=== PATIENT | female | born 1940 | race Caucasian/White ===

== ENCOUNTER 2017-05-09 17:38 | Inpatient (IN) | payer OTHER ==
[~2017-05-09] VITALS: Ht 154.9 cm; Wt 103.4 kg
[~2017-05-09 17:38] MED LIST: CHOL100041 PO; GLIP10TA9 PO; INSDGI SC; METO25TA56 PO; ONDA4TAB7 SL; PANT1TAB48 PO; POTA1080 PO; ROSU5TAB PO; TRAM-10 PO; WARF5TAB90 PO
[2017-05-09] MEDS ORDERED: SODIUM CHLORIDE 0.9% 1000ML 1,000 ML IV STA ×2 (17:42→18:24)
[2017-05-09] MEDS ORDERED: NovoLIN-R INSULIN PER UNIT CHARGE ONE (18:09)
[2017-05-09] MEDS ORDERED: SODIUM BICARB 8.4% INJ 50 MEQ/50 ML SYR IV ONE (18:10)
[2017-05-09] MEDS ORDERED: CALCIUM GLUCONATE 10% 10 ML VIAL IV ONE (18:11)
[2017-05-09 18:16] LABS: ISTAT CREATININE 3.6 mg/dl (0.6-1.3); ISTAT HEMOGLOBIN 15.3 g/dl (12.0-16.0); ISTAT IONIZED CALCIUM 0.86 mmol/l (1.12-1.32)
[2017-05-09] MEDS ORDERED: CEFEPIME IV 1,000 MG in DEXTROSE 5% 100ML 100 ML IV STA (18:20)
[2017-05-09] MEDS ORDERED: VANCOMYCIN INJ 2,000 MG in SODIUM CHLORIDE 0.9% 250ML 250 ML IV STA (18:20)
[2017-05-09] MEDS ORDERED: SODIUM BICARB 8.4% INJ 50 MEQ/50 ML SYR IV STA (18:20)
[2017-05-09] MEDS ORDERED: CALCIUM GLUCONATE 10% 10 ML VIAL IV STA (18:22)
[2017-05-09] MEDS ORDERED: NovoLIN-R INSULIN PER UNIT CHARGE IV STA ×2 (18:22→19:23)
[2017-05-09] MEDS ORDERED: SODIUM CHLORIDE 0.9% 1000ML 2,000 ML IV STA (18:24)
[2017-05-09 18:37] LABS: HEMATOCRIT 40.3 % (37-47); MEAN CELL VOLUME 90.4 fL (80-100); MEAN CORPUSCULAR HEMOGLOBIN 31.6 pg (25-34); MEAN PLATELET VOLUME 10.5 fL (7.4-10.4); PLATELET COUNT 339 K/uL (130-400); RED BLOOD COUNT 4.46 M/uL (4.2-5.4); WHITE BLOOD COUNT 25.36 K/uL (4.8-10.8)
[2017-05-09] MEDS ORDERED: INSULIN IV INFUSION PROTOCOL STA (18:42)
[2017-05-09] MEDS ORDERED: INSULIN PROTOCOL GOAL RANGE ONE ×2 (18:45→21:30)
[2017-05-09] MEDS ORDERED: SEVERE STRESS LEVEL ONE (18:45)
[2017-05-09 18:46] LABS: INR 3.2 (0.9-1.1); PROTHROMBIN TIME (PATIENT) 36.2 SECONDS (9.0-12.0)
[2017-05-09 18:50] LABS: ALLEN TEST POS (POS); ARTERIAL BLD GAS O2 SATURATION 97.4 % (90-95); ARTERIAL BLOOD GAS BASE EXCESS -6.3 mEq/L (-9-1.8); ARTERIAL BLOOD GAS HCO3 17 mmol/L (19-24); ARTERIAL BLOOD GAS PO2 102 mm/Hg (80-95); ARTERIAL BLOOD GAS pH 7.41 (7.35-7.45); O2 ADMINISTRATION 4 L
[2017-05-09 18:54] LABS: MANUAL MICROSCOPIC REQUIRED? YES; URINE APPEARANCE TURBID (CLEAR); URINE COLOR BROWN; URINE NITRITE NEG (NEG); URINE PH 5.5 (4.5-7.5); URINE SPECIFIC GRAVITY 1.025 (1.000-1.030); UROBILINOGEN NEG (NEG)
[2017-05-09] MEDS ORDERED: VANCOMYCIN INJ 2,000 MG in SODIUM CHLORIDE 0.9% 500ML 500 ML IV STA (18:55)
[2017-05-09] MEDS ORDERED: INSULIN ASPART 100 UNITS/ML 3 ML PEN SC SCH (19:00)
[2017-05-09 19:07] LABS: REVIEW REQ? NO; URINE BILIRUBIN NEG (NEG)
[2017-05-09 19:08] LABS: URINE RBC >30 /hpf (0-4); URINE WBC >30 /hpf (0-5)
[2017-05-09 19:09] LABS: URINE BACTERIA 4+ (NEG); URINE GRANULAR CAST >30 /lpf (0); ZZUR CULT IF INDIC CLEAN CATCH YES
[2017-05-09 19:10] LABS: BASO ABS # 0.01 K/uL (0-0.2); COMPLETE YES; IG% 0.5 %; LYMPH % 8.1 %; LYMPH ABS # 2.06 K/uL (1.2-3.4); MONO % 5.6 %; NEUT % 85.8 %
--- NOTE | 2017-05-09 19:12 | DIAGNOSTIC IMAGING REPORT ---
SINGLE VIEW CHEST CLINICAL HISTORY: Fever. Fall. FINDINGS: An AP, portable, upright chest radiograph is compared to study dated 01/07/2013 and correlated with chest CT dated 10/18/2012. The examination is degraded by portable technique and patient rotation. A right internal jugular central venous catheter is in place. The tip projects over the SVC. The heart is enlarged and there is atherosclerotic calcification of the thoracic aorta. The pulmonary vascular structures noncongested. Bibasilar atelectasis is observed. There is no airspace consolidation typical for pneumonia or large pleural effusion. No pneumothorax is seen. The skeletal structures are osteopenic. The bony thorax is grossly intact. Calcific tendinopathy is noted in the left shoulder. IMPRESSION: Cardiomegaly and bibasilar atelectasis. No acute cardiopulmonary abnormality is seen. Electronically signed by: Russell Salmeron M.D. 05/09/2017 7:10 PM Dictated Date/Time: 05/09/2017 7:09 PM
[2017-05-09] MEDS ORDERED: INSULIN REGULAR 250 UNITS in SODIUM CHLORIDE 0.9% 250ML 250 ML IV SCH (19:15)
[2017-05-09] MEDS ORDERED: GLUCAGON FOR INJ 1 MG VIAL SQ PRN (19:15)
[2017-05-09] MEDS ORDERED: DEXTROSE 50% 50 ML SYR IV PRN (19:15)
[2017-05-09] MEDS ORDERED: GLUCOSE 10 TABS/TUBE PO PRN (19:15)
[2017-05-09] MEDS ORDERED: GLUCOSE 40% GEL 15 GM TUBE PO PRN (19:15)
[2017-05-09 19:20] LABS: GLUCOSE 664 mg/dl (70-99)
[2017-05-09 19:23] LABS: BLOOD UREA NITROGEN 79 mg/dl (7-18)
[2017-05-09 19:24] LABS: ALT/SGPT 160 U/L (12-78); AST/SGOT 317 U/L (15-37); BUN/CREATININE RATIO 20.9 (10-20); CALCIUM 7.9 mg/dl (8.5-10.1); CARBON DIOXIDE 18 mmol/L (21-32); CHLORIDE 96 mmol/L (98-107); POTASSIUM 4.9 mmol/L (3.5-5.1); SODIUM 131 mmol/L (136-145)
[2017-05-09 19:25] LABS: ALKALINE PHOSPHATASE 128 U/L (45-117); MAGNESIUM 2.1 mg/dl (1.8-2.4)
[2017-05-09 19:36] LABS: BETA-HYDROXYBUTYRATE 25.91 mg/dL (0.2-2.81)
[2017-05-09] MEDS ORDERED: INSDGIPEN SC (19:37)
[2017-05-09] MEDS ORDERED: GLC/500 PO (19:37)
[2017-05-09] MEDS ORDERED: LISI-789 PO (19:37)
[2017-05-09] MEDS ORDERED: ALLO300T2 PO (19:37)
[2017-05-09] MEDS ORDERED: CALC600T24 PO (19:37)
--- NOTE | 2017-05-09 19:44 | DIAGNOSTIC IMAGING REPORT ---
CT SCAN OF THE BRAIN WITHOUT IV CONTRAST CLINICAL HISTORY: Fall. COMPARISON STUDY: CT of the brain dated 01/12/2013. TECHNIQUE: Unenhanced axial CT scan of the brain is performed from the vertex to the skull base. The patient was scanned twice due to motion artifact. CT DOSE: 2269.85 mGy.cm FINDINGS: Brain parenchyma: There are age-related involutional changes noting mild patchy subcortical and periventricular microangiopathic change. There is no hemorrhage, mass effect, or evidence of acute territorial ischemia by CT criteria. There is a chronic appearing lacunar infarct identified in the left caudate head. Ritter-white matter is preserved. No extra-axial fluid collection is seen. Ventricles, sulci, cisterns: Prominent secondary to involutional change. Intracranial vasculature: There is atherosclerotic calcification of the cavernous carotid arteries. Calvarium: The skeletal structures are osteopenic. There is no depressed calvarial fracture. Sinuses and mastoids: The visualized paranasal sinuses are clear. The mastoid air cells are well pneumatized. Orbits: The bony orbits are grossly intact. There are bilateral ocular lens implants. IMPRESSION: There is no hemorrhage, mass effect, or evidence of acute territorial ischemia by CT criteria. Electronically signed by: Russell Salmeron M.D. 05/09/2017 7:43 PM Dictated Date/Time: 05/09/2017 7:40 PM
--- NOTE | 2017-05-09 19:52 | DIAGNOSTIC IMAGING REPORT ---
CT SCAN OF THE CERVICAL SPINE CLINICAL HISTORY: Fall. COMPARISON STUDY: No priors. TECHNIQUE: CT scan of the cervical spine is performed from the skull base to the upper thoracic spine. Images are reviewed in the axial, sagittal, and coronal planes. IV contrast was not administered for this examination. A dose lowering technique was utilized adhering to the principles of ALARA. CT DOSE: Reported separately and the concurrently performed CT scan of the brain. FINDINGS: Skeletal structures: The skeletal structures are osteopenic. There is no evidence of fracture or subluxation involving the cervical spine. Vertebral body height is maintained. There is minimal anterolisthesis at C3-C4. Alignment is otherwise preserved. There is straightening of the cervical lordosis with mild reversal centered at C4. Anterior osteophytes are seen throughout. The odontoid process and lateral masses are intact. The atlantoaxial articulation is preserved noting productive degenerative change. The spinous processes appear intact. There is moderate multilevel cervical spondylosis. Uncovertebral and facet arthropathy contribute to multilevel neural foraminal stenosis. Intervertebral discs: Moderate disc space narrowing seen at C4-C5, C5-C6, and C6-C7. Central canal: Posterior disc osteophyte complexes at C4-C5, C5-C6, and C6-C7 likely contribute to acquired compromise of the central canal. Soft tissues: The prevertebral and paraspinous soft tissues are within normal limits. There is atherosclerotic calcification of the carotid bulbs. A right-sided central venous catheter is observed. There are numerous calcified tonsilliths. Calvarium: The visualized calvarium at the skull base appears intact. Brain parenchyma: Partially visualized brain parenchyma the skull base is within normal limits routine involutional change. Sinuses and mastoids: The visualized paranasal sinuses are clear. The mastoid air cells are well pneumatized. Lung apices: Clear as visualized. IMPRESSION: 1. There is no evidence of fracture or subluxation involving the cervical spine. 2. Osteopenia and spondylotic change as above. Electronically signed by: Russell Salmeron M.D. 05/09/2017 7:51 PM Dictated Date/Time: 05/09/2017 7:40 PM
[2017-05-09 20:00] LABS: CKMB/CK RATIO 0.4 (0-3.0)
[2017-05-09] MEDS ORDERED: [UNRECOGNIZED DRUG - OTHER] IV SCH (20:00)
[2017-05-09 20:20] LABS: BUN/CREATININE RATIO 22.1 (10-20); CALCIUM 7.4 mg/dl (8.5-10.1); CREATININE 3.3 mg/dl (0.60-1.20)
[2017-05-09 20:36] LABS: BETA-HYDROXYBUTYRATE 9.48 mg/dL (0.2-2.81)
--- NOTE | 2017-05-09 21:01 | EMERGENCY ROOM VISIT NOTE ---
History Report prepared by Gloibe: Christina Odonnell Under the Supervision of: Dr. Samuel Banegas D.O. First contact with patient: 17:42 Stated Complaint: FALL History of Present Illness The patient is a 77 year old female who presents to the Emergency Room by EMS with complaints of falling out of the shower 5 days ago. By EMS staff, the patient was found on the floor outside of her shower just prior to arrival by her grandson. The patient notes that she was getting out of the shower when she fell and hit her head. She notes that she slipped because it was wet. She had she was unable to get up. She is awake alert and oriented to person place and time. She states that she is a DO NOT RESUSCITATE/DO NOT INTUBATE. Per nursing note, the patient has hypertension, type 2 diabetes, hx of CVA, and dyslipidemia. Per daughter, the patient was recently in kidney failure. Source of History: patient History Limited By: other (patient's critical condition) Onset: 5 days ago Review of Systems ROS is limited due to the patient's critical condition. Past Medical & Surgical Medical Problems: (1) Acute renal failure syndrome (2) ARF (acute renal failure) (3) Calculus in urethra (4) Utknzft-Rtcqi-Tzkqp disease (5) Chronic kidney disease stage 3 (6) Diabetes mellitus type 2 (7) Essential hypertension (8) History of appendectomy (9) History of cholecystectomy (10) Hyperglycemic crisis in diabetes mellitus (11) Hysterectomy Family History no pertinent family history stated Social History Alcohol Use: none Drug Use: none Marital Status: Housing Status: lives with family Occupation Status: unemployed Current/Historical Medications Scheduled Allopurinol (Zyloprim), 300 MG PO DAILY Calcium W/ Vitamin D (Calcium/Vitamin D), 1 TAB PO DAILY Insulin Glargine (Lantus Solostar), 45 UNITS SC QAM Lisinopril (Zestril), 2.5 MG PO DAILY Metformin Hcl (Glucophage), 500 MG PO BID Metoprolol Tartrate (Lopressor) (Lopressor), 12.5 MG PO BID Pantoprazole (Protonix), 40 MG PO DAILY Warfarin Sodium (Coumadin), 5 MG PO DAILY Allergies Coded Allergies: Penicillins (Verified Allergy, Unknown, ., 05/09/17) NSAIDs (Verified Adverse Reaction, Unknown, KIDNEY ISSUES, 05/09/17) Physical Exam Vital Signs Date Time Temp Pulse Resp B/P (MAP) Pulse Ox O2 Delivery O2 Flow Rate FiO2 05/09/17 20:21 125 05/09/17 20:15 135/79 05/09/17 20:06 97 81 05/09/17 20:01 140/75 05/09/17 19:53 121 90 05/09/17 19:46 137/113 05/09/17 19:41 159/77 05/09/17 19:23 123 97 05/09/17 19:15 154/90 05/09/17 19:08 114 90 05/09/17 19:00 126/86 05/09/17 18:53 107 94 05/09/17 18:51 107 24 129/90 97 4.0 05/09/17 18:50 129/90 05/09/17 18:38 119 05/09/17 18:23 110 127/69 97 05/09/17 18:08 121 95 05/09/17 17:53 115 05/09/17 17:50 123 05/09/17 17:44 136/82 05/09/17 17:44 120 24 136/82 96 Nasal Cannula 4.0 Physical Exam GENERAL: Ill-appearing and in significant distress EYE EXAM: normal conjunctiva, PERRL and EOM's grossly intact OROPHARYNX: no exudate, no erythema, lips, buccal mucosa, and tongue normal and mucous membranes are dry NECK: supple, no nuchal rigidity, no adenopathy, non-tender CHEST: Necrotic skin breakdown under the right breast LUNGS: Coarse at bilateral bases. Normal chest wall mechanics HEART: tachycardic, positive S1, positive S2 ABDOMEN: abdomen soft, minimal, normo-active bowel sounds, no masses, no rebound or guarding. SKIN: Bruising on right hand, abrasions and ulcers to right lower extremity, anterior and posterior aspect, ulcer from mid thigh down to mid bonds, necrotic ulcer on right knee UPPER EXTREMITIES: Upper pain with movement of all extremities LOWER EXTREMITIES: No pitting edema. NEURO EXAM: Alert and oriented to person, place, year, president. Significant pain with movement of any extremity. Medical Decision & Procedures ER Provider Diagnostic Interpretation: Radiology results as stated below per my review and the radiologist's interpretation: SINGLE VIEW CHEST FINDINGS: An AP, portable, upright chest radiograph is compared to study dated 01/07/2013 and correlated with chest CT dated 10/18/2012. The examination is degraded by portable technique and patient rotation. A right internal jugular central venous catheter is in place. The tip projects over the SVC. The heart is enlarged and there is atherosclerotic calcification of the thoracic aorta. The pulmonary vascular structures noncongested. Bibasilar atelectasis is observed. There is no airspace consolidation typical for pneumonia or large pleural effusion. No pneumothorax is seen. The skeletal structures are osteopenic. The bony thorax is grossly intact. Calcific tendinopathy is noted in the left shoulder. IMPRESSION: Cardiomegaly and bibasilar atelectasis. No acute cardiopulmonary abnormality is seen. Electronically signed by: Russell Salmeron M.D. CT SCAN OF THE BRAIN WITHOUT IV CONTRAST FINDINGS: Brain parenchyma: There are age-related involutional changes noting mild patchy subcortical and periventricular microangiopathic change. There is no hemorrhage, mass effect, or evidence of acute territorial ischemia by CT criteria. There is a chronic appearing lacunar infarct identified in the left caudate head. Ritter-white matter is preserved. No extra-axial fluid collection is seen. Ventricles, sulci, cisterns: Prominent secondary to involutional change. Intracranial vasculature: There is atherosclerotic calcification of the cavernous carotid arteries. Calvarium: The skeletal structures are osteopenic. There is no depressed calvarial fracture. Sinuses and mastoids: The visualized paranasal sinuses are clear. The mastoid air cells are well pneumatized. Orbits: The bony orbits are grossly intact. There are bilateral ocular lens implants. IMPRESSION: There is no hemorrhage, mass effect, or evidence of acute territorial ischemia by CT criteria. Electronically signed by: Russell Salmeron M.D. CT SCAN OF THE CERVICAL SPINE FINDINGS: Skeletal structures: The skeletal structures are osteopenic. There is no evidence of fracture or subluxation involving the cervical spine. Vertebral body height is maintained. There is minimal anterolisthesis at C3-C4. Alignment is otherwise preserved. There is straightening of the cervical lordosis with mild reversal centered at C4. Anterior osteophytes are seen throughout. The odontoid process and lateral masses are intact. The atlantoaxial articulation is preserved noting productive degenerative change. The spinous processes appear intact. There is moderate multilevel cervical spondylosis. Uncovertebral and facet arthropathy contribute to multilevel neural foraminal stenosis. Intervertebral discs: Moderate disc space narrowing seen at C4-C5, C5-C6, and C6-C7. Central canal: Posterior disc osteophyte complexes at C4-C5, C5-C6, and C6-C7 likely contribute to acquired compromise of the central canal. Soft tissues: The prevertebral and paraspinous soft tissues are within normal limits. There is atherosclerotic calcification of the carotid bulbs. A right-sided central venous catheter is observed. There are numerous calcified tonsilliths. Calvarium: The visualized calvarium at the skull base appears intact. Brain parenchyma: Partially visualized brain parenchyma the skull base is within normal limits routine involutional change. Sinuses and mastoids: The visualized paranasal sinuses are clear. The mastoid air cells are well pneumatized. Lung apices: Clear as visualized. IMPRESSION: 1. There is no evidence of fracture or subluxation involving the cervical spine. 2. Osteopenia and spondylotic change as above. Electronically signed by: Russell Salmeron M.D. Laboratory Results 05/09/17 18:25 Red Blood Count 4.46, Mean Corpuscular Volume 90.4, Mean Corpuscular Hemoglobin 31.6, Mean Corpuscular Hemoglobin Concent 35.0, Mean Platelet Volume 10.5, Neutrophils (%) (Auto) 85.8, Lymphocytes (%) (Auto) 8.1, Monocytes (%) (Auto) 5.6, Eosinophils (%) (Auto) 0.0, Basophils (%) (Auto) 0.0, Neutrophils # (Auto) 21.75, Lymphocytes # (Auto) 2.06, Monocytes # (Auto) 1.42, Eosinophils # (Auto) 0.00, Basophils # (Auto) 0.01 Test 05/09/17 18:03 05/09/17 18:25 05/09/17 18:40 05/09/17 18:41 Bedside Hemoglobin 15.3 g/dl (12.0-16.0) Bedside Hematocrit 45 % (37-47) Bedside Sodium 127 mEq/L (135-144) Bedside Potassium 8.4 mEq/L (3.3-5.0) Bedside Chloride 101 mEq/L (101-112) Bedside Total CO2 18 mEq/l (24-31) Bedside Blood Urea Nitrogen 92 mg/dl (7-18) Bedside Creatinine 3.6 mg/dl (0.6-1.3) Bedside Glucose (other) 680 mg/dl (70-99) Bedside Ionized Calcium (Fei) 0.86 mmol/l (1.12-1.32) White Blood Count 25.36 K/uL (4.8-10.8) Red Blood Count 4.46 M/uL (4.2-5.4) Hemoglobin 14.1 g/dL (12.0-16.0) Hematocrit 40.3 % (37-47) Mean Corpuscular Volume 90.4 fL (80-100) Mean Corpuscular Hemoglobin 31.6 pg (25-34) Mean Corpuscular Hemoglobin Concent 35.0 g/dl (32-36) Platelet Count 339 K/uL (130-400) Mean Platelet Volume 10.5 fL (7.4-10.4) Neutrophils (%) (Auto) 85.8 % Lymphocytes (%) (Auto) 8.1 % Monocytes (%) (Auto) 5.6 % Eosinophils (%) (Auto) 0.0 % Basophils (%) (Auto) 0.0 % Neutrophils # (Auto) 21.75 K/uL (1.4-6.5) Lymphocytes # (Auto) 2.06 K/uL (1.2-3.4) Monocytes # (Auto) 1.42 K/uL (0.11-0.59) Eosinophils # (Auto) 0.00 K/uL (0-0.5) Basophils # (Auto) 0.01 K/uL (0-0.2) RDW Standard Deviation 43.9 fL (36.4-46.3) RDW Coefficient of Variation 13.5 % (11.5-14.5) Immature Granulocyte % (Auto) 0.5 % Immature Granulocyte # (Auto) 0.12 K/uL (0.00-0.02) Prothrombin Time 36.2 SECONDS (9.0-12.0) Prothromb Time International Ratio 3.2 (0.9-1.1) Urine Color BROWN Urine Appearance TURBID (CLEAR) Urine pH 5.5 (4.5-7.5) Urine Specific Mcgee 1.025 (1.000-1.030) Urine Protein 2+ (NEG) Urine Glucose (UA) 3+ (NEG) Urine Ketones TRACE (NEG) Urine Occult Blood 3+ (NEG) Urine Nitrite NEG (NEG) Urine Bilirubin NEG (NEG) Urine Urobilinogen NEG (NEG) Urine Leukocyte Esterase NEG (NEG) Urine RBC >30 /hpf (0-4) Urine WBC >30 /hpf (0-5) Urine Epithelial Cells >30 /lpf (0-5) Urine Bacteria 4+ (NEG) Urine Granular Casts >30 /lpf (0) Total Bilirubin 0.6 mg/dl (0.2-1) Direct Bilirubin 0.2 mg/dl (0-0.2) Aspartate Amino Transf (AST/SGOT) 317 U/L (15-37) Alanine Aminotransferase (ALT/SGPT) 160 U/L (12-78) Alkaline Phosphatase 128 U/L (45-117) Creatine Kinase MB 77.7 ng/ml (0.5-3.6) Creatine Kinase MB Ratio 0.4 (0-3.0) Troponin I 0.029 ng/ml (0-0.045) Total Protein 6.9 gm/dl (6.4-8.2) Albumin 2.7 gm/dl (3.4-5.0) Arterial Blood pH 7.41 (7.35-7.45) Arterial Blood Partial Pressure CO2 27 mmHg (35-46) Arterial Blood Partial Pressure O2 102 mm/Hg (80-95) Arterial Blood HCO3 17 mmol/L (19-24) Arterial Blood Oxygen Saturation 97.4 % (90-95) Arterial Blood Base Excess -6.3 mEq/L (-9-1.8) Arterial Blood Gas Delivery 4 L Ankit Test POS (POS) Bedside Lactic Acid Venous 3.02 mmol/L (0.90-1.70) Test 05/09/17 19:43 Est Creatinine Clear Calc Drug Dose 16.0 ml/min Beta-Hydroxybutyric Acid 9.48 mg/dL (0.2-2.81) Thyroid Stimulating Hormone (TSH) 0.781 uIu/ml (0.300-4.500) Laboratory results per my review. Medications Administered Medications (Trade) Dose Ordered Sig/Solitario Route Start Time Stop Time Status Last Admin Dose Admin Cefepime HCl 1000 mg/Dextrose 111.3 ml @ 200 mls/hr NOW STAT IV 05/09/17 18:20 05/09/17 18:53 DC 05/09/17 19:17 200 MLS/HR Sodium Bicarbonate (Sodium Bicarbonate 8.4% Inj) 100 ml NOW STAT IV 05/09/17 18:20 05/09/17 18:22 DC 05/09/17 18:40 100 ML Calcium Gluconate (Calcium Gluconate 10%) 2,000 mg NOW STAT IV 05/09/17 18:22 05/09/17 18:23 DC 05/09/17 18:40 2,000 MG Insulin Human Regular (novoLIN-R U-100 PER UNIT) 10 units NOW STAT IV 05/09/17 18:22 05/09/17 18:23 DC 05/09/17 18:45 10 UNITS Sodium Chloride 2,000 ml @ 999 mls/hr Q2H1M STAT IV 05/09/17 18:24 05/09/17 20:24 DC 05/09/17 18:33 999 MLS/HR Sodium Chloride 1,000 ml @ 999 mls/hr Q1H1M STAT IV 05/09/17 18:24 05/09/17 19:24 DC 05/09/17 19:33 999 MLS/HR Insulin Human Regular (Insulin IV Infusion Protocol) 1 ea NOW STAT N/A 05/09/17 18:42 05/09/17 18:44 DC 05/09/17 19:55 1 EA Miscellaneous (Insulin Protocol Goal Range (Other)) 1 ea ONE ONCE N/A 05/09/17 18:45 05/09/17 18:46 DC 05/09/17 19:55 1 EA Miscellaneous (Insulin Protocol Severe Stress) 1 ea ONE ONCE N/A 05/09/17 18:45 05/09/17 18:46 DC 05/09/17 18:45 1 EA Vancomycin HCl 2000 mg/Sodium Chloride 540 ml @ 200 mls/hr NOW STAT IV 05/09/17 18:55 05/09/17 21:36 DC 05/09/17 19:13 200 MLS/HR Insulin Human Regular 250 units/ Sodium Chloride 252.5 ml @ 0 mls/hr TODAY@1915 IV 05/09/17 19:15 05/10/17 00:01 DC 05/09/17 19:30 3.6 MLS/HR Insulin Human Regular (novoLIN R IV BOLUS) 3.5 unit TODAY@2000 IV 05/09/17 20:00 05/09/17 20:01 DC 05/09/17 19:54 3.5 UNIT Procedure PROCEDURE NOTE - Central Line Insertion - Ultrasound Guided PRIOR TO PROCEDURE: Consent: Discussion was held with the patient concerning central line. The risks and benefits were explained with possible risks to include bleeding, pain , pneumothorax, hemothorax, pulmonary contusion, pulmonary laceration, and infection. The patient freely consented. The patient was evaluated prior to the procedure. The patient was identified and the procedure verified as central line insertion. A Time Out was held and the following information confirmed. Verify Correct Patient: Yes Verify Correct Site: Yes Availability of Necessary Equipment: Yes PROCEDURE NOTE: Procedure: Central Line Inserting Clinician: Samuel Banegas DO. Guide-wire was removed, examined and is intact Complication/Corrective Action: none Estimated Blood Loss: 5 mls US guided line placement: Yes I have reviewed and educated the patient and or family regarding the benefits and risks of central line insertion, and I have reviewed the potential complications including infection - yes CENTRAL LINE BUNDLE: Skin Prep: Chlorhexidine/alcohol Barriers Used: Mask: yes Sterile gown: yes Large sterile drape: yes Cap: yes Sterile gloves: yes Insertion Status: new site Indications - include all that apply: {line indications:[id number]} Placement Conditions: Emergent Site: right IJ Side: R Number of lumen(s): 3 Length of catheter inserted into patient: 15 centimeters Anesthesia: local Number of Needle Passes: 1 Radiological confirmation: Yes I performed the procedure. ECG Indication: other (fall ) Rate (beats per minute): 108 Rhythm: sinus tachycardia Findings: PVC, left axis deviation, other (normal intervals) ED Course ED COURSE: Vital signs were reviewed and showed tachycardic and hypoxic The patients medical record was reviewed The above diagnostic studies were performed and reviewed. ED treatments and interventions as stated above. 174: The patient was evaluated in room A1. A complete history and physical examination was performed. 1742: Sodium Chloride 1000 ml @ 999 mls/hr IV. 180: Insulin Human Regular 10 units .ROUTE 1810: Bedside discussion with patient and family and the patient wishes to be DNR/DNI. Sodium Bicarbonate 50 ml IV 1811: Calcium Gluconate 1000mg IV 1820: Sodium Bicarbonate 1000 ml IV, Cefepime HCl 1000 mg/Dextrose 111.3 ml @ 200 mls/hr IV. 822: Calcium Gluconate 2000 mg IV 1824: I reviewed the patient's case with Dr. Mcfadden-[facility] [place]. Sodium Chloride 1000 ml @ 999 mls/hr IV, Sodium Chloride 2000 ml @ 999 mls/hr IV. 1842: Insulin Human Regular 1 ea N/A. 1845: Insulin drip and bolus 1850: I reviewed the patient's case with Dr. Grimm. He will evaluate the patient for further management. 185: Vancomycin HCl 2000 mg/Sodium Chloride 540 ml @200 mls/hr IV. 185: I rechecked on patient she is resting. 190: Insulin Aspart SLIDING SCALE SC. 191: Glucagon 1 mg SQ, Dextrose 50 ml IV, Glucose 1 tab PO, Glucose PO, Insulin Human Regular 250 units/Sodium Chloride 252.5 ml @ 0 mls/hr 192: Insulin Human Regular 5 units IV 2000: Insulin Human Regular 3.5 unit IV 2030: Upon reevaluation, the patient is resting.I discussed my findings with the patient and she understands and agrees with the treatment plan. Based on the patients age, coexisting illnesses, exam and lab findings the decision to treat as an inpatient was made. The patient will be evaluated for further management. Medical Decision Differential diagnosis: Etiologies such as sepsis, UTI, pneumonia, metabolic, electrolyte abnormalities , cardiac sources, intracerebral event, toxicologic, neurologic, as well as others were entertained. Patient is a 77-year-old female who presents the ER following being found down on the floor for 5 days. She extensive skin breakdown and ulcers on the chest and lower extremities. She is very somnolent but awakens to voice and follows commands. She is oriented to person place and time. She notes that she is a DO NOT RESUSCITATE/T9. She is brought in by EMS. Unable to obtain access. Right IJ was placed emergently. Labs remarkable for a leukocytosis of 25,000 and a BSG greater than 650. Creatinine was elevated at 4. Initial potassium was 8.4. She was in a sinus tach with a heart rate of 130s. Following the placement of central line she is given 2 episodes Gluconate, 2 Amps of Bicarbonate and 10 Units IV Insulin. He is placed on insulin drip and given another bolus. She is given 3 L normal saline. She has a muddy brown urine that was making minimal urine while in the ER. [facility] was consulted. She was covered with broad-spectrum antibiotics. ABG was obtained following both bicarbonates. Case was discussed with internal medicine. Multiple discussions with family at bedside. Eventually patient agree to dialysis. I stats were drawn initially by a stick. BMP which was sent to lab was drawn later following the initiation of several medications. Patient family were updated at bedside. She was to internal medicine much more alert. Medication Reconcilliation Current Medication List: was personally reviewed by me Blood Pressure Screening Patient's blood pressure: Elevated blood pressure Blood pressure disposition: Referred to PCP Consults Time Called: 1819 Consulting Physician: Dr. Mcfadden Returned Call: [phone] We discussed the patients case Additional Consults: Time Called: 1847 Consulted Physician: Dr. Grimm Returned Call: [phone] Impression Primary Impression: Rhabdomyolysis Additional Impressions: Necrosis Acute renal failure syndrome Critical Care I have personally spent 75 minutes of critical care time in the direct management of this patient. This includes bedside care, interpretation of diagnostic studies, and testing, discussion with consultants, patient, and family members, and other required patient management activities. This 75 minutes is in excess of all separately billable procedures. Scribe Attestation The scribe's documentation has been prepared under my direction and personally reviewed by me in its entirety. I confirm that the note above accurately reflects all work, treatment, procedures, and medical decision making performed by me. Departure Information Dispostion Being Evaluated By Hospitalist Referrals No Doctor, Assigned (PCP) Problem Qualifiers Primary Impression: Rhabdomyolysis Rhabdomyolysis type: traumatic Encounter type: initial encounter Qualified Codes: T79.6XXA - Traumatic ischemia of muscle, initial encounter
[2017-05-09] MEDS ORDERED: SODIUM CHLORIDE 0.9% 1000ML 1,000 ML IV SCH (21:15)
[2017-05-09] MEDS ORDERED: DOXYCYCLINE IV 100 MG in DEXTROSE 5% 100ML 100 ML IV ONE (21:21)
[2017-05-09] MEDS ORDERED: NITROGLYCERIN 0.4 MG SL PER TAB CHARGE SL PRN (21:30)
[2017-05-09] MEDS ORDERED: ONDANSETRON INJ 2 MG/ML 2 ML VIAL IV PRN (21:30)
[2017-05-09] MEDS ORDERED: D5W AND NSS 1,000 ML IV PRN (21:30)
[2017-05-09 21:33] VITALS: PULSE 125; O2SAT 96
[2017-05-09] MEDS ORDERED: INSULIN IV INFUSION PROTOCOL SCH (21:40)
--- NOTE | 2017-05-09 22:42 | Nephrology Consultation ---
Nephrology Consultation Date of Consultation: May 09, 2017. Attending Physician: Dr Diallo Requesting Physician: Dr Mcfadden Reason for Consultation: Hyperkalemia, elevated myoglobin History of Present Illness 77 year old female whom I'm asked to evaluate for possible need for dialysis. She presented to ER this evening after a fall at home on 05/05 and remained on floor in bathroom until this evening. After arrival to ER, noted to have K 8.4 and glucose 608 on istat and creatinine 3.6; [place] 25K[place] [address]. PMH as below and most remarkable for ckd 3 baseline creatinine 1.0 and poorly controlled DM w/ most recent HbA1c 12%; also CMT, urolithiasis, past stroke. Note no definite cardiac disease. A R IJ was placed in ER for hydration. Pt stated to ER team that she wishes to be DNR/DNI but would consider brief course of HD should need arise. Past Medical/Surgical History -CKD3A, baseline creatinine 1.0-1.1; albuminuria about 150 mg/dL; follows w/ Dr. 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 Stinson; hx of R ureteral stent 2012 -s/p HOLDEN for fibroids -s/p appendectomy, incisional hernia repair, cholecystectomy -s/p cataract surgeries Family History Charcot Sepideh Tooth in daughter, father, son Social History Smoking Status: Never Smoker Alcohol Use: none Drug Use: none Marital Status: Housing Status: lives with family Occupation Status: unemployed Allergies Coded Allergies: Penicillins (Verified Allergy, Unknown, ., 05/09/17) NSAIDs (Verified Adverse Reaction, Unknown, KIDNEY ISSUES, 05/09/17) Medications Current Inpatient Medications Medications (Trade) Dose Ordered Sig/Solitario Route Start Time Stop Time Status Last Admin Dose Admin Insulin Aspart (novoLOG ASPART) SLIDING SCALE PCHS SC 05/09/17 19:00 06/08/17 18:59 Vancomycin HCl 2000 mg/Sodium Chloride 540 ml @ 200 mls/hr NOW STAT IV 05/09/17 18:55 05/09/17 21:36 05/09/17 19:13 200 MLS/HR Insulin Human Regular 250 units/ Sodium Chloride 252.5 ml @ 0 mls/hr TODAY@1915 IV 05/09/17 19:15 05/10/17 11:29 05/09/17 19:30 3.6 MLS/HR Glucose (Glucose 40% Gel) UD PRN PO 05/09/17 19:15 06/08/17 19:14 Glucose (Glucose Chew Tab) 1 tabs UD PRN PO 05/09/17 19:15 06/08/17 19:14 Dextrose (Dextrose 50% 50ML Syringe) 50 ml UD PRN IV 05/09/17 19:15 06/08/17 19:14 Glucagon (Glucagon Inj) 1 mg UD PRN SQ 05/09/17 19:15 06/08/17 19:14 Sodium Chloride 1,000 ml @ 150 mls/hr [id number] IV 05/09/17 21:15 06/08/17 21:14 Home Meds and Scripts Medications Dose Route/Sig Max Daily Dose Days Date Category Lantus Solostar (Insulin Glargine) 100 Unit/Ml Inj 45 Units SC QAM 05/09/17 Reported Calcium/Vitamin D (Calcium W/ Vitamin D) 1 Tab Tab 1 Tab PO DAILY 05/09/17 Reported Zestril (Lisinopril) 2.5 Mg Tab 2.5 Mg PO DAILY 05/09/17 Reported Zyloprim (Allopurinol) 300 Mg Tab 300 Mg PO DAILY 05/09/17 Reported Glucophage (Metformin Hcl) 500 Mg Tab 500 Mg PO BID 05/09/17 Reported Coumadin (Warfarin Sodium) 5 Mg Tab 5 Mg PO DAILY 07/25/13 Reported Protonix (Pantoprazole) 40 Mg Tab 40 Mg PO DAILY 07/25/13 Reported Lopressor (Metoprolol Tartrate) 25 Mg Tab 12.5 Mg PO BID 12/22/12 Reported Review of Systems limited by clinical condition / lethargy >> she has diffuse pain reasonably controlled but worse when staff lifts L leg; + thirst; denies dypsnea Physical Exam Date Time Temp Pulse Resp B/P (MAP) Pulse Ox O2 Delivery O2 Flow Rate FiO2 05/09/17 20:51 116 98 05/09/17 20:36 108 99 05/09/17 20:34 35.6 05/09/17 20:21 125 05/09/17 20:15 135/79 05/09/17 20:06 97 81 05/09/17 20:01 140/75 05/09/17 19:53 121 90 05/09/17 19:46 137/113 05/09/17 19:41 159/77 05/09/17 19:23 123 97 05/09/17 19:15 154/90 05/09/17 19:08 114 90 05/09/17 19:00 126/86 05/09/17 18:53 107 94 05/09/17 18:51 107 24 129/90 97 4.0 05/09/17 18:50 129/90 05/09/17 18:38 119 05/09/17 18:23 110 127/69 97 05/09/17 18:08 121 95 05/09/17 17:53 115 05/09/17 17:50 123 05/09/17 17:44 136/82 05/09/17 17:44 120 24 136/82 96 Nasal Cannula 4.0 General Appearance: no apparent distress, + obese, + pertinent finding (lying flat on 4L NC) Eyes: EOMI (but eyes closed mostly in interview) ENT: hearing grossly normal, + pertinent finding (dry MM) Neck: supple Respiratory/Chest: no respiratory distress, no accessory muscle use, + decreased breath sounds Cardiovascular: + tachycardia (in 110s regular) Abdomen: + abnormal bowel sounds (diminished), + pertinent finding (martinez w/ about 100mL yellow brown urine) Extremities: + pertinent finding (L foot red swollen; L leg posteriorly on thigh/bonds/ medial aspects w/ 1-2 bullae, red/abraded; no other edema but L leg) Neurologic/Psych: oriented x 3, + pertinent finding (lethargic but appropriate) Skin: warm/dry, + mottled (slight on R heel), + pertinent finding (large contusion R chest w/ eschar/ulcered area under R breast; posterior L leg as above) Diagnostics Last 24 Hours Test 05/09/17 18:03 05/09/17 18:25 05/09/17 18:40 05/09/17 18:41 Bedside Hemoglobin 15.3 g/dl Bedside Hematocrit 45 % Bedside Sodium 127 mEq/L Bedside Potassium 8.4 mEq/L Bedside Chloride 101 mEq/L Bedside Total CO2 18 mEq/l Anion Gap 18.0 mmol/L 17.0 mmol/L Bedside Blood Urea Nitrogen 92 mg/dl Bedside Creatinine 3.6 mg/dl Bedside Glucose (other) 680 mg/dl Bedside Ionized Calcium (Fei) 0.86 mmol/l White Blood Count 25.36 K/uL Red Blood Count 4.46 M/uL Hemoglobin 14.1 g/dL Hematocrit 40.3 % Mean Corpuscular Volume 90.4 fL Mean Corpuscular Hemoglobin 31.6 pg Mean Corpuscular Hemoglobin Concent 35.0 g/dl Platelet Count 339 K/uL Mean Platelet Volume 10.5 fL Neutrophils (%) (Auto) 85.8 % Lymphocytes (%) (Auto) 8.1 % Monocytes (%) (Auto) 5.6 % Eosinophils (%) (Auto) 0.0 % Basophils (%) (Auto) 0.0 % Neutrophils # (Auto) 21.75 K/uL Lymphocytes # (Auto) 2.06 K/uL Monocytes # (Auto) 1.42 K/uL Eosinophils # (Auto) 0.00 K/uL Basophils # (Auto) 0.01 K/uL RDW Standard Deviation 43.9 fL RDW Coefficient of Variation 13.5 % Immature Granulocyte % (Auto) 0.5 % Immature Granulocyte # (Auto) 0.12 K/uL Prothrombin Time 36.2 SECONDS Prothromb Time International Ratio 3.2 Urine Color BROWN Urine Appearance TURBID Urine pH 5.5 Urine Specific [place] 1.025 Urine Protein 2+ Urine Glucose (UA) 3+ Urine Ketones TRACE Urine Occult Blood 3+ Urine Nitrite NEG Urine Bilirubin NEG Urine Urobilinogen NEG Urine Leukocyte Esterase NEG Urine RBC >30 /hpf Urine WBC >30 /hpf Urine Epithelial Cells >30 /lpf Urine Bacteria 4+ Urine Granular Casts >30 /lpf Sodium Level 131 mmol/L Potassium Level 4.9 mmol/L Chloride Level 96 mmol/L Carbon Dioxide Level 18 mmol/L Blood Urea Nitrogen 79 mg/dl Creatinine 3.80 mg/dl Estimated GFR () 12.7 Estimated GFR (Non- 11.0 BUN/Creatinine Ratio 20.9 Random Glucose 664 mg/dl Calcium Level 7.9 mg/dl Magnesium Level 2.1 mg/dl Total Bilirubin 0.6 mg/dl Direct Bilirubin 0.2 mg/dl Aspartate Amino Transf (AST/SGOT) 317 U/L Alanine Aminotransferase (ALT/SGPT) 160 U/L Alkaline Phosphatase 128 U/L Total Creatine Kinase 39567 U/L Creatine Kinase MB 77.7 ng/ml Creatine Kinase MB Ratio 0.4 Troponin I 0.029 ng/ml Total Protein 6.9 gm/dl Albumin 2.7 gm/dl Beta-Hydroxybutyric Acid 25.91 mg/dL Arterial Blood pH 7.41 Arterial Blood Partial Pressure CO2 27 mmHg Arterial Blood Partial Pressure O2 102 mm/Hg Arterial Blood HCO3 17 mmol/L Arterial Blood Oxygen Saturation 97.4 % Arterial Blood Base Excess -6.3 mEq/L Arterial Blood Gas Delivery 4 L Ankit Test POS Bedside Lactic Acid Venous 3.02 mmol/L Test 05/09/17 18:54 05/09/17 18:55 05/09/17 19:43 05/09/17 20:30 Bedside Glucose > 600 mg/dl 580 mg/dl 493 mg/dl Chloride Level 107 mmol/L Carbon Dioxide Level 21 mmol/L Anion Gap 13.0 mmol/L Blood Urea Nitrogen 73 mg/dl Creatinine 3.30 mg/dl Est Creatinine Clear Calc Drug Dose 16.0 ml/min Estimated GFR () 15.1 Estimated GFR (Non- 13.0 BUN/Creatinine Ratio 22.1 Random Glucose 469 mg/dl Calcium Level 7.4 mg/dl Beta-Hydroxybutyric Acid 9.48 mg/dL Diagnostic Radiology: CXR > cardiomegaly, bibasilar atelectasis Head CT no acute process Neck CT no fracture; +osteopenia EKG: sinus tach, PVC Assessment & Plan 77 y/o F w/ poorly controlled DM on insulin, 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 lactic acid 3.0 at 1800. She is admitted w/ DKA, concern for rhabdomyolysis, and getting therapy for sepsis/cellulitis. She has significant wound under her R breast and R chest contusion as well as LLE blistering/ abrasions/redness. She has very concentrated urine w/ granular casts consistent at the least w/ ATN and possibly w/ UTI as well w/ 4+ bacteria. Blood and urine cultures are pending; cefepime and vancomycin have been started. She was at first on 4LNC and is now on bipap and was hydrated aggressively w/ 3L NS and is now on 150 mL hourly NS. She is on an insulin gtt. Her potassium was also treated medically w/ IV insulin and sodium bicarbonate; repeat level is pending. The indication for dialysis this evening would be rhabdomyolysis > her history and presenting labs could certainly be consistent with this, uncontrolled acidemia (though pH normal on presentation and K likely to improve dramatically as BG controlled), or to manage volume status. Fall w/ wounds/contusions LLE and R chest Acute on chronic renal failure, prerenal until proven otherwise Hyperkalemia in the setting of DKA, elevated CK > K normalized w/ better BG control; pseudohyponatremia has also corrected Sepsis likeliest sources either from LLE / R chest wounds and/or UTI; either of these can cause bacteremia as well Acute respiratory failure w/o hypoxemia on abg >> PE history noted though INR therapeutic on presentation Probable UTI though also w/ hx of stone disease/stent >at risk for obstruction/ pyelonephritis Transaminitis -f/u pending cultures -added phos, mag, ionized calcium to MN labs -NS as aggressively tolerated both for sepsis and for hyperglycemia and to minimize risk for complications of rhabdomyolysis > goal is 100 mL/hr urine output though doubt we will reach that -follow CK and lactic acid trends > next check midnight -low threshold for renal/abdominal and LLE imaging when stabilized -cont to hold metformin, lisinopril -cont strict I/O -no indication for emergent dialysis currently but while unlikely cannot rule out need overnight > consent on chart; pls page [phone] if concern for status change Appreciate consult; will follow with you.
[2017-05-09 22:46] VITALS: BP 126/97; PULSE 121; TEMP 36.5; BMI 39.3
[2017-05-09] MEDS ORDERED: METOPROLOL TARTRATE 25 MG TAB PO ONE (23:43)
[2017-05-09 23:59] VITALS: BP 138/81; PULSE 119; TEMP 36.6; O2SAT 96
[2017-05-10 00:45] LABS: BUN/CREATININE RATIO 22.2 (10-20); CALCIUM 7.3 mg/dl (8.5-10.1); CREATININE 3.4 mg/dl (0.60-1.20); MAGNESIUM 1.6 mg/dl (1.8-2.4); POTASSIUM 3.7 mmol/L (3.5-5.1)
[2017-05-10 00:48] LABS: PHOSPHORUS 5.4 mg/dl (2.5-4.9)
[2017-05-10 01:13] LABS: BETA-HYDROXYBUTYRATE 1.66 mg/dL (0.2-2.81)
[2017-05-10] MEDS ORDERED: MAGNESIUM SULFATE 1GM / D5W 1 GM in PREMIXED IN D5W 100 ML IV STA (01:13)
[2017-05-10] MEDS ORDERED: SODIUM CHLOR 0.45% + 20MEQ KCL 1,000 ML IV SCH ×4 (01:15→06:00)
[2017-05-10] MEDS ORDERED: D5W AND 1/2NSS + 20MEQ KCL 1,000 ML IV PRN (01:15)
[2017-05-10] MEDS ORDERED: LACTATED RINGER'S 1000ML 1,000 ML IV STA (01:35)
[2017-05-10] MEDS ORDERED: NURSING VERBAL MED ORDER ONE ×3 (01:45→06:15)
[2017-05-10] MEDS ORDERED: LACTATED RINGER'S 1000ML 1,000 ML IV ONE (02:00)
[2017-05-10] MEDS ORDERED: CALCIUM GLUCONATE 10% 1,000 MG in SODIUM CHLORIDE 0.9% 50ML 50 ML IV STA (02:01)
[2017-05-10] MEDS: METRONIDAZOLE / NSS 500 MG in PREMIXED NSS 100 ML IV SCH ×3 (02:40→18:07)
[2017-05-10 04:00] VITALS: BP 122/71; PULSE 109; TEMP 36.8; O2SAT 97
--- NOTE | 2017-05-10 04:36 | HISTORY & PHYSICAL EXAMINATION ---
DATE OF ADMISSION: 05/09/2017 PRIMARY CARE DOCTOR: Dr. Celis. CHIEF COMPLAINT: Fall. HISTORY OF PRESENT ILLNESS: History obtained from patient, family, and records. Limited history of the patient secondary to lethargic state. Medical history significant for hypertension, hyperlipidemia, ambulatory dysfunction, Kdpgegv-Wnwcz-Iiwri disease, obesity, hx CVA, pulmonary embolism on oral anticoagulation, DM2, insulin requiring. Recent confinement last July 2013 for acute gout attack. Patient resides with a grandson at home. Last Wednesday, patient's grandson had left patient at home alone for an event. Patient had a fall in the bathroom, sliding in the shower. Sustained bruising on the left leg and under her breast. Chest pain from traumatic right chest wound. Px denies shortness of breath or syncope. Patient could not get up. Unable to access water, food, and the phone. Grandson found patient this afternoon, two days. Dry cough symptoms. Denies aspiration. At the Emergency Room, blood sugars noted to be blood sugars noted to be in the 600, CPK noted to be 19,000. IV insulin, fluid boluses given; Vancomycin, Cefepime administered for possible sepsis. MEDICAL HISTORY: As above. Home Blood sugars 180s-300s as per recent outpatient visit with the PCP. MTM clinical referral made. SURGERIES: IVC filter, appendectomy, cholecystectomy, hysterectomy, urologic procedures, cataract surgery, breast biopsy, hernia repair HOME MEDICATIONS: Include Zyloprim, Lantus, Zestril, Glucophage, Lopressor, Protonix, and Coumadin. ALLERGIES: PENICILLIN AND NSAIDS. FAMILY HISTORY: Diabetes. 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 REVIEW OF SYSTEMS: Could not be reliably obtained PHYSICAL EXAMINATION: VITAL SIGNS: Blood pressure was noted to be 136/80, pulse rate 120, RR 24, temperature 35.6, and sats 90 on room air. GENERAL: Noted to be anxious. No overt respiratory distress. Looks younger for stated age. Lethargic SKIN: Normal color. HEENT: [place] palpebral conjunctivae. Dry mucosa. NECK: Short neck. LUNGS: Decreased breath sounds. There is note of an ulcerated wound on the right inframammary area HEART: Tachycardic. ABDOMEN: Some distention. NT EXTREMITIES: Some blisters noted on the lower extremity. NEUROLOGIC: Some lethargy, gait and stance not assessed LABORATORY AND IMAGING DATA: Hemoglobin was noted to be 14.1, hematocrit 40, white cell 25.36 and platelets 239. Sodium 131, potassium 4.9, chloride 96, CO2 18, anion gap 17, BUN 79, creatinine 3.8, glucose 64, AST 317, ALT 160, alkaline phosphatase 128. CPK 19,000. Ketones positive. INR 3.2. Trace ketones in the urine, brown, turbid, positive for blood. WBC, epithelial cells noted. CT head, no acute pathology. Chest x-ray, cardiomegaly. Cervical spine CT: No evidence of fx/dislocation of the cervical spine. EKG as per my interpretation rate 120 sinus tachycardia LAD LAFB, PRWP, PVCs ASSESSMENT: 1. Severe sepsis SIRS plus ARF plus lactic acidosis possible sources : UTI Wound, Right breast, left leg 2. acute renal failure secondary to traumatic rhabdomyolysis, marked clinical dehydration, hyperglycemia following traumatic fall, inability to access water for more than 24 hours 3. DKA DM 2, insulin requiring, suboptimal control as of recent outpx HgA1c of 12.8 from 02/03/2017. Compliance issues as per PCP note. 4. Hypertension, slightly elevated 5. pulmonary embolism, INR supra-therapeutic, 6. History ambulatory dysfunction 2 to [id number]-Hbwhf neuropathy, PLAN: PCU CS, Cefepime, Doxycycline and Flagyl for now De-escalate antibiotics pending CS results availability CT chest RE re: traumatic wound, right inframammary area rule out abscess Follow CPK, creatinine in response to IV fluids Hold CASSIDY inhibitor for now until creatinine at baseline. Nephrology consult, ARF, rhabdomyolysis (Dr. Gonzalez has already seen the patient at the ER) IV insulin BG goal 150-200 Glycemic control consult in the morning. Check hemoglobin A1c. PT, OT eval. Social service RE discharge planning DVT prophylaxis, Coumadin INR 2-3. DNR as per patient's daughter/POA, Miss Rosio Sow. She requests updates from providers at [phone]. [facility]
[2017-05-10] MEDS ORDERED: MODERATE STRESS LEVEL ONE (05:00)
[2017-05-10] MEDS ORDERED: DEXTROSE 50% 50 ML SYR IV STA ×2 (05:57→06:10)
[2017-05-10 06:04] LABS: BASO % 0.1 %; BASO ABS # 0.01 K/uL (0-0.2); COMPLETE YES; HEMATOCRIT 35.1 % (37-47); IG% 0.4 %; LYMPH % 16.3 %; LYMPH ABS # 3.17 K/uL (1.2-3.4); MEAN CELL VOLUME 89.8 fL (80-100); MEAN CORPUSCULAR HEMOGLOBIN 30.7 pg (25-34); MEAN CORPUSCULAR HGB CONC 34.2 g/dl (32-36); MEAN PLATELET VOLUME 9.9 fL (7.4-10.4); MONO % 10.1 %; NEUT % 73.1 %; PLATELET COUNT 270 K/uL (130-400); RED BLOOD COUNT 3.91 M/uL (4.2-5.4); WHITE BLOOD COUNT 19.39 K/uL (4.8-10.8)
[2017-05-10] MEDS: D5W AND 1/2NSS + 20MEQ KCL 1,000 ML IV SCH ×3 (06:15→18:07)
[2017-05-10 06:16] LABS: INR 3.5 (0.9-1.1); PROTHROMBIN TIME (PATIENT) 39.4 SECONDS (9.0-12.0)
[2017-05-10 06:35] LABS: BUN/CREATININE RATIO 22.6 (10-20); CALCIUM 7.1 mg/dl (8.5-10.1); CREATININE 3.3 mg/dl (0.60-1.20); MAGNESIUM 1.8 mg/dl (1.8-2.4); POTASSIUM 4.3 mmol/L (3.5-5.1)
[2017-05-10 07:33] LABS: ESTIMATED AVERAGE GLUCOSE 275 mg/dl; HA1C FLAG Normal (Normal)
[2017-05-10] MEDS: DOXYCYCLINE IV 100 MG in DEXTROSE 5% 100ML 100 ML IV SCH ×2 (07:58→20:48)
[2017-05-10] MEDS: METOPROLOL TARTRATE 25 MG TAB PO SCH ×2 (07:59→20:55)
[2017-05-10] MEDS: PANTOprazole SOD 40 MG TAB PO SCH (07:59)
[2017-05-10 08:00] VITALS: BP 137/69; PULSE 114; TEMP 36.8; O2SAT 94
[2017-05-10] MEDS ORDERED: INSULIN ASPART 100 UNITS/ML 3 ML PEN SC SCH ×2 (08:00→11:00)
--- NOTE | 2017-05-10 08:49 | Nephrology Progress Note ---
Nephrology Progress Note Date of Service: May 10, 2017. Subjective no c/o uncontrolled pain; she is unable to move distal LLE and states was able to do this prior to fall to a degree. exhausted, which still limits ros; no N; ate a bit of breakfast Objective Date Time Temp Pulse Resp B/P (MAP) Pulse Ox O2 Delivery O2 Flow Rate FiO2 05/10/17 04:00 Nasal Cannula 4.0 05/10/17 04:00 36.8 109 38 122/71 (88) 97 Nasal Cannula 4.0 05/09/17 23:59 Nasal Cannula 4.0 05/09/17 23:59 36.6 119 23 138/81 (100) 96 Nasal Cannula 4.0 05/09/17 22:46 36.5 121 28 126/97 Nasal Cannula 4.0 05/09/17 21:33 125 22 96 Nasal Cannula 4.0 05/09/17 20:51 116 98 05/09/17 20:36 108 99 05/09/17 20:34 35.6 05/09/17 20:21 125 05/09/17 20:15 135/79 05/09/17 20:06 97 81 05/09/17 20:01 140/75 05/09/17 19:53 121 90 05/09/17 19:46 137/113 05/09/17 19:41 159/77 05/09/17 19:23 123 97 05/09/17 19:15 154/90 05/09/17 19:08 114 90 05/09/17 19:00 126/86 05/09/17 18:53 107 94 05/09/17 18:51 107 24 129/90 97 4.0 05/09/17 18:50 129/90 05/09/17 18:38 119 05/09/17 18:23 110 127/69 97 05/09/17 18:08 121 95 05/09/17 17:53 115 05/09/17 17:50 123 05/09/17 17:44 136/82 05/09/17 17:44 120 24 136/82 96 Nasal Cannula 4.0 Physical Exam: General Appearance: no apparent distress, + obese, + pertinent finding (HOB elevated, lethargic/eyes closed on 4L NC) Eyes: EOMI ENT: hearing grossly normal, + pertinent finding (dry MM) Neck: supple Respiratory/Chest: no respiratory distress, no accessory muscle use, + decreased breath sounds devin on R Cardiovascular: + tachycardia (in 110s regular) Abdomen: + abnormal bowel sounds (diminished), + pertinent finding (martinez w/ scant yellow brown urine) Extremities: + pertinent finding (L foot red swollen; L leg posteriorly on thigh/bonds/ medial aspects w/ 1-2 bullae and abrasions, today less red; no other edema but L leg) Neurologic/Psych: oriented x 3, + pertinent finding (answers are limited but appropriate) Skin: warm/dry, + pertinent finding (large contusion R chest w/ eschar/ ulcered area under R breast; posterior L leg as above) Current Inpatient Medications Medications (Trade) Dose Ordered Sig/Solitario Route Start Time Stop Time Status Last Admin Dose Admin Glucose (Glucose 40% Gel) UD PRN PO 05/09/17 19:15 06/08/17 19:14 Glucose (Glucose Chew Tab) 1 tabs UD PRN PO 05/09/17 19:15 06/08/17 19:14 Dextrose (Dextrose 50% 50ML Syringe) 50 ml UD PRN IV 05/09/17 19:15 06/08/17 19:14 Glucagon (Glucagon Inj) 1 mg UD PRN SQ 05/09/17 19:15 06/08/17 19:14 Acetaminophen (Tylenol Tab) 325 mg Q6H PRN PO 05/09/17 21:30 06/08/17 21:29 Nitroglycerin (Nitrostat Tab) 0.4 mg UD PRN SL 05/09/17 21:30 06/08/17 21:29 Insulin Aspart (novoLOG ASPART) [facility] 05/10/17 08:00 06/09/17 07:59 Hydromorphone HCl (Dilaudid Inj) 0.5 mg Q3H PRN IV 05/09/17 21:30 05/23/17 21:29 Tramadol HCl (Ultram Tab) 25 mg Q6H PRN PO 05/09/17 21:30 06/08/17 21:29 Ondansetron HCl (Zofran Inj) 4 mg Q6H PRN IV 05/09/17 21:30 06/08/17 21:29 Metoprolol Tartrate (Lopressor Tab) 12.5 mg BID PO 05/10/17 09:00 06/09/17 08:59 05/10/17 07:59 12.5 MG Pantoprazole Sodium (Protonix Tab) 40 mg DAILY PO 05/10/17 09:00 06/09/17 08:59 05/10/17 07:59 40 MG Cefepime HCl (Consult) 1 ea DAILY PRN N/A 05/10/17 09:00 06/09/17 08:59 Doxycycline Hyclate 100 mg/ Dextrose 110 ml @ 50 mls/hr BID IV 05/10/17 09:00 05/20/17 08:59 05/10/17 07:58 50 MLS/HR Insulin Human Regular 250 units/ Sodium Chloride 252.5 ml @ 0 mls/hr DAILY@1130 IV 05/10/17 11:30 06/09/17 11:29 Cefepime HCl 1000 mg/Dextrose 111.3 ml @ 222.6 mls/ hr DAILY@1900 IV 05/10/17 19:00 05/18/17 19:29 Heparin Sodium (Porcine) (Heparin 10 Unit/ ml 5 ml Flush) 5 ml PRN PRN FLUSH 05/10/17 00:45 06/09/17 00:44 Metronidazole 500 mg/Prmx 100 ml @ 100 mls/hr Q8H IV 05/10/17 02:00 05/20/17 01:59 05/10/17 02:40 100 MLS/HR Potassium Chloride/Dextrose/ Sod Cl 1,000 ml @ 200 mls/hr Q5H IV 05/10/17 06:00 05/10/17 17:59 05/10/17 06:15 200 MLS/HR Miscellaneous Information (Consult Glycemic Management Pharmacy) 1 ea DAILY PRN N/A 05/10/17 09:00 06/09/17 08:59 Last 24 Hours Test 05/09/17 18:03 05/09/17 18:25 05/09/17 18:40 05/09/17 18:41 Bedside Hemoglobin 15.3 g/dl Bedside Hematocrit 45 % Bedside Sodium 127 mEq/L Bedside Potassium 8.4 mEq/L Bedside Chloride 101 mEq/L Bedside Total CO2 18 mEq/l Anion Gap 18.0 mmol/L 17.0 mmol/L Bedside Blood Urea Nitrogen 92 mg/dl Bedside Creatinine 3.6 mg/dl Bedside Glucose (other) 680 mg/dl Bedside Ionized Calcium (Fei) 0.86 mmol/l White Blood Count 25.36 K/uL Red Blood Count 4.46 M/uL Hemoglobin 14.1 g/dL Hematocrit 40.3 % Mean Corpuscular Volume 90.4 fL Mean Corpuscular Hemoglobin 31.6 pg Mean Corpuscular Hemoglobin Concent 35.0 g/dl Platelet Count 339 K/uL Mean Platelet Volume 10.5 fL Neutrophils (%) (Auto) 85.8 % Lymphocytes (%) (Auto) 8.1 % Monocytes (%) (Auto) 5.6 % Eosinophils (%) (Auto) 0.0 % Basophils (%) (Auto) 0.0 % Neutrophils # (Auto) 21.75 K/uL Lymphocytes # (Auto) 2.06 K/uL Monocytes # (Auto) 1.42 K/uL Eosinophils # (Auto) 0.00 K/uL Basophils # (Auto) 0.01 K/uL RDW Standard Deviation 43.9 fL RDW Coefficient of Variation 13.5 % Immature Granulocyte % (Auto) 0.5 % Immature Granulocyte # (Auto) 0.12 K/uL Prothrombin Time 36.2 SECONDS Prothromb Time International Ratio 3.2 Urine Color BROWN Urine Appearance TURBID Urine pH 5.5 Urine Specific [place] 1.025 Urine Protein 2+ Urine Glucose (UA) 3+ Urine Ketones TRACE Urine Occult Blood 3+ Urine Nitrite NEG Urine Bilirubin NEG Urine Urobilinogen NEG Urine Leukocyte Esterase NEG Urine RBC >30 /hpf Urine WBC >30 /hpf Urine Epithelial Cells >30 /lpf Urine Bacteria 4+ Urine Granular Casts >30 /lpf Sodium Level 131 mmol/L Potassium Level 4.9 mmol/L Chloride Level 96 mmol/L Carbon Dioxide Level 18 mmol/L Blood Urea Nitrogen 79 mg/dl Creatinine 3.80 mg/dl Estimated GFR () 12.7 Estimated GFR (Non- 11.0 BUN/Creatinine Ratio 20.9 Random Glucose 664 mg/dl Estimated Average Glucose 275 mg/dl Hemoglobin A1c 11.2 % Calcium Level 7.9 mg/dl Magnesium Level 2.1 mg/dl Total Bilirubin 0.6 mg/dl Direct Bilirubin 0.2 mg/dl Aspartate Amino Transf (AST/SGOT) 317 U/L Alanine Aminotransferase (ALT/SGPT) 160 U/L Alkaline Phosphatase 128 U/L Total Creatine Kinase 23055 U/L Creatine Kinase MB 77.7 ng/ml Creatine Kinase MB Ratio 0.4 Troponin I 0.029 ng/ml Total Protein 6.9 gm/dl Albumin 2.7 gm/dl Beta-Hydroxybutyric Acid 25.91 mg/dL Arterial Blood pH 7.41 Arterial Blood Partial Pressure CO2 27 mmHg Arterial Blood Partial Pressure O2 102 mm/Hg Arterial Blood HCO3 17 mmol/L Arterial Blood Oxygen Saturation 97.4 % Arterial Blood Base Excess -6.3 mEq/L Arterial Blood Gas Delivery 4 L Ankit Test POS Bedside Lactic Acid Venous 3.02 mmol/L Test 05/09/17 18:54 05/09/17 18:55 05/09/17 19:43 05/09/17 20:30 Bedside Glucose > 600 mg/dl 580 mg/dl 493 mg/dl Sodium Level 141 mmol/L Potassium Level 4.0 mmol/L Chloride Level 107 mmol/L Carbon Dioxide Level 21 mmol/L Anion Gap 13.0 mmol/L Blood Urea Nitrogen 73 mg/dl Creatinine 3.30 mg/dl Est Creatinine Clear Calc Drug Dose 16.0 ml/min Estimated GFR () 15.1 Estimated GFR (Non- 13.0 BUN/Creatinine Ratio 22.1 Random Glucose 469 mg/dl Calcium Level 7.4 mg/dl Beta-Hydroxybutyric Acid 9.48 mg/dL Thyroid Stimulating Hormone (TSH) 0.781 uIu/ml Test 05/09/17 21:29 05/09/17 22:39 05/09/17 23:31 05/10/17 00:07 Bedside Glucose 417 mg/dl 367 mg/dl 340 mg/dl Sodium Level 141 mmol/L Potassium Level 3.7 mmol/L Chloride Level 107 mmol/L Carbon Dioxide Level 21 mmol/L Anion Gap 13.0 mmol/L Blood Urea Nitrogen 76 mg/dl Creatinine 3.40 mg/dl Est Creatinine Clear Calc Drug Dose 15.0 ml/min Estimated GFR () 14.5 Estimated GFR (Non- 12.5 BUN/Creatinine Ratio 22.2 Random Glucose 311 mg/dl Calcium Level 7.3 mg/dl Ionized Calcium 0.96 mmol/l Phosphorus Level 5.4 mg/dl Magnesium Level 1.6 mg/dl Total Creatine Kinase 12181 U/L Beta-Hydroxybutyric Acid 1.66 mg/dL Test 05/10/17 00:17 05/10/17 00:28 05/10/17 01:30 05/10/17 02:34 Lactic Acid Level 3.4 mmol/L Bedside Glucose 299 mg/dl 246 mg/dl 210 mg/dl Test 05/10/17 04:32 05/10/17 05:44 05/10/17 05:56 05/10/17 06:01 Bedside Glucose 142 mg/dl 102 mg/dl 117 mg/dl White Blood Count 19.39 K/uL Red Blood Count 3.91 M/uL Hemoglobin 12.0 g/dL Hematocrit 35.1 % Mean Corpuscular Volume 89.8 fL Mean Corpuscular Hemoglobin 30.7 pg Mean Corpuscular Hemoglobin Concent 34.2 g/dl Platelet Count 270 K/uL Mean Platelet Volume 9.9 fL Neutrophils (%) (Auto) 73.1 % Lymphocytes (%) (Auto) 16.3 % Monocytes (%) (Auto) 10.1 % Eosinophils (%) (Auto) 0.0 % Basophils (%) (Auto) 0.1 % Neutrophils # (Auto) 14.18 K/uL Lymphocytes # (Auto) 3.17 K/uL Monocytes # (Auto) 1.96 K/uL Eosinophils # (Auto) 0.00 K/uL Basophils # (Auto) 0.01 K/uL RDW Standard Deviation 43.5 fL RDW Coefficient of Variation 13.4 % Immature Granulocyte % (Auto) 0.4 % Immature Granulocyte # (Auto) 0.07 K/uL Prothrombin Time 39.4 SECONDS Prothromb Time International Ratio 3.5 Sodium Level 142 mmol/L Potassium Level 4.3 mmol/L Chloride Level 109 mmol/L Carbon Dioxide Level 24 mmol/L Anion Gap 9.0 mmol/L Blood Urea Nitrogen 75 mg/dl Creatinine 3.30 mg/dl Est Creatinine Clear Calc Drug Dose 15.4 ml/min Estimated GFR () 15.1 Estimated GFR (Non- 13.0 BUN/Creatinine Ratio 22.6 Random Glucose 201 mg/dl Lactic Acid Level 1.8 mmol/L Calcium Level 7.1 mg/dl Magnesium Level 1.8 mg/dl Total Bilirubin 0.3 mg/dl Direct Bilirubin 0.1 mg/dl Aspartate Amino Transf (AST/SGOT) 372 U/L Alanine Aminotransferase (ALT/SGPT) 154 U/L Alkaline Phosphatase 89 U/L Total Creatine Kinase 45633 U/L Troponin I 0.073 ng/ml Total Protein 5.0 gm/dl Albumin 1.8 gm/dl Test 05/10/17 06:26 05/10/17 07:26 Bedside Glucose 153 mg/dl 166 mg/dl Date/Time Source Procedure Growth Status 05/09/17 18:27 Blood Blood Culture Pending Received 05/09/17 18:25 Blood Blood Culture Pending Received 05/09/17 18:25 Urine , Clean Catch Urine Culture - Preliminary Gram Negative Bacilli Resulted 05/10/17 05:00 Drainage - Surface Leg Lower Left Gram Stain - Final Resulted 05/10/17 05:00 Drainage - Surface Leg Lower Left Wound Culture Pending Resulted 05/10/17 05:00 Ulcer Breast, Right Gram Stain - Final Resulted 05/10/17 05:00 Ulcer Breast, Right Wound Culture Pending Resulted Assessment & Plan 77 y/o F w/ poorly controlled DM on insulin, 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 lactic acid 3.0 at 1800. She is admitted w/ DKA, concern for rhabdomyolysis, and getting therapy for sepsis/cellulitis. She has significant wound under her R breast and R chest contusion as well as LLE blistering/ abrasions/redness. She has very concentrated urine w/ granular casts consistent at the least w/ ATN and possibly w/ UTI as well w/ 4+ bacteria. Blood and urine cultures are pending; cefepime and vancomycin have been started. She was at first on 4LNC and is being hydrated aggressively. She remains on an insulin gtt. The indication for dialysis would be rhabdomyolysis > her history and presenting labs could certainly be consistent with this, uncontrolled acidemia ( though pH normal on presentation and K likely to improve dramatically as BG controlled), or to manage volume status. Fall w/ wounds/contusions LLE and R chest Acute on chronic renal failure, ATN from sepsis; concern rhabdomyolysis may have role and so far oliguric Hyperkalemia in the setting of DKA, elevated CK > K normalized w/ better BG control; pseudohyponatremia has also corrected; CK remains elevated but lactic acid normalized Sepsis likeliest sources either from LLE / R chest wounds and/or UTI; either of these can cause bacteremia as well >>cxs ngtd Acute respiratory failure w/o hypoxemia on abg >> PE history noted though INR therapeutic on presentation Probable UTI though also w/ hx of stone disease/stent >at risk for obstruction/ pyelonephritis Transaminitis -f/u pending cultures -cont D5NS w/ 20 mEq KCl at 200 mL hourly as aggressively tolerated both for sepsis and for ongoing correction of hyperglycemia and to minimize risk for complications of rhabdomyolysis > goal is 100 mL/hr urine output though doubt we will reach that -follow CK and lactic acid trends > next check midnight ->>>> needs renal/abdominal and LLE imaging when stabilized; needs eval of not moving L leg -cont to hold metformin, lisinopril -cont strict I/O -no indication for emergent dialysis currently but while unlikely cannot rule out need this admission > consent on chart Appreciate consult; will follow with you.
--- NOTE | 2017-05-10 08:53 | DIAGNOSTIC IMAGING REPORT ---
(CHEST) THORAX WITHOUT CLINICAL HISTORY: 77 years-old Female presenting with R chest wound. TECHNIQUE: Multidetector CT imaging of the chest was performed without the use of intravenous contrast. IV contrast: None. A dose lowering technique was used consistent with the principles of ALARA (as low as reasonably achievable). COMPARISON: 10/18/2012. CT DOSE (mGy.cm): The estimated cumulative dose is 606.68 mGy.cm. FINDINGS: [employer] topogram: Cardiomegaly. Cholecystectomy clips. On soft tissue windows, right internal jugular central venous catheter terminates in the superior vena cava. Normal thyroid. Infiltration of the subcutaneous tissue with overlying skin thickening noted along the medial right breast. No focal fluid collection or subcutaneous emphysema. No substernal extension. No axillary, supraclavicular, hilar, or mediastinal lymphadenopathy. Atherosclerosis of aortic arch. Normal heart size. Minimal coronary artery calcification at the origin of the left main coronary artery. No pericardial or pleural effusion. Upper abdomen normal. On lung windows, evaluation is somewhat limited by respiratory motion artifact. Mosaic attenuation may be indicative of small airways disease. Extensive bandlike consolidation primarily affecting the lower lobes, right greater than left, as well as the paramediastinal upper lobes. Airways grossly patent. On bone windows, degenerative changes of the spine. IMPRESSION: 1. Infiltration of the subcutaneous tissue with overlying skin thickening along the medial right breast. This could be compatible with cellulitis in the absence of a history of radiation. No associated fluid collection to suggest abscess. No substernal extension. 2. Mosaic attenuation in the lungs could suggest small airways disease. 3. Extensive bandlike consolidation at the lung bases and paramediastinal upper lobes. This could be compatible with extensive atelectasis, although post radiation changes or scarring might appear similarly. Electronically signed by: Tarik Irving M.D. 05/10/2017 8:52 AM Dictated Date/Time: 05/10/2017 8:46 AM
[2017-05-10] MEDS ORDERED: PHARMACY GLYCEMIC MGMT CONSULT PRN (09:00)
[2017-05-10] MEDS ORDERED: CONSULT PHARMACY SCH (09:00)
[2017-05-10] MEDS ORDERED: CEFEPIME CONSULT ACTIVE PRN ×2 (09:00)
[2017-05-10] MEDS ORDERED: INSULIN GLARGINE SOLOSTAR 100 UNITS/ML 3 ML PEN SC ONE (09:45)
--- NOTE | 2017-05-10 10:09 | Pharmacy Progress Note ---
Glycemic Control Intl Consult Date of Service May 10, 2017. Scope Glycemic Pharmacist consulted by Dr Moralez on 05/09/17 for glycemic control and to write orders per [facility] inpatient glycemic control protocol Objective Weight (Kilograms): 94.200 Accuchecks BSG (last 24hrs): Test 05/09/17 18:25 05/09/17 18:54 05/09/17 18:55 05/09/17 19:43 Random Glucose 664 mg/dl (70-99) 469 mg/dl (70-99) Bedside Glucose > 600 mg/dl (70-90) 580 mg/dl (70-90) Test 05/09/17 20:30 05/09/17 21:29 05/09/17 22:39 05/09/17 23:31 Bedside Glucose 493 mg/dl (70-90) 417 mg/dl (70-90) 367 mg/dl (70-90) 340 mg/dl (70-90) Test 05/10/17 00:07 05/10/17 00:28 05/10/17 01:30 05/10/17 02:34 Random Glucose 311 mg/dl (70-99) Bedside Glucose 299 mg/dl (70-90) 246 mg/dl (70-90) 210 mg/dl (70-90) Test 05/10/17 04:32 05/10/17 05:44 05/10/17 05:56 05/10/17 06:01 Bedside Glucose 142 mg/dl (70-90) 102 mg/dl (70-90) 117 mg/dl (70-90) Random Glucose 201 mg/dl (70-99) Test 05/10/17 06:26 05/10/17 07:26 05/10/17 08:24 05/10/17 09:29 Bedside Glucose 153 mg/dl (70-90) 166 mg/dl (70-90) 225 mg/dl (70-90) 175 mg/dl (70-90) Laboratory Data (last 24hrs) Test 05/09/17 18:03 05/09/17 18:25 05/09/17 19:43 05/10/17 00:07 Anion Gap 18.0 mmol/L 17.0 mmol/L 13.0 mmol/L 13.0 mmol/L BUN/Creatinine Ratio 20.9 22.1 22.2 Blood Urea Nitrogen 79 mg/dl 73 mg/dl 76 mg/dl Creatinine 3.80 mg/dl 3.30 mg/dl 3.40 mg/dl Hemoglobin A1c 11.2 % Potassium Level 4.9 mmol/L 4.0 mmol/L 3.7 mmol/L Sodium Level 131 mmol/L 141 mmol/L 141 mmol/L White Blood Count 25.36 K/uL Red Blood Count 4.46 M/uL Hemoglobin 14.1 g/dL Hematocrit 40.3 % Mean Corpuscular Volume 90.4 fL Mean Corpuscular Hemoglobin 31.6 pg Mean Corpuscular Hemoglobin Concent 35.0 g/dl Platelet Count 339 K/uL Mean Platelet Volume 10.5 fL Neutrophils (%) (Auto) 85.8 % Lymphocytes (%) (Auto) 8.1 % Monocytes (%) (Auto) 5.6 % Eosinophils (%) (Auto) 0.0 % Basophils (%) (Auto) 0.0 % Neutrophils # (Auto) 21.75 K/uL Lymphocytes # (Auto) 2.06 K/uL Monocytes # (Auto) 1.42 K/uL Eosinophils # (Auto) 0.00 K/uL Basophils # (Auto) 0.01 K/uL Test 05/10/17 05:56 Anion Gap 9.0 mmol/L BUN/Creatinine Ratio 22.6 Blood Urea Nitrogen 75 mg/dl Creatinine 3.30 mg/dl Potassium Level 4.3 mmol/L Sodium Level 142 mmol/L White Blood Count 19.39 K/uL Red Blood Count 3.91 M/uL Hemoglobin 12.0 g/dL Hematocrit 35.1 % Mean Corpuscular Volume 89.8 fL Mean Corpuscular Hemoglobin 30.7 pg Mean Corpuscular Hemoglobin Concent 34.2 g/dl Platelet Count 270 K/uL Mean Platelet Volume 9.9 fL Neutrophils (%) (Auto) 73.1 % Lymphocytes (%) (Auto) 16.3 % Monocytes (%) (Auto) 10.1 % Eosinophils (%) (Auto) 0.0 % Basophils (%) (Auto) 0.1 % Neutrophils # (Auto) 14.18 K/uL Lymphocytes # (Auto) 3.17 K/uL Monocytes # (Auto) 1.96 K/uL Eosinophils # (Auto) 0.00 K/uL Basophils # (Auto) 0.01 K/uL HbA1c Test 8/20/17 18:25 Hemoglobin A1c 11.2 % (4.5-5.6) H Recent Pertinent Medications Outpatient Anti-diabetic Regimen: * Metformin 500mg PO BID * Lantus 45 units SQ Q AM * A1c = 11.2 % 05/09/17 The patient is currently receiving: * IV insulin infusion per protocol, goal range 150-200 Risk Factors for Insulin Resistance: * Infection: receiving cefepime + metronidazole + doxycycline empirically for sepsis * IVF: D5 1/2 NS + 20mEq KCl @ 200cc/hr * Diet: ordered Clear Liquids at this time Assessment & Plan ASSESSMENT: 05/10/17 * Type 2 diabetic admitted overnight following fall, prolonged immobility, rhabdomyolysis, VIOLETA, HHS/DKA and possible sepsis * Patient's labs on admission: Glu 680, AG 18, pH 7.41, Bicarb 18, BOHB 25.91, calculated effective serum osmo ~292 * IV insulin infusion and hydration were initiated and labs have improved with the exception of renal fxn. AG and Bicarb have normalized this AM and patient is no longer symptomatic and expected to tolerate a clear liquid diet. Will begin to transition patient to SQ regimen at this time. * Insulin infusion has run at 3.6-7.2 units/hr since initiated. The infusion really has not been running long enough to be used to calculate the patient's insulin requirements due to effects of glucotoxicity and ketoacids on insulin resistance. Will use the patient's outpt regimen instead to estimate insulin needs. Will resume the outpt dose of Lantus but split the dose BID as her dietary intake is uncertain and there is a possibility the outpt dose was providing some coverage of carb intake given she did not use prandial insulin. Would estimate this patient will require ~50-80 units of insulin per day to achieve glycemic targets when tolerating a diet. * Will need to monitor this patient closely as insulin resistance can be altered by poor renal fxn, accumulation of uremic toxins PLAN FOR INPATIENT GLYCEMIC CONTROL: * Continue the insulin drip at this time * Goal Range 150 - 200 mg/dl * Holding outpatient oral diabetes medication (metformin) * Basal insulin with LANTUS 22 units SQ BID - 1st dose STAT this AM * D/C the insulin drip ~ 6 hours after the first dose of Lantus given * Correctional Insulin with NOVOLOG per scale ACHS and at 0000,[id number] tonight given recent transition off drip * Goal Range: Low 120 mg/dL - High 160 mg/dL * Correction Factor: 20 mg/dL/unit * Nutritional / Prandial insulin per carb ratio of 1 unit per 8 grams CHO consumed * Please note that the plan above was derived based on current level of insulin resistance and hospital stress. These recommendations are appropriate for inpatient admission only. Plan of care upon discharge will need to be reassessed to avoid potential outpatient hypo/hyperglycemia. Thank you.
--- NOTE | 2017-05-10 10:20 | Progress Note ---
Subjective Date of Service: May 10, 2017. Subjective Pt evaluation today including: conversation w/ patient, physical exam, lab review, review of studies, review of inpatient medication list Saw/examined the patient in room 110 She is weak and lethargic, but arousable and answers questions appropriately Tells me that she fell on Wednesday in the bathroom; states she kind of slipped. Could not get up and did not have access to water for two days Currently, she states she has no pain; she did earlier at her L LE and under her R breast. Denies shortness of breath or chest pain Problem List Medical Problems: (1) Acute kidney failure Status: Acute (2) Necrosis Status: Acute (3) Rhabdomyolysis Status: Acute Review of Systems Constitutional: + weakness, + fatigue Respiratory: No cough, No sputum, No shortness of breath Cardiac: No chest pain Abdomen: No pain, No nausea, No vomiting, No diarrhea Neurologic: + weakness, + balance problems Heme: + see HPI, + abnormal bleeding/bruising Medications Current Inpatient Medications Medications (Trade) Dose Ordered Sig/Solitario Route Start Time Stop Time Status Last Admin Dose Admin Glucose (Glucose 40% Gel) UD PRN PO 05/09/17 19:15 06/08/17 19:14 Glucose (Glucose Chew Tab) 1 tabs UD PRN PO 05/09/17 19:15 06/08/17 19:14 Dextrose (Dextrose 50% 50ML Syringe) 50 ml UD PRN IV 05/09/17 19:15 06/08/17 19:14 Glucagon (Glucagon Inj) 1 mg UD PRN SQ 05/09/17 19:15 06/08/17 19:14 Acetaminophen (Tylenol Tab) 325 mg Q6H PRN PO 05/09/17 21:30 06/08/17 21:29 Nitroglycerin (Nitrostat Tab) 0.4 mg UD PRN SL 05/09/17 21:30 06/08/17 21:29 Hydromorphone HCl (Dilaudid Inj) 0.5 mg Q3H PRN IV 05/09/17 21:30 05/23/17 21:29 Tramadol HCl (Ultram Tab) 25 mg Q6H PRN PO 05/09/17 21:30 06/08/17 21:29 Ondansetron HCl (Zofran Inj) 4 mg Q6H PRN IV 05/09/17 21:30 06/08/17 21:29 Metoprolol Tartrate (Lopressor Tab) 12.5 mg BID PO 05/10/17 09:00 06/09/17 08:59 05/10/17 07:59 12.5 MG Pantoprazole Sodium (Protonix Tab) 40 mg DAILY PO 05/10/17 09:00 06/09/17 08:59 05/10/17 07:59 40 MG Cefepime HCl (Consult) 1 ea DAILY PRN N/A 05/10/17 09:00 06/09/17 08:59 Doxycycline Hyclate 100 mg/ Dextrose 110 ml @ 50 mls/hr BID IV 05/10/17 09:00 05/20/17 08:59 05/10/17 07:58 50 MLS/HR Insulin Human Regular 250 units/ Sodium Chloride 252.5 ml @ 0 mls/hr DAILY@1130 IV 05/10/17 11:30 05/10/17 15:30 Cefepime HCl 1000 mg/Dextrose 111.3 ml @ 222.6 mls/ hr DAILY@1900 IV 05/10/17 19:00 05/18/17 19:29 Heparin Sodium (Porcine) (Heparin 10 Unit/ ml 5 ml Flush) 5 ml PRN PRN FLUSH 05/10/17 00:45 06/09/17 00:44 Metronidazole 500 mg/Prmx 100 ml @ 100 mls/hr Q8H IV 05/10/17 02:00 05/20/17 01:59 05/10/17 02:40 100 MLS/HR Potassium Chloride/Dextrose/ Sod Cl 1,000 ml @ 200 mls/hr Q5H IV 05/10/17 06:00 05/10/17 17:59 05/10/17 06:15 200 MLS/HR Miscellaneous Information (Consult Glycemic Management Pharmacy) 1 ea DAILY PRN N/A 05/10/17 09:00 06/09/17 08:59 Insulin Glargine (Lantus Solostar Pen) 22 units NOW ONCE SC 05/10/17 09:45 05/10/17 09:46 Insulin Aspart (novoLOG ASPART) SLIDING SCALE ACHS SC 05/10/17 11:00 05/10/17 15:30 Miscellaneous (Stop Order) 1 ea TODAY@1530 ONCE N/A 05/10/17 15:30 05/10/17 15:31 Objective Vital Signs Date Time Temp Pulse Resp B/P (MAP) Pulse Ox O2 Delivery O2 Flow Rate FiO2 05/10/17 08:00 36.8 114 20 137/69 (91) 94 Nasal Cannula 4.0 05/10/17 04:00 Nasal Cannula 4.0 05/10/17 04:00 36.8 109 38 122/71 (88) 97 Nasal Cannula 4.0 05/09/17 23:59 Nasal Cannula 4.0 05/09/17 23:59 36.6 119 23 138/81 (100) 96 Nasal Cannula 4.0 05/09/17 22:46 36.5 121 28 126/97 Nasal Cannula 4.0 05/09/17 21:33 125 22 96 Nasal Cannula 4.0 05/09/17 20:51 116 98 05/09/17 20:36 108 99 05/09/17 20:34 35.6 05/09/17 20:21 125 05/09/17 20:15 135/79 05/09/17 20:06 97 81 05/09/17 20:01 140/75 05/09/17 19:53 121 90 05/09/17 19:46 137/113 05/09/17 19:41 159/77 05/09/17 19:23 123 97 05/09/17 19:15 154/90 05/09/17 19:08 114 90 05/09/17 19:00 126/86 05/09/17 18:53 107 94 05/09/17 18:51 107 24 129/90 97 4.0 05/09/17 18:50 129/90 05/09/17 18:38 119 05/09/17 18:23 110 127/69 97 05/09/17 18:08 121 95 05/09/17 17:53 115 05/09/17 17:50 123 05/09/17 17:44 136/82 05/09/17 17:44 120 24 136/82 96 Nasal Cannula 4.0 Physical Exam General Appearance: + obese, + pertinent finding (lethargic, weak; arousable, answers appropriately, in no significant distress at this time; ill-appearing) ENT: hearing grossly normal Neck: supple Respiratory/Chest: + pertinent finding (+chest wall tenderness, R breast ulcerative wound) Cardiovascular: + tachycardia (sinus tachycardia) Extremities: no pedal edema, + pertinent finding (L upper bonds, dressed) Neurologic/Psychiatric: alert, oriented x 3, + pertinent finding (lethargic) Laboratory Results Last 24 Hours Test 05/09/17 18:03 05/09/17 18:25 05/09/17 18:40 05/09/17 18:41 Bedside Hemoglobin 15.3 g/dl Bedside Hematocrit 45 % Bedside Sodium 127 mEq/L Bedside Potassium 8.4 mEq/L Bedside Chloride 101 mEq/L Bedside Total CO2 18 mEq/l Anion Gap 18.0 mmol/L 17.0 mmol/L Bedside Blood Urea Nitrogen 92 mg/dl Bedside Creatinine 3.6 mg/dl Bedside Glucose (other) 680 mg/dl Bedside Ionized Calcium (Fei) 0.86 mmol/l White Blood Count 25.36 K/uL Red Blood Count 4.46 M/uL Hemoglobin 14.1 g/dL Hematocrit 40.3 % Mean Corpuscular Volume 90.4 fL Mean Corpuscular Hemoglobin 31.6 pg Mean Corpuscular Hemoglobin Concent 35.0 g/dl Platelet Count 339 K/uL Mean Platelet Volume 10.5 fL Neutrophils (%) (Auto) 85.8 % Lymphocytes (%) (Auto) 8.1 % Monocytes (%) (Auto) 5.6 % Eosinophils (%) (Auto) 0.0 % Basophils (%) (Auto) 0.0 % Neutrophils # (Auto) 21.75 K/uL Lymphocytes # (Auto) 2.06 K/uL Monocytes # (Auto) 1.42 K/uL Eosinophils # (Auto) 0.00 K/uL Basophils # (Auto) 0.01 K/uL RDW Standard Deviation 43.9 fL RDW Coefficient of Variation 13.5 % Immature Granulocyte % (Auto) 0.5 % Immature Granulocyte # (Auto) 0.12 K/uL Prothrombin Time 36.2 SECONDS Prothromb Time International Ratio 3.2 Urine Color BROWN Urine Appearance TURBID Urine pH 5.5 Urine Specific [place] 1.025 Urine Protein 2+ Urine Glucose (UA) 3+ Urine Ketones TRACE Urine Occult Blood 3+ Urine Nitrite NEG Urine Bilirubin NEG Urine Urobilinogen NEG Urine Leukocyte Esterase NEG Urine RBC >30 /hpf Urine WBC >30 /hpf Urine Epithelial Cells >30 /lpf Urine Bacteria 4+ Urine Granular Casts >30 /lpf Sodium Level 131 mmol/L Potassium Level 4.9 mmol/L Chloride Level 96 mmol/L Carbon Dioxide Level 18 mmol/L Blood Urea Nitrogen 79 mg/dl Creatinine 3.80 mg/dl Estimated GFR () 12.7 Estimated GFR (Non- 11.0 BUN/Creatinine Ratio 20.9 Random Glucose 664 mg/dl Estimated Average Glucose 275 mg/dl Hemoglobin A1c 11.2 % Calcium Level 7.9 mg/dl Magnesium Level 2.1 mg/dl Total Bilirubin 0.6 mg/dl Direct Bilirubin 0.2 mg/dl Aspartate Amino Transf (AST/SGOT) 317 U/L Alanine Aminotransferase (ALT/SGPT) 160 U/L Alkaline Phosphatase 128 U/L Total Creatine Kinase 19367 U/L Creatine Kinase MB 77.7 ng/ml Creatine Kinase MB Ratio 0.4 Troponin I 0.029 ng/ml Total Protein 6.9 gm/dl Albumin 2.7 gm/dl Beta-Hydroxybutyric Acid 25.91 mg/dL Arterial Blood pH 7.41 Arterial Blood Partial Pressure CO2 27 mmHg Arterial Blood Partial Pressure O2 102 mm/Hg Arterial Blood HCO3 17 mmol/L Arterial Blood Oxygen Saturation 97.4 % Arterial Blood Base Excess -6.3 mEq/L Arterial Blood Gas Delivery 4 L Ankit Test POS Bedside Lactic Acid Venous 3.02 mmol/L Test 05/09/17 18:54 05/09/17 18:55 05/09/17 19:43 05/09/17 20:30 Bedside Glucose > 600 mg/dl 580 mg/dl 493 mg/dl Sodium Level 141 mmol/L Potassium Level 4.0 mmol/L Chloride Level 107 mmol/L Carbon Dioxide Level 21 mmol/L Anion Gap 13.0 mmol/L Blood Urea Nitrogen 73 mg/dl Creatinine 3.30 mg/dl Est Creatinine Clear Calc Drug Dose 16.0 ml/min Estimated GFR () 15.1 Estimated GFR (Non- 13.0 BUN/Creatinine Ratio 22.1 Random Glucose 469 mg/dl Calcium Level 7.4 mg/dl Beta-Hydroxybutyric Acid 9.48 mg/dL Thyroid Stimulating Hormone (TSH) 0.781 uIu/ml Test 05/09/17 21:29 05/09/17 22:39 05/09/17 23:31 05/10/17 00:07 Bedside Glucose 417 mg/dl 367 mg/dl 340 mg/dl Sodium Level 141 mmol/L Potassium Level 3.7 mmol/L Chloride Level 107 mmol/L Carbon Dioxide Level 21 mmol/L Anion Gap 13.0 mmol/L Blood Urea Nitrogen 76 mg/dl Creatinine 3.40 mg/dl Est Creatinine Clear Calc Drug Dose 15.0 ml/min Estimated GFR () 14.5 Estimated GFR (Non- 12.5 BUN/Creatinine Ratio 22.2 Random Glucose 311 mg/dl Calcium Level 7.3 mg/dl Ionized Calcium 0.96 mmol/l Phosphorus Level 5.4 mg/dl Magnesium Level 1.6 mg/dl Total Creatine Kinase 67705 U/L Beta-Hydroxybutyric Acid 1.66 mg/dL Test 05/10/17 00:17 05/10/17 00:28 05/10/17 01:30 05/10/17 02:34 Lactic Acid Level 3.4 mmol/L Bedside Glucose 299 mg/dl 246 mg/dl 210 mg/dl Test 05/10/17 04:32 05/10/17 05:44 05/10/17 05:56 05/10/17 06:01 Bedside Glucose 142 mg/dl 102 mg/dl 117 mg/dl White Blood Count 19.39 K/uL Red Blood Count 3.91 M/uL Hemoglobin 12.0 g/dL Hematocrit 35.1 % Mean Corpuscular Volume 89.8 fL Mean Corpuscular Hemoglobin 30.7 pg Mean Corpuscular Hemoglobin Concent 34.2 g/dl Platelet Count 270 K/uL Mean Platelet Volume 9.9 fL Neutrophils (%) (Auto) 73.1 % Lymphocytes (%) (Auto) 16.3 % Monocytes (%) (Auto) 10.1 % Eosinophils (%) (Auto) 0.0 % Basophils (%) (Auto) 0.1 % Neutrophils # (Auto) 14.18 K/uL Lymphocytes # (Auto) 3.17 K/uL Monocytes # (Auto) 1.96 K/uL Eosinophils # (Auto) 0.00 K/uL Basophils # (Auto) 0.01 K/uL RDW Standard Deviation 43.5 fL RDW Coefficient of Variation 13.4 % Immature Granulocyte % (Auto) 0.4 % Immature Granulocyte # (Auto) 0.07 K/uL Prothrombin Time 39.4 SECONDS Prothromb Time International Ratio 3.5 Sodium Level 142 mmol/L Potassium Level 4.3 mmol/L Chloride Level 109 mmol/L Carbon Dioxide Level 24 mmol/L Anion Gap 9.0 mmol/L Blood Urea Nitrogen 75 mg/dl Creatinine 3.30 mg/dl Est Creatinine Clear Calc Drug Dose 15.4 ml/min Estimated GFR () 15.1 Estimated GFR (Non- 13.0 BUN/Creatinine Ratio 22.6 Random Glucose 201 mg/dl Lactic Acid Level 1.8 mmol/L Calcium Level 7.1 mg/dl Magnesium Level 1.8 mg/dl Total Bilirubin 0.3 mg/dl Direct Bilirubin 0.1 mg/dl Aspartate Amino Transf (AST/SGOT) 372 U/L Alanine Aminotransferase (ALT/SGPT) 154 U/L Alkaline Phosphatase 89 U/L Total Creatine Kinase 70913 U/L Troponin I 0.073 ng/ml Total Protein 5.0 gm/dl Albumin 1.8 gm/dl Test 05/10/17 06:26 05/10/17 07:26 05/10/17 08:24 05/10/17 09:29 Bedside Glucose 153 mg/dl 166 mg/dl 225 mg/dl 175 mg/dl Assessment and Plan This is a 77 year old obese female with a PMH of uncontrolled, insulin dependent DM2, diabetic nephropathy and CKD stage 3, 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 of lacunar infarct, Acnyczm-[id number] disease, HTN, HLD presents with a fall, and subsequently found to have sepsis, rhabdomyolysis, acute kidney injury, and DKA Sepsis secondary to UTI and R breast cellulitis patient presents with leukocytosis, lactic acidosis, tachycardia, temp of 35.6 UA is dirty with +bacteria, urine culture - gram negative bacilli R breast cellulitic changes CT chest = Infiltration of the subcutaneous tissue with overlying skin thickening along the medial right breast. This could be compatible with cellulitis in the absence of a history of radiation started on Cefepime, Flagyl, and doxycycline leukocytosis, trending down, lactic acid < 2 continue fluids and IV abx. Acute Kidney Injury superimposed on CKD stage 3 multifactorial: * significant dehydration, no fluid intake x2 days * ATN secondary to sepsis * rhabdomyolysis * diabetic nephropathy appreciate nephrology input give IVFs, monitor for urine output creatinine trending down from 3.8 to 3.3 no need for emergent dialysis at this time DKA Ha1c > 11% +ketones in urine/serum, BSGs > 600, high anion gap started on insulin drip, BSGs improving continue fluids, monitor for urine output started on Lantus, january d/c insulin drip later today with improved diet Rhabdomyolysis CPK >20,000 secondary to fall IVFs, monitor CPK BID Hx. of PE on long-term anticoagulation INR >3 hold Coumadin; restart when INR 2-3 Hx. of Lacunar Infarct when more stable, will need PT/OT DVT ppx Coumadin DNR
[2017-05-10] MEDS ORDERED: INSULIN REGULAR 250 UNITS in SODIUM CHLORIDE 0.9% 250ML 250 ML IV SCH (11:30)
[2017-05-10 12:00] VITALS: BP 127/55; PULSE 94; TEMP 37; O2SAT 92
[2017-05-10 12:29] VITALS: BMI 39.2
[2017-05-10] MEDS ORDERED: [UNRECOGNIZED DRUG - REMARK] ONE (15:30)
[2017-05-10 16:00] VITALS: BP 130/66; PULSE 97; TEMP 36.9; O2SAT 95
[2017-05-10] MEDS ORDERED: INSULIN GLARGINE SOLOSTAR 100 UNITS/ML 3 ML PEN SC SCH (16:00)
[2017-05-10] MEDS: INSULIN ASPART 100 UNITS/ML 3 ML PEN SC SCH ×2 (16:37→20:59)
[2017-05-10] MEDS ORDERED: CEFEPIME IV 1,000 MG in DEXTROSE 5% 100ML IV SCH (19:00)
[2017-05-10 19:45] VITALS: BP 131/64; PULSE 100; TEMP 36.8; O2SAT 93
[2017-05-10] MEDS ORDERED: LEVALBUTEROL/IPRATROPIUM NEB INH STA (21:31)
[2017-05-10] MEDS ORDERED: LEVALBUTEROL/IPRATROPIUM NEB INH PRN (21:45)
[2017-05-10] MEDS ORDERED: LEVALBUTEROL 1.25MG/0.5ML NEB INH PRN (21:45)
[2017-05-10] MEDS ORDERED: LEVALBUTEROL 1.25MG/0.5ML NEB INH ONE (21:45)
[2017-05-10] MEDS ORDERED: IPRATROPIUM BROMIDE NEB SOLN 0.02% 2.5 ML VIAL INH PRN (21:45)
[2017-05-10] MEDS ORDERED: IPRATROPIUM BROMIDE NEB SOLN 0.02% 2.5 ML VIAL INH ONE (21:45)
[2017-05-10 21:54] VITALS: PULSE 87; O2SAT 96
--- NOTE | 2017-05-10 22:09 | DIAGNOSTIC IMAGING REPORT ---
CHEST ONE VIEW PORTABLE HISTORY: Abnormal lung sounds. rales COMPARISON: Chest CT 05/10/2017. FINDINGS: The heart remains mildly enlarged. No pneumothorax. No pleural effusions. No change in the bibasilar linear densities. No acute rib fractures. Right jugular central venous catheter terminates in the distal SVC. No evidence for pulmonary edema. IMPRESSION: No change in the bibasilar linear densities. This could represent atelectasis, scarring or pneumonia. Electronically signed by: Juan Carranza M.D. 05/10/2017 10:07 PM Dictated Date/Time: 05/10/2017 10:06 PM
[2017-05-10 22:20] LABS: ARTERIAL BLD GAS O2 SATURATION 96.9 % (90-95); ARTERIAL BLOOD GAS BASE EXCESS -7.6 mEq/L (-9-1.8); ARTERIAL BLOOD GAS HCO3 16 mmol/L (19-24); ARTERIAL BLOOD GAS PO2 92 mm/Hg (80-95); ARTERIAL BLOOD GAS pH 7.39 (7.35-7.45)
[2017-05-10 22:21] LABS: ALLEN TEST POS (POS); O2 ADMINISTRATION 3L
[2017-05-10 22:41] LABS: BUN/CREATININE RATIO 21.1 (10-20); CREATININE 3.8 mg/dl (0.60-1.20); POTASSIUM 4.8 mmol/L (3.5-5.1)
[2017-05-10 22:42] LABS: CALCIUM 7.5 mg/dl (8.5-10.1); MAGNESIUM 1.7 mg/dl (1.8-2.4)
[2017-05-10] MEDS ORDERED: MAGNESIUM SULFATE 1GM / D5W 1 GM in PREMIXED IN D5W 100 ML IV ONE (23:00)
[2017-05-10] MEDS: SODIUM CHLORIDE 0.9% 1000ML 1,000 ML IV SCH (23:06)
[2017-05-11] VITALS (10 sets, daily range): BP systolic 123–143; BP diastolic 50–80; PULSE 83–102; TEMP 36.3–36.8; O2SAT 92–98; Ht 154.9 cm; Wt 103.4 kg
[2017-05-11] MEDS: INSULIN ASPART 100 UNITS/ML 3 ML PEN SC SCH ×6 (00:13→21:32)
[2017-05-11] MEDS: IPRATROPIUM BROMIDE NEB SOLN 0.02% 2.5 ML VIAL INH SCH ×4 (01:44→19:04)
[2017-05-11] MEDS: LEVALBUTEROL 1.25MG/0.5ML NEB INH SCH ×4 (01:44→19:04)
[2017-05-11] MEDS: METRONIDAZOLE / NSS 500 MG in PREMIXED NSS 100 ML IV SCH ×3 (02:29→18:10)
[2017-05-11] MEDS ORDERED: LEVALBUTEROL/IPRATROPIUM NEB INH SCH (03:00)
[2017-05-11] MEDS: SODIUM CHLORIDE 0.9% 1000ML 1,000 ML IV SCH ×2 (03:30→06:45)
[2017-05-11 04:45] LABS: BASO % 0.1 %; BASO ABS # 0.01 K/uL (0-0.2); COMPLETE YES; EOS % 0.1 %; HEMATOCRIT 31.1 % (37-47); IG% 0.5 %; LYMPH % 18.1 %; LYMPH ABS # 2.47 K/uL (1.2-3.4); MEAN CELL VOLUME 89.9 fL (80-100); MEAN CORPUSCULAR HEMOGLOBIN 30.9 pg (25-34); MEAN CORPUSCULAR HGB CONC 34.4 g/dl (32-36); MONO % 6.8 %; NEUT % 74.4 %; PLATELET COUNT 233 K/uL (130-400); RED BLOOD COUNT 3.46 M/uL (4.2-5.4); WHITE BLOOD COUNT 13.67 K/uL (4.8-10.8)
[2017-05-11 04:56] LABS: INR 2.3 (0.9-1.1)
[2017-05-11 05:12] LABS: CALCIUM 6.4 mg/dl (8.5-10.1); MAGNESIUM 1.8 mg/dl (1.8-2.4); POTASSIUM 4.8 mmol/L (3.5-5.1)
--- NOTE | 2017-05-11 08:38 | Nephrology Progress Note ---
Nephrology Progress Note Date of Service: May 11, 2017. Subjective slight increase in UOP; states she is very tired and "I hurt all over;" denies worsening dyspnea Objective Date Time Temp Pulse Resp B/P (MAP) Pulse Ox O2 Delivery O2 Flow Rate FiO2 05/11/17 07:41 36.5 102 20 123/50 (74) 94 Nasal Cannula 2.0 05/11/17 07:30 95 16 95 Nasal Cannula 2.0 05/11/17 04:00 Nasal Cannula 4.0 05/11/17 03:30 36.8 97 22 123/54 (77) 94 Nasal Cannula 2.0 05/11/17 01:45 83 16 93 Nasal Cannula 2.0 05/11/17 00:00 36.8 84 18 138/62 (87) 94 Nasal Cannula 2.0 05/11/17 00:00 Nasal Cannula 4.0 05/10/17 21:54 87 16 96 Nasal Cannula 3.5 05/10/17 20:00 Nasal Cannula 2.0 05/10/17 19:45 36.8 100 22 131/64 (86) 93 Nasal Cannula 3.0 05/10/17 16:00 36.9 97 16 130/66 (87) 95 Nasal Cannula 4.0 05/10/17 16:00 Nasal Cannula 4.0 05/10/17 12:00 37.0 94 16 127/55 (79) 92 Nasal Cannula 4.0 05/10/17 12:00 Nasal Cannula 4.0 Physical Exam: General Appearance: no apparent distress, + obese, + pertinent finding (HOB elevated, lethargic/eyes closed on 2L NC) Eyes: EOMI ENT: hearing grossly normal, + pertinent finding (dry MM) Neck: supple Respiratory/Chest: no respiratory distress, no accessory muscle use, + decreased breath sounds Cardiovascular: + tachycardia (in 100s regular) Abdomen: + abnormal bowel sounds (diminished), + pertinent finding (martinez w/ some national facilities manager yellow urine) Extremities: + pertinent finding (L foot/leg wrapped to protect from seepag; no other edema but L leg) Neurologic/Psych: oriented x 3, + pertinent finding (answers are limited but appropriate) Skin: warm/dry, + pertinent finding (large contusion R chest and posterior L leg as above not directly evaluated) Current Inpatient Medications Medications (Trade) Dose Ordered Sig/Solitario Route Start Time Stop Time Status Last Admin Dose Admin Glucose (Glucose 40% Gel) UD PRN PO 05/09/17 19:15 06/08/17 19:14 Glucose (Glucose Chew Tab) 1 tabs UD PRN PO 05/09/17 19:15 06/08/17 19:14 Dextrose (Dextrose 50% 50ML Syringe) 50 ml UD PRN IV 05/09/17 19:15 06/08/17 19:14 Glucagon (Glucagon Inj) 1 mg UD PRN SQ 05/09/17 19:15 06/08/17 19:14 Acetaminophen (Tylenol Tab) 325 mg Q6H PRN PO 05/09/17 21:30 06/08/17 21:29 Nitroglycerin (Nitrostat Tab) 0.4 mg UD PRN SL 05/09/17 21:30 06/08/17 21:29 Hydromorphone HCl (Dilaudid Inj) 0.5 mg Q3H PRN IV 05/09/17 21:30 05/23/17 21:29 Tramadol HCl (Ultram Tab) 25 mg Q6H PRN PO 05/09/17 21:30 06/08/17 21:29 Ondansetron HCl (Zofran Inj) 4 mg Q6H PRN IV 05/09/17 21:30 06/08/17 21:29 Metoprolol Tartrate (Lopressor Tab) 12.5 mg BID PO 05/10/17 09:00 06/09/17 08:59 05/10/17 20:55 12.5 MG Pantoprazole Sodium (Protonix Tab) 40 mg DAILY PO 05/10/17 09:00 06/09/17 08:59 05/10/17 07:59 40 MG Cefepime HCl (Consult) 1 ea DAILY PRN N/A 05/10/17 09:00 06/09/17 08:59 Doxycycline Hyclate 100 mg/ Dextrose 110 ml @ 50 mls/hr BID IV 05/10/17 09:00 05/20/17 08:59 05/10/17 20:48 50 MLS/HR Cefepime HCl 1000 mg/Dextrose 111.3 ml @ 222.6 mls/ hr DAILY@1900 IV 05/10/17 19:00 05/18/17 19:29 05/10/17 19:55 222.6 MLS/HR Heparin Sodium (Porcine) (Heparin 10 Unit/ ml 5 ml Flush) 5 ml PRN PRN FLUSH 05/10/17 00:45 06/09/17 00:44 Metronidazole 500 mg/Prmx 100 ml @ 100 mls/hr Q8H IV 05/10/17 02:00 05/20/17 01:59 05/11/17 02:29 100 MLS/HR Miscellaneous Information (Consult Glycemic Management Pharmacy) 1 ea DAILY PRN N/A 05/10/17 09:00 06/09/17 08:59 Insulin Aspart (novoLOG ASPART) SLIDING SCALE ACHS SC 05/10/17 16:00 06/09/17 15:59 05/10/17 20:59 4 UNITS Ipratropium [place] (Atrovent 0.02% 0.5MG/2.5ML Neb) 0.5 mg Q6R INH 05/11/17 03:00 06/10/17 02:59 05/11/17 07:29 0.5 MG Levalbuterol (Xopenex 1.25MG/ 0.5ML Neb) 1.25 mg Q6R INH 05/11/17 03:00 06/10/17 02:59 05/11/17 07:30 1.25 MG Ipratropium [place] (Atrovent 0.02% 0.5MG/2.5ML Neb) 0.5 mg Q4H PRN INH 05/10/17 21:45 06/09/17 21:44 Levalbuterol (Xopenex 1.25MG/ 0.5ML Neb) 1.25 mg Q4H PRN INH 05/10/17 21:45 06/09/17 21:44 Sodium Chloride 1,000 ml @ 250 mls/hr Q4H IV 05/10/17 22:45 05/22/17 22:44 05/11/17 06:45 250 MLS/HR Insulin Glargine (Lantus Solostar Pen) 30 units BID SC 05/11/17 09:00 06/10/17 08:59 Last 24 Hours Test 05/10/17 09:29 05/10/17 10:30 05/10/17 11:22 05/10/17 12:24 Bedside Glucose 175 mg/dl 190 mg/dl 166 mg/dl 198 mg/dl Test 05/10/17 13:24 05/10/17 15:42 05/10/17 20:13 05/10/17 22:00 Bedside Glucose 197 mg/dl 164 mg/dl 234 mg/dl Arterial Blood pH 7.39 Arterial Blood Partial Pressure CO2 28 mmHg Arterial Blood Partial Pressure O2 92 mm/Hg Arterial Blood HCO3 16 mmol/L Arterial Blood Oxygen Saturation 96.9 % Arterial Blood Base Excess -7.6 mEq/L Arterial Blood Gas Delivery 3L Ankit Test POS Test 05/10/17 22:03 05/10/17 23:51 05/11/17 04:01 05/11/17 04:26 Sodium Level 135 mmol/L 137 mmol/L Potassium Level 4.8 mmol/L 4.8 mmol/L Chloride Level 107 mmol/L 109 mmol/L Carbon Dioxide Level 17 mmol/L 18 mmol/L Anion Gap 11.0 mmol/L 10.0 mmol/L Blood Urea Nitrogen 80 mg/dl 76 mg/dl Creatinine 3.80 mg/dl 4.00 mg/dl Est Creatinine Clear Calc Drug Dose 13.4 ml/min 12.7 ml/min Estimated GFR () 12.7 11.9 Estimated GFR (Non- 11.0 10.3 BUN/Creatinine Ratio 21.1 19.0 Random Glucose 300 mg/dl 208 mg/dl Calcium Level 7.5 mg/dl 6.4 mg/dl Magnesium Level 1.7 mg/dl 1.8 mg/dl Total Creatine Kinase 32623 U/L 15033 U/L Bedside Glucose 266 mg/dl 245 mg/dl White Blood Count 13.67 K/uL Red Blood Count 3.46 M/uL Hemoglobin 10.7 g/dL Hematocrit 31.1 % Mean Corpuscular Volume 89.9 fL Mean Corpuscular Hemoglobin 30.9 pg Mean Corpuscular Hemoglobin Concent 34.4 g/dl Platelet Count 233 K/uL Mean Platelet Volume 10.0 fL Neutrophils (%) (Auto) 74.4 % Lymphocytes (%) (Auto) 18.1 % Monocytes (%) (Auto) 6.8 % Eosinophils (%) (Auto) 0.1 % Basophils (%) (Auto) 0.1 % Neutrophils # (Auto) 10.18 K/uL Lymphocytes # (Auto) 2.47 K/uL Monocytes # (Auto) 0.93 K/uL Eosinophils # (Auto) 0.01 K/uL Basophils # (Auto) 0.01 K/uL RDW Standard Deviation 44.3 fL RDW Coefficient of Variation 13.5 % Immature Granulocyte % (Auto) 0.5 % Immature Granulocyte # (Auto) 0.07 K/uL Prothrombin Time 25.0 SECONDS Prothromb Time International Ratio 2.3 Test 05/11/17 06:09 Bedside Glucose 179 mg/dl Assessment & Plan 77 y/o F w/ poorly controlled DM on insulin, albuminuric CKD 3 baseline creatinine 1.0, past PE, HTN, Charcot Sepideh Tooth who was found down at home where she lay for 4 days and noted in ER 05/09 to have CK > 19K, BG 680, K 8.4, creat 3.6, WBC 25K. lactic acid 3.0 at 1800. She is admitted w/ DKA, concern for rhabdomyolysis, and getting therapy for sepsis/cellulitis. She has significant wound under her R breast and R chest contusion as well as LLE blistering/abrasions/redness. She has very concentrated urine w/ granular casts consistent at the least w/ ATN and possibly w/ UTI as well w/ 4+ bacteria. Blood cxs NGTD; cefepime and vancomycin have been started. She was at first on 4LNC and is being hydrated aggressively. Fall w/ wounds/contusions LLE and R chest Acute on chronic renal failure, ATN from sepsis; concern rhabdomyolysis may have role and so far borderline oliguric w/ slightly worse creatinine elevated CK > CK remains elevated but lactic acid normalized; continue hydration Sepsis likeliest sources either from LLE / R chest wounds and/or UTI; either of these can cause bacteremia as well >> blood cxs ngtd Acute respiratory failure w/o hypoxemia on abg >> PE history noted though INR therapeutic on presentation K pniae UTI though also w/ hx of stone disease/stent >at risk for obstruction/ pyelonephritis Transaminitis, stable/a bit improved -f/u pending cultures -changed NS at 200 mL hourly to 1/2 NS w/ 75 mEq/L sodium bicarb at 150 mL hourly to address ongoing metabolic acidosis -ordered complete abd u/s > no obstruction, poor liver eval -add hepatic function panel to labs every few days -check bmp, CK daily ->>>> needs eval of not moving L leg -cont to hold metformin, lisinopril -cont strict I/O -no indication for emergent dialysis currently but while unlikely cannot rule out need this admission > consent on chart Appreciate consult; will follow with you.
[2017-05-11] MEDS: METOPROLOL TARTRATE 25 MG TAB PO SCH ×2 (09:22→20:25)
[2017-05-11] MEDS: PANTOprazole SOD 40 MG TAB PO SCH (09:22)
[2017-05-11] MEDS: SODIUM BICARBONATE 8.4% INJ 75 MEQ in SODIUM CHLORIDE 0.45% 1000ML 1,000 ML IV SCH ×3 (09:22→23:53)
[2017-05-11] MEDS: DOXYCYCLINE IV 100 MG in DEXTROSE 5% 100ML 100 ML IV SCH ×2 (09:25→20:25)
[2017-05-11 09:27] LABS: ALKALINE PHOSPHATASE 90 U/L (45-117); ALT/SGPT 156 U/L (12-78); AST/SGOT 314 U/L (15-37)
[2017-05-11] MEDS: INSULIN GLARGINE SOLOSTAR 100 UNITS/ML 3 ML PEN SC SCH ×2 (09:28→21:34)
--- NOTE | 2017-05-11 09:44 | Progress Note ---
Subjective Date of Service: May 11, 2017. Subjective Pt evaluation today including: conversation w/ patient, physical exam, lab review, review of studies, review of inpatient medication list Saw/examined the patient in room 209 She's doing okay today, more awake and alert, less lethargic Drinking her beef broth for breakfast has some chest wall tenderness (points to around R breast; area of ulceration) Problem List Medical Problems: (1) Acute kidney failure Status: Acute (2) Necrosis Status: Acute (3) Rhabdomyolysis Status: Acute Review of Systems Constitutional: + weakness, + fatigue, No fever, No chills Respiratory: No shortness of breath Cardiac: + problem reported (chest wall tenderness) Abdomen: No pain, No nausea, No vomiting, No diarrhea Musculoskeletal: + joint pain (L LE) Heme: No abnormal bleeding/bruising Medications Current Inpatient Medications Medications (Trade) Dose Ordered Sig/Solitario Route Start Time Stop Time Status Last Admin Dose Admin Glucose (Glucose 40% Gel) UD PRN PO 05/09/17 19:15 06/08/17 19:14 Glucose (Glucose Chew Tab) 1 tabs UD PRN PO 05/09/17 19:15 06/08/17 19:14 Dextrose (Dextrose 50% 50ML Syringe) 50 ml UD PRN IV 05/09/17 19:15 06/08/17 19:14 Glucagon (Glucagon Inj) 1 mg UD PRN SQ 05/09/17 19:15 06/08/17 19:14 Acetaminophen (Tylenol Tab) 325 mg Q6H PRN PO 05/09/17 21:30 06/08/17 21:29 Nitroglycerin (Nitrostat Tab) 0.4 mg UD PRN SL 05/09/17 21:30 06/08/17 21:29 Hydromorphone HCl (Dilaudid Inj) 0.5 mg Q3H PRN IV 05/09/17 21:30 05/23/17 21:29 Tramadol HCl (Ultram Tab) 25 mg Q6H PRN PO 05/09/17 21:30 06/08/17 21:29 Ondansetron HCl (Zofran Inj) 4 mg Q6H PRN IV 05/09/17 21:30 06/08/17 21:29 Metoprolol Tartrate (Lopressor Tab) 12.5 mg BID PO 05/10/17 09:00 06/09/17 08:59 05/10/17 20:55 12.5 MG Pantoprazole Sodium (Protonix Tab) 40 mg DAILY PO 05/10/17 09:00 06/09/17 08:59 05/10/17 07:59 40 MG Cefepime HCl (Consult) 1 ea DAILY PRN N/A 05/10/17 09:00 06/09/17 08:59 Doxycycline Hyclate 100 mg/ Dextrose 110 ml @ 50 mls/hr BID IV 05/10/17 09:00 05/20/17 08:59 05/10/17 20:48 50 MLS/HR Cefepime HCl 1000 mg/Dextrose 111.3 ml @ 222.6 mls/ hr DAILY@1900 IV 05/10/17 19:00 05/18/17 19:29 05/10/17 19:55 222.6 MLS/HR Heparin Sodium (Porcine) (Heparin 10 Unit/ ml 5 ml Flush) 5 ml PRN PRN FLUSH 05/10/17 00:45 06/09/17 00:44 Metronidazole 500 mg/Prmx 100 ml @ 100 mls/hr Q8H IV 05/10/17 02:00 05/20/17 01:59 05/11/17 02:29 100 MLS/HR Miscellaneous Information (Consult Glycemic Management Pharmacy) 1 ea DAILY PRN N/A 05/10/17 09:00 06/09/17 08:59 Insulin Aspart (novoLOG ASPART) SLIDING SCALE ACHS SC 05/10/17 16:00 06/09/17 15:59 05/10/17 20:59 4 UNITS Ipratropium [place] (Atrovent 0.02% 0.5MG/2.5ML Neb) 0.5 mg Q6R INH 05/11/17 03:00 06/10/17 02:59 05/11/17 07:29 0.5 MG Levalbuterol (Xopenex 1.25MG/ 0.5ML Neb) 1.25 mg Q6R INH 05/11/17 03:00 06/10/17 02:59 05/11/17 07:30 1.25 MG Ipratropium [place] (Atrovent 0.02% 0.5MG/2.5ML Neb) 0.5 mg Q4H PRN INH 05/10/17 21:45 06/09/17 21:44 Levalbuterol (Xopenex 1.25MG/ 0.5ML Neb) 1.25 mg Q4H PRN INH 05/10/17 21:45 06/09/17 21:44 Insulin Glargine (Lantus Solostar Pen) 30 units BID SC 05/11/17 09:00 06/10/17 08:59 Sodium Bicarbonate 75 meq/Sodium Chloride 1,075 ml @ 150 mls/hr Q7H10M IV 05/11/17 08:45 06/10/17 08:44 Objective Vital Signs Date Time Temp Pulse Resp B/P (MAP) Pulse Ox O2 Delivery O2 Flow Rate FiO2 05/11/17 07:41 36.5 102 20 123/50 (74) 94 Nasal Cannula 2.0 05/11/17 07:30 95 16 95 Nasal Cannula 2.0 05/11/17 04:00 Nasal Cannula 4.0 05/11/17 03:30 36.8 97 22 123/54 (77) 94 Nasal Cannula 2.0 05/11/17 01:45 83 16 93 Nasal Cannula 2.0 05/11/17 00:00 36.8 84 18 138/62 (87) 94 Nasal Cannula 2.0 05/11/17 00:00 Nasal Cannula 4.0 05/10/17 21:54 87 16 96 Nasal Cannula 3.5 05/10/17 20:00 Nasal Cannula 2.0 05/10/17 19:45 36.8 100 22 131/64 (86) 93 Nasal Cannula 3.0 05/10/17 16:00 36.9 97 16 130/66 (87) 95 Nasal Cannula 4.0 05/10/17 16:00 Nasal Cannula 4.0 05/10/17 12:00 37.0 94 16 127/55 (79) 92 Nasal Cannula 4.0 05/10/17 12:00 Nasal Cannula 4.0 Physical Exam General Appearance: no apparent distress, + pertinent finding (+tired, lethargic, arousable, answers questions appropriately) Respiratory/Chest: lungs clear, normal breath sounds, no respiratory distress, no accessory muscle use, + pertinent finding (+chest wall tenderness around R breast, R breast eschar with surrounding ulceration) Cardiovascular: regular rate, rhythm, no edema, no murmur Abdomen: normal bowel sounds, non tender, soft Extremities: + pertinent finding (abrasions noted on L anterior thigh, painful ROM) Neurologic/Psychiatric: alert, normal mood/affect, + motor weakness, + pertinent finding (lethargic) Laboratory Results Last 24 Hours Test 05/10/17 09:29 05/10/17 10:30 05/10/17 11:22 05/10/17 12:24 Bedside Glucose 175 mg/dl 190 mg/dl 166 mg/dl 198 mg/dl Test 05/10/17 13:24 05/10/17 15:42 05/10/17 20:13 05/10/17 22:00 Bedside Glucose 197 mg/dl 164 mg/dl 234 mg/dl Arterial Blood pH 7.39 Arterial Blood Partial Pressure CO2 28 mmHg Arterial Blood Partial Pressure O2 92 mm/Hg Arterial Blood HCO3 16 mmol/L Arterial Blood Oxygen Saturation 96.9 % Arterial Blood Base Excess -7.6 mEq/L Arterial Blood Gas Delivery 3L Ankit Test POS Test 05/10/17 22:03 05/10/17 23:51 05/11/17 04:01 05/11/17 04:26 Sodium Level 135 mmol/L 137 mmol/L Potassium Level 4.8 mmol/L 4.8 mmol/L Chloride Level 107 mmol/L 109 mmol/L Carbon Dioxide Level 17 mmol/L 18 mmol/L Anion Gap 11.0 mmol/L 10.0 mmol/L Blood Urea Nitrogen 80 mg/dl 76 mg/dl Creatinine 3.80 mg/dl 4.00 mg/dl Est Creatinine Clear Calc Drug Dose 13.4 ml/min 12.7 ml/min Estimated GFR () 12.7 11.9 Estimated GFR (Non- 11.0 10.3 BUN/Creatinine Ratio 21.1 19.0 Random Glucose 300 mg/dl 208 mg/dl Calcium Level 7.5 mg/dl 6.4 mg/dl Magnesium Level 1.7 mg/dl 1.8 mg/dl Total Creatine Kinase 31571 U/L 14961 U/L Bedside Glucose 266 mg/dl 245 mg/dl White Blood Count 13.67 K/uL Red Blood Count 3.46 M/uL Hemoglobin 10.7 g/dL Hematocrit 31.1 % Mean Corpuscular Volume 89.9 fL Mean Corpuscular Hemoglobin 30.9 pg Mean Corpuscular Hemoglobin Concent 34.4 g/dl Platelet Count 233 K/uL Mean Platelet Volume 10.0 fL Neutrophils (%) (Auto) 74.4 % Lymphocytes (%) (Auto) 18.1 % Monocytes (%) (Auto) 6.8 % Eosinophils (%) (Auto) 0.1 % Basophils (%) (Auto) 0.1 % Neutrophils # (Auto) 10.18 K/uL Lymphocytes # (Auto) 2.47 K/uL Monocytes # (Auto) 0.93 K/uL Eosinophils # (Auto) 0.01 K/uL Basophils # (Auto) 0.01 K/uL RDW Standard Deviation 44.3 fL RDW Coefficient of Variation 13.5 % Immature Granulocyte % (Auto) 0.5 % Immature Granulocyte # (Auto) 0.07 K/uL Prothrombin Time 25.0 SECONDS Prothromb Time International Ratio 2.3 Test 05/11/17 06:09 05/11/17 08:30 Bedside Glucose 179 mg/dl Assessment and Plan This is a 77 year old obese female with a PMH of uncontrolled, insulin dependent DM2, diabetic nephropathy and CKD stage 3, 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 of lacunar infarct, [id number]-xswhm disease, HTN, HLD presents with a fall, and subsequently found to have sepsis, rhabdomyolysis, acute kidney injury, and DKA Sepsis secondary to UTI and R breast cellulitis 05/11 multiple infections including UTI, R breast and LLE cellulitic changes cultures grown; Klebsiella UTI, Staph, and strep noted on wound cultures; sensitivities pending leukocytosis improved, lactic acidosis resolved Cefepime, Flagyl, Doxy - considered changing Flagyl and Doxy to Vanco, though with kidney issues, will hold off continue IV abx. and fluids 05/10 patient presents with leukocytosis, lactic acidosis, tachycardia, temp of 35.6 UA is dirty with +bacteria, urine culture - gram negative bacilli R breast cellulitic changes CT chest = Infiltration of the subcutaneous tissue with overlying skin thickening along the medial right breast. This could be compatible with cellulitis in the absence of a history of radiation started on Cefepime, Flagyl, and doxycycline leukocytosis, trending down, lactic acid < 2 continue fluids and IV abx. Acute Kidney Injury superimposed on CKD stage 3 05/11 multifactorial: * significant dehydration, no fluid intake x2 days * ATN secondary to sepsis * rhabdomyolysis * diabetic nephropathy appreciate nephrology input creatinine increased to 4.0 IVFs changed to 1/2 NSS with sodium bicarb at 150mL monitor for urine output DKA - resolved Uncontrolled DM2 05/11 Ha1c > 11% switched to subq insulin, appreciate glycemic control consult currently on Lantus 30 units BID and sliding scale D5 was removed from fluids late last evening for improved BSG control 05/10 Ha1c > 11% +ketones in urine/serum, BSGs > 600, high anion gap started on insulin drip, BSGs improving continue fluids, monitor for urine output started on Lantus, january d/c insulin drip later today with improved diet Rhabdomyolysis 05/11 no significant improvement in CPK decreased urine output will need continued IVFs monitor for output, appreciate nephro input 05/10 CPK >20,000 secondary to fall IVFs, monitor CPK BID Hx. of PE on long-term anticoagulation restart Coumadin, INR goal of 2-3 Xsqizyu-Cgagh-Lbxdf Disease patient has a neurological motor/sensory issue states that she slipped in the shower, and then afterwards did not have the strength to get up uses cane for ambulation at times will need PT/OT Hx. of Lacunar Infarct when more stable, will need PT/OT DVT ppx Coumadin DNR
--- NOTE | 2017-05-11 10:58 | DIAGNOSTIC IMAGING REPORT ---
ABDOMEN COMPLETE (US) CLINICAL HISTORY: 77 years-old Female presenting with renal /liver failure. TECHNIQUE: Real-time grayscale and limited color Doppler ultrasound imaging of the abdomen was performed. COMPARISON: CT of the abdomen and pelvis from 2014. FINDINGS: Pancreas: Visualized portions of the pancreatic head and body normal. Liver: Limited visualization secondary to suboptimal sonographic window. Biliary: No intrahepatic biliary ductal dilatation. Common bile duct measures up to 7 mm in diameter. Gallbladder: Surgically absent. Spleen: Normal in echogenicity and size, measuring 7.5 cm in length. Kidneys: Normal in size and echogenicity. Right kidney measures 10.6 cm, and left kidney measures 11.6 cm. No hydronephrosis. Vasculature: IVC and aorta not visualized. Ascites: None. IMPRESSION: Limited exam. No evidence of renal obstruction. Liver poorly visualized. If there is continuing clinical need for liver evaluation, CT or MR could be considered. Electronically signed by: Tarik Irving M.D. 05/11/2017 10:57 AM Dictated Date/Time: 05/11/2017 10:55 AM
[2017-05-11] MEDS ORDERED: INSULIN GLARGINE SOLOSTAR 100 UNITS/ML 3 ML PEN SC ONE (12:00)
--- NOTE | 2017-05-11 12:20 | Pharmacy Progress Note ---
Glycemic Control Progress Note Date of Service May 11, 2017. Scope Glycemic Pharmacist consulted for glycemic control to write orders per [facility] inpatient glycemic control protocol. Objective Accuchecks BSG (last 24hrs): Test 05/10/17 12:24 05/10/17 13:24 05/10/17 15:42 05/10/17 20:13 Bedside Glucose 198 mg/dl (70-90) 197 mg/dl (70-90) 164 mg/dl (70-90) 234 mg/dl (70-90) Test 05/10/17 22:03 05/10/17 23:51 05/11/17 04:01 05/11/17 04:26 Random Glucose 300 mg/dl (70-99) 208 mg/dl (70-99) Bedside Glucose 266 mg/dl (70-90) 245 mg/dl (70-90) Test 05/11/17 06:09 05/11/17 11:08 Bedside Glucose 179 mg/dl (70-90) 240 mg/dl (70-90) HbA1c: Test 05/09/17 18:25 Hemoglobin A1c 11.2 % (4.5-5.6) H Recent Pertinent Medications Outpatient Anti-diabetic Regimen: * Metformin 500mg PO BID * Lantus 45 units SQ Q AM * A1c = 11.2 % 05/09/17 The patient is currently receiving: * Lantus 22 units SQ BID * Novolog SQ ACHS and at 0000 + 0400 * Goal Range: 120-160 mg/dL * Correction Factor: 20 mg/dL/unit * Carb Ratio: 1 unit per 8 grams of carbs eaten Risk Factors for Insulin Resistance: * Infection: receiving cefazolin + metronidazole + doxycycline empirically for sepsis likely from SSTI + UTI * IVF: 1/2 NS + 75mEq Na Bicarb @ 150cc/hr * Diet: ordered Clear Liquids at this time - oral intake has been poor Outpatient Anti-Diabetic Meds Lantus 45 units SQ Q AM Metformin 500mg PO BID * Non-compliance reported by family* Assessment & Plan ASSESSMENT: 05/10/17 * Type 2 diabetic admitted overnight following fall, prolonged immobility, rhabdomyolysis, VIOLETA, HHS/DKA and possible sepsis * Patient's labs on admission: Glu 680, AG 18, pH 7.41, Bicarb 18, BOHB 25.91, calculated effective serum osmo ~292 * IV insulin infusion and hydration were initiated and labs have improved with the exception of renal fxn. AG and Bicarb have normalized this AM and patient is no longer symptomatic and expected to tolerate a clear liquid diet. Will begin to transition patient to SQ regimen at this time. * Insulin infusion has run at 3.6-7.2 units/hr since initiated. The infusion really has not been running long enough to be used to calculate the patient's insulin requirements due to effects of glucotoxicity and ketoacids on insulin resistance. Will use the patient's outpt regimen instead to estimate insulin needs. Will resume the outpt dose of Lantus but split the dose BID as her dietary intake is uncertain and there is a possibility the outpt dose was providing some coverage of carb intake given she did not use prandial insulin. Would estimate this patient will require ~50-80 units of insulin per day to achieve glycemic targets when tolerating a diet. * Will need to monitor this patient closely as insulin resistance can be altered by poor renal fxn, accumulation of uremic toxins 05/11/17 * BSGs did rebound into the mid-upper 200's after stopping the insulin drip yesterday - this was despite poor oral intake and stopping IV dextrose infusion * Fasting BSG 179 this AM with 44 units basal on board as well as receiving 15 units of correctional insulin overnight - will increase the basal insulin dose at this time, I anticipate total daily insulin doses to be 80-100 units per day when tolerating a diet with current stressors * Will increase correctional and prandial insulin doses as well based upon these new estimates PLAN FOR INPATIENT GLYCEMIC CONTROL: * Holding outpatient oral diabetes medication (metformin) * Increase LANTUS to 30 units SQ BID; will give extra 8 units with lunch given persistent BSGs in 200's and only receiving 22 units Lantus yesterday afternoon * Correctional Insulin with NOVOLOG per scale ACHS and at 0200 tonight * Continue Goal Range: Low 120 mg/dL - High 160 mg/dL * Change Correction Factor to 15 mg/dL/unit * Change carb ratio to 1 unit per 6 grams CHO consumed * Please note that the plan above was derived based on current level of insulin resistance and hospital stress. These recommendations are appropriate for inpatient admission only. Plan of care upon discharge will need to be reassessed to avoid potential outpatient hypo/hyperglycemia. Thank you.
[2017-05-11] MEDS ORDERED: WARFARIN SOD 2.5 MG TAB PO SCH (16:00)
[2017-05-11] MEDS: CEFAZOLIN IV 1,000 MG in DEXTROSE 5% 50ML 50 ML IV SCH (16:56)
[2017-05-11] MEDS: TRAMADOL HCL 50 MG TAB PO PRN (20:19)
[2017-05-11] MEDS: HYDROmorphone INJ 0.5 MG/0.5 ML SYR IV PRN (20:23)
[2017-05-11] MEDS ORDERED: CEFAZOLIN IV 1,000 MG in DEXTROSE 5% 50ML 50 ML IV SCH (21:00)
[2017-05-12] VITALS (9 sets, daily range): BP systolic 104–122; BP diastolic 51–68; PULSE 91–104; TEMP 36.6–36.9; O2SAT 93–97
[2017-05-12] MEDS: IPRATROPIUM BROMIDE NEB SOLN 0.02% 2.5 ML VIAL INH SCH ×3 (01:37→19:49)
[2017-05-12] MEDS: LEVALBUTEROL 1.25MG/0.5ML NEB INH SCH ×3 (01:37→19:50)
[2017-05-12] MEDS ORDERED: INSULIN ASPART 100 UNITS/ML 3 ML PEN SC ONE (02:00)
[2017-05-12] MEDS: METRONIDAZOLE / NSS 500 MG in PREMIXED NSS 100 ML IV SCH (02:18)
[2017-05-12 05:08] LABS: BASO % 0.1 %; BASO ABS # 0.02 K/uL (0-0.2); COMPLETE YES; EOS % 1.1 %; HEMATOCRIT 28.7 % (37-47); IG% 1.1 %; LYMPH % 25.3 %; LYMPH ABS # 3.52 K/uL (1.2-3.4); MEAN CELL VOLUME 90.8 fL (80-100); MEAN CORPUSCULAR HEMOGLOBIN 31.3 pg (25-34); MEAN CORPUSCULAR HGB CONC 34.5 g/dl (32-36); MEAN PLATELET VOLUME 10.1 fL (7.4-10.4); MONO % 6.8 %; NEUT % 65.6 %; PLATELET COUNT 251 K/uL (130-400); RED BLOOD COUNT 3.16 M/uL (4.2-5.4); WHITE BLOOD COUNT 13.94 K/uL (4.8-10.8)
[2017-05-12 05:15] LABS: INR 1.8 (0.9-1.1); PROTHROMBIN TIME (PATIENT) 20.3 SECONDS (9.0-12.0)
[2017-05-12 05:40] LABS: BUN/CREATININE RATIO 17.8 (10-20); CALCIUM 6.2 mg/dl (8.5-10.1); CREATININE 4.3 mg/dl (0.60-1.20); POTASSIUM 4.4 mmol/L (3.5-5.1)
[2017-05-12] MEDS: CEFAZOLIN IV 1,000 MG in DEXTROSE 5% 50ML 50 ML IV SCH (05:57)
[2017-05-12] MEDS: SODIUM BICARBONATE 8.4% INJ 75 MEQ in SODIUM CHLORIDE 0.45% 1000ML 1,000 ML IV SCH ×2 (05:59→17:16)
[2017-05-12] MEDS: INSULIN ASPART 100 UNITS/ML 3 ML PEN SC SCH ×4 (08:01→20:53)
[2017-05-12] MEDS: INSULIN GLARGINE SOLOSTAR 100 UNITS/ML 3 ML PEN SC SCH ×2 (08:03→21:04)
--- NOTE | 2017-05-12 08:40 | Progress Note ---
Subjective Date of Service: May 12, 2017. Subjective Pt evaluation today including: conversation w/ patient, physical exam, lab review, review of studies, review of inpatient medication list Saw/examined the patient in room 209 She is awake/alert She has residual pain at the R breast Pain at the L LE persists as well No fevers/chills, no nausea/vomiting; not good PO intake, continues to be on clears denies shortness of breath Review of Systems Constitutional: No fever, No chills Respiratory: No shortness of breath Cardiac: + chest pain (chest wall tenderness/ R breast) Abdomen: No pain, No nausea, No vomiting, No diarrhea Musculoskeletal: + joint pain (L LE; around the knee) Heme: No abnormal bleeding/bruising Medications Current Inpatient Medications Medications (Trade) Dose Ordered Sig/Solitario Route Start Time Stop Time Status Last Admin Dose Admin Glucose (Glucose 40% Gel) UD PRN PO 05/09/17 19:15 06/08/17 19:14 Glucose (Glucose Chew Tab) 1 tabs UD PRN PO 05/09/17 19:15 06/08/17 19:14 Dextrose (Dextrose 50% 50ML Syringe) 50 ml UD PRN IV 05/09/17 19:15 06/08/17 19:14 Glucagon (Glucagon Inj) 1 mg UD PRN SQ 05/09/17 19:15 06/08/17 19:14 Acetaminophen (Tylenol Tab) 325 mg Q6H PRN PO 05/09/17 21:30 06/08/17 21:29 Nitroglycerin (Nitrostat Tab) 0.4 mg UD PRN SL 05/09/17 21:30 06/08/17 21:29 Hydromorphone HCl (Dilaudid Inj) 0.5 mg Q3H PRN IV 05/09/17 21:30 05/23/17 21:29 05/11/17 20:23 0.5 MG Tramadol HCl (Ultram Tab) 25 mg Q6H PRN PO 05/09/17 21:30 06/08/17 21:29 05/11/17 20:19 25 MG Ondansetron HCl (Zofran Inj) 4 mg Q6H PRN IV 05/09/17 21:30 06/08/17 21:29 Metoprolol Tartrate (Lopressor Tab) 12.5 mg BID PO 05/10/17 09:00 06/09/17 08:59 05/11/17 20:25 12.5 MG Pantoprazole Sodium (Protonix Tab) 40 mg DAILY PO 05/10/17 09:00 06/09/17 08:59 05/11/17 09:22 40 MG Doxycycline Hyclate 100 mg/ Dextrose 110 ml @ 50 mls/hr BID IV 05/10/17 09:00 05/20/17 08:59 05/11/17 20:25 50 MLS/HR Heparin Sodium (Porcine) (Heparin 10 Unit/ ml 5 ml Flush) 5 ml PRN PRN FLUSH 05/10/17 00:45 06/09/17 00:44 Miscellaneous Information (Consult Glycemic Management Pharmacy) 1 ea DAILY PRN N/A 05/10/17 09:00 06/09/17 08:59 Insulin Aspart (novoLOG ASPART) SLIDING SCALE ACHS SC 05/10/17 16:00 06/09/17 15:59 05/12/17 08:01 7 UNITS Ipratropium [place] (Atrovent 0.02% 0.5MG/2.5ML Neb) 0.5 mg Q6R INH 05/11/17 03:00 06/10/17 02:59 05/12/17 07:05 0.5 MG Levalbuterol (Xopenex 1.25MG/ 0.5ML Neb) 1.25 mg Q6R INH 05/11/17 03:00 06/10/17 02:59 05/12/17 07:05 1.25 MG Ipratropium [place] (Atrovent 0.02% 0.5MG/2.5ML Neb) 0.5 mg Q4H PRN INH 05/10/17 21:45 06/09/17 21:44 Levalbuterol (Xopenex 1.25MG/ 0.5ML Neb) 1.25 mg Q4H PRN INH 05/10/17 21:45 06/09/17 21:44 Insulin Glargine (Lantus Solostar Pen) 30 units BID SC 05/11/17 09:00 06/10/17 08:59 05/12/17 08:03 30 UNITS Sodium Bicarbonate 75 meq/Sodium Chloride 1,075 ml @ 150 mls/hr Q7H10M IV 05/11/17 08:45 06/10/17 08:44 05/12/17 05:59 150 MLS/HR Cefazolin Sodium 1000 mg/Dextrose 55 ml @ 100 mls/hr Q12H IV 05/11/17 18:00 05/21/17 17:59 05/12/17 05:57 100 MLS/HR Warfarin Sodium (Coumadin Tab) 4 mg DAILY@1600 PO 05/12/17 16:00 06/10/17 15:59 Objective Vital Signs Date Time Temp Pulse Resp B/P (MAP) Pulse Ox O2 Delivery O2 Flow Rate FiO2 05/12/17 08:21 36.9 104 18 107/53 (71) 96 05/12/17 07:06 101 18 94 Nasal Cannula 3.0 05/12/17 04:00 Nasal Cannula 2.0 05/12/17 04:00 36.6 100 18 122/61 (81) 94 Nasal Cannula 2.0 05/12/17 01:37 97 18 93 Nasal Cannula 2.0 05/12/17 00:00 36.6 94 20 104/55 (71) 97 Nasal Cannula 2.0 05/12/17 00:00 93 Nasal Cannula 2.0 05/11/17 20:00 Nasal Cannula 2.0 05/11/17 19:44 36.7 98 20 136/80 (98) 98 Nasal Cannula 2.0 05/11/17 19:04 101 20 93 Nasal Cannula 2.0 05/11/17 16:00 Nasal Cannula 2.0 05/11/17 15:30 36.4 98 20 134/75 (94) 92 Nasal Cannula 2.0 05/11/17 14:26 90 16 93 Nasal Cannula 2.0 05/11/17 12:08 36.3 88 24 143/73 (96) 95 Nasal Cannula 2.0 05/11/17 12:00 Nasal Cannula 2.0 Physical Exam General Appearance: no apparent distress Respiratory/Chest: lungs clear, normal breath sounds, no respiratory distress, no accessory muscle use, + pertinent finding (chest wall tenderness) Cardiovascular: no edema, no murmur, + tachycardia Abdomen: normal bowel sounds, non tender, soft Extremities: + pertinent finding (L foot is dressed and wrapped; decreased ROM of L LE) Neurologic/Psychiatric: alert Laboratory Results Last 24 Hours Test 05/11/17 11:08 05/11/17 16:13 05/11/17 20:40 05/12/17 02:11 Bedside Glucose 240 mg/dl 209 mg/dl 140 mg/dl 110 mg/dl Test 05/12/17 04:11 05/12/17 06:45 White Blood Count 13.94 K/uL Red Blood Count 3.16 M/uL Hemoglobin 9.9 g/dL Hematocrit 28.7 % Mean Corpuscular Volume 90.8 fL Mean Corpuscular Hemoglobin 31.3 pg Mean Corpuscular Hemoglobin Concent 34.5 g/dl Platelet Count 251 K/uL Mean Platelet Volume 10.1 fL Neutrophils (%) (Auto) 65.6 % Lymphocytes (%) (Auto) 25.3 % Monocytes (%) (Auto) 6.8 % Eosinophils (%) (Auto) 1.1 % Basophils (%) (Auto) 0.1 % Neutrophils # (Auto) 9.15 K/uL Lymphocytes # (Auto) 3.52 K/uL Monocytes # (Auto) 0.95 K/uL Eosinophils # (Auto) 0.15 K/uL Basophils # (Auto) 0.02 K/uL RDW Standard Deviation 44.3 fL RDW Coefficient of Variation 13.6 % Immature Granulocyte % (Auto) 1.1 % Immature Granulocyte # (Auto) 0.15 K/uL Prothrombin Time 20.3 SECONDS Prothromb Time International Ratio 1.8 Sodium Level 140 mmol/L Potassium Level 4.4 mmol/L Chloride Level 110 mmol/L Carbon Dioxide Level 21 mmol/L Anion Gap 9.0 mmol/L Blood Urea Nitrogen 77 mg/dl Creatinine 4.30 mg/dl Est Creatinine Clear Calc Drug Dose 12.1 ml/min Estimated GFR () 10.9 Estimated GFR (Non- 9.4 BUN/Creatinine Ratio 17.8 Random Glucose 75 mg/dl Calcium Level 6.2 mg/dl Total Creatine Kinase 40992 U/L Bedside Glucose 79 mg/dl Assessment and Plan This is a 77 year old obese female with a PMH of uncontrolled, insulin dependent DM2, diabetic nephropathy and CKD stage 3, 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 of lacunar infarct, [id number]-[id number]-zruef disease, HTN, HLD presents with a fall, and subsequently found to have sepsis, rhabdomyolysis, acute kidney injury, and DKA Sepsis secondary to UTI and R breast cellulitis 05/12 changed Cefepime to Ancef d/c'd Flagyl R breast - MSSA - continue Doxy Urine - Klebsiella - continue Ancef LLE - Strep - awaiting sensitivities 05/11 multiple infections including UTI, R breast and LLE cellulitic changes cultures grown; Klebsiella UTI, Staph, and strep noted on wound cultures; sensitivities pending leukocytosis improved, lactic acidosis resolved Cefepime, Flagyl, Doxy - considered changing Flagyl and Doxy to Vanco, though with kidney issues, will hold off continue IV abx. and fluids 05/10 patient presents with leukocytosis, lactic acidosis, tachycardia, temp of 35.6 UA is dirty with +bacteria, urine culture - gram negative bacilli R breast cellulitic changes CT chest = Infiltration of the subcutaneous tissue with overlying skin thickening along the medial right breast. This could be compatible with cellulitis in the absence of a history of radiation started on Cefepime, Flagyl, and doxycycline leukocytosis, trending down, lactic acid < 2 continue fluids and IV abx. Acute Kidney Injury superimposed on CKD stage 3 05/12 improved urine output appreciate nephrology input creatinine up to 4.3, will recheck in AM 05/11 multifactorial: * significant dehydration, no fluid intake x2 days * ATN secondary to sepsis * rhabdomyolysis * diabetic nephropathy appreciate nephrology input creatinine increased to 4.0 IVFs changed to 1/2 NSS with sodium bicarb at 150mL monitor for urine output Mechanical Fall decreased ROM of the L LE traumatic wound noted on the L LE will obtain radiographs will need PT/OT DKA - resolved Uncontrolled DM2 05/11 Ha1c > 11% switched to subq insulin, appreciate glycemic control consult currently on Lantus 30 units BID and sliding scale D5 was removed from fluids late last evening for improved BSG control 05/10 Ha1c > 11% +ketones in urine/serum, BSGs > 600, high anion gap started on insulin drip, BSGs improving continue fluids, monitor for urine output started on Lantus, january d/c insulin drip later today with improved diet Rhabdomyolysis 05/11 no significant improvement in CPK decreased urine output will need continued IVFs monitor for output, appreciate nephro input 05/10 CPK >20,000 secondary to fall IVFs, monitor CPK BID Hx. of PE on long-term anticoagulation increase Coumadin dose - INR goal of 2-3 Fsvczde-Vfydy-Ryicv Disease patient has a neurological motor/sensory issue states that she slipped in the shower, and then afterwards did not have the strength to get up uses cane for ambulation at times will need PT/OT Hx. of Lacunar Infarct when more stable, will need PT/OT DVT ppx Coumadin DNR
[2017-05-12] MEDS ORDERED: WARFARIN SOD 5 MG TAB PO SCH (09:00)
--- NOTE | 2017-05-12 09:37 | Nephrology Progress Note ---
Nephrology Progress Note Date of Service: May 12, 2017. Subjective no longer anuric; remains on 2L NC; less tired still hurts all over and poor po ; denies dyspnea Objective Date Time Temp Pulse Resp B/P (MAP) Pulse Ox O2 Delivery O2 Flow Rate FiO2 05/12/17 04:00 Nasal Cannula 2.0 05/12/17 04:00 36.6 100 18 122/61 (81) 94 Nasal Cannula 2.0 05/12/17 01:37 97 18 93 Nasal Cannula 2.0 05/12/17 00:00 36.6 94 20 104/55 (71) 97 Nasal Cannula 2.0 05/12/17 00:00 93 Nasal Cannula 2.0 05/11/17 20:00 Nasal Cannula 2.0 05/11/17 19:44 36.7 98 20 136/80 (98) 98 Nasal Cannula 2.0 05/11/17 19:04 101 20 93 Nasal Cannula 2.0 05/11/17 16:00 Nasal Cannula 2.0 05/11/17 15:30 36.4 98 20 134/75 (94) 92 Nasal Cannula 2.0 05/11/17 14:26 90 16 93 Nasal Cannula 2.0 05/11/17 12:08 36.3 88 24 143/73 (96) 95 Nasal Cannula 2.0 05/11/17 12:00 Nasal Cannula 2.0 05/11/17 08:00 Nasal Cannula 2.0 05/11/17 07:41 36.5 102 20 123/50 (74) 94 Nasal Cannula 2.0 Physical Exam: General Appearance: no apparent distress, + obese, + pertinent finding ( reading newspaper; on 2L NC) Eyes: EOMI ENT: hearing grossly normal, + pertinent finding (dry MM) Neck: supple Respiratory/Chest: no respiratory distress, no accessory muscle use, + decreased breath sounds Cardiovascular: + tachycardia (in 90s regular) Abdomen: + abnormal bowel sounds (diminished), + pertinent finding (martinez w/ some admin assistant yellow urine) Extremities: + pertinent finding (L foot/leg wrapped to protect from seepag; no other edema but L leg) Neurologic/Psych: oriented x 3, + pertinent finding (answers are appropriate); does not move L leg Skin: warm/dry, + pertinent finding (large contusion R chest and posterior L leg as above not directly evaluated) Current Inpatient Medications Medications (Trade) Dose Ordered Sig/Solitario Route Start Time Stop Time Status Last Admin Dose Admin Glucose (Glucose 40% Gel) UD PRN PO 05/09/17 19:15 06/08/17 19:14 Glucose (Glucose Chew Tab) 1 tabs UD PRN PO 05/09/17 19:15 06/08/17 19:14 Dextrose (Dextrose 50% 50ML Syringe) 50 ml UD PRN IV 05/09/17 19:15 06/08/17 19:14 Glucagon (Glucagon Inj) 1 mg UD PRN SQ 05/09/17 19:15 06/08/17 19:14 Acetaminophen (Tylenol Tab) 325 mg Q6H PRN PO 05/09/17 21:30 06/08/17 21:29 Nitroglycerin (Nitrostat Tab) 0.4 mg UD PRN SL 05/09/17 21:30 06/08/17 21:29 Hydromorphone HCl (Dilaudid Inj) 0.5 mg Q3H PRN IV 05/09/17 21:30 05/23/17 21:29 05/11/17 20:23 0.5 MG Tramadol HCl (Ultram Tab) 25 mg Q6H PRN PO 05/09/17 21:30 06/08/17 21:29 05/11/17 20:19 25 MG Ondansetron HCl (Zofran Inj) 4 mg Q6H PRN IV 05/09/17 21:30 06/08/17 21:29 Metoprolol Tartrate (Lopressor Tab) 12.5 mg BID PO 05/10/17 09:00 06/09/17 08:59 05/11/17 20:25 12.5 MG Pantoprazole Sodium (Protonix Tab) 40 mg DAILY PO 05/10/17 09:00 06/09/17 08:59 05/11/17 09:22 40 MG Doxycycline Hyclate 100 mg/ Dextrose 110 ml @ 50 mls/hr BID IV 05/10/17 09:00 05/20/17 08:59 05/11/17 20:25 50 MLS/HR Heparin Sodium (Porcine) (Heparin 10 Unit/ ml 5 ml Flush) 5 ml PRN PRN FLUSH 05/10/17 00:45 06/09/17 00:44 Metronidazole 500 mg/Prmx 100 ml @ 100 mls/hr Q8H IV 05/10/17 02:00 05/20/17 01:59 05/12/17 02:18 100 MLS/HR Miscellaneous Information (Consult Glycemic Management Pharmacy) 1 ea DAILY PRN N/A 05/10/17 09:00 06/09/17 08:59 Insulin Aspart (novoLOG ASPART) SLIDING SCALE ACHS SC 05/10/17 16:00 06/09/17 15:59 05/11/17 16:58 4 UNITS Ipratropium [place] (Atrovent 0.02% 0.5MG/2.5ML Neb) 0.5 mg Q6R INH 05/11/17 03:00 06/10/17 02:59 05/12/17 07:05 0.5 MG Levalbuterol (Xopenex 1.25MG/ 0.5ML Neb) 1.25 mg Q6R INH 05/11/17 03:00 06/10/17 02:59 05/12/17 07:05 1.25 MG Ipratropium [place] (Atrovent 0.02% 0.5MG/2.5ML Neb) 0.5 mg Q4H PRN INH 05/10/17 21:45 06/09/17 21:44 Levalbuterol (Xopenex 1.25MG/ 0.5ML Neb) 1.25 mg Q4H PRN INH 05/10/17 21:45 06/09/17 21:44 Insulin Glargine (Lantus Solostar Pen) 30 units BID SC 05/11/17 09:00 06/10/17 08:59 05/11/17 21:34 30 UNITS Sodium Bicarbonate 75 meq/Sodium Chloride 1,075 ml @ 150 mls/hr Q7H10M IV 05/11/17 08:45 06/10/17 08:44 05/12/17 05:59 150 MLS/HR Warfarin Sodium (Coumadin Tab) 2.5 mg DAILY@1600 PO 05/11/17 16:00 06/10/17 15:59 05/11/17 16:57 2.5 MG Cefazolin Sodium 1000 mg/Dextrose 55 ml @ 100 mls/hr Q12H IV 05/11/17 18:00 05/21/17 17:59 05/12/17 05:57 100 MLS/HR Last 24 Hours Test 05/11/17 11:08 05/11/17 16:13 05/11/17 20:40 05/12/17 02:11 Bedside Glucose 240 mg/dl 209 mg/dl 140 mg/dl 110 mg/dl Test 05/12/17 04:11 05/12/17 06:45 White Blood Count 13.94 K/uL Red Blood Count 3.16 M/uL Hemoglobin 9.9 g/dL Hematocrit 28.7 % Mean Corpuscular Volume 90.8 fL Mean Corpuscular Hemoglobin 31.3 pg Mean Corpuscular Hemoglobin Concent 34.5 g/dl Platelet Count 251 K/uL Mean Platelet Volume 10.1 fL Neutrophils (%) (Auto) 65.6 % Lymphocytes (%) (Auto) 25.3 % Monocytes (%) (Auto) 6.8 % Eosinophils (%) (Auto) 1.1 % Basophils (%) (Auto) 0.1 % Neutrophils # (Auto) 9.15 K/uL Lymphocytes # (Auto) 3.52 K/uL Monocytes # (Auto) 0.95 K/uL Eosinophils # (Auto) 0.15 K/uL Basophils # (Auto) 0.02 K/uL RDW Standard Deviation 44.3 fL RDW Coefficient of Variation 13.6 % Immature Granulocyte % (Auto) 1.1 % Immature Granulocyte # (Auto) 0.15 K/uL Prothrombin Time 20.3 SECONDS Prothromb Time International Ratio 1.8 Sodium Level 140 mmol/L Potassium Level 4.4 mmol/L Chloride Level 110 mmol/L Carbon Dioxide Level 21 mmol/L Anion Gap 9.0 mmol/L Blood Urea Nitrogen 77 mg/dl Creatinine 4.30 mg/dl Est Creatinine Clear Calc Drug Dose 12.1 ml/min Estimated GFR () 10.9 Estimated GFR (Non- 9.4 BUN/Creatinine Ratio 17.8 Random Glucose 75 mg/dl Calcium Level 6.2 mg/dl Total Creatine Kinase 34987 U/L Bedside Glucose 79 mg/dl Assessment & Plan 77 y/o F w/ poorly controlled DM on insulin, albuminuric CKD 3 baseline creatinine 1.0, past PE, HTN, Charcot Sepideh Tooth who was found down at home where she lay for 4 days and noted in ER 8/20 to have CK > 19K, BG 680, K 8.4, creat 3.6, WBC 25K. lactic acid 3.0 at 1800. She is admitted w/ DKA, concern for rhabdomyolysis, and getting therapy for sepsis/cellulitis. She has significant wound under her R breast and R chest contusion as well as LLE blistering/abrasions/redness. She has very concentrated urine w/ granular casts consistent at the least w/ ATN and possibly w/ UTI as well w/ 4+ bacteria. Blood cxs NGTD; cefepime and vancomycin have been started. She was at first on 4LNC and is being hydrated aggressively. Fall w/ wounds/contusions LLE and R chest Acute on chronic renal failure, ATN from sepsis; concern rhabdomyolysis may have role>>>>creatinine a bit worse but uop improving and electrolytes/vol status ok; cautiously hopeful creat will plateau soon and begin to improve elevated CK > CK remains elevated but lactic acid normalized; continue hydration Sepsis likeliest sources either from LLE / R chest wounds and/or UTI; either of these can cause bacteremia as well >> blood cxs ngtd Acute respiratory failure w/o hypoxemia on abg >> PE history noted though INR therapeutic on presentation K pniae UTI though also w/ hx of stone disease/stent >at risk for obstruction/ pyelonephritis Transaminitis, stable/a bit improved -f/u pending cultures -changed 1/2 NS w/ 75 mEq/L sodium bicarb down to 80 mL hourly to address volume status; also has ongoing metabolic acidosis which is better -add hepatic function panel to labs every few days -check bmp, CK daily ->>>> needs eval of not moving L leg -cont to hold metformin, lisinopril -cont strict I/O -no indication for emergent dialysis currently but while unlikely cannot rule out need this admission > consent on chart Appreciate consult; will follow with you. Care coordinated w/ Dr Diallo
--- NOTE | 2017-05-12 09:50 | DIAGNOSTIC IMAGING REPORT ---
LEFT FOOT MIN 3 VIEWS ROUTINE CLINICAL HISTORY: 77 years-old Female presenting with L foot pain, infection, decreased ROM. TECHNIQUE: Frontal, oblique, and lateral views the left foot were obtained. COMPARISON: None. FINDINGS: Osteopenia, which limits evaluation for nondisplaced fracture. Accessory navicular noted. Degenerative changes of the interphalangeal joint of the great toe. No displaced fracture or malalignment. Apparent irregularity along the medial aspect of the head of the fifth metatarsal is felt to be projectional. Prominent inferior calcaneal bone spur at the origin of the plantar fascia. IMPRESSION: No displaced fracture or malalignment. Degenerative changes of the interphalangeal joint of the great toe. Electronically signed by: Tarik Irving M.D. 05/12/2017 9:48 AM Dictated Date/Time: 05/12/2017 9:47 AM
--- NOTE | 2017-05-12 09:52 | DIAGNOSTIC IMAGING REPORT ---
LEFT KNEE 3 VIEWS, LEFT TIBIA/FIBULA 2 VIEWS ROUTINE, LEFT ANKLE MIN 3 VIEWS ROUTINE CLINICAL HISTORY: s/p fall, decreased ROM. Left lower leg pain. COMPARISON STUDY: None. FINDINGS: Small knee effusion. Suspect chondrocalcinosis within the left knee. No acute fracture or dislocation. Plantar heel spur. Old, healed distal fibular fracture. Well-corticated ossific density adjacent to the medial malleolus is consistent with an old avulsion injury. Diffuse soft tissue swelling/edema within the left knee, lower leg, and ankle. This is likely chronic. IMPRESSION: 1. No acute fracture or dislocation within the left knee, left lower leg, left ankle. 2. Diffuse soft tissue swelling/edema which is likely chronic. 3. Small knee effusion. Electronically signed by: Juan Carranza M.D. 05/12/2017 9:51 AM Dictated Date/Time: 05/12/2017 9:47 AM
[2017-05-12] MEDS: DOXYCYCLINE IV 100 MG in DEXTROSE 5% 100ML 100 ML IV SCH (09:55)
[2017-05-12] MEDS: METOPROLOL TARTRATE 25 MG TAB PO SCH ×2 (09:55→20:59)
[2017-05-12] MEDS: PANTOprazole SOD 40 MG TAB PO SCH (09:55)
[2017-05-12] MEDS: TRAMADOL HCL 50 MG TAB PO PRN (11:26)
[2017-05-12] MEDS ORDERED: LEVOFLOXACIN CONSULT ACTIVE PRN (13:15)
--- NOTE | 2017-05-12 13:27 | Wound Consultation: Inpatient ---
Wound Consultation Date of Consultation: May 11, 2017. Attending Physician: Wojciech Diallo DO Reason for Consultation: Multiple pressure ulcerations to the left knee left foot and right chest wall. History of Present Illness Patient states she fell last Wednesday evening in the bathroom and was unable to get up 4 days. Patient was admitted to [facility] 2 days ago. Patient currently denies any shortness of breath ,abdominal discomfort , nausea or vomiting. Patient complains of intermittent pain in the left knee region and right chest wall area. Patient denies any focal weakness. Patient denies any other new systemic complaints at this time. Social History Smoking Status: Never Smoker Drug Use: none Marital Status: Housing Status: lives with family Occupation Status: unemployed Allergies Coded Allergies: Penicillins (Verified Allergy, Unknown, rash that occurred ~ 4 hrs ago, no resp symptoms, 05/12/17) NSAIDs (Verified Adverse Reaction, Unknown, KIDNEY ISSUES, 05/09/17) Home Medications Scheduled Allopurinol (Zyloprim), 300 MG PO DAILY Calcium W/ Vitamin D (Calcium/Vitamin D), 1 TAB PO DAILY Insulin Glargine (Lantus Solostar), 45 UNITS SC QAM Lisinopril (Zestril), 2.5 MG PO DAILY Metformin Hcl (Glucophage), 500 MG PO BID Metoprolol Tartrate (Lopressor) (Lopressor), 12.5 MG PO BID Pantoprazole (Protonix), 40 MG PO DAILY Warfarin Sodium (Coumadin), 5 MG PO DAILY Inpatient Medications Current Inpatient Medications Medications (Trade) Dose Ordered Sig/Solitario Route Start Time Stop Time Status Last Admin Dose Admin Glucose (Glucose 40% Gel) UD PRN PO 05/09/17 19:15 06/08/17 19:14 Glucose (Glucose Chew Tab) 1 tabs UD PRN PO 05/09/17 19:15 06/08/17 19:14 Dextrose (Dextrose 50% 50ML Syringe) 50 ml UD PRN IV 05/09/17 19:15 06/08/17 19:14 Glucagon (Glucagon Inj) 1 mg UD PRN SQ 05/09/17 19:15 06/08/17 19:14 Acetaminophen (Tylenol Tab) 325 mg Q6H PRN PO 05/09/17 21:30 06/08/17 21:29 Nitroglycerin (Nitrostat Tab) 0.4 mg UD PRN SL 05/09/17 21:30 06/08/17 21:29 Hydromorphone HCl (Dilaudid Inj) 0.5 mg Q3H PRN IV 05/09/17 21:30 05/23/17 21:29 05/11/17 20:23 0.5 MG Tramadol HCl (Ultram Tab) 25 mg Q6H PRN PO 05/09/17 21:30 06/08/17 21:29 05/12/17 11:26 25 MG Ondansetron HCl (Zofran Inj) 4 mg Q6H PRN IV 05/09/17 21:30 06/08/17 21:29 Metoprolol Tartrate (Lopressor Tab) 12.5 mg BID PO 05/10/17 09:00 06/09/17 08:59 05/12/17 09:55 12.5 MG Pantoprazole Sodium (Protonix Tab) 40 mg DAILY PO 05/10/17 09:00 06/09/17 08:59 05/12/17 09:55 40 MG Heparin Sodium (Porcine) (Heparin 10 Unit/ ml 5 ml Flush) 5 ml PRN PRN FLUSH 05/10/17 00:45 06/09/17 00:44 Miscellaneous Information (Consult Glycemic Management Pharmacy) 1 ea DAILY PRN N/A 05/10/17 09:00 06/09/17 08:59 Insulin Aspart (novoLOG ASPART) SLIDING SCALE ACHS SC 05/10/17 16:00 06/09/17 15:59 05/12/17 12:43 3 UNITS Ipratropium [place] (Atrovent 0.02% 0.5MG/2.5ML Neb) 0.5 mg Q6R INH 05/11/17 03:00 06/10/17 02:59 05/12/17 07:05 0.5 MG Levalbuterol (Xopenex 1.25MG/ 0.5ML Neb) 1.25 mg Q6R INH 05/11/17 03:00 06/10/17 02:59 05/12/17 07:05 1.25 MG Ipratropium [place] (Atrovent 0.02% 0.5MG/2.5ML Neb) 0.5 mg Q4H PRN INH 05/10/17 21:45 06/09/17 21:44 Levalbuterol (Xopenex 1.25MG/ 0.5ML Neb) 1.25 mg Q4H PRN INH 05/10/17 21:45 06/09/17 21:44 Sodium Bicarbonate 75 meq/Sodium Chloride 1,075 ml @ 80 mls/hr [id number] IV 05/11/17 08:45 06/11/17 08:44 05/12/17 05:59 150 MLS/HR Warfarin Sodium (Coumadin Tab) 4 mg DAILY@1600 PO 05/12/17 16:00 06/10/17 15:59 Insulin Glargine (Lantus Solostar Pen) see Protocol Text BID SC 05/12/17 21:00 06/11/17 20:59 Levofloxacin 750 mg/Prmx 150 ml @ 100 mls/hr TODAY@1400 ONCE IV 05/12/17 14:00 05/12/17 15:29 Levofloxacin 500 mg/Prmx 100 ml @ 100 mls/hr Q48H IV 05/14/17 14:00 05/24/17 13:59 Levofloxacin (Consult) 1 ea UD PRN N/A 05/12/17 13:15 06/11/17 13:14 Clindamycin Phosphate 600 mg/ Dextrose 54 ml @ 108 mls/hr Q8H IV 05/12/17 16:00 05/22/17 15:59 Physical Exam Date Time Temp Pulse Resp B/P (MAP) Pulse Ox O2 Delivery O2 Flow Rate FiO2 05/12/17 12:19 36.8 91 18 116/64 (81) 94 05/12/17 08:21 36.9 104 18 107/53 (71) 96 05/12/17 08:00 Nasal Cannula 2.0 05/12/17 07:06 101 18 94 Nasal Cannula 3.0 05/12/17 04:00 Nasal Cannula 2.0 05/12/17 04:00 36.6 100 18 122/61 (81) 94 Nasal Cannula 2.0 05/12/17 01:37 97 18 93 Nasal Cannula 2.0 05/12/17 00:00 36.6 94 20 104/55 (71) 97 Nasal Cannula 2.0 05/12/17 00:00 93 Nasal Cannula 2.0 05/11/17 20:00 Nasal Cannula 2.0 05/11/17 19:44 36.7 98 20 136/80 (98) 98 Nasal Cannula 2.0 05/11/17 19:04 101 20 93 Nasal Cannula 2.0 05/11/17 16:00 Nasal Cannula 2.0 05/11/17 15:30 36.4 98 20 134/75 (94) 92 Nasal Cannula 2.0 05/11/17 14:26 90 16 93 Nasal Cannula 2.0 General: The patient is lying in a hospital bedin no distress. Alert, cooperative and appropriate to all questions. HEENT: Pupils equal and reactive to light. Sclera clear, EOM intact. Neck: Supple, No JVD noted Chest: CTA in all denson. Ulceration and abrasion noted to the right chest wall as noted: RIGHT CHEST MEDIALLY EXTENDING UNDER BREAST, DEEP TISSUE INJURY TOTAL AREA MEASURES [id number] WITH 1X7CM OPEN AREA, SOME WHITE TISSUE. FEW CLOSED BLISTERS, FEW FIRM NODULAR AREAS. Significant slough or active drainage present. There is an area of deep tissue injury central slough located. Tenderness to palpation is present. No fluctuance noted. Heart: RRR without murmurs, S3, S4, thrills, rubs or heaves Extremities: Multiple areas of deep tissue injury blister formation and ulcerations noted on the left lower extremity in the knee and foot area. This is noted below. RIGHT MEDIAL KNEE AREA WITH DEEP TISSUE INJURY 5.5X5CM. NOT OPEN, NOT DRAINING. NO DRESSING AT THIS TIME. LEFT ANTERIOR KNEE WITH 9.5X18CM OPENED BLISTER, WEEPING SEROUS FLUID. LEFT MEDIAL UPPER CALF, NEAR KNEE WITH 8X5CM YELLOW FLUID FILLED BLISTER. LEFT POSTERIOR KNEE, EXTENDS ABOVE AND BELOW KNEE JOINT, WITH [id number] OPENED BLISTER. AREAS OF WHITE TISSUE ON POSTERIOR DISTAL THIGH 3X3CM AND ON PROXIMAL POSTERIOR CALF 8X5CM. TREATMENT PLAN FOR WOUNDS 3-4-5 COVERED WITH ADAPTIC, AQUACEL AG TO ABSORB DRAINAGE AND ABD'S. THIS IS HELD IN PLACE BY REUSABLE UNDERPAD WRAPPED AROUND LEG. DORSAL LEFT 1ST TOE 4X1CM CLUSTER OF SMALL DEEP TISSUE INJURIES, NOT OPEN. LEFT DORSAL TOE, NEAR WEB WITH 2.5X1.5CM FLUID FILLED BLISTER WITH DARKENED TISSUE UNDER BLISTER LEFT DORSAL FOOT, NEAR BASE OF 2ND TOE 1.5X2CM CLEAR FLUID FILLED BLISTER LEFT 5TH TOE NAIL BED DARKENED LEFT DORSAL LATERAL FOOT 2.5X2.5CM DARKENED AREA LEFT LATERAL FOOT X2 AREAS. BOTH DEEP TISSUE INJURIES. PROXIMAL AREA 0.5X0.5CM DISTAL AREA 0.7X0.5CM LEFT DORSAL FOOT 1X1CM DEEP TISSUE INJURY Range of motion and distal neurovascular bundle appear intact. Neurological: Alert and oriented x3. No focal deficits. Laboratory Results Last 24 Hours Test 05/11/17 16:13 05/11/17 20:40 05/12/17 02:11 05/12/17 04:11 Bedside Glucose 209 mg/dl 140 mg/dl 110 mg/dl White Blood Count 13.94 K/uL Red Blood Count 3.16 M/uL Hemoglobin 9.9 g/dL Hematocrit 28.7 % Mean Corpuscular Volume 90.8 fL Mean Corpuscular Hemoglobin 31.3 pg Mean Corpuscular Hemoglobin Concent 34.5 g/dl Platelet Count 251 K/uL Mean Platelet Volume 10.1 fL Neutrophils (%) (Auto) 65.6 % Lymphocytes (%) (Auto) 25.3 % Monocytes (%) (Auto) 6.8 % Eosinophils (%) (Auto) 1.1 % Basophils (%) (Auto) 0.1 % Neutrophils # (Auto) 9.15 K/uL Lymphocytes # (Auto) 3.52 K/uL Monocytes # (Auto) 0.95 K/uL Eosinophils # (Auto) 0.15 K/uL Basophils # (Auto) 0.02 K/uL RDW Standard Deviation 44.3 fL RDW Coefficient of Variation 13.6 % Immature Granulocyte % (Auto) 1.1 % Immature Granulocyte # (Auto) 0.15 K/uL Prothrombin Time 20.3 SECONDS Prothromb Time International Ratio 1.8 Sodium Level 140 mmol/L Potassium Level 4.4 mmol/L Chloride Level 110 mmol/L Carbon Dioxide Level 21 mmol/L Anion Gap 9.0 mmol/L Blood Urea Nitrogen 77 mg/dl Creatinine 4.30 mg/dl Est Creatinine Clear Calc Drug Dose 12.1 ml/min Estimated GFR () 10.9 Estimated GFR (Non- 9.4 BUN/Creatinine Ratio 17.8 Random Glucose 75 mg/dl Calcium Level 6.2 mg/dl Total Creatine Kinase 83014 U/L Test 05/12/17 06:45 8/23/17 11:17 Bedside Glucose 79 mg/dl 132 mg/dl Assessment & Plan Assessment: Multiple pressure ulcers and deep tissue injury noted to the right chest wall left knee and left foot region. Plan: The sites with blister formation and Central slough did require debridement. With the patient's permission the blisters were de removed with scissors and forceps and removed along with underlying areas of slough. No significant bleeding occurred. The sites were dressed with Aquasol AG and Opto foam change daily basis or more frequently as needed based upon drainage. Patient has been placed a waffle boots and is on a low air loss bed. Patient will continue to be monitored during her hospital course and be reevaluated in 48 hours. This represented a non-excisional debridement of approximately 300 cm .
--- NOTE | 2017-05-12 13:28 | Pharmacy Progress Note ---
Glycemic Control Progress Note Date of Service May 12, 2017. Scope Glycemic Pharmacist consulted for glycemic control to write orders per [facility] inpatient glycemic control protocol. Objective Accuchecks BSG (last 24hrs): Test 05/11/17 16:13 05/11/17 20:40 05/12/17 02:11 05/12/17 04:11 Bedside Glucose 209 mg/dl (70-90) 140 mg/dl (70-90) 110 mg/dl (70-90) Random Glucose 75 mg/dl (70-99) Test 05/12/17 06:45 05/12/17 11:17 Bedside Glucose 79 mg/dl (70-90) 132 mg/dl (70-90) HbA1c: Test 05/09/17 18:25 Hemoglobin A1c 11.2 % (4.5-5.6) H Recent Pertinent Medications Outpatient Anti-diabetic Regimen: * Metformin 500mg PO BID * Lantus 45 units SQ Q AM * A1c = 11.2 % 05/09/17 The patient is currently receiving: * Lantus 30 units SQ BID * Novolog SQ ACHS and at 0200 * Goal Range: 120-160 mg/dL * Correction Factor: 15 mg/dL/unit * Carb Ratio: 1 unit per 6 grams of carbs eaten Risk Factors for Insulin Resistance: * Infection: receiving cefazolin + metronidazole + doxycycline empirically for sepsis likely from SSTI + UTI * Diet: ordered Clear Liquids at this time - oral intake has been poor, however she did consume 57gm CHO this AM Assessment & Plan ASSESSMENT: 05/10/17 * Type 2 diabetic admitted overnight following fall, prolonged immobility, rhabdomyolysis, VIOLETA, HHS/DKA and possible sepsis * Patient's labs on admission: Glu 680, AG 18, pH 7.41, Bicarb 18, BOHB 25.91, calculated effective serum osmo ~292 * IV insulin infusion and hydration were initiated and labs have improved with the exception of renal fxn. AG and Bicarb have normalized this AM and patient is no longer symptomatic and expected to tolerate a clear liquid diet. Will begin to transition patient to SQ regimen at this time. * Insulin infusion has run at 3.6-7.2 units/hr since initiated. The infusion really has not been running long enough to be used to calculate the patient's insulin requirements due to effects of glucotoxicity and ketoacids on insulin resistance. Will use the patient's outpt regimen instead to estimate insulin needs. Will resume the outpt dose of Lantus but split the dose BID as her dietary intake is uncertain and there is a possibility the outpt dose was providing some coverage of carb intake given she did not use prandial insulin. Would estimate this patient will require ~50-80 units of insulin per day to achieve glycemic targets when tolerating a diet. * Will need to monitor this patient closely as insulin resistance can be altered by poor renal fxn, accumulation of uremic toxins 05/11/17 * BSGs did rebound into the mid-upper 200's after stopping the insulin drip yesterday - this was despite poor oral intake and stopping IV dextrose infusion * Fasting BSG 179 this AM with 44 units basal on board as well as receiving 15 units of correctional insulin overnight - will increase the basal insulin dose at this time, I anticipate total daily insulin doses to be 80-100 units per day when tolerating a diet with current stressors * Will increase correctional and prandial insulin doses as well based upon these new estimates 05/12/17 * Glycemic control has improved a good deal over the last 24 hrs * BSGs have ranged 75-240 over the last 24 hrs and she has received 93 units of SQ insulin - again with poor PO intake * Fasting BSG 75-79 this AM, this is with 68 units of basal insulin on board and no correctional insulin given overnight; will begin to taper back the basal insulin dose at this time to lessen the risk of hypoglycemia. Will use scale to dose Lantus this PM to help lessen hypo- risks. * The current CF and CR are fairly aggressive but are consistent with what one might expect for a patient who requires ~90 units of insulin per day - will continue the same for now, but if she continues to appear more insulin sensitive I will lessen these doses. PLAN FOR INPATIENT GLYCEMIC CONTROL: * Holding outpatient oral diabetes medication (metformin) * Decrease LANTUS SQ BID to: * 0 units if BSG less than 110 mg/dL * 15 units if BSG 110-140 mg/dL * 20 units if BSG 141 or greater mg/dL * Continue Goal Range: Low 120 mg/dL - High 160 mg/dL * Continue Correction Factor 15 mg/dL/unit * Continue carb ratio 1 unit per 6 grams CHO consumed * Please note that the plan above was derived based on current level of insulin resistance and hospital stress. These recommendations are appropriate for inpatient admission only. Plan of care upon discharge will need to be reassessed to avoid potential outpatient hypo/hyperglycemia. Thank you.
[2017-05-12] MEDS ORDERED: LEVOFLOXACIN 750MG / D5W IV ONE (14:00)
[2017-05-12] MEDS ORDERED: WARFARIN SOD 4 MG TAB PO SCH (16:00)
[2017-05-12] MEDS: CLINDAMYCIN IV 600 MG in DEXTROSE 5% ADD-VANTAGE 50ML 50 ML IV SCH (17:19)
[2017-05-13] VITALS (12 sets, daily range): BP systolic 98–131; BP diastolic 44–80; PULSE 87–104; TEMP 36.3–36.6; O2SAT 93–97
[2017-05-13] MEDS: CLINDAMYCIN IV 600 MG in DEXTROSE 5% ADD-VANTAGE 50ML 50 ML IV SCH ×2 (00:37→07:54)
[2017-05-13] MEDS: TRAMADOL HCL 50 MG TAB PO PRN ×3 (00:38→13:55)
[2017-05-13] MEDS: LEVALBUTEROL 1.25MG/0.5ML NEB INH SCH ×4 (02:13→19:13)
[2017-05-13] MEDS: IPRATROPIUM BROMIDE NEB SOLN 0.02% 2.5 ML VIAL INH SCH ×4 (02:13→19:13)
[2017-05-13] MEDS: SODIUM BICARBONATE 8.4% INJ 75 MEQ in SODIUM CHLORIDE 0.45% 1000ML 1,000 ML IV SCH (05:09)
[2017-05-13 06:47] LABS: BASO % 0.1 %; BASO ABS # 0.01 K/uL (0-0.2); COMPLETE YES; EOS % 1.6 %; HEMATOCRIT 29.5 % (37-47); IG% 1.5 %; LYMPH % 17.3 %; LYMPH ABS # 2.31 K/uL (1.2-3.4); MEAN CELL VOLUME 91.6 fL (80-100); MEAN CORPUSCULAR HEMOGLOBIN 30.1 pg (25-34); MEAN CORPUSCULAR HGB CONC 32.9 g/dl (32-36); MEAN PLATELET VOLUME 9.8 fL (7.4-10.4); MONO % 7.2 %; NEUT % 72.3 %; PLATELET COUNT 261 K/uL (130-400); RED BLOOD COUNT 3.22 M/uL (4.2-5.4); WHITE BLOOD COUNT 13.34 K/uL (4.8-10.8)
[2017-05-13 07:08] LABS: INR 2.1 (0.9-1.1); PROTHROMBIN TIME (PATIENT) 23.7 SECONDS (9.0-12.0)
[2017-05-13 07:20] LABS: BUN/CREATININE RATIO 17.3 (10-20); CALCIUM 6.5 mg/dl (8.5-10.1); CREATININE 4.3 mg/dl (0.60-1.20); MAGNESIUM 1.6 mg/dl (1.8-2.4); POTASSIUM 4.6 mmol/L (3.5-5.1)
[2017-05-13] MEDS: INSULIN ASPART 100 UNITS/ML 3 ML PEN SC SCH ×4 (07:53→20:36)
[2017-05-13] MEDS: PANTOprazole SOD 40 MG TAB PO SCH (07:54)
[2017-05-13] MEDS: METOPROLOL TARTRATE 25 MG TAB PO SCH ×2 (07:55→20:42)
[2017-05-13] MEDS: INSULIN GLARGINE SOLOSTAR 100 UNITS/ML 3 ML PEN SC SCH ×2 (08:02→20:36)
--- NOTE | 2017-05-13 08:26 | Progress Note ---
Subjective Date of Service: May 13, 2017. Subjective Pt evaluation today including: conversation w/ patient, physical exam, lab review, review of studies, review of inpatient medication list Saw/examined the patient in room 209 She's doing okay today; no problems/issues to note today Much more awake/alert today Pain at the R breast ands LLE improving +weakness, +lethargic no chest pain/SOB Review of Systems Constitutional: + weakness, No fever, No chills Respiratory: No cough, No sputum, No wheezing, No shortness of breath, No dyspnea on exertion, No dyspnea at rest, No hemoptysis Cardiac: No chest pain Abdomen: No pain, No nausea, No vomiting, No diarrhea Medications Current Inpatient Medications Medications (Trade) Dose Ordered Sig/Solitario Route Start Time Stop Time Status Last Admin Dose Admin Glucose (Glucose 40% Gel) UD PRN PO 05/09/17 19:15 06/08/17 19:14 Glucose (Glucose Chew Tab) 1 tabs UD PRN PO 05/09/17 19:15 06/08/17 19:14 Dextrose (Dextrose 50% 50ML Syringe) 50 ml UD PRN IV 05/09/17 19:15 06/08/17 19:14 Glucagon (Glucagon Inj) 1 mg UD PRN SQ 05/09/17 19:15 06/08/17 19:14 Acetaminophen (Tylenol Tab) 325 mg Q6H PRN PO 05/09/17 21:30 06/08/17 21:29 Nitroglycerin (Nitrostat Tab) 0.4 mg UD PRN SL 05/09/17 21:30 06/08/17 21:29 Hydromorphone HCl (Dilaudid Inj) 0.5 mg Q3H PRN IV 05/09/17 21:30 05/23/17 21:29 05/11/17 20:23 0.5 MG Tramadol HCl (Ultram Tab) 25 mg Q6H PRN PO 05/09/17 21:30 06/08/17 21:29 05/13/17 06:47 25 MG Ondansetron HCl (Zofran Inj) 4 mg Q6H PRN IV 05/09/17 21:30 06/08/17 21:29 Metoprolol Tartrate (Lopressor Tab) 12.5 mg BID PO 05/10/17 09:00 06/09/17 08:59 05/13/17 07:55 12.5 MG Pantoprazole Sodium (Protonix Tab) 40 mg DAILY PO 05/10/17 09:00 06/09/17 08:59 05/13/17 07:54 40 MG Heparin Sodium (Porcine) (Heparin 10 Unit/ ml 5 ml Flush) 5 ml PRN PRN FLUSH 05/10/17 00:45 06/09/17 00:44 Miscellaneous Information (Consult Glycemic Management Pharmacy) 1 ea DAILY PRN N/A 05/10/17 09:00 06/09/17 08:59 Insulin Aspart (novoLOG ASPART) SLIDING SCALE ACHS SC 05/10/17 16:00 06/09/17 15:59 05/13/17 07:53 1 UNITS Ipratropium [place] (Atrovent 0.02% 0.5MG/2.5ML Neb) 0.5 mg Q6R INH 05/11/17 03:00 06/10/17 02:59 05/13/17 07:56 0.5 MG Levalbuterol (Xopenex 1.25MG/ 0.5ML Neb) 1.25 mg Q6R INH 05/11/17 03:00 06/10/17 02:59 05/13/17 07:56 1.25 MG Ipratropium [place] (Atrovent 0.02% 0.5MG/2.5ML Neb) 0.5 mg Q4H PRN INH 05/10/17 21:45 06/09/17 21:44 Levalbuterol (Xopenex 1.25MG/ 0.5ML Neb) 1.25 mg Q4H PRN INH 05/10/17 21:45 06/09/17 21:44 Sodium Bicarbonate 75 meq/Sodium Chloride 1,075 ml @ 80 mls/hr [id number] IV 05/11/17 08:45 06/11/17 08:44 05/13/17 05:09 80 MLS/HR Warfarin Sodium (Coumadin Tab) 4 mg DAILY@1600 PO 05/12/17 16:00 06/10/17 15:59 05/12/17 17:19 4 MG Insulin Glargine (Lantus Solostar Pen) see Protocol Text BID SC 05/12/17 21:00 06/11/17 20:59 05/12/17 21:04 20 UNITS Levofloxacin 500 mg/Prmx 100 ml @ 100 mls/hr Q48H IV 05/14/17 14:00 05/24/17 13:59 Levofloxacin (Consult) 1 ea UD PRN N/A 05/12/17 13:15 06/11/17 13:14 Clindamycin Phosphate 600 mg/ Dextrose 54 ml @ 108 mls/hr Q8H IV 05/12/17 16:00 05/22/17 15:59 05/13/17 07:54 108 MLS/HR Magnesium Sulfate 1 gm/Prmx 100 ml @ 100 mls/hr TODAY@0830 IV 05/13/17 08:30 05/13/17 12:00 Objective Vital Signs Date Time Temp Pulse Resp B/P (MAP) Pulse Ox O2 Delivery O2 Flow Rate FiO2 05/13/17 07:59 104 18 96 Nasal Cannula 2.0 05/13/17 07:40 36.5 103 20 131/68 (89) 97 Nasal Cannula 2.0 05/13/17 03:30 Nasal Cannula 2.0 05/13/17 03:20 36.3 100 20 106/59 (75) 95 Nasal Cannula 2.0 05/13/17 02:13 94 18 93 Nasal Cannula 2.0 05/13/17 00:00 36.6 92 20 122/57 (78) 97 Nasal Cannula 2.0 05/13/17 00:00 Nasal Cannula 2.0 05/12/17 20:00 Nasal Cannula 2.0 05/12/17 19:50 98 18 97 Nasal Cannula 2.0 05/12/17 19:33 36.8 96 18 117/51 (73) 95 Room Air 05/12/17 16:11 36.6 94 18 117/68 (84) 97 Nasal Cannula 3.0 05/12/17 16:00 Nasal Cannula 2.0 05/12/17 12:19 36.8 91 18 116/64 (81) 94 05/12/17 12:00 Nasal Cannula 2.0 05/12/17 08:21 36.9 104 18 107/53 (71) 96 Physical Exam General Appearance: + obese, + pertinent finding (weakness) Respiratory/Chest: lungs clear Cardiovascular: no murmur, + tachycardia Abdomen: normal bowel sounds, non tender, soft Extremities: + pertinent finding (LLE is dressed/wrapped) Neurologic/Psychiatric: alert, normal mood/affect, + motor weakness Skin: + pertinent finding (eschar/ulcerations of R breast) Laboratory Results Last 24 Hours Test 05/12/17 11:17 05/12/17 16:29 05/12/17 20:31 05/13/17 06:06 Bedside Glucose 132 mg/dl 74 mg/dl 166 mg/dl White Blood Count 13.34 K/uL Red Blood Count 3.22 M/uL Hemoglobin 9.7 g/dL Hematocrit 29.5 % Mean Corpuscular Volume 91.6 fL Mean Corpuscular Hemoglobin 30.1 pg Mean Corpuscular Hemoglobin Concent 32.9 g/dl Platelet Count 261 K/uL Mean Platelet Volume 9.8 fL Neutrophils (%) (Auto) 72.3 % Lymphocytes (%) (Auto) 17.3 % Monocytes (%) (Auto) 7.2 % Eosinophils (%) (Auto) 1.6 % Basophils (%) (Auto) 0.1 % Neutrophils # (Auto) 9.65 K/uL Lymphocytes # (Auto) 2.31 K/uL Monocytes # (Auto) 0.96 K/uL Eosinophils # (Auto) 0.21 K/uL Basophils # (Auto) 0.01 K/uL RDW Standard Deviation 46.0 fL RDW Coefficient of Variation 13.7 % Immature Granulocyte % (Auto) 1.5 % Immature Granulocyte # (Auto) 0.20 K/uL Prothrombin Time 23.7 SECONDS Prothromb Time International Ratio 2.1 Sodium Level 137 mmol/L Potassium Level 4.6 mmol/L Chloride Level 105 mmol/L Carbon Dioxide Level 27 mmol/L Anion Gap 5.0 mmol/L Blood Urea Nitrogen 75 mg/dl Creatinine 4.30 mg/dl Est Creatinine Clear Calc Drug Dose 12.5 ml/min Estimated GFR () 10.9 Estimated GFR (Non- 9.4 BUN/Creatinine Ratio 17.3 Random Glucose 65 mg/dl Calcium Level 6.5 mg/dl Magnesium Level 1.6 mg/dl Total Creatine Kinase 92499 U/L Test 05/13/17 06:41 Bedside Glucose 76 mg/dl Assessment and Plan This is a 77 year old obese female with a PMH of uncontrolled, insulin dependent DM2, diabetic nephropathy and CKD stage 3, 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 of lacunar infarct, Hpdoijl-opdkh-qheko disease, HTN, HLD presents with a fall, and subsequently found to have sepsis, rhabdomyolysis, acute kidney injury, and DKA Sepsis secondary to UTI and R breast cellulitis 05/13 LLE culture - enterococcus faecalis abx. switched around yesterday to Levaquin and Clinda ID consulted for further input, currently has cellulitic changes with Enterococcus and MSSA; also has Klebsiella UTI now c/o diarrhea with Clinda; C. diff negative, may need to switch abx, but noted PCN allergy 05/12 changed Cefepime to Ancef d/c'd Flagyl R breast - MSSA - continue Doxy Urine - Klebsiella - continue Ancef LLE - Strep - awaiting sensitivities 05/11 multiple infections including UTI, R breast and LLE cellulitic changes cultures grown; Klebsiella UTI, Staph, and strep noted on wound cultures; sensitivities pending leukocytosis improved, lactic acidosis resolved Cefepime, Flagyl, Doxy - considered changing Flagyl and Doxy to Vanco, though with kidney issues, will hold off continue IV abx. and fluids 05/10 patient presents with leukocytosis, lactic acidosis, tachycardia, temp of 35.6 UA is dirty with +bacteria, urine culture - gram negative bacilli R breast cellulitic changes CT chest = Infiltration of the subcutaneous tissue with overlying skin thickening along the medial right breast. This could be compatible with cellulitis in the absence of a history of radiation started on Cefepime, Flagyl, and doxycycline leukocytosis, trending down, lactic acid < 2 continue fluids and IV abx. Acute Kidney Injury superimposed on CKD stage 3 05/13 multifactorial: * significant dehydration, no fluid intake x2 days * ATN secondary to sepsis * rhabdomyolysis * diabetic nephropathy appreciate nephro input creat around 4.3 today also 05/12 improved urine output appreciate nephrology input creatinine up to 4.3, will recheck in AM 05/11 multifactorial: * significant dehydration, no fluid intake x2 days * ATN secondary to sepsis * rhabdomyolysis * diabetic nephropathy appreciate nephrology input creatinine increased to 4.0 IVFs changed to 1/2 NSS with sodium bicarb at 150mL monitor for urine output Mechanical Fall 05/13 radiographs suggest no acute fracture will need PT/OT wound care 8/23 decreased ROM of the L LE traumatic wound noted on the L LE will obtain radiographs will need PT/OT DKA - resolved 05/13 appreciate pharmacy glycemic control currently on insulin sliding scale and Lantus protocol BSGs; much improved Uncontrolled DM2 05/11 Ha1c > 11% switched to subq insulin, appreciate glycemic control consult currently on Lantus 30 units BID and sliding scale D5 was removed from fluids late last evening for improved BSG control 05/10 Ha1c > 11% +ketones in urine/serum, BSGs > 600, high anion gap started on insulin drip, BSGs improving continue fluids, monitor for urine output started on Lantus, january d/c insulin drip later today with improved diet Rhabdomyolysis 05/13 CPK >10,000 and trending down 05/11 no significant improvement in CPK decreased urine output will need continued IVFs monitor for output, appreciate nephro input 05/10 CPK >20,000 secondary to fall IVFs, monitor CPK BID Hx. of PE on long-term anticoagulation INR goal of 2-3 Coumadin 3mg on 05/13 Tkkduoh-Omnjv-Sbxox Disease patient has a neurological motor/sensory issue states that she slipped in the shower, and then afterwards did not have the strength to get up uses cane for ambulation at times will need PT/OT Hx. of Lacunar Infarct when more stable, will need PT/OT DVT ppx Coumadin DNR
[2017-05-13] MEDS ORDERED: MAGNESIUM SULFATE 1GM / D5W 1 GM in PREMIXED IN D5W 100 ML IV SCH (08:30)
[2017-05-13] MEDS: HYDROmorphone INJ 0.5 MG/0.5 ML SYR IV PRN ×2 (08:59→20:44)
--- NOTE | 2017-05-13 10:06 | Medical Consult ---
Consultation Date of Consultation: May 13, 2017. Attending Physician: Wojciech Diallo DO Reason for Consultation: Multiple infections; Wounds; Enterococcus History of Present Illness 77-year-old female with history of diabetes, Lnefaff-Wvotc-Xwcoa disease, hypertension, hyperlipidemia, was reportedly found on floor after a fall, lying there for 2 days. She was found to have elevated blood sugar as well as markedly elevated CPK levels. She suffered multiple open wounds involving her right chest wall and both legs and feet, an cultures have grown Staph aureus and Enterococcus. She also has evidence of urinary tract infection with Klebsiella. Currently being treated with levofloxacin and clindamycin. Has been afebrile. She has acute kidney injury with creatinine now 4.3. Past Medical/Surgical History Medical Problems: (1) Acute renal failure syndrome (2) Calculus in urethra (3) Cdltucd-Qdzxt-Nefse disease (4) Chronic kidney disease stage 3 (5) Diabetes mellitus type 2 (6) Essential hypertension (7) Gout (8) Lacunar stroke (9) Obesity, morbid, BMI 40.0-49.9 (10) Pulmonary embolism Surgical Problems: (1) H/O hernia repair (2) History of appendectomy (3) History of cholecystectomy (4) History of hysterectomy Family History Noncontributory Social History Smoking Status: Never Smoker Drug Use: none Marital Status: Housing Status: lives with family Occupation Status: unemployed Allergies Coded Allergies: Penicillins (Verified Allergy, Unknown, rash that occurred ~ 4 hrs ago, no resp symptoms, 05/12/17) NSAIDs (Verified Adverse Reaction, Unknown, KIDNEY ISSUES, 05/09/17) Current Inpatient Medications Current Inpatient Medications Medications (Trade) Dose Ordered Sig/Solitario Route Start Time Stop Time Status Last Admin Dose Admin Glucose (Glucose 40% Gel) UD PRN PO 05/09/17 19:15 06/08/17 19:14 Glucose (Glucose Chew Tab) 1 tabs UD PRN PO 05/09/17 19:15 06/08/17 19:14 Dextrose (Dextrose 50% 50ML Syringe) 50 ml UD PRN IV 05/09/17 19:15 06/08/17 19:14 Glucagon (Glucagon Inj) 1 mg UD PRN SQ 05/09/17 19:15 06/08/17 19:14 Acetaminophen (Tylenol Tab) 325 mg Q6H PRN PO 05/09/17 21:30 06/08/17 21:29 Nitroglycerin (Nitrostat Tab) 0.4 mg UD PRN SL 05/09/17 21:30 06/08/17 21:29 Hydromorphone HCl (Dilaudid Inj) 0.5 mg Q3H PRN IV 05/09/17 21:30 05/23/17 21:29 05/13/17 08:59 0.5 MG Tramadol HCl (Ultram Tab) 25 mg Q6H PRN PO 05/09/17 21:30 06/08/17 21:29 05/13/17 06:47 25 MG Ondansetron HCl (Zofran Inj) 4 mg Q6H PRN IV 05/09/17 21:30 06/08/17 21:29 Metoprolol Tartrate (Lopressor Tab) 12.5 mg BID PO 05/10/17 09:00 06/09/17 08:59 05/13/17 07:55 12.5 MG Pantoprazole Sodium (Protonix Tab) 40 mg DAILY PO 05/10/17 09:00 06/09/17 08:59 05/13/17 07:54 40 MG Heparin Sodium (Porcine) (Heparin 10 Unit/ ml 5 ml Flush) 5 ml PRN PRN FLUSH 05/10/17 00:45 06/09/17 00:44 Miscellaneous Information (Consult Glycemic Management Pharmacy) 1 ea DAILY PRN N/A 05/10/17 09:00 06/09/17 08:59 Insulin Aspart (novoLOG ASPART) SLIDING SCALE ACHS SC 05/10/17 16:00 06/09/17 15:59 05/13/17 07:53 1 UNITS Ipratropium [place] (Atrovent 0.02% 0.5MG/2.5ML Neb) 0.5 mg Q6R INH 05/11/17 03:00 06/10/17 02:59 05/13/17 07:56 0.5 MG Levalbuterol (Xopenex 1.25MG/ 0.5ML Neb) 1.25 mg Q6R INH 05/11/17 03:00 06/10/17 02:59 05/13/17 07:56 1.25 MG Ipratropium [place] (Atrovent 0.02% 0.5MG/2.5ML Neb) 0.5 mg Q4H PRN INH 05/10/17 21:45 06/09/17 21:44 Levalbuterol (Xopenex 1.25MG/ 0.5ML Neb) 1.25 mg Q4H PRN INH 05/10/17 21:45 06/09/17 21:44 Sodium Bicarbonate 75 meq/Sodium Chloride 1,075 ml @ 80 mls/hr [id number] IV 05/11/17 08:45 06/11/17 08:44 05/13/17 05:09 80 MLS/HR Insulin Glargine (Lantus Solostar Pen) see Protocol Text BID SC 05/12/17 21:00 06/11/17 20:59 05/12/17 21:04 20 UNITS Levofloxacin 500 mg/Prmx 100 ml @ 100 mls/hr Q48H IV 05/14/17 14:00 05/24/17 13:59 Levofloxacin (Consult) 1 ea UD PRN N/A 05/12/17 13:15 06/11/17 13:14 Clindamycin Phosphate 600 mg/ Dextrose 54 ml @ 108 mls/hr Q8H IV 05/12/17 16:00 05/22/17 15:59 05/13/17 07:54 108 MLS/HR Magnesium Sulfate 1 gm/Prmx 100 ml @ 100 mls/hr TODAY@0830 IV 05/13/17 08:30 05/13/17 12:00 05/13/17 08:51 100 MLS/HR Warfarin Sodium (Coumadin Tab) 3 mg DAILY@1600 PO 05/13/17 16:00 06/10/17 15:59 Review of Systems Constitutional: + weakness, No fever Eyes: No problem reported ENT: No problem reported Respiratory: No problem reported Cardiovascular: No problem reported Abdomen: No problem reported Musculoskeletal: + problem reported (see HPI) Genitourinary - Female: No problem reported Neurologic: + weakness Psychiatric: No problem reported Endocrine: No problem reported Hematologic / Lymphatic: No problem reported Integumentary: + new/changing skin lesions Allergic / Immunologic: No problem reported Physical Exam Date Time Temp Pulse Resp B/P (MAP) Pulse Ox O2 Delivery O2 Flow Rate FiO2 05/13/17 07:59 104 18 96 Nasal Cannula 2.0 05/13/17 07:40 36.5 103 20 131/68 (89) 97 Nasal Cannula 2.0 05/13/17 03:30 Nasal Cannula 2.0 05/13/17 03:20 36.3 100 20 106/59 (75) 95 Nasal Cannula 2.0 05/13/17 02:13 94 18 93 Nasal Cannula 2.0 05/13/17 00:00 36.6 92 20 122/57 (78) 97 Nasal Cannula 2.0 05/13/17 00:00 Nasal Cannula 2.0 05/12/17 20:00 Nasal Cannula 2.0 05/12/17 19:50 98 18 97 Nasal Cannula 2.0 05/12/17 19:33 36.8 96 18 117/51 (73) 95 Room Air 05/12/17 16:11 36.6 94 18 117/68 (84) 97 Nasal Cannula 3.0 05/12/17 16:00 Nasal Cannula 2.0 05/12/17 12:19 36.8 91 18 116/64 (81) 94 05/12/17 12:00 Nasal Cannula 2.0 General Appearance: WD/WN, no apparent distress, + pertinent finding (Lethargic ) Head: normocephalic, atraumatic Eyes: normal inspection, sclerae normal ENT: normal ENT inspection, pharynx normal Neck: supple, no adenopathy, thyroid normal, trachea midline Respiratory/Chest: lungs clear, normal breath sounds, no respiratory distress Cardiovascular: regular rate, rhythm, no gallop, no murmur Abdomen/GI: normal bowel sounds, non tender, soft, no organomegaly Back: normal inspection, no CVA tenderness Extremities/Musculoskelatal: no calf tenderness, + pertinent finding ( multiple skin ulcerations) Neurologic/Psych: alert, oriented x 3, + pertinent finding (Lethargic) Skin: normal color, no rash, + pertinent finding (Large ulceration under her right breast, multiple lower extremity skin ulcerations ) Lymphatic: no adenopathy Laboratory Results RUN DATE: 05/12/17 [facility] LAB PAGE 1 RUN TIME: 1100 Specimen Inquiry PATIENT: HODA NUNEZ LOC: [place] U # : [id number] AGE/SX: 77/F ROOM: [facility] REG : 05/09/[address]: Wojciech Diallo DO : 1940 BED: 1 DIS : STATUS: ADM IN TLOC: SPEC #: [id number] ANN-MARIE: 05/10/17 STATUS: COMP REQ #: [id number] RECD: 05/10/[address]: John Moralez M.D. SOURCE: ULCER ENTR: 05/10/[address] [facility] [address]: Chani Curiel MD [facility] Dami HARDIN Salman A., DO Kopinski, Laura, D.O. ORDERED: SURF JOSE CU/CATHERINE COMMENTS: Has Specimen Been Obtained/Collected? Y Procedure Result Verified Site GRAM STAIN Final 05/10/17-729 RESULT MODERATE WBCs SEEN MANY GRAM POSITIVE COCCI SURFACE WOUND CULTURE Final 05/12/17-1059 Organism 1 STAPHYLOCOCCUS AUREUS QUANITY MANY SENS SENSITIVITY TO FOLLOW +MIXWOUND PLUS HIGH COUNTS OF PROBABLE SKIN MAGED 1. STAPHYLOCOCCUS AUREUS Target Route Dose RX AB Cost M.I.C. IQ ------ ----- ------ -- ------ -------- - ------ TRIMET/SULFA S <=0.5/ 9.5 * OXACILLIN S 0.5 VANCOMYCIN S 1 ERYTHROMYCIN R >4 TETRACYCLINE S <=4 CLINDAMYCIN S <=0.5 DAPTOMYCIN S <=0.5 S = SENSITIVE I = INTERMEDIATE R = RESISTANT --------- RUN DATE: 05/11/17 [facility] LAB PAGE 1 RUN TIME: 1636 Specimen Inquiry PATIENT: HODA NUNEZ LOC: [place] U # : [id number] AGE/SX: 77/F ROOM: [facility] REG : 05/09/[address]: Wojciech Diallo DO : 1940 BED: 1 DIS : STATUS: ADM IN TLOC: SPEC #: [id number] ANN-MARIE: 05/09/17 STATUS: COMP REQ #: [id number] RECD: 05/09/[address]: Samuel Banegas DO SOURCE: UR, CC ENTR: 05/09/[address]: Neisha Ivy, Jama [facility]: ORDERED: CULTURE URCLEAN Procedure Result Verified Site URINE CULTURE Final 05/11/17-1206 Organism 1 KLEBSIELLA PNEUMONIAE COLONY COUNT >100,000 CFU/ml SENS SENSITIVITY TO FOLLOW 1. KLEBSIELLA PNEUMONIAE Target Route Dose RX AB Cost M.I.C. IQ ------ ----- ------ -- ------ -------- - ------ TRIMET/SULFA S <=2/38 AMPICILLIN/SUL S <=8/4 CEFAZOLIN S <=8 CEFOTAXIME S <=2 CEFTRIAXONE S <=1 CEFEPIME S <=4 CEFUROXIME S <=4 IMIPENEM S <=1 GENTAMICIN S <=4 TOBRAMYCIN S <=4 AMIKACIN S <=16 CIPROFLOXACIN S <=1 LEVOFLOXACIN S <=2 ERTAPENEM S <=1 NITROFURANTOIN S <=32 PIP/TAZO S <=16 S = SENSITIVE I = INTERMEDIATE R = RESISTANT END OF REPORT END OF REPORT Last 24 Hours Test 05/12/17 11:17 05/12/17 16:29 05/12/17 20:31 05/13/17 06:06 Bedside Glucose 132 mg/dl 74 mg/dl 166 mg/dl White Blood Count 13.34 K/uL Red Blood Count 3.22 M/uL Hemoglobin 9.7 g/dL Hematocrit 29.5 % Mean Corpuscular Volume 91.6 fL Mean Corpuscular Hemoglobin 30.1 pg Mean Corpuscular Hemoglobin Concent 32.9 g/dl Platelet Count 261 K/uL Mean Platelet Volume 9.8 fL Neutrophils (%) (Auto) 72.3 % Lymphocytes (%) (Auto) 17.3 % Monocytes (%) (Auto) 7.2 % Eosinophils (%) (Auto) 1.6 % Basophils (%) (Auto) 0.1 % Neutrophils # (Auto) 9.65 K/uL Lymphocytes # (Auto) 2.31 K/uL Monocytes # (Auto) 0.96 K/uL Eosinophils # (Auto) 0.21 K/uL Basophils # (Auto) 0.01 K/uL RDW Standard Deviation 46.0 fL RDW Coefficient of Variation 13.7 % Immature Granulocyte % (Auto) 1.5 % Immature Granulocyte # (Auto) 0.20 K/uL Prothrombin Time 23.7 SECONDS Prothromb Time International Ratio 2.1 Sodium Level 137 mmol/L Potassium Level 4.6 mmol/L Chloride Level 105 mmol/L Carbon Dioxide Level 27 mmol/L Anion Gap 5.0 mmol/L Blood Urea Nitrogen 75 mg/dl Creatinine 4.30 mg/dl Est Creatinine Clear Calc Drug Dose 12.5 ml/min Estimated GFR () 10.9 Estimated GFR (Non- 9.4 BUN/Creatinine Ratio 17.3 Random Glucose 65 mg/dl Calcium Level 6.5 mg/dl Magnesium Level 1.6 mg/dl Total Creatine Kinase 09863 U/L Test 05/13/17 06:41 Bedside Glucose 76 mg/dl [~ rep ct add3]] SINGLE VIEW CHEST CLINICAL HISTORY: Fever. Fall. FINDINGS: An AP, portable, upright chest radiograph is compared to study dated 01/07/2013 and correlated with chest CT dated 10/18/2012. The examination is degraded by portable technique and patient rotation. A right internal jugular central venous catheter is in place. The tip projects over the SVC. The heart is enlarged and there is atherosclerotic calcification of the thoracic aorta. The pulmonary vascular structures noncongested. Bibasilar atelectasis is observed. There is no airspace consolidation typical for pneumonia or large pleural effusion. No pneumothorax is seen. The skeletal structures are osteopenic. The bony thorax is grossly intact. Calcific tendinopathy is noted in the left shoulder. IMPRESSION: Cardiomegaly and bibasilar atelectasis. No acute cardiopulmonary abnormality is seen. Electronically signed by: Russell Salmeron M.D. 05/09/2017 7:10 PM Dictated Date/Time: 05/09/2017 7:09 PM The status of this report is Signed. Draft = Not yet reviewed or appro Assessment & Plan 77-year-old female with multiple skin ulcerations with infection with cultures positive for enterococcus and methicillin sensitive Staph aureus, as well as Klebsiella urinary tract infection. Will discontinue present antibiotics and change patient to IV ceftaroline adjusted for renal insufficiency. Length of antibiotics to be determined by clinical response. Will follow.
--- NOTE | 2017-05-13 10:13 | Pharmacy Progress Note ---
Glycemic Control Progress Note Date of Service May 13, 2017. Scope Glycemic Pharmacist consulted for glycemic control to write orders per [facility] inpatient glycemic control protocol. Objective Accuchecks BSG (last 24hrs): Test 05/12/17 11:17 05/12/17 16:29 05/12/17 20:31 05/13/17 06:06 Bedside Glucose 132 mg/dl (70-90) 74 mg/dl (70-90) 166 mg/dl (70-90) Random Glucose 65 mg/dl (70-99) Test 05/13/17 06:41 Bedside Glucose 76 mg/dl (70-90) HbA1c: Test 05/09/17 18:25 Hemoglobin A1c 11.2 % (4.5-5.6) H Recent Pertinent Medications Outpatient Anti-diabetic Regimen: * Metformin 500mg PO BID * Lantus 45 units SQ Q AM * A1c = 11.2 % 05/09/17 The patient is currently receiving: * Lantus SQ BID * BSG less than 110: 0 units * BSG 110-140: 10 units * BSG 141 and above: 16 units * Novolog SQ ACHS * Goal Range: 120-160 mg/dL * Correction Factor: 15 mg/dL/unit * Carb Ratio: 1 unit per 6 grams of carbs eaten Risk Factors for Insulin Resistance: * Infection: receiving Levofloxacin + Clindamycin IV empirically for sepsis likely from SSTI + UTI * Diet: ordered T2DM / AHA diet. PO intake is improving somewhat but still low overall Assessment & Plan ASSESSMENT: 05/10/17 * Type 2 diabetic admitted overnight following fall, prolonged immobility, rhabdomyolysis, VIOLETA, HHS/DKA and possible sepsis * Patient's labs on admission: Glu 680, AG 18, pH 7.41, Bicarb 18, BOHB 25.91, calculated effective serum osmo ~292 * IV insulin infusion and hydration were initiated and labs have improved with the exception of renal fxn. AG and Bicarb have normalized this AM and patient is no longer symptomatic and expected to tolerate a clear liquid diet. Will begin to transition patient to SQ regimen at this time. * Insulin infusion has run at 3.6-7.2 units/hr since initiated. The infusion really has not been running long enough to be used to calculate the patient's insulin requirements due to effects of glucotoxicity and ketoacids on insulin resistance. Will use the patient's outpt regimen instead to estimate insulin needs. Will resume the outpt dose of Lantus but split the dose BID as her dietary intake is uncertain and there is a possibility the outpt dose was providing some coverage of carb intake given she did not use prandial insulin. Would estimate this patient will require ~50-80 units of insulin per day to achieve glycemic targets when tolerating a diet. * Will need to monitor this patient closely as insulin resistance can be altered by poor renal fxn, accumulation of uremic toxins 05/11/17 * BSGs did rebound into the mid-upper 200's after stopping the insulin drip yesterday - this was despite poor oral intake and stopping IV dextrose infusion * Fasting BSG 179 this AM with 44 units basal on board as well as receiving 15 units of correctional insulin overnight - will increase the basal insulin dose at this time, I anticipate total daily insulin doses to be 80-100 units per day when tolerating a diet with current stressors * Will increase correctional and prandial insulin doses as well based upon these new estimates 05/12/17 * Glycemic control has improved a good deal over the last 24 hrs * BSGs have ranged 75-240 over the last 24 hrs and she has received 93 units of SQ insulin - again with poor PO intake * Fasting BSG 75-79 this AM, this is with 68 units of basal insulin on board and no correctional insulin given overnight; will begin to taper back the basal insulin dose at this time to lessen the risk of hypoglycemia. Will use scale to dose Lantus this PM to help lessen hypo- risks. * The current CF and CR are fairly aggressive but are consistent with what one might expect for a patient who requires ~90 units of insulin per day - will continue the same for now, but if she continues to appear more insulin sensitive I will lessen these doses. 05/13/17 * BSGs have ranged 65-166 over the last 24 hrs. She has received 60 units of insulin over the last 24 hours. * Fasting glucose 65-76 this AM with 50 units of basal insulin on board. Will continue to titrate the basal insulin dose down as she is now more insulin sensitive and PO intake really has not increased much. Will continue a dosing scale to lessen the risk of hypoglycemia. Will hold this AM's dose as she will have 20 units Lantus on board from last evening. * Renal fxn really has not improved greatly however SCr has stopped climbing and she is still producing urine. Renal impairment can increase insulin exposure due to slower elimination. * Will adjust insulin doses based upon a new estimated total daily insulin requirement of ~60 units per day PLAN FOR INPATIENT GLYCEMIC CONTROL: * Holding outpatient oral diabetes medication (metformin) * Decrease LANTUS SQ BID to: * 0 units if BSG less than 110 mg/dL * 10 units if BSG 110-140 mg/dL * 16 units if BSG 141 or greater mg/dL * Continue Goal Range: Low 120 mg/dL - High 160 mg/dL * Change Correction Factor to 20 mg/dL/unit * Change carb ratio to 1 unit per 7 grams CHO consumed * Please note that the plan above was derived based on current level of insulin resistance and hospital stress. These recommendations are appropriate for inpatient admission only. Plan of care upon discharge will need to be reassessed to avoid potential outpatient hypo/hyperglycemia. Thank you.
[2017-05-13] MEDS: CEFTAROLINE FOSAMIL IV SCH ×2 (11:58→23:40)
[2017-05-13] MEDS: SODIUM CHLORIDE 0.9% IV SCH ×2 (11:58→23:40)
[2017-05-13] MEDS ORDERED: WARFARIN SOD 3 MG TAB PO SCH (16:00)
--- NOTE | 2017-05-13 17:56 | Nephrology Progress Note ---
Nephrology Progress Note Date of Service: May 13, 2017. Subjective seen on rounds this am 0945; still hurts all over but feels better today otherwise; remains on 2L NC; better but still poor po; denies dyspnea Objective Date Time Temp Pulse Resp B/P (MAP) Pulse Ox O2 Delivery O2 Flow Rate FiO2 05/13/17 16:00 95 Nasal Cannula 2.0 05/13/17 15:41 36.3 88 18 98/44 (62) 97 Nasal Cannula 2.0 05/13/17 14:25 87 18 95 Nasal Cannula 2.0 05/13/17 12:02 36.5 89 20 125/80 (95) 95 Nasal Cannula 2.0 05/13/17 12:00 Nasal Cannula 2.0 05/13/17 08:00 Nasal Cannula 2.0 05/13/17 07:59 104 18 96 Nasal Cannula 2.0 05/13/17 07:40 36.5 103 20 131/68 (89) 97 Nasal Cannula 2.0 05/13/17 03:30 Nasal Cannula 2.0 05/13/17 03:20 36.3 100 20 106/59 (75) 95 Nasal Cannula 2.0 05/13/17 02:13 94 18 93 Nasal Cannula 2.0 05/13/17 00:00 36.6 92 20 122/57 (78) 97 Nasal Cannula 2.0 05/13/17 00:00 Nasal Cannula 2.0 05/12/17 20:00 Nasal Cannula 2.0 05/12/17 19:50 98 18 97 Nasal Cannula 2.0 05/12/17 19:33 36.8 96 18 117/51 (73) 95 Room Air Physical Exam: General Appearance: no apparent distress, + obese, + pertinent finding ( resting in bed; on 2L NC) Eyes: EOMI ENT: hearing grossly normal, + pertinent finding (dry MM) Neck: supple Respiratory/Chest: no respiratory distress, no accessory muscle use, + decreased breath sounds Cardiovascular: + tachycardia (in 100s regular) Abdomen: + abnormal bowel sounds (diminished), + pertinent finding (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) Extremities: + pertinent finding (L foot/leg wrapped to protect from seepage; no other edema but L leg) Neurologic/Psych: oriented x 3, + pertinent finding (answers are appropriate); does not move L leg Skin: warm/dry, + pertinent finding (large contusion R chest and posterior L leg as above not directly evaluated) Current Inpatient Medications Medications (Trade) Dose Ordered Sig/Solitario Route Start Time Stop Time Status Last Admin Dose Admin Glucose (Glucose 40% Gel) UD PRN PO 05/09/17 19:15 06/08/17 19:14 Glucose (Glucose Chew Tab) 1 tabs UD PRN PO 05/09/17 19:15 06/08/17 19:14 Dextrose (Dextrose 50% 50ML Syringe) 50 ml UD PRN IV 05/09/17 19:15 06/08/17 19:14 Glucagon (Glucagon Inj) 1 mg UD PRN SQ 05/09/17 19:15 06/08/17 19:14 Acetaminophen (Tylenol Tab) 325 mg Q6H PRN PO 05/09/17 21:30 06/08/17 21:29 Nitroglycerin (Nitrostat Tab) 0.4 mg UD PRN SL 05/09/17 21:30 06/08/17 21:29 Hydromorphone HCl (Dilaudid Inj) 0.5 mg Q3H PRN IV 05/09/17 21:30 05/23/17 21:29 05/13/17 08:59 0.5 MG Tramadol HCl (Ultram Tab) 25 mg Q6H PRN PO 05/09/17 21:30 06/08/17 21:29 05/13/17 13:55 25 MG Ondansetron HCl (Zofran Inj) 4 mg Q6H PRN IV 05/09/17 21:30 06/08/17 21:29 05/13/17 11:32 4 MG Metoprolol Tartrate (Lopressor Tab) 12.5 mg BID PO 05/10/17 09:00 06/09/17 08:59 05/13/17 07:55 12.5 MG Pantoprazole Sodium (Protonix Tab) 40 mg DAILY PO 05/10/17 09:00 06/09/17 08:59 05/13/17 07:54 40 MG Heparin Sodium (Porcine) (Heparin 10 Unit/ ml 5 ml Flush) 5 ml PRN PRN FLUSH 05/10/17 00:45 06/09/17 00:44 Miscellaneous Information (Consult Glycemic Management Pharmacy) 1 ea DAILY PRN N/A 05/10/17 09:00 06/09/17 08:59 Insulin Aspart (novoLOG ASPART) SLIDING SCALE ACHS SC 05/10/17 16:00 06/09/17 15:59 05/13/17 11:56 4 UNITS Ipratropium [place] (Atrovent 0.02% 0.5MG/2.5ML Neb) 0.5 mg Q6R INH 05/11/17 03:00 06/10/17 02:59 05/13/17 14:23 0.5 MG Levalbuterol (Xopenex 1.25MG/ 0.5ML Neb) 1.25 mg Q6R INH 05/11/17 03:00 06/10/17 02:59 05/13/17 14:23 1.25 MG Ipratropium [place] (Atrovent 0.02% 0.5MG/2.5ML Neb) 0.5 mg Q4H PRN INH 05/10/17 21:45 06/09/17 21:44 Levalbuterol (Xopenex 1.25MG/ 0.5ML Neb) 1.25 mg Q4H PRN INH 05/10/17 21:45 06/09/17 21:44 Sodium Bicarbonate 75 meq/Sodium Chloride 1,075 ml @ 80 mls/hr [id number] IV 05/11/17 08:45 06/11/17 08:44 05/13/17 05:09 80 MLS/HR Insulin Glargine (Lantus Solostar Pen) see Protocol Text BID SC 05/12/17 21:00 06/11/17 20:59 05/12/17 21:04 20 UNITS Warfarin Sodium (Coumadin Tab) 3 mg DAILY@1600 PO 05/13/17 16:00 06/10/17 15:59 05/13/17 15:39 3 MG Ceftaroline Fosamil 200 mg/ Sodium Chloride 256.6667 ml @ 250 mls/hr Q12H IV 05/13/17 12:00 05/23/17 11:59 05/13/17 11:58 250 MLS/HR Last 24 Hours Test 05/12/17 20:31 05/13/17 06:06 05/13/17 06:41 05/13/17 11:42 Bedside Glucose 166 mg/dl 76 mg/dl 128 mg/dl White Blood Count 13.34 K/uL Red Blood Count 3.22 M/uL Hemoglobin 9.7 g/dL Hematocrit 29.5 % Mean Corpuscular Volume 91.6 fL Mean Corpuscular Hemoglobin 30.1 pg Mean Corpuscular Hemoglobin Concent 32.9 g/dl Platelet Count 261 K/uL Mean Platelet Volume 9.8 fL Neutrophils (%) (Auto) 72.3 % Lymphocytes (%) (Auto) 17.3 % Monocytes (%) (Auto) 7.2 % Eosinophils (%) (Auto) 1.6 % Basophils (%) (Auto) 0.1 % Neutrophils # (Auto) 9.65 K/uL Lymphocytes # (Auto) 2.31 K/uL Monocytes # (Auto) 0.96 K/uL Eosinophils # (Auto) 0.21 K/uL Basophils # (Auto) 0.01 K/uL RDW Standard Deviation 46.0 fL RDW Coefficient of Variation 13.7 % Immature Granulocyte % (Auto) 1.5 % Immature Granulocyte # (Auto) 0.20 K/uL Prothrombin Time 23.7 SECONDS Prothromb Time International Ratio 2.1 Sodium Level 137 mmol/L Potassium Level 4.6 mmol/L Chloride Level 105 mmol/L Carbon Dioxide Level 27 mmol/L Anion Gap 5.0 mmol/L Blood Urea Nitrogen 75 mg/dl Creatinine 4.30 mg/dl Est Creatinine Clear Calc Drug Dose 12.5 ml/min Estimated GFR () 10.9 Estimated GFR (Non- 9.4 BUN/Creatinine Ratio 17.3 Random Glucose 65 mg/dl Calcium Level 6.5 mg/dl Magnesium Level 1.6 mg/dl Total Creatine Kinase 43243 U/L Test 05/13/17 16:14 Bedside Glucose 83 mg/dl Date/Time Source Procedure Growth Status 05/12/17 20:00 Stool C.difficile Toxin B Gene (PCR) - Final No C. difficile toxin B gene detected Complete Assessment & Plan 77 y/o F w/ poorly controlled DM on insulin, albuminuric CKD 3 baseline creatinine 1.0, past PE, HTN, Charcot Sepideh Tooth who was found down at home where she lay for 4 days and noted in ER 05/09 to have CK > 19K, BG 680, K 8.4, creat 3.6, WBC 25K. lactic acid 3.0 at 1800. She is admitted w/ DKA, concern for rhabdomyolysis, and getting therapy for sepsis/cellulitis. She has significant wound under her R breast and R chest contusion as well as LLE blistering/abrasions/redness. She has very concentrated urine w/ granular casts consistent at the least w/ ATN and possibly w/ UTI as well w/ 4+ bacteria. Blood cxs NGTD; cefepime and vancomycin have been started. She was at first on 4LNC and is being hydrated aggressively. Fall w/ wounds/contusions LLE and R chest Acute on chronic renal failure, ATN from sepsis; concern rhabdomyolysis may have role>>>>creatinine has plateau'd adn >1L UOP x 2 days and electrolytes/vol status ok; cautiously hopeful creat will soon begin to improve elevated CK > CK remains elevated trending down but lactic acid normalized; continue hydration Sepsis likeliest sources either from LLE / R chest wounds and/or UTI; either of these can cause bacteremia as well >> blood cxs ngtd Acute respiratory failure w/o hypoxemia on abg >> PE history noted though INR therapeutic on presentation K pniae UTI though also w/ hx of stone disease/stent >at risk for obstruction/ pyelonephritis Transaminitis, stable/a bit improved -f/u pending cultures -changed 1/2 NS w/ 75 mEq/L sodium bicarb to NS at 50 mL hourly since metabolic acidosis has resolved -add hepatic function panel to labs every few days -check bmp, CK daily -cont to hold metformin, lisinopril -cont strict I/O -no indication for emergent dialysis currently but while unlikely cannot rule out need this admission > consent on chart Appreciate consult; will follow with you.
[2017-05-13] MEDS: SODIUM CHLORIDE 0.9% 1000ML 1,000 ML IV SCH (18:51)
[2017-05-13] MEDS: ACETAMINOPHEN 325 MG TAB PO PRN (20:43)
[2017-05-14] VITALS (10 sets, daily range): BP systolic 98–134; BP diastolic 49–80; PULSE 84–103; TEMP 36.3–36.7; O2SAT 90–98
[2017-05-14] MEDS: LEVALBUTEROL 1.25MG/0.5ML NEB INH SCH ×4 (01:35→19:06)
[2017-05-14] MEDS: IPRATROPIUM BROMIDE NEB SOLN 0.02% 2.5 ML VIAL INH SCH ×4 (01:35→19:05)
[2017-05-14] MEDS: HYDROmorphone INJ 0.5 MG/0.5 ML SYR IV PRN ×3 (05:44→19:29)
[2017-05-14 06:24] LABS: BASO % 0.2 %; BASO ABS # 0.02 K/uL (0-0.2); COMPLETE YES; EOS % 2.8 %; HEMATOCRIT 27.7 % (37-47); IG% 2.1 %; LYMPH % 22.3 %; MEAN CORPUSCULAR HEMOGLOBIN 30.9 pg (25-34); MEAN CORPUSCULAR HGB CONC 33.2 g/dl (32-36); MEAN PLATELET VOLUME 9.1 fL (7.4-10.4); NEUT % 63.6 %; PLATELET COUNT 262 K/uL (130-400); RED BLOOD COUNT 2.98 M/uL (4.2-5.4); WHITE BLOOD COUNT 12.13 K/uL (4.8-10.8)
[2017-05-14 06:30] LABS: INR 2.7 (0.9-1.1); PROTHROMBIN TIME (PATIENT) 30.2 SECONDS (9.0-12.0)
[2017-05-14 06:56] LABS: CALCIUM 6.5 mg/dl (8.5-10.1); CREATININE 4.4 mg/dl (0.60-1.20); POTASSIUM 5.1 mmol/L (3.5-5.1)
[2017-05-14] MEDS: INSULIN ASPART 100 UNITS/ML 3 ML PEN SC SCH ×4 (07:37→20:34)
[2017-05-14] MEDS: INSULIN GLARGINE SOLOSTAR 100 UNITS/ML 3 ML PEN SC SCH ×2 (07:37→20:37)
--- NOTE | 2017-05-14 08:49 | Progress Note ---
Subjective Date of Service: May 14, 2017. Subjective Pt evaluation today including: conversation w/ patient, physical exam, lab review, review of studies, review of inpatient medication list Saw/examined the patient in room 209 Patient is doing well, she is awake/alert c/o Left LE pain; persistent Got up to the chair yesterday Review of Systems Constitutional: No fever, No chills Respiratory: No shortness of breath Cardiac: No chest pain Abdomen: No pain, No nausea, No vomiting, No diarrhea Medications Current Inpatient Medications Medications (Trade) Dose Ordered Sig/Solitario Route Start Time Stop Time Status Last Admin Dose Admin Glucose (Glucose 40% Gel) UD PRN PO 05/09/17 19:15 06/08/17 19:14 Glucose (Glucose Chew Tab) 1 tabs UD PRN PO 05/09/17 19:15 06/08/17 19:14 Dextrose (Dextrose 50% 50ML Syringe) 50 ml UD PRN IV 05/09/17 19:15 06/08/17 19:14 Glucagon (Glucagon Inj) 1 mg UD PRN SQ 05/09/17 19:15 06/08/17 19:14 Acetaminophen (Tylenol Tab) 325 mg Q6H PRN PO 05/09/17 21:30 06/08/17 21:29 05/13/17 20:43 325 MG Nitroglycerin (Nitrostat Tab) 0.4 mg UD PRN SL 05/09/17 21:30 06/08/17 21:29 Hydromorphone HCl (Dilaudid Inj) 0.5 mg Q3H PRN IV 05/09/17 21:30 05/23/17 21:29 05/14/17 05:44 0.5 MG Tramadol HCl (Ultram Tab) 25 mg Q6H PRN PO 05/09/17 21:30 06/08/17 21:29 05/13/17 13:55 25 MG Ondansetron HCl (Zofran Inj) 4 mg Q6H PRN IV 05/09/17 21:30 06/08/17 21:29 05/13/17 11:32 4 MG Metoprolol Tartrate (Lopressor Tab) 12.5 mg BID PO 05/10/17 09:00 06/09/17 08:59 05/13/17 20:42 12.5 MG Pantoprazole Sodium (Protonix Tab) 40 mg DAILY PO 05/10/17 09:00 06/09/17 08:59 05/13/17 07:54 40 MG Heparin Sodium (Porcine) (Heparin 10 Unit/ ml 5 ml Flush) 5 ml PRN PRN FLUSH 05/10/17 00:45 06/09/17 00:44 05/14/17 01:25 5 ML Miscellaneous Information (Consult Glycemic Management Pharmacy) 1 ea DAILY PRN N/A 05/10/17 09:00 06/09/17 08:59 Insulin Aspart (novoLOG ASPART) SLIDING SCALE ACHS SC 05/10/17 16:00 06/09/17 15:59 05/14/17 07:37 6 UNITS Ipratropium [place] (Atrovent 0.02% 0.5MG/2.5ML Neb) 0.5 mg Q6R INH 05/11/17 03:00 06/10/17 02:59 05/14/17 07:05 0.5 MG Levalbuterol (Xopenex 1.25MG/ 0.5ML Neb) 1.25 mg Q6R INH 05/11/17 03:00 06/10/17 02:59 05/14/17 07:05 1.25 MG Ipratropium [place] (Atrovent 0.02% 0.5MG/2.5ML Neb) 0.5 mg Q4H PRN INH 05/10/17 21:45 06/09/17 21:44 Levalbuterol (Xopenex 1.25MG/ 0.5ML Neb) 1.25 mg Q4H PRN INH 05/10/17 21:45 06/09/17 21:44 Insulin Glargine (Lantus Solostar Pen) see Protocol Text BID SC 05/12/17 21:00 06/11/17 20:59 05/14/17 07:37 10 UNITS Warfarin Sodium (Coumadin Tab) 3 mg DAILY@1600 PO 05/13/17 16:00 06/10/17 15:59 05/13/17 15:39 3 MG Ceftaroline Fosamil 200 mg/ Sodium Chloride 256.6667 ml @ 250 mls/hr Q12H IV 05/13/17 12:00 05/23/17 11:59 05/13/17 23:40 250 MLS/HR Sodium Chloride 1,000 ml @ 50 mls/hr Q20H IV 05/13/17 18:00 06/12/17 17:59 05/13/17 18:51 50 MLS/HR Objective Vital Signs Date Time Temp Pulse Resp B/P (MAP) Pulse Ox O2 Delivery O2 Flow Rate FiO2 05/14/17 04:00 Nasal Cannula 2.0 05/14/17 04:00 36.7 96 22 107/49 (68) 96 Nasal Cannula 3.0 05/14/17 01:36 92 18 96 Nasal Cannula 2.0 05/14/17 00:00 36.7 84 20 98/59 (72) 97 Nasal Cannula 2.0 05/13/17 23:47 Nasal Cannula 2.0 05/13/17 20:00 96 Nasal Cannula 2.0 05/13/17 19:47 36.6 97 18 120/55 (76) 96 Nasal Cannula 2.0 05/13/17 19:14 87 18 95 Nasal Cannula 2.0 05/13/17 16:00 95 Nasal Cannula 2.0 05/13/17 15:41 36.3 88 18 98/44 (62) 97 Nasal Cannula 2.0 05/13/17 14:25 87 18 95 Nasal Cannula 2.0 05/13/17 12:02 36.5 89 20 125/80 (95) 95 Nasal Cannula 2.0 05/13/17 12:00 Nasal Cannula 2.0 Physical Exam General Appearance: no apparent distress Respiratory/Chest: chest non-tender, lungs clear, normal breath sounds, no respiratory distress, no accessory muscle use Cardiovascular: no murmur, + tachycardia Neurologic/Psychiatric: + motor weakness Laboratory Results Last 24 Hours Test 05/13/17 11:42 05/13/17 16:14 05/13/17 20:03 05/14/17 06:07 Bedside Glucose 128 mg/dl 83 mg/dl 98 mg/dl White Blood Count 12.13 K/uL Red Blood Count 2.98 M/uL Hemoglobin 9.2 g/dL Hematocrit 27.7 % Mean Corpuscular Volume 93.0 fL Mean Corpuscular Hemoglobin 30.9 pg Mean Corpuscular Hemoglobin Concent 33.2 g/dl Platelet Count 262 K/uL Mean Platelet Volume 9.1 fL Neutrophils (%) (Auto) 63.6 % Lymphocytes (%) (Auto) 22.3 % Monocytes (%) (Auto) 9.0 % Eosinophils (%) (Auto) 2.8 % Basophils (%) (Auto) 0.2 % Neutrophils # (Auto) 7.73 K/uL Lymphocytes # (Auto) 2.70 K/uL Monocytes # (Auto) 1.09 K/uL Eosinophils # (Auto) 0.34 K/uL Basophils # (Auto) 0.02 K/uL RDW Standard Deviation 47.8 fL RDW Coefficient of Variation 14.1 % Immature Granulocyte % (Auto) 2.1 % Immature Granulocyte # (Auto) 0.25 K/uL Prothrombin Time 30.2 SECONDS Prothromb Time International Ratio 2.7 Sodium Level 140 mmol/L Potassium Level 5.1 mmol/L Chloride Level 108 mmol/L Carbon Dioxide Level 26 mmol/L Anion Gap 6.0 mmol/L Blood Urea Nitrogen 70 mg/dl Creatinine 4.40 mg/dl Est Creatinine Clear Calc Drug Dose 12.2 ml/min Estimated GFR () 10.6 Estimated GFR (Non- 9.2 BUN/Creatinine Ratio 16.0 Random Glucose 115 mg/dl Calcium Level 6.5 mg/dl Total Creatine Kinase 7693 U/L Test 05/14/17 06:44 Bedside Glucose 150 mg/dl Assessment and Plan This is a 77 year old obese female with a PMH of uncontrolled, insulin dependent DM2, diabetic nephropathy and CKD stage 3, 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 of lacunar infarct, Rmfuipl-pyuoi-keals disease, HTN, HLD presents with a fall, and subsequently found to have sepsis, rhabdomyolysis, acute kidney injury, and DKA Sepsis secondary to UTI and R breast cellulitis 05/14 improving clinically WBC trending down afebrile abx. changed to Teflaro as per ID - length of treatment pending clinical course 05/13 LLE culture - enterococcus faecalis abx. switched around yesterday to Levaquin and Clinda ID consulted for further input, currently has cellulitic changes with Enterococcus and MSSA; also has Klebsiella UTI now c/o diarrhea with Clinda; C. diff negative, may need to switch abx, but noted PCN allergy 05/12 changed Cefepime to Ancef d/c'd Flagyl R breast - MSSA - continue Doxy Urine - Klebsiella - continue Ancef LLE - Strep - awaiting sensitivities 05/11 multiple infections including UTI, R breast and LLE cellulitic changes cultures grown; Klebsiella UTI, Staph, and strep noted on wound cultures; sensitivities pending leukocytosis improved, lactic acidosis resolved Cefepime, Flagyl, Doxy - considered changing Flagyl and Doxy to Vanco, though with kidney issues, will hold off continue IV abx. and fluids 05/10 patient presents with leukocytosis, lactic acidosis, tachycardia, temp of 35.6 UA is dirty with +bacteria, urine culture - gram negative bacilli R breast cellulitic changes CT chest = Infiltration of the subcutaneous tissue with overlying skin thickening along the medial right breast. This could be compatible with cellulitis in the absence of a history of radiation started on Cefepime, Flagyl, and doxycycline leukocytosis, trending down, lactic acid < 2 continue fluids and IV abx. Acute Kidney Injury superimposed on CKD stage 3 05/14 appreciate nephrology input much improved urine output creatinine still is around 4.4 currently on a low rate NS no need for emergent dialysis 05/13 multifactorial: * significant dehydration, no fluid intake x2 days * ATN secondary to sepsis * rhabdomyolysis * diabetic nephropathy appreciate nephro input creat around 4.3 today also 05/12 improved urine output appreciate nephrology input creatinine up to 4.3, will recheck in AM 05/11 multifactorial: significant dehydration, no fluid intake x2 days ATN secondary to sepsis rhabdomyolysis diabetic nephropathy appreciate nephrology input creatinine increased to 4.0 IVFs changed to 1/2 NSS with sodium bicarb at 150mL monitor for urine output Mechanical Fall 05/14 PT/OT needed plan for d/c to rehab when medically stable 05/13 radiographs suggest no acute fracture will need PT/OT wound care 05/12 decreased ROM of the L LE traumatic wound noted on the L LE will obtain radiographs will need PT/OT DKA - resolved 05/13 appreciate pharmacy glycemic control currently on insulin sliding scale and Lantus protocol BSGs; much improved Uncontrolled DM2 05/11 Ha1c > 11% switched to subq insulin, appreciate glycemic control consult currently on Lantus 30 units BID and sliding scale D5 was removed from fluids late last evening for improved BSG control 05/10 Ha1c > 11% +ketones in urine/serum, BSGs > 600, high anion gap started on insulin drip, BSGs improving continue fluids, monitor for urine output started on Lantus, january d/c insulin drip later today with improved diet Rhabdomyolysis 05/13 CPK >10,000 and trending down 05/11 no significant improvement in CPK decreased urine output will need continued IVFs monitor for output, appreciate nephro input 05/10 CPK >20,000 secondary to fall IVFs, monitor CPK BID Hx. of PE on long-term anticoagulation INR goal of 2-3 Coumadin 3mg on 05/13 Eqhtdiy-Zdoat-Kqyqt Disease patient has a neurological motor/sensory issue states that she slipped in the shower, and then afterwards did not have the strength to get up uses cane for ambulation at times will need PT/OT Hx. of Lacunar Infarct when more stable, will need PT/OT DVT ppx Coumadin DNR
[2017-05-14] MEDS: PANTOprazole SOD 40 MG TAB PO SCH (08:59)
[2017-05-14] MEDS: METOPROLOL TARTRATE 25 MG TAB PO SCH ×2 (09:00→20:35)
[2017-05-14] MEDS: CEFTAROLINE FOSAMIL IV SCH (10:39)
[2017-05-14] MEDS: SODIUM CHLORIDE 0.9% IV SCH (10:39)
[2017-05-14] MEDS: SODIUM CHLORIDE 0.9% 1000ML 1,000 ML IV SCH (13:45)
[2017-05-14] MEDS ORDERED: LEVOFLOXACIN 500MG / D5W IV SCH (14:00)
[2017-05-14] MEDS: TRAMADOL HCL 50 MG TAB PO PRN (15:55)
[2017-05-14] MEDS ORDERED: WARFARIN SOD 2.5 MG TAB PO SCH (16:00)
--- NOTE | 2017-05-14 17:15 | Nephrology Progress Note ---
Nephrology Progress Note Date of Service: May 14, 2017. Subjective seen on rounds this am 1015; still hurts all over; more tired today; remains on 2L NC; better but still poor po; denies dyspnea Objective Date Time Temp Pulse Resp B/P (MAP) Pulse Ox O2 Delivery O2 Flow Rate FiO2 05/14/17 14:52 92 16 90 Room Air 05/14/17 12:00 Nasal Cannula 2.0 05/14/17 10:55 36.6 91 20 134/68 (90) 98 Nasal Cannula 2.0 05/14/17 08:00 Nasal Cannula 2.0 05/14/17 07:38 36.4 103 20 125/71 (89) 93 Room Air 05/14/17 07:05 90 16 96 Nasal Cannula 2.0 05/14/17 04:00 Nasal Cannula 2.0 05/14/17 04:00 36.7 96 22 107/49 (68) 96 Nasal Cannula 3.0 05/14/17 01:36 92 18 96 Nasal Cannula 2.0 05/14/17 00:00 36.7 84 20 98/59 (72) 97 Nasal Cannula 2.0 05/13/17 23:47 Nasal Cannula 2.0 05/13/17 20:00 96 Nasal Cannula 2.0 05/13/17 19:47 36.6 97 18 120/55 (76) 96 Nasal Cannula 2.0 05/13/17 19:14 87 18 95 Nasal Cannula 2.0 Physical Exam: General Appearance: no apparent distress, + obese, + pertinent finding ( resting in bed; on 2L NC) Eyes: EOMI ENT: hearing grossly normal, + pertinent finding (dry MM) Neck: supple Respiratory/Chest: no respiratory distress, no accessory muscle use, + decreased breath sounds Cardiovascular: + tachycardia (in 90s regular) Abdomen: + abnormal bowel sounds (diminished), + pertinent finding (martinez w/ some box toe cutter yellow urine) Extremities: + pertinent finding (L foot/leg wrapped to protect from seepage; no other edema but L leg) Neurologic/Psych: oriented x 3, + pertinent finding (answers are appropriate); does not move L leg Skin: warm/dry, + pertinent finding (large contusion R chest and posterior L leg as above not directly evaluated) Current Inpatient Medications Medications (Trade) Dose Ordered Sig/Solitario Route Start Time Stop Time Status Last Admin Dose Admin Glucose (Glucose 40% Gel) UD PRN PO 05/09/17 19:15 06/08/17 19:14 Glucose (Glucose Chew Tab) 1 tabs UD PRN PO 05/09/17 19:15 06/08/17 19:14 Dextrose (Dextrose 50% 50ML Syringe) 50 ml UD PRN IV 05/09/17 19:15 06/08/17 19:14 Glucagon (Glucagon Inj) 1 mg UD PRN SQ 05/09/17 19:15 06/08/17 19:14 Acetaminophen (Tylenol Tab) 325 mg Q6H PRN PO 05/09/17 21:30 06/08/17 21:29 05/13/17 20:43 325 MG Nitroglycerin (Nitrostat Tab) 0.4 mg UD PRN SL 05/09/17 21:30 06/08/17 21:29 Hydromorphone HCl (Dilaudid Inj) 0.5 mg Q3H PRN IV 05/09/17 21:30 05/23/17 21:29 05/14/17 14:32 0.5 MG Tramadol HCl (Ultram Tab) 25 mg Q6H PRN PO 05/09/17 21:30 06/08/17 21:29 05/14/17 15:55 25 MG Ondansetron HCl (Zofran Inj) 4 mg Q6H PRN IV 05/09/17 21:30 06/08/17 21:29 05/13/17 11:32 4 MG Metoprolol Tartrate (Lopressor Tab) 12.5 mg BID PO 05/10/17 09:00 06/09/17 08:59 05/14/17 09:00 12.5 MG Pantoprazole Sodium (Protonix Tab) 40 mg DAILY PO 05/10/17 09:00 06/09/17 08:59 05/14/17 08:59 40 MG Heparin Sodium (Porcine) (Heparin 10 Unit/ ml 5 ml Flush) 5 ml PRN PRN FLUSH 05/10/17 00:45 06/09/17 00:44 05/14/17 01:25 5 ML Miscellaneous Information (Consult Glycemic Management Pharmacy) 1 ea DAILY PRN N/A 05/10/17 09:00 06/09/17 08:59 Insulin Aspart (novoLOG ASPART) SLIDING SCALE ACHS SC 05/10/17 16:00 06/09/17 15:59 05/14/17 17:01 6 UNITS Ipratropium [place] (Atrovent 0.02% 0.5MG/2.5ML Neb) 0.5 mg Q6R INH 05/11/17 03:00 06/10/17 02:59 05/14/17 14:50 0.5 MG Levalbuterol (Xopenex 1.25MG/ 0.5ML Neb) 1.25 mg Q6R INH 05/11/17 03:00 06/10/17 02:59 05/14/17 14:50 1.25 MG Ipratropium [place] (Atrovent 0.02% 0.5MG/2.5ML Neb) 0.5 mg Q4H PRN INH 05/10/17 21:45 06/09/17 21:44 Levalbuterol (Xopenex 1.25MG/ 0.5ML Neb) 1.25 mg Q4H PRN INH 05/10/17 21:45 06/09/17 21:44 Insulin Glargine (Lantus Solostar Pen) see Protocol Text BID SC 05/12/17 21:00 06/11/17 20:59 05/14/17 07:37 10 UNITS Ceftaroline Fosamil 200 mg/ Sodium Chloride 256.6667 ml @ 250 mls/hr Q12H IV 05/13/17 12:00 05/23/17 11:59 05/14/17 10:39 250 MLS/HR Sodium Chloride 1,000 ml @ 50 mls/hr Q20H IV 05/13/17 18:00 06/12/17 17:59 05/14/17 13:45 50 MLS/HR Warfarin Sodium (Coumadin Tab) 2.5 mg DAILY@1600 PO 05/14/17 16:00 06/10/17 15:59 05/14/17 15:55 2.5 MG Last 24 Hours Test 05/13/17 20:03 05/14/17 06:07 05/14/17 06:44 05/14/17 11:35 Bedside Glucose 98 mg/dl 150 mg/dl 201 mg/dl White Blood Count 12.13 K/uL Red Blood Count 2.98 M/uL Hemoglobin 9.2 g/dL Hematocrit 27.7 % Mean Corpuscular Volume 93.0 fL Mean Corpuscular Hemoglobin 30.9 pg Mean Corpuscular Hemoglobin Concent 33.2 g/dl Platelet Count 262 K/uL Mean Platelet Volume 9.1 fL Neutrophils (%) (Auto) 63.6 % Lymphocytes (%) (Auto) 22.3 % Monocytes (%) (Auto) 9.0 % Eosinophils (%) (Auto) 2.8 % Basophils (%) (Auto) 0.2 % Neutrophils # (Auto) 7.73 K/uL Lymphocytes # (Auto) 2.70 K/uL Monocytes # (Auto) 1.09 K/uL Eosinophils # (Auto) 0.34 K/uL Basophils # (Auto) 0.02 K/uL RDW Standard Deviation 47.8 fL RDW Coefficient of Variation 14.1 % Immature Granulocyte % (Auto) 2.1 % Immature Granulocyte # (Auto) 0.25 K/uL Prothrombin Time 30.2 SECONDS Prothromb Time International Ratio 2.7 Sodium Level 140 mmol/L Potassium Level 5.1 mmol/L Chloride Level 108 mmol/L Carbon Dioxide Level 26 mmol/L Anion Gap 6.0 mmol/L Blood Urea Nitrogen 70 mg/dl Creatinine 4.40 mg/dl Est Creatinine Clear Calc Drug Dose 12.2 ml/min Estimated GFR () 10.6 Estimated GFR (Non- 9.2 BUN/Creatinine Ratio 16.0 Random Glucose 115 mg/dl Calcium Level 6.5 mg/dl Total Creatine Kinase 7693 U/L Test 05/14/17 16:25 Bedside Glucose 143 mg/dl Assessment & Plan 77 y/o F w/ poorly controlled DM on insulin, albuminuric CKD 3 baseline creatinine 1.0, past PE, HTN, Charcot Sepideh Tooth who was found down at home where she lay for 4 days and noted in ER 05/09 to have CK > 19K, BG 680, K 8.4, creat 3.6, WBC 25K. lactic acid 3.0 at 1800. She is admitted w/ DKA, concern for rhabdomyolysis, and getting therapy for sepsis/cellulitis. She has significant wound under her R breast and R chest contusion as well as LLE blistering/abrasions/redness. She has very concentrated urine w/ granular casts consistent at the least w/ ATN and possibly w/ UTI as well w/ 4+ bacteria. Blood cxs NGTD; cefepime and vancomycin have been started. She was at first on 4LNC and is being hydrated aggressively. Fall w/ wounds/contusions LLE and R chest Acute on chronic renal failure, ATN from sepsis; concern rhabdomyolysis may have role>>>>creatinine has plateau'd and >1L UOP x 3 days and electrolytes/vol status ok; cautiously hopeful creat will soon begin to improve elevated CK > CK remains elevated trending down but lactic acid normalized; stop ivf Sepsis likeliest sources either from LLE / R chest wounds and/or UTI; either of these can cause bacteremia as well >> blood cxs ngtd Acute respiratory failure w/o hypoxemia on abg >> PE history noted though INR therapeutic on presentation K pniae UTI though also w/ hx of stone disease/stent >at risk for obstruction/ pyelonephritis Transaminitis, stable/a bit improved -f/u pending cultures -stopped ivf -add hepatic function panel to labs every few days -check bmp, CK daily -cont to hold metformin, lisinopril -cont strict I/O -no indication for emergent dialysis currently but while unlikely cannot rule out need this admission > consent on chart Appreciate consult; will follow with you. Care coordinated w/ Dr. Diallo
[2017-05-15] VITALS (10 sets, daily range): BP systolic 130–153; BP diastolic 69–87; PULSE 92–102; TEMP 36.3–36.4; O2SAT 92–96
[2017-05-15] MEDS: SODIUM CHLORIDE 0.9% IV SCH ×2 (00:23→12:30)
[2017-05-15] MEDS: CEFTAROLINE FOSAMIL IV SCH ×2 (00:23→12:30)
[2017-05-15] MEDS: TRAMADOL HCL 50 MG TAB PO PRN (00:55)
[2017-05-15] MEDS: LEVALBUTEROL 1.25MG/0.5ML NEB INH SCH ×4 (01:38→19:14)
[2017-05-15] MEDS: IPRATROPIUM BROMIDE NEB SOLN 0.02% 2.5 ML VIAL INH SCH ×4 (01:38→19:14)
[2017-05-15] MEDS: HYDROmorphone INJ 0.5 MG/0.5 ML SYR IV PRN (04:06)
[2017-05-15 04:44] LABS: BASO % 0.2 %; BASO ABS # 0.02 K/uL (0-0.2); COMPLETE YES; EOS % 2.2 %; HEMATOCRIT 27.5 % (37-47); IG% 2.7 %; LYMPH % 20.7 %; LYMPH ABS # 2.34 K/uL (1.2-3.4); MEAN CELL VOLUME 91.7 fL (80-100); MEAN CORPUSCULAR HGB CONC 33.8 g/dl (32-36); MEAN PLATELET VOLUME 9.2 fL (7.4-10.4); MONO % 8.2 %; PLATELET COUNT 284 K/uL (130-400); WHITE BLOOD COUNT 11.28 K/uL (4.8-10.8)
[2017-05-15 04:54] LABS: INR 3.4 (0.9-1.1); PROTHROMBIN TIME (PATIENT) 37.9 SECONDS (9.0-12.0)
[2017-05-15 05:04] LABS: BUN/CREATININE RATIO 16.5 (10-20); CREATININE 4.2 mg/dl (0.60-1.20); POTASSIUM 4.8 mmol/L (3.5-5.1)
[2017-05-15 07:10] LABS: CALCIUM 7.5 mg/dl (8.5-10.1)
[2017-05-15] MEDS: PANTOprazole SOD 40 MG TAB PO SCH (08:12)
[2017-05-15] MEDS: METOPROLOL TARTRATE 25 MG TAB PO SCH ×2 (08:12→20:47)
[2017-05-15] MEDS: INSULIN ASPART 100 UNITS/ML 3 ML PEN SC SCH ×4 (08:15→20:48)
[2017-05-15] MEDS: INSULIN GLARGINE SOLOSTAR 100 UNITS/ML 3 ML PEN SC SCH ×2 (08:16→20:47)
--- NOTE | 2017-05-15 11:06 | Progress Note ---
Medicine Progress Note Date & Time of Visit: May 15, 2017 at 10:38. Subjective reports tolerating PO mentating well describes pain in her knee when leg is moved but otherwise her pain is controlled she is weak at baseline with no reported worsening of her baseline weakness, however, patient can move better at baseline if she lives alone? denies UTI symptoms Castellanos in place R IJ in place with ports flushing well OOB to chair daily with lift; per nursing she is tolerating this. Objective Last 8 Hrs Date Time Temp Pulse Resp B/P (MAP) Pulse Ox O2 Delivery O2 Flow Rate FiO2 05/15/17 08:03 36.4 99 16 147/87 (107) 92 Room Air 05/15/17 08:00 Room Air 05/15/17 07:15 95 16 93 Room Air 05/15/17 04:27 36.4 102 18 140/70 (93) 92 Room Air 05/15/17 04:00 Room Air Physical Exam: GEN: obesity, in no acute distress, alert and appropriate HEENT: NC/AT, pupils are equal and round bilaterally, normal sclerae, MMM CARDIO: reg rate, S1/2 heard without m/g/r LUNGS: CTA bilaterally, no crackles, rales or wheezes, good diaphragmatic excursion ABD: soft, protuberant, non-tender, non-distended, no rebound or guarding, +BS EXTREMITY: RP and DP palpable 2+ bilat, no LE swelling or edema, extremities are warm and well-perfused NEURO: CN 2-12 grossly intact, sensation intact above groin, decreased in bilateral lower extremities MUSC: 3/5 help desk administrator strength and 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 Pt can't even wiggle her toes on the L side. SKIN: warm and dry. Large subQ area exposed on L upper posterior thigh, blistered hematoma on RLE anteriorly, L foot blistered wounds s/p removal covered with dressing c/d/i. Sacrum-no blanching or breakdown. R breast, large 10cm horizontal ulceration with central eschar-nondraining. Laboratory Results: 05/15/17 04:16 Red Blood Count 3.00, Mean Corpuscular Volume 91.7, Mean Corpuscular Hemoglobin 31.0, Mean Corpuscular Hemoglobin Concent 33.8, Mean Platelet Volume 9.2, Neutrophils (%) (Auto) 66.0, Lymphocytes (%) (Auto) 20.7, Monocytes (%) (Auto) 8.2, Eosinophils (%) (Auto) 2.2, Basophils (%) (Auto) 0.2, Neutrophils # (Auto) 7.44, Lymphocytes # (Auto) 2.34, Monocytes # (Auto) 0.92, Eosinophils # (Auto) 0.25, Basophils # (Auto) 0.02 05/15/17 04:16 Test 05/09/17 18:03 05/09/17 18:25 05/09/17 18:41 05/09/17 19:43 Bedside Hemoglobin 15.3 g/dl (12.0-16.0) Bedside Hematocrit 45 % (37-47) Bedside Sodium 127 mEq/L (135-144) Bedside Potassium 8.4 mEq/L (3.3-5.0) Bedside Chloride 101 mEq/L (101-112) Bedside Total CO2 18 mEq/l (24-31) Bedside Blood Urea Nitrogen 92 mg/dl (7-18) Bedside Creatinine 3.6 mg/dl (0.6-1.3) Bedside Glucose (other) 680 mg/dl (70-99) Bedside Ionized Calcium (Fei) 0.86 mmol/l (1.12-1.32) Urine Color BROWN Urine Appearance TURBID (CLEAR) Urine pH 5.5 (4.5-7.5) Urine Specific [place] 1.025 (1.000-1.030) Urine Protein 2+ (NEG) Urine Glucose (UA) 3+ (NEG) Urine Ketones TRACE (NEG) Urine Occult Blood 3+ (NEG) Urine Nitrite NEG (NEG) Urine Bilirubin NEG (NEG) Urine Urobilinogen NEG (NEG) Urine Leukocyte Esterase NEG (NEG) Urine RBC >30 /hpf (0-4) Urine WBC >30 /hpf (0-5) Urine Epithelial Cells >30 /lpf (0-5) Urine Bacteria 4+ (NEG) Urine Granular Casts >30 /lpf (0) Estimated Average Glucose 275 mg/dl Hemoglobin A1c 11.2 % (4.5-5.6) Creatine Kinase MB 77.7 ng/ml (0.5-3.6) Creatine Kinase MB Ratio 0.4 (0-3.0) Bedside Lactic Acid Venous 3.02 mmol/L (0.90-1.70) Thyroid Stimulating Hormone (TSH) 0.781 uIu/ml (0.300-4.500) Test 05/10/17 00:07 05/10/17 05:56 05/10/17 22:00 05/11/17 04:26 Ionized Calcium 0.96 mmol/l (1.12-1.32) Phosphorus Level 5.4 mg/dl (2.5-4.9) Beta-Hydroxybutyric Acid 1.66 mg/dL (0.2-2.81) Lactic Acid Level 1.8 mmol/L (0.4-2.0) Troponin I 0.073 ng/ml (0-0.045) Arterial Blood pH 7.39 (7.35-7.45) Arterial Blood Partial Pressure CO2 28 mmHg (35-46) Arterial Blood Partial Pressure O2 92 mm/Hg (80-95) Arterial Blood HCO3 16 mmol/L (19-24) Arterial Blood Oxygen Saturation 96.9 % (90-95) Arterial Blood Base Excess -7.6 mEq/L (-9-1.8) Arterial Blood Gas Delivery 3L Ankit Test POS (POS) Total Bilirubin 0.3 mg/dl (0.2-1) Direct Bilirubin < 0.1 mg/dl (0-0.2) Aspartate Amino Transf (AST/SGOT) 314 U/L (15-37) Alanine Aminotransferase (ALT/SGPT) 156 U/L (12-78) Alkaline Phosphatase 90 U/L (45-117) Total Protein 4.5 gm/dl (6.4-8.2) Albumin 1.5 gm/dl (3.4-5.0) Test 05/13/17 06:06 05/15/17 04:16 05/15/17 06:54 Magnesium Level 1.6 mg/dl (1.8-2.4) White Blood Count 11.28 K/uL (4.8-10.8) Red Blood Count 3.00 M/uL (4.2-5.4) Hemoglobin 9.3 g/dL (12.0-16.0) Hematocrit 27.5 % (37-47) Mean Corpuscular Volume 91.7 fL (80-100) Mean Corpuscular Hemoglobin 31.0 pg (25-34) Mean Corpuscular Hemoglobin Concent 33.8 g/dl (32-36) Platelet Count 284 K/uL (130-400) Mean Platelet Volume 9.2 fL (7.4-10.4) Neutrophils (%) (Auto) 66.0 % Lymphocytes (%) (Auto) 20.7 % Monocytes (%) (Auto) 8.2 % Eosinophils (%) (Auto) 2.2 % Basophils (%) (Auto) 0.2 % Neutrophils # (Auto) 7.44 K/uL (1.4-6.5) Lymphocytes # (Auto) 2.34 K/uL (1.2-3.4) Monocytes # (Auto) 0.92 K/uL (0.11-0.59) Eosinophils # (Auto) 0.25 K/uL (0-0.5) Basophils # (Auto) 0.02 K/uL (0-0.2) RDW Standard Deviation 45.4 fL (36.4-46.3) RDW Coefficient of Variation 13.7 % (11.5-14.5) Immature Granulocyte % (Auto) 2.7 % Immature Granulocyte # (Auto) 0.31 K/uL (0.00-0.02) Prothrombin Time 37.9 SECONDS (9.0-12.0) Prothromb Time International Ratio 3.4 (0.9-1.1) Anion Gap 9.0 mmol/L (3-11) Est Creatinine Clear Calc Drug Dose 12.8 ml/min Estimated GFR () 11.3 Estimated GFR (Non- 9.7 BUN/Creatinine Ratio 16.5 (10-20) Calcium Level 7.5 mg/dl (8.5-10.1) Total Creatine Kinase 5257 U/L (26-192) Bedside Glucose 152 mg/dl (70-90) Date/Time Source Procedure Growth Status 05/09/17 18:27 Blood Blood Culture - Final NO GROWTH Complete 05/09/17 00:00 Nasal MRSA DNA Surveillance Screen - Final Specimen Negative for MRSA by DNA Probe Complete 05/12/17 20:00 Stool C.difficile Toxin B Gene (PCR) - Final No C. difficile toxin B gene detected Complete 05/09/17 18:25 Urine , Clean Catch Urine Culture - Final Klebsiella Pneumoniae Complete 05/10/17 05:00 Drainage - Surface Leg Lower Left Gram Stain - Final Complete 05/10/17 05:00 Wound Culture - Final Enterococcus Faecalis Complete Last 24 Hours Test 05/14/17 11:35 05/14/17 16:25 05/14/17 20:34 05/15/17 04:16 Bedside Glucose 201 mg/dl 143 mg/dl 139 mg/dl White Blood Count 11.28 K/uL Red Blood Count 3.00 M/uL Hemoglobin 9.3 g/dL Hematocrit 27.5 % Mean Corpuscular Volume 91.7 fL Mean Corpuscular Hemoglobin 31.0 pg Mean Corpuscular Hemoglobin Concent 33.8 g/dl Platelet Count 284 K/uL Mean Platelet Volume 9.2 fL Neutrophils (%) (Auto) 66.0 % Lymphocytes (%) (Auto) 20.7 % Monocytes (%) (Auto) 8.2 % Eosinophils (%) (Auto) 2.2 % Basophils (%) (Auto) 0.2 % Neutrophils # (Auto) 7.44 K/uL Lymphocytes # (Auto) 2.34 K/uL Monocytes # (Auto) 0.92 K/uL Eosinophils # (Auto) 0.25 K/uL Basophils # (Auto) 0.02 K/uL RDW Standard Deviation 45.4 fL RDW Coefficient of Variation 13.7 % Immature Granulocyte % (Auto) 2.7 % Immature Granulocyte # (Auto) 0.31 K/uL Prothrombin Time 37.9 SECONDS Prothromb Time International Ratio 3.4 Sodium Level 139 mmol/L Potassium Level 4.8 mmol/L Chloride Level 106 mmol/L Carbon Dioxide Level 24 mmol/L Anion Gap 9.0 mmol/L Blood Urea Nitrogen 69 mg/dl Creatinine 4.20 mg/dl Est Creatinine Clear Calc Drug Dose 12.8 ml/min Estimated GFR () 11.3 Estimated GFR (Non- 9.7 BUN/Creatinine Ratio 16.5 Random Glucose 139 mg/dl Calcium Level 7.5 mg/dl Total Creatine Kinase 5257 U/L Test 05/15/17 06:54 Bedside Glucose 152 mg/dl Assessment & Plan 77 yo F presents after fall at home and down for 4 days. Admitted to ICU with sepsis 2/2 UTI versus multiple severe wounds 2/2 fall, rhabdomyolysis with VIOLETA and DKA. She is now on telemetry, tolerating PO and improved. She reports her pain being controlled. She is set to go to [facility] where her has been for 2 years. Of note, she lives alone with a grandson who is 20 yo who is in and out. She manages her own medications and cannot recall many of these for me now. She has a h/o CMT and is weak at baseline with no worsening noted by her recently. She denied any UTI symptoms. 1. Sepsis 2/2 Klebsiella UTI and multiple wounds with cellulitis growing E faecalis and MSSA. Resuscitated, hemodynamically stable and afebrile. Wound care with [facility] per wound care provider. Blisters were removed and treated in previous days. Per ID she was on Levaquin and Clinda, transitioned to Ceftaroline 200 IV q12 (05/13). Cont current management and wound care per recs. Castellanos in place-will keep in place today and reassess daily. 2. Breast wound with MSSA-eschar in wound-Aquacel and Optifoam, some surrounding erythema but no drainage. Cont as above. 3. E faecalis LLE wound-cont as above. 4. Klebsiella pneumonia UTI-as above. 5. DMII-ISS/glargine. Apprec pharmacy recs. Inpatient goals met, however, A1C was >11. 6. VIOLETA 2/2 ATN-Nephro following. ATN secondary to sepsis in setting of rhabdo and diabetic nephropathy. No IVF needed at this time--tolerating PO well, making urine. Discussed case with Nephrology today. Will trend PRP in am. 7. Mechanical fall at home 2/2 weakness in setting of Charcot Sepideh Tooth disease-cont PT/OT as inpatient, cont turn q2 per nursing. To be transferred to [facility] when medically stable. 8. h/o PE-on coumadin-INR elevated to 3.4 in setting of ceftaroline. Hold warfarin today and repeat INR in am 9. Transaminitis 10. Obesity 11. Anemia-acute, multifactorial secondary to inflammation, phlebotomy during hospitalization. Cont to monitor for improvement, minimize frequent phlebotomy. DVT ppx Coumadin DNR Dispo-to [facility] when medically stable. DO Rodger Salinas Hospitalist Consultants: Cl Current Inpatient Medications: Current Inpatient Medications Medications (Trade) Dose Ordered Sig/Solitario Route Start Time Stop Time Status Last Admin Dose Admin Glucose (Glucose 40% Gel) UD PRN PO 05/09/17 19:15 06/08/17 19:14 Glucose (Glucose Chew Tab) 1 tabs UD PRN PO 05/09/17 19:15 06/08/17 19:14 Dextrose (Dextrose 50% 50ML Syringe) 50 ml UD PRN IV 05/09/17 19:15 06/08/17 19:14 Glucagon (Glucagon Inj) 1 mg UD PRN SQ 05/09/17 19:15 06/08/17 19:14 Acetaminophen (Tylenol Tab) 325 mg Q6H PRN PO 05/09/17 21:30 06/08/17 21:29 05/13/17 20:43 325 MG Nitroglycerin (Nitrostat Tab) 0.4 mg UD PRN SL 05/09/17 21:30 06/08/17 21:29 Hydromorphone HCl (Dilaudid Inj) 0.5 mg Q3H PRN IV 05/09/17 21:30 05/23/17 21:29 05/15/17 04:06 0.5 MG Tramadol HCl (Ultram Tab) 25 mg Q6H PRN PO 05/09/17 21:30 06/08/17 21:29 05/15/17 00:55 25 MG Ondansetron HCl (Zofran Inj) 4 mg Q6H PRN IV 05/09/17 21:30 06/08/17 21:29 05/13/17 11:32 4 MG Metoprolol Tartrate (Lopressor Tab) 12.5 mg BID PO 05/10/17 09:00 06/09/17 08:59 05/15/17 08:12 12.5 MG Pantoprazole Sodium (Protonix Tab) 40 mg DAILY PO 05/10/17 09:00 06/09/17 08:59 05/15/17 08:12 40 MG Heparin Sodium (Porcine) (Heparin 10 Unit/ ml 5 ml Flush) 5 ml PRN PRN FLUSH 05/10/17 00:45 06/09/17 00:44 05/15/17 04:05 5 ML Miscellaneous Information (Consult Glycemic Management Pharmacy) 1 ea DAILY PRN N/A 05/10/17 09:00 06/09/17 08:59 Insulin Aspart (novoLOG ASPART) SLIDING SCALE ACHS SC 05/10/17 16:00 06/09/17 15:59 05/15/17 08:15 8 UNITS Ipratropium [place] (Atrovent 0.02% 0.5MG/2.5ML Neb) 0.5 mg Q6R INH 05/11/17 03:00 06/10/17 02:59 05/15/17 06:58 0.5 MG Levalbuterol (Xopenex 1.25MG/ 0.5ML Neb) 1.25 mg Q6R INH 05/11/17 03:00 06/10/17 02:59 05/15/17 06:58 1.25 MG Ipratropium [place] (Atrovent 0.02% 0.5MG/2.5ML Neb) 0.5 mg Q4H PRN INH 05/10/17 21:45 06/09/17 21:44 Levalbuterol (Xopenex 1.25MG/ 0.5ML Neb) 1.25 mg Q4H PRN INH 05/10/17 21:45 06/09/17 21:44 Insulin Glargine (Lantus Solostar Pen) see Protocol Text BID SC 05/12/17 21:00 06/11/17 20:59 05/15/17 08:16 16 UNITS Ceftaroline Fosamil 200 mg/ Sodium Chloride 256.6667 ml @ 250 mls/hr Q12H IV 05/13/17 12:00 05/23/17 11:59 05/15/17 00:23 250 MLS/HR Warfarin Sodium (Coumadin Tab) 2.5 mg DAILY@1600 PO 05/14/17 16:00 06/10/17 15:59 Future Hold 05/14/17 15:55 2.5 MG
--- NOTE | 2017-05-15 11:22 | Pharmacy Progress Note ---
Glycemic Control Progress Note Date of Service May 15, 2017. Scope Glycemic Pharmacist consulted for glycemic control to write orders per [facility] inpatient glycemic control protocol. Objective Accuchecks BSG (last 24hrs): Test 05/14/17 11:35 05/14/17 16:25 05/14/17 20:34 05/15/17 04:16 Bedside Glucose 201 mg/dl (70-90) 143 mg/dl (70-90) 139 mg/dl (70-90) Random Glucose 139 mg/dl (70-99) Test 05/15/17 06:54 Bedside Glucose 152 mg/dl (70-90) HbA1c: Test 05/09/17 18:25 Hemoglobin A1c 11.2 % (4.5-5.6) H Recent Pertinent Medications The patient is currently receiving: * LANTUS SQ BID: * 0 units if BSG less than 110 mg/dL * 10 units if BSG 110-140 mg/dL * 16 units if BSG 141 or greater mg/dL * Bolus insulin: * Novolog SQ ACHS * Goal Range: Low 120 mg/dL - High 160 mg/dL * Correction Factor to 20 mg/dL/unit * carb ratio to 1 unit per 7 grams CHO consumed Outpatient Anti-Diabetic Meds Oral Agents Basal Insulin Assessment & Plan ASSESSMENT: * See progress note from 05/10/17 for more background info, in short: Type 2 diabetic admitted 05/10/17 following fall, prolonged immobility, rhabdomyolysis, VIOLETA, HHS/DKA and possible sepsis * Pt receiving SQ basal bolus insulin regimen for hyperglycemia secondary to baseline DM (outpatient regimen on hold) and stress/infection * Patient is currently receiving an average of ~40 units of insulin per day * 20 units of basal insulin * 19 units of prandial/correctional insulin * BSGs ranging 115 - 209 mg/dl over the past 24hrs * Changes needed to insulin regimen: * AM Fasting BSG = 152 mg/dl. This is slightly above goal range for patient based on inpatient targets and co-morbidities. Lantus dosing has been titrated daily between 0, 10 and 16 units q 12 hours. Continue with 16 units q12. * Post-prandial BSGs are in range therefore no changes needed to CF/CR PLAN FOR INPATIENT GLYCEMIC CONTROL: * Oral Agents * Continue to hold outpatient oral diabetes medications. * Basal insulin Lantus SQ 16 units BID * Bolus insulin NovoLog per scale ACHS or Q6hrs while NPO * Goal Range: Low 120 mg/dL - High 160 mg/dL * Correction Factor: 20 mg/dL/unit * Nutritional / Prandial insulin per carb ratio of 1 unit per 6 grams CHO consumed * Please note that the plan above was derived based on current level of insulin resistance and hospital stress. These recommendations are appropriate for inpatient admission only. Plan of care upon discharge will need to be reassessed to avoid potential outpatient hypo/hyperglycemia. Thank you.
[2017-05-16] VITALS (10 sets, daily range): BP systolic 127–160; BP diastolic 70–82; PULSE 84–113; TEMP 36.4–36.7; O2SAT 92–94
[2017-05-16] MEDS: CEFTAROLINE FOSAMIL IV SCH ×2 (00:24→12:37)
[2017-05-16] MEDS: SODIUM CHLORIDE 0.9% IV SCH ×2 (00:24→12:37)
[2017-05-16] MEDS: IPRATROPIUM BROMIDE NEB SOLN 0.02% 2.5 ML VIAL INH SCH ×4 (01:56→20:23)
[2017-05-16] MEDS: LEVALBUTEROL 1.25MG/0.5ML NEB INH SCH ×4 (01:56→20:23)
[2017-05-16] MEDS: TRAMADOL HCL 50 MG TAB PO PRN ×3 (04:20→19:34)
[2017-05-16 04:46] LABS: BASO % 0.2 %; BASO ABS # 0.02 K/uL (0-0.2); COMPLETE YES; EOS % 1.8 %; HEMATOCRIT 27.9 % (37-47); LYMPH % 20.1 %; LYMPH ABS # 2.18 K/uL (1.2-3.4); MEAN CELL VOLUME 89.7 fL (80-100); MEAN CORPUSCULAR HEMOGLOBIN 30.9 pg (25-34); MEAN CORPUSCULAR HGB CONC 34.4 g/dl (32-36); MEAN PLATELET VOLUME 9.2 fL (7.4-10.4); MONO % 9.3 %; NEUT % 66.6 %; PLATELET COUNT 331 K/uL (130-400); RED BLOOD COUNT 3.11 M/uL (4.2-5.4); WHITE BLOOD COUNT 10.85 K/uL (4.8-10.8)
[2017-05-16 05:08] LABS: BUN/CREATININE RATIO 16.1 (10-20); CALCIUM 8.1 mg/dl (8.5-10.1); POTASSIUM 4.7 mmol/L (3.5-5.1)
[2017-05-16 06:18] LABS: PROTHROMBIN TIME (PATIENT) 52.8 SECONDS (9.0-12.0)
[2017-05-16 06:38] LABS: INR 4.6 (0.9-1.1)
[2017-05-16] MEDS: PANTOprazole SOD 40 MG TAB PO SCH (09:58)
[2017-05-16] MEDS: METOPROLOL TARTRATE 25 MG TAB PO SCH ×2 (09:58→20:47)
[2017-05-16] MEDS: INSULIN ASPART 100 UNITS/ML 3 ML PEN SC SCH ×4 (10:01→20:49)
[2017-05-16] MEDS: INSULIN GLARGINE SOLOSTAR 100 UNITS/ML 3 ML PEN SC SCH ×2 (10:03→20:49)
--- NOTE | 2017-05-16 16:35 | Progress Note ---
Medicine Progress Note Date & Time of Visit: May 16, 2017 at 16:18. Subjective tolerating PO but has low appetite today and last night denies pain No fevers or chills Denies UTI symptoms. Persistent weakness Objective Last 8 Hrs Date Time Temp Pulse Resp B/P (MAP) Pulse Ox O2 Delivery O2 Flow Rate FiO2 05/16/17 15:40 36.4 103 22 141/71 (94) 94 Room Air 05/16/17 14:44 98 16 94 Room Air 05/16/17 12:22 Room Air 05/16/17 11:51 36.6 103 18 147/82 (103) 93 Room Air Physical Exam: GEN: obesity, in no acute distress, alert and appropriate HEENT: NC/AT, pupils are equal and round bilaterally, normal sclerae, MMM CARDIO: reg rate, S1/2 heard without m/g/r LUNGS: CTA bilaterally, no crackles, rales or wheezes, good diaphragmatic excursion ABD: soft, protuberant, non-tender, non-distended, no rebound or guarding, +BS EXTREMITY: RP and DP palpable 2+ bilat, no LE swelling or edema, extremities are warm and well-perfused NEURO: CN 2-12 grossly intact, sensation intact above groin, decreased in bilateral lower extremities 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 SKIN: warm and dry. Large subQ area exposed on L upper posterior thigh, blistered hematoma on RLE anteriorly, L foot blistered wounds s/p removal covered with dressing c/d/i. Sacrum-no blanching or breakdown. R breast, large 10cm horizontal ulceration with central eschar-nondraining. Laboratory Results: 05/16/17 04:13 Red Blood Count 3.11, Mean Corpuscular Volume 89.7, Mean Corpuscular Hemoglobin 30.9, Mean Corpuscular Hemoglobin Concent 34.4, Mean Platelet Volume 9.2, Neutrophils (%) (Auto) 66.6, Lymphocytes (%) (Auto) 20.1, Monocytes (%) (Auto) 9.3, Eosinophils (%) (Auto) 1.8, Basophils (%) (Auto) 0.2, Neutrophils # (Auto) 7.22, Lymphocytes # (Auto) 2.18, Monocytes # (Auto) 1.01, Eosinophils # (Auto) 0.20, Basophils # (Auto) 0.02 05/16/17 04:13 Test 05/09/17 18:03 05/09/17 18:25 05/09/17 18:41 05/09/17 19:43 Bedside Hemoglobin 15.3 g/dl (12.0-16.0) Bedside Hematocrit 45 % (37-47) Bedside Sodium 127 mEq/L (135-144) Bedside Potassium 8.4 mEq/L (3.3-5.0) Bedside Chloride 101 mEq/L (101-112) Bedside Total CO2 18 mEq/l (24-31) Bedside Blood Urea Nitrogen 92 mg/dl (7-18) Bedside Creatinine 3.6 mg/dl (0.6-1.3) Bedside Glucose (other) 680 mg/dl (70-99) Bedside Ionized Calcium (Fei) 0.86 mmol/l (1.12-1.32) Urine Color BROWN Urine Appearance TURBID (CLEAR) Urine pH 5.5 (4.5-7.5) Urine Specific [place] 1.025 (1.000-1.030) Urine Protein 2+ (NEG) Urine Glucose (UA) 3+ (NEG) Urine Ketones TRACE (NEG) Urine Occult Blood 3+ (NEG) Urine Nitrite NEG (NEG) Urine Bilirubin NEG (NEG) Urine Urobilinogen NEG (NEG) Urine Leukocyte Esterase NEG (NEG) Urine RBC >30 /hpf (0-4) Urine WBC >30 /hpf (0-5) Urine Epithelial Cells >30 /lpf (0-5) Urine Bacteria 4+ (NEG) Urine Granular Casts >30 /lpf (0) Estimated Average Glucose 275 mg/dl Hemoglobin A1c 11.2 % (4.5-5.6) Creatine Kinase MB 77.7 ng/ml (0.5-3.6) Creatine Kinase MB Ratio 0.4 (0-3.0) Bedside Lactic Acid Venous 3.02 mmol/L (0.90-1.70) Thyroid Stimulating Hormone (TSH) 0.781 uIu/ml (0.300-4.500) Test 05/10/17 00:07 05/10/17 05:56 05/10/17 22:00 05/11/17 04:26 Ionized Calcium 0.96 mmol/l (1.12-1.32) Phosphorus Level 5.4 mg/dl (2.5-4.9) Beta-Hydroxybutyric Acid 1.66 mg/dL (0.2-2.81) Lactic Acid Level 1.8 mmol/L (0.4-2.0) Troponin I 0.073 ng/ml (0-0.045) Arterial Blood pH 7.39 (7.35-7.45) Arterial Blood Partial Pressure CO2 28 mmHg (35-46) Arterial Blood Partial Pressure O2 92 mm/Hg (80-95) Arterial Blood HCO3 16 mmol/L (19-24) Arterial Blood Oxygen Saturation 96.9 % (90-95) Arterial Blood Base Excess -7.6 mEq/L (-9-1.8) Arterial Blood Gas Delivery 3L Ankit Test POS (POS) Total Bilirubin 0.3 mg/dl (0.2-1) Direct Bilirubin < 0.1 mg/dl (0-0.2) Aspartate Amino Transf (AST/SGOT) 314 U/L (15-37) Alanine Aminotransferase (ALT/SGPT) 156 U/L (12-78) Alkaline Phosphatase 90 U/L (45-117) Total Protein 4.5 gm/dl (6.4-8.2) Albumin 1.5 gm/dl (3.4-5.0) Test 05/13/17 06:06 05/16/17 04:13 05/16/17 06:44 Magnesium Level 1.6 mg/dl (1.8-2.4) White Blood Count 10.85 K/uL (4.8-10.8) Red Blood Count 3.11 M/uL (4.2-5.4) Hemoglobin 9.6 g/dL (12.0-16.0) Hematocrit 27.9 % (37-47) Mean Corpuscular Volume 89.7 fL (80-100) Mean Corpuscular Hemoglobin 30.9 pg (25-34) Mean Corpuscular Hemoglobin Concent 34.4 g/dl (32-36) Platelet Count 331 K/uL (130-400) Mean Platelet Volume 9.2 fL (7.4-10.4) Neutrophils (%) (Auto) 66.6 % Lymphocytes (%) (Auto) 20.1 % Monocytes (%) (Auto) 9.3 % Eosinophils (%) (Auto) 1.8 % Basophils (%) (Auto) 0.2 % Neutrophils # (Auto) 7.22 K/uL (1.4-6.5) Lymphocytes # (Auto) 2.18 K/uL (1.2-3.4) Monocytes # (Auto) 1.01 K/uL (0.11-0.59) Eosinophils # (Auto) 0.20 K/uL (0-0.5) Basophils # (Auto) 0.02 K/uL (0-0.2) RDW Standard Deviation 45.0 fL (36.4-46.3) RDW Coefficient of Variation 13.6 % (11.5-14.5) Immature Granulocyte % (Auto) 2.0 % Immature Granulocyte # (Auto) 0.22 K/uL (0.00-0.02) Prothrombin Time 52.8 SECONDS (9.0-12.0) Prothromb Time International Ratio 4.6 (0.9-1.1) Anion Gap 10.0 mmol/L (3-11) Est Creatinine Clear Calc Drug Dose 13.6 ml/min Estimated GFR () 11.9 Estimated GFR (Non- 10.3 BUN/Creatinine Ratio 16.1 (10-20) Calcium Level 8.1 mg/dl (8.5-10.1) Total Creatine Kinase 3418 U/L (26-192) Bedside Glucose 143 mg/dl (70-90) Date/Time Source Procedure Growth Status 05/09/17 18:27 Blood Blood Culture - Final NO GROWTH Complete 05/09/17 00:00 Nasal MRSA DNA Surveillance Screen - Final Specimen Negative for MRSA by DNA Probe Complete 05/12/17 20:00 Stool C.difficile Toxin B Gene (PCR) - Final No C. difficile toxin B gene detected Complete 05/09/17 18:25 Urine , Clean Catch Urine Culture - Final Klebsiella Pneumoniae Complete 05/10/17 05:00 Drainage - Surface Leg Lower Left Gram Stain - Final Complete 05/10/17 05:00 Wound Culture - Final Enterococcus Faecalis Complete Last 24 Hours Test 05/15/17 16:42 05/15/17 20:07 05/16/17 04:13 05/16/17 06:44 Bedside Glucose 190 mg/dl 166 mg/dl 143 mg/dl White Blood Count 10.85 K/uL Red Blood Count 3.11 M/uL Hemoglobin 9.6 g/dL Hematocrit 27.9 % Mean Corpuscular Volume 89.7 fL Mean Corpuscular Hemoglobin 30.9 pg Mean Corpuscular Hemoglobin Concent 34.4 g/dl Platelet Count 331 K/uL Mean Platelet Volume 9.2 fL Neutrophils (%) (Auto) 66.6 % Lymphocytes (%) (Auto) 20.1 % Monocytes (%) (Auto) 9.3 % Eosinophils (%) (Auto) 1.8 % Basophils (%) (Auto) 0.2 % Neutrophils # (Auto) 7.22 K/uL Lymphocytes # (Auto) 2.18 K/uL Monocytes # (Auto) 1.01 K/uL Eosinophils # (Auto) 0.20 K/uL Basophils # (Auto) 0.02 K/uL RDW Standard Deviation 45.0 fL RDW Coefficient of Variation 13.6 % Immature Granulocyte % (Auto) 2.0 % Immature Granulocyte # (Auto) 0.22 K/uL Prothrombin Time 52.8 SECONDS Prothromb Time International Ratio 4.6 Sodium Level 139 mmol/L Potassium Level 4.7 mmol/L Chloride Level 106 mmol/L Carbon Dioxide Level 23 mmol/L Anion Gap 10.0 mmol/L Blood Urea Nitrogen 64 mg/dl Creatinine 4.00 mg/dl Est Creatinine Clear Calc Drug Dose 13.6 ml/min Estimated GFR () 11.9 Estimated GFR (Non- 10.3 BUN/Creatinine Ratio 16.1 Random Glucose 141 mg/dl Calcium Level 8.1 mg/dl Total Creatine Kinase 3418 U/L Assessment & Plan 77 yo F presents after fall at home and down for 4 days. Admitted to ICU with sepsis 2/2 UTI versus multiple severe wounds 2/2 fall, rhabdomyolysis with VIOLETA and DKA. She is now on telemetry, tolerating PO and improved. She reports her pain being controlled. She is set to go to [facility] where her has been for 2 years. Of note, she lives alone with a grandson who is 20 yo who is in and out. She manages her own medications and cannot recall many of these for me now. She has a h/o CMT and is weak at baseline with no worsening noted by her recently. She denied any UTI symptoms. 1. Sepsis 2/2 Klebsiella UTI and multiple wounds with cellulitis growing E faecalis and MSSA. Resuscitated, hemodynamically stable and afebrile. Continues to improve on current therapy. Wound care with Adaptiq, Aquacel per wound care provider. Blisters were removed and treated in previous days. Per ID she was on Levaquin and Clinda, transitioned to Ceftaroline 200 IV q12 (05/13) . Cont current management and wound care per recs. Castellanos in place- will cont with this while Nephro following accurate IOs and also urination on the posterior thigh would burn and be very uncomfortable over that wound. Will reassess for removal daily. 2. Breast wound with MSSA-eschar in wound-Aquacel and Optifoam, some surrounding erythema but no drainage. Does not appear infected on exam today. Cont as above. 3. E faecalis LLE wound-cont as above. 4. Klebsiella pneumonia UTI-as above. 5. DMII-ISS/glargine. Apprec pharmacy recs. Inpatient goals met, however, A1C was >11. 6. VIOLETA 2/2 ATN-Nephro following. ATN secondary to sepsis in setting of rhabdo and diabetic nephropathy. Improved creatinine and CK level today. No IVF needed at this time--tolerating PO well, making urine. Discussed case with Nephrology today. Will cont with current management and trend PRP in am. 7. Mechanical fall at home 2/2 weakness in setting of Charcot Sepideh Tooth disease-cont PT/OT as inpatient, cont turn q2 per nursing. To be transferred to [facility] when medically stable. 8. h/o PE-on coumadin-INR elevated to 4.6 in setting of ceftaroline. Hold warfarin today and repeat INR in am 9. Transaminitis-poss related to muscle breakdown. Trend in am. 10. Obesity 11. Anemia-acute, multifactorial secondary to inflammation, phlebotomy during hospitalization. Cont to monitor for improvement, minimize frequent phlebotomy. DVT ppx Coumadin DNR Dispo-to [facility] when medically stable. [facility] Hospital[facility] Consultants: Cl Current Inpatient Medications: Current Inpatient Medications Medications (Trade) Dose Ordered Sig/Solitario Route Start Time Stop Time Status Last Admin Dose Admin Glucose (Glucose 40% Gel) UD PRN PO 05/09/17 19:15 06/08/17 19:14 Glucose (Glucose Chew Tab) 1 tabs UD PRN PO 05/09/17 19:15 06/08/17 19:14 Dextrose (Dextrose 50% 50ML Syringe) 50 ml UD PRN IV 05/09/17 19:15 06/08/17 19:14 Glucagon (Glucagon Inj) 1 mg UD PRN SQ 05/09/17 19:15 06/08/17 19:14 Acetaminophen (Tylenol Tab) 325 mg Q6H PRN PO 05/09/17 21:30 06/08/17 21:29 05/13/17 20:43 325 MG Nitroglycerin (Nitrostat Tab) 0.4 mg UD PRN SL 05/09/17 21:30 06/08/17 21:29 Hydromorphone HCl (Dilaudid Inj) 0.5 mg Q3H PRN IV 05/09/17 21:30 05/23/17 21:29 05/15/17 04:06 0.5 MG Tramadol HCl (Ultram Tab) 25 mg Q6H PRN PO 05/09/17 21:30 06/08/17 21:29 05/16/17 10:40 25 MG Ondansetron HCl (Zofran Inj) 4 mg Q6H PRN IV 05/09/17 21:30 06/08/17 21:29 05/13/17 11:32 4 MG Metoprolol Tartrate (Lopressor Tab) 12.5 mg BID PO 05/10/17 09:00 06/09/17 08:59 05/16/17 09:58 12.5 MG Pantoprazole Sodium (Protonix Tab) 40 mg DAILY PO 05/10/17 09:00 06/09/17 08:59 05/16/17 09:58 40 MG Heparin Sodium (Porcine) (Heparin 10 Unit/ ml 5 ml Flush) 5 ml PRN PRN FLUSH 05/10/17 00:45 06/09/17 00:44 05/16/17 13:51 5 ML Miscellaneous Information (Consult Glycemic Management Pharmacy) 1 ea DAILY PRN N/A 05/10/17 09:00 06/09/17 08:59 Insulin Aspart (novoLOG ASPART) SLIDING SCALE ACHS SC 05/10/17 16:00 06/09/17 15:59 05/16/17 12:37 12 UNITS Ipratropium [place] (Atrovent 0.02% 0.5MG/2.5ML Neb) 0.5 mg Q6R INH 05/11/17 03:00 06/10/17 02:59 05/16/17 14:18 0.5 MG Levalbuterol (Xopenex 1.25MG/ 0.5ML Neb) 1.25 mg Q6R INH 05/11/17 03:00 06/10/17 02:59 05/16/17 14:18 1.25 MG Ipratropium [place] (Atrovent 0.02% 0.5MG/2.5ML Neb) 0.5 mg Q4H PRN INH 05/10/17 21:45 06/09/17 21:44 Levalbuterol (Xopenex 1.25MG/ 0.5ML Neb) 1.25 mg Q4H PRN INH 05/10/17 21:45 06/09/17 21:44 Ceftaroline Fosamil 200 mg/ Sodium Chloride 256.6667 ml @ 250 mls/hr Q12H IV 05/13/17 12:00 05/23/17 11:59 05/16/17 12:37 250 MLS/HR Warfarin Sodium (Coumadin Tab) 2.5 mg DAILY@1600 PO 05/14/17 16:00 06/10/17 15:59 Future Hold 05/14/17 15:55 2.5 MG Insulin Glargine (Lantus Solostar Pen) 16 units BID SC 05/16/17 09:00 06/15/17 08:59 05/16/17 10:03 16 UNITS Insulin Aspart (novoLOG ASPART) SLIDING SCALE 0200 SC 05/17/17 02:00 06/16/17 01:59
[2017-05-17] VITALS (7 sets, daily range): BP systolic 127–152; BP diastolic 67–88; PULSE 85–100; TEMP 36.4–36.8; O2SAT 92–97
[2017-05-17] MEDS: CEFTAROLINE FOSAMIL IV SCH ×2 (00:24→11:12)
[2017-05-17] MEDS: SODIUM CHLORIDE 0.9% IV SCH ×2 (00:24→11:12)
[2017-05-17] MEDS: INSULIN ASPART 100 UNITS/ML 3 ML PEN SC SCH ×5 (02:00→20:10)
[2017-05-17 04:59] LABS: HEMATOCRIT 29.2 % (37-47); MEAN CELL VOLUME 92.1 fL (80-100); MEAN CORPUSCULAR HGB CONC 32.5 g/dl (32-36); MEAN PLATELET VOLUME 8.8 fL (7.4-10.4); PLATELET COUNT 363 K/uL (130-400); RED BLOOD COUNT 3.17 M/uL (4.2-5.4); WHITE BLOOD COUNT 12.61 K/uL (4.8-10.8)
[2017-05-17 05:23] LABS: BUN/CREATININE RATIO 16.3 (10-20); CALCIUM 8.4 mg/dl (8.5-10.1); CREATININE 3.7 mg/dl (0.60-1.20); POTASSIUM 4.5 mmol/L (3.5-5.1)
[2017-05-17 05:26] LABS: ALB/GLOB RATIO 0.4 (0.9-2)
[2017-05-17] MEDS: PANTOprazole SOD 40 MG TAB PO SCH (07:59)
[2017-05-17] MEDS: METOPROLOL TARTRATE 25 MG TAB PO SCH ×2 (08:00→20:11)
[2017-05-17] MEDS: INSULIN GLARGINE SOLOSTAR 100 UNITS/ML 3 ML PEN SC SCH (08:04)
[2017-05-17 08:46] LABS: INR 4.6 (0.9-1.1)
--- NOTE | 2017-05-17 14:31 | Pharmacy Progress Note ---
Glycemic Control Progress Note Date of Service May 17, 2017. Scope Glycemic Pharmacist consulted for glycemic control to write orders per [facility] inpatient glycemic control protocol. Objective Accuchecks BSG (last 24hrs): Test 05/16/17 16:26 05/16/17 20:04 05/17/17 02:02 05/17/17 04:33 Bedside Glucose 177 mg/dl (70-90) 155 mg/dl (70-90) 89 mg/dl (70-90) Random Glucose 79 mg/dl (70-99) Test 05/17/17 06:14 05/17/17 11:49 05/17/17 12:09 Bedside Glucose 91 mg/dl (70-90) 142 mg/dl (70-90) 144 mg/dl (70-90) HbA1c: Test 05/09/17 18:25 Hemoglobin A1c 11.2 % (4.5-5.6) H Recent Pertinent Medications Outpatient Anti-diabetic Regimen: * Metformin 500mg PO BID * Lantus 45 units SQ Q AM * A1c = 11.2 % 05/09/17 The patient is currently receiving: * Lantus 16 units SQ BID * Novolog SQ ACHS * Goal Range: 110-140 mg/dL * Correction Factor: 15 mg/dL/unit * Carb Ratio: 1 unit per 5 grams of carbs eaten Risk Factors for Insulin Resistance: * Infection: receiving Ceftaroline for SSTI + UTI * Diet: ordered T2DM / AHA diet and tolerating per carb counts Assessment & Plan ASSESSMENT: 05/17/17 * BSGs have ranged 89-334 over the last 24 hours * BSG pattern has been somewhat erratic for most of her hospitalization, sometimes requiring only 5 units per day, while requiring 50-60 units per day on others. Reason for wide fluctuations in insulin requirements unclear. * Fasting BSG 89 this AM w/ 32 units of Lantus on board - will reduce dose and give smaller doses at bedtime as a larger dose in the AM may be somewhat beneficial given higher insulin needs during the AM and midday * Post-prandial BSGs will be followed today as CF and CR were just changed yesterday afternoon. PLAN FOR INPATIENT GLYCEMIC CONTROL: * Holding outpatient oral diabetes medication (metformin) * Decrease LANTUS to 16 units Q AM + 12 units Q PM * Continue Goal Range: Low 110 mg/dL - High 140 mg/dL * Continue Correction Factor of 15 mg/dL/unit * Continue carb ratio of 1 unit per 5 grams CHO consumed * Please note that the plan above was derived based on current level of insulin resistance and hospital stress. These recommendations are appropriate for inpatient admission only. Plan of care upon discharge will need to be reassessed to avoid potential outpatient hypo/hyperglycemia. Thank you.
[2017-05-17] MEDS: INSULIN GLARGINE SOLOSTAR 100 UNITS/ML 3 ML PEN SQ SCH (20:41)
--- NOTE | 2017-05-18 00:03 | Progress Note ---
Medicine Progress Note Date & Time of Visit: May 17, 2017 at 10:50. Subjective tolerating PO afebrile, no coughs or chills present denies pain daughter at bedside and reviewed assessment and plan with her Objective Last 8 Hrs Date Time Temp Pulse Resp B/P (MAP) Pulse Ox O2 Delivery O2 Flow Rate FiO2 05/17/17 08:00 Room Air 05/17/17 07:28 36.4 147/82 (103) 93 Room Air 05/17/17 04:32 36.4 99 18 145/67 (93) 92 Room Air 05/17/17 04:00 Room Air Physical Exam: GEN: obesity, in no acute distress, alert and appropriate HEENT: NC/AT, pupils are equal and round bilaterally, normal sclerae, MMM CARDIO: reg rate, S1/2 heard without m/g/r LUNGS: CTA bilaterally, no crackles, rales or wheezes, good diaphragmatic excursion ABD: soft, protuberant, non-tender, non-distended, no rebound or guarding, +BS EXTREMITY: RP and DP palpable 2+ bilat, no LE swelling or edema, extremities are warm and well-perfused NEURO: CN 2-12 grossly intact, sensation intact above groin, decreased in bilateral lower extremities MUSC: 3/5 rn security strength and 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 SKIN: warm and dry. Large subQ area exposed on L upper posterior thigh, blistered hematoma on RLE anteriorly, L foot blistered wounds s/p removal covered with dressing c/d/i. Sacrum-no blanching or breakdown. R breast, large 10cm horizontal ulceration with central eschar-nondraining. Laboratory Results: 05/17/17 04:33 05/17/17 04:33 Test 05/09/17 18:03 05/09/17 18:25 05/09/17 18:41 05/09/17 19:43 Bedside Hemoglobin 15.3 g/dl (12.0-16.0) Bedside Hematocrit 45 % (37-47) Bedside Sodium 127 mEq/L (135-144) Bedside Potassium 8.4 mEq/L (3.3-5.0) Bedside Chloride 101 mEq/L (101-112) Bedside Total CO2 18 mEq/l (24-31) Bedside Blood Urea Nitrogen 92 mg/dl (7-18) Bedside Creatinine 3.6 mg/dl (0.6-1.3) Bedside Glucose (other) 680 mg/dl (70-99) Bedside Ionized Calcium (Fei) 0.86 mmol/l (1.12-1.32) Urine Color BROWN Urine Appearance TURBID (CLEAR) Urine pH 5.5 (4.5-7.5) Urine Specific [place] 1.025 (1.000-1.030) Urine Protein 2+ (NEG) Urine Glucose (UA) 3+ (NEG) Urine Ketones TRACE (NEG) Urine Occult Blood 3+ (NEG) Urine Nitrite NEG (NEG) Urine Bilirubin NEG (NEG) Urine Urobilinogen NEG (NEG) Urine Leukocyte Esterase NEG (NEG) Urine RBC >30 /hpf (0-4) Urine WBC >30 /hpf (0-5) Urine Epithelial Cells >30 /lpf (0-5) Urine Bacteria 4+ (NEG) Urine Granular Casts >30 /lpf (0) Estimated Average Glucose 275 mg/dl Hemoglobin A1c 11.2 % (4.5-5.6) Creatine Kinase MB 77.7 ng/ml (0.5-3.6) Creatine Kinase MB Ratio 0.4 (0-3.0) Bedside Lactic Acid Venous 3.02 mmol/L (0.90-1.70) Thyroid Stimulating Hormone (TSH) 0.781 uIu/ml (0.300-4.500) Test 05/10/17 00:07 05/10/17 05:56 05/10/17 22:00 05/11/17 04:26 Ionized Calcium 0.96 mmol/l (1.12-1.32) Phosphorus Level 5.4 mg/dl (2.5-4.9) Beta-Hydroxybutyric Acid 1.66 mg/dL (0.2-2.81) Lactic Acid Level 1.8 mmol/L (0.4-2.0) Troponin I 0.073 ng/ml (0-0.045) Arterial Blood pH 7.39 (7.35-7.45) Arterial Blood Partial Pressure CO2 28 mmHg (35-46) Arterial Blood Partial Pressure O2 92 mm/Hg (80-95) Arterial Blood HCO3 16 mmol/L (19-24) Arterial Blood Oxygen Saturation 96.9 % (90-95) Arterial Blood Base Excess -7.6 mEq/L (-9-1.8) Arterial Blood Gas Delivery 3L Ankit Test POS (POS) Direct Bilirubin < 0.1 mg/dl (0-0.2) Test 05/13/17 06:06 05/16/17 04:13 05/17/17 04:33 05/17/17 08:13 Magnesium Level 1.6 mg/dl (1.8-2.4) Immature Granulocyte % (Auto) 2.0 % White Blood Count 10.85 K/uL (4.8-10.8) Red Blood Count 3.11 M/uL (4.2-5.4) 3.17 M/uL (4.2-5.4) Hemoglobin 9.6 g/dL (12.0-16.0) Hematocrit 27.9 % (37-47) Mean Corpuscular Volume 89.7 fL (80-100) 92.1 fL (80-100) Mean Corpuscular Hemoglobin 30.9 pg (25-34) 30.0 pg (25-34) Mean Corpuscular Hemoglobin Concent 34.4 g/dl (32-36) 32.5 g/dl (32-36) Platelet Count 331 K/uL (130-400) Mean Platelet Volume 9.2 fL (7.4-10.4) 8.8 fL (7.4-10.4) Neutrophils (%) (Auto) 66.6 % Lymphocytes (%) (Auto) 20.1 % Monocytes (%) (Auto) 9.3 % Eosinophils (%) (Auto) 1.8 % Basophils (%) (Auto) 0.2 % Neutrophils # (Auto) 7.22 K/uL (1.4-6.5) Lymphocytes # (Auto) 2.18 K/uL (1.2-3.4) Monocytes # (Auto) 1.01 K/uL (0.11-0.59) Eosinophils # (Auto) 0.20 K/uL (0-0.5) Basophils # (Auto) 0.02 K/uL (0-0.2) Immature Granulocyte # (Auto) 0.22 K/uL (0.00-0.02) Total Creatine Kinase 3418 U/L (26-192) RDW Standard Deviation 44.8 fL (36.4-46.3) RDW Coefficient of Variation 13.5 % (11.5-14.5) Anion Gap 6.0 mmol/L (3-11) Est Creatinine Clear Calc Drug Dose 14.6 ml/min Estimated GFR () 13.1 Estimated GFR (Non- 11.3 BUN/Creatinine Ratio 16.3 (10-20) Calcium Level 8.4 mg/dl (8.5-10.1) Total Bilirubin 0.4 mg/dl (0.2-1) Aspartate Amino Transf (AST/SGOT) 63 U/L (15-37) Alanine Aminotransferase (ALT/SGPT) 46 U/L (12-78) Alkaline Phosphatase 73 U/L (45-117) Total Protein 5.0 gm/dl (6.4-8.2) Albumin 1.4 gm/dl (3.4-5.0) Globulin 3.6 gm/dl (2.5-4.0) Albumin/Globulin Ratio 0.4 (0.9-2) Prothrombin Time 52.0 SECONDS (9.0-12.0) Prothromb Time International Ratio 4.6 (0.9-1.1) Test 05/17/17 20:06 Bedside Glucose 137 mg/dl (70-90) Date/Time Source Procedure Growth Status 05/09/17 18:27 Blood Blood Culture - Final NO GROWTH Complete 05/09/17 00:00 Nasal MRSA DNA Surveillance Screen - Final Specimen Negative for MRSA by DNA Probe Complete 05/12/17 20:00 Stool C.difficile Toxin B Gene (PCR) - Final No C. difficile toxin B gene detected Complete 05/09/17 18:25 Urine , Clean Catch Urine Culture - Final Klebsiella Pneumoniae Complete 05/10/17 05:00 Drainage - Surface Leg Lower Left Gram Stain - Final Complete 05/10/17 05:00 Wound Culture - Final Enterococcus Faecalis Complete Last 24 Hours Test 05/16/17 11:29 05/16/17 16:26 05/16/17 20:04 05/17/17 02:02 Bedside Glucose 334 mg/dl 177 mg/dl 155 mg/dl 89 mg/dl Test 05/17/17 04:33 05/17/17 06:14 05/17/17 08:13 White Blood Count 12.61 K/uL Red Blood Count 3.17 M/uL Hemoglobin 9.5 g/dL Hematocrit 29.2 % Mean Corpuscular Volume 92.1 fL Mean Corpuscular Hemoglobin 30.0 pg Mean Corpuscular Hemoglobin Concent 32.5 g/dl RDW Standard Deviation 44.8 fL RDW Coefficient of Variation 13.5 % Platelet Count 363 K/uL Mean Platelet Volume 8.8 fL Sodium Level 140 mmol/L Potassium Level 4.5 mmol/L Chloride Level 108 mmol/L Carbon Dioxide Level 26 mmol/L Anion Gap 6.0 mmol/L Blood Urea Nitrogen 60 mg/dl Creatinine 3.70 mg/dl Est Creatinine Clear Calc Drug Dose 14.6 ml/min Estimated GFR () 13.1 Estimated GFR (Non- 11.3 BUN/Creatinine Ratio 16.3 Random Glucose 79 mg/dl Calcium Level 8.4 mg/dl Total Bilirubin 0.4 mg/dl Aspartate Amino Transf (AST/SGOT) 63 U/L Alanine Aminotransferase (ALT/SGPT) 46 U/L Alkaline Phosphatase 73 U/L Total Protein 5.0 gm/dl Albumin 1.4 gm/dl Globulin 3.6 gm/dl Albumin/Globulin Ratio 0.4 Bedside Glucose 91 mg/dl Prothrombin Time 52.0 SECONDS Prothromb Time International Ratio 4.6 Assessment & Plan 77 yo F presents after fall at home and down for 4 days. Admitted to ICU with sepsis 2/2 UTI versus multiple severe wounds 2/2 fall, rhabdomyolysis with VIOLETA and DKA. She is now on telemetry, tolerating PO and improved. She reports her pain being controlled. She is set to go to [facility] where her has been for 2 years. Of note, she lives alone with a grandson who is 20 yo who is in and out. She manages her own medications and cannot recall many of these for me now. She has a h/o CMT and is weak at baseline with no worsening noted by her recently. She denied any UTI symptoms. 1. Sepsis 2/2 Klebsiella UTI and multiple wounds with cellulitis growing E faecalis and MSSA. Resuscitated, hemodynamically stable and afebrile. Continues to improve on current therapy. Wound care with [employer]iq Aquacel per wound care provider. Blisters were removed and treated in previous days. Per ID she was on Levaquin and Clinda, transitioned to Ceftaroline 200 IV q12 (05/13) . Cont current management and wound care per recs. Castellanos in place- will cont with this while Nephro following accurate IOs and also urination on the posterior thigh would burn and be very uncomfortable over that wound. Will reassess for removal daily. 2. Breast wound with MSSA-eschar in wound-Aquacel and Optifoam, some surrounding erythema but no drainage. Does not appear infected on exam today. Cont as above. 3. E faecalis LLE wound-cont as above. 4. Klebsiella pneumonia UTI-as above. 5. DMII-ISS/glargine. Apprec pharmacy recs. Inpatient goals met, however, A1C was >11. 6. VIOLETA 2/2 ATN-Nephro following. ATN secondary to sepsis in setting of rhabdo and diabetic nephropathy. Improved creatinine and CK level today. No IVF needed at this time--tolerating PO well, making urine. Discussed case with Nephrology today. Will cont with current management and trend PRP in am. 7. Mechanical fall at home 2/2 weakness in setting of Charcot Sepideh Tooth disease-cont PT/OT as inpatient, cont turn q2 per nursing. To be transferred to [facility] [place] [facility] when medically stable. 8. h/o PE-on coumadin-INR elevated to 4.6 in setting of ceftaroline. Hold warfarin today and repeat INR in am 9. Transaminitis-poss related to muscle breakdown. Resolved 10. Obesity 11. Anemia-acute, multifactorial secondary to inflammation, phlebotomy during hospitalization. Cont to monitor for improvement, minimize frequent phlebotomy. DVT ppx Coumadin-supratherapeutic and on hold at this time. DNR Dispo-to [facility] [place] when medically stable. [facility] Hospital[facility] Consultants: Cl Current Inpatient Medications: Current Inpatient Medications Medications (Trade) Dose Ordered Sig/Solitario Route Start Time Stop Time Status Last Admin Dose Admin Glucose (Glucose 40% Gel) UD PRN PO 05/09/17 19:15 06/08/17 19:14 Glucose (Glucose Chew Tab) 1 tabs UD PRN PO 05/09/17 19:15 06/08/17 19:14 Dextrose (Dextrose 50% 50ML Syringe) 50 ml UD PRN IV 05/09/17 19:15 06/08/17 19:14 Glucagon (Glucagon Inj) 1 mg UD PRN SQ 05/09/17 19:15 06/08/17 19:14 Acetaminophen (Tylenol Tab) 325 mg Q6H PRN PO 05/09/17 21:30 06/08/17 21:29 05/13/17 20:43 325 MG Nitroglycerin (Nitrostat Tab) 0.4 mg UD PRN SL 05/09/17 21:30 06/08/17 21:29 Hydromorphone HCl (Dilaudid Inj) 0.5 mg Q3H PRN IV 05/09/17 21:30 05/23/17 21:29 05/15/17 04:06 0.5 MG Tramadol HCl (Ultram Tab) 25 mg Q6H PRN PO 05/09/17 21:30 06/08/17 21:29 05/16/17 19:34 25 MG Ondansetron HCl (Zofran Inj) 4 mg Q6H PRN IV 05/09/17 21:30 06/08/17 21:29 05/13/17 11:32 4 MG Metoprolol Tartrate (Lopressor Tab) 12.5 mg BID PO 05/10/17 09:00 06/09/17 08:59 05/17/17 08:00 12.5 MG Pantoprazole Sodium (Protonix Tab) 40 mg DAILY PO 05/10/17 09:00 06/09/17 08:59 05/17/17 07:59 40 MG Heparin Sodium (Porcine) (Heparin 10 Unit/ ml 5 ml Flush) 5 ml PRN PRN FLUSH 05/10/17 00:45 06/09/17 00:44 05/16/17 13:51 5 ML Miscellaneous Information (Consult Glycemic Management Pharmacy) 1 ea DAILY PRN N/A 05/10/17 09:00 06/09/17 08:59 Insulin Aspart (novoLOG ASPART) SLIDING SCALE ACHS SC 05/10/17 16:00 06/09/17 15:59 05/17/17 08:03 3 UNITS Ipratropium [place] (Atrovent 0.02% 0.5MG/2.5ML Neb) 0.5 mg Q4H PRN INH 05/10/17 21:45 06/09/17 21:44 Levalbuterol (Xopenex 1.25MG/ 0.5ML Neb) 1.25 mg Q4H PRN INH 05/10/17 21:45 06/09/17 21:44 Ceftaroline Fosamil 200 mg/ Sodium Chloride 256.6667 ml @ 250 mls/hr Q12H IV 05/13/17 12:00 05/23/17 11:59 05/17/17 00:24 250 MLS/HR Warfarin Sodium (Coumadin Tab) 2.5 mg DAILY@1600 PO 05/14/17 16:00 06/10/17 15:59 Future Hold 05/14/17 15:55 2.5 MG Insulin Glargine (Lantus Solostar Pen) 16 units BID SC 05/16/17 09:00 06/15/17 08:59 05/17/17 08:04 16 UNITS Insulin Aspart (novoLOG ASPART) SLIDING SCALE 0200 SC 05/17/17 02:00 06/16/17 01:59
[2017-05-18] MEDS: INSULIN ASPART 100 UNITS/ML 3 ML PEN SC SCH ×5 (02:00→20:24)
[2017-05-18 05:46] LABS: HEMATOCRIT 29.3 % (37-47); MEAN CELL VOLUME 91.8 fL (80-100); MEAN CORPUSCULAR HEMOGLOBIN 30.4 pg (25-34); MEAN CORPUSCULAR HGB CONC 33.1 g/dl (32-36); MEAN PLATELET VOLUME 8.7 fL (7.4-10.4); PLATELET COUNT 393 K/uL (130-400); RED BLOOD COUNT 3.19 M/uL (4.2-5.4); WHITE BLOOD COUNT 12.94 K/uL (4.8-10.8)
[2017-05-18 06:03] LABS: PROTHROMBIN TIME (PATIENT) 56.7 SECONDS (9.0-12.0)
[2017-05-18 06:13] LABS: CREATININE 3.3 mg/dl (0.60-1.20)
[2017-05-18 06:14] LABS: BUN/CREATININE RATIO 16.4 (10-20); CALCIUM 8.2 mg/dl (8.5-10.1); POTASSIUM 4.1 mmol/L (3.5-5.1)
[2017-05-18 07:16] VITALS: BP 134/75; PULSE 106; TEMP 36.7; O2SAT 91
[2017-05-18] MEDS: METOPROLOL TARTRATE 25 MG TAB PO SCH ×2 (07:49→20:30)
[2017-05-18] MEDS: PANTOprazole SOD 40 MG TAB PO SCH (07:49)
[2017-05-18] MEDS: TRAMADOL HCL 50 MG TAB PO PRN (07:50)
[2017-05-18 08:00] VITALS: O2SAT 92
[2017-05-18] MEDS: INSULIN GLARGINE SOLOSTAR 100 UNITS/ML 3 ML PEN SQ SCH ×2 (09:25→20:39)
[2017-05-18] MEDS: SODIUM CHLORIDE 0.9% IV SCH ×3 (11:32)
[2017-05-18] MEDS: CEFTAROLINE FOSAMIL IV SCH ×3 (11:32)
--- NOTE | 2017-05-18 12:38 | Pharmacy Progress Note ---
Glycemic Control Progress Note Date of Service May 18, 2017. Scope Glycemic Pharmacist consulted for glycemic control to write orders per [facility] inpatient glycemic control protocol. Objective Accuchecks BSG (last 24hrs): Test 05/17/17 16:21 05/17/17 20:06 05/18/17 02:24 05/18/17 05:26 Bedside Glucose 190 mg/dl (70-90) 137 mg/dl (70-90) 86 mg/dl (70-90) Random Glucose 78 mg/dl (70-99) Test 05/18/17 08:13 05/18/17 11:29 Bedside Glucose 95 mg/dl (70-90) 131 mg/dl (70-90) HbA1c: Test 05/09/17 18:25 Hemoglobin A1c 11.2 % (4.5-5.6) H Recent Pertinent Medications The patient is currently receiving: * Basal insulin: Lantus 16 units every AM, 12 units every PM * Correctional Insulin: Novolog Correction per scale ACHS Goal Range: Low 110 mg/dL - High 140 mg/dL Correction Factor: 15 mg/dL/unit * Prandial insulin: Per carb ratio of 1 unit per 5 grams CHO consumed * Oral Agents: None at this time Outpatient Anti-Diabetic Meds * Metformin 500mg PO BID * Lantus 45 units SQ Q AM Assessment & Plan ASSESSMENT: * See progress note from 05/17 for more background info, in short: * Pt receiving SQ basal bolus insulin regimen for hyperglycemia secondary to baseline DM (outpatient regimen on hold),stress/infection * Patient is currently receiving an average of 40 units of insulin per day * 28 units of basal insulin - basal heavy but po intake has reduced * BSGs ranging 78 - 190 mg/dl over the past 24hrs * Changes to insulin resistance/sensitivity: * SCr has improved * PO intake reduced * Changes needed to insulin regimen: * AM Fasting BSG = 95 mg/dl, 78 mg/dL on PRP. Since this has stayed consistent and PM dose of Lantus just decreased last night, will not adjust the basal dose until we see tomorrow's fasting value. * Total daily dose ~60 units when pt has adequate po intake. Will need to evenly re-distribute regimen 50%:50% basal:prandial to prevent hypo/ hyperglycemia PLAN FOR INPATIENT GLYCEMIC CONTROL: * Continue Lantus 16 units qAM, 12 units qPM * Continue Novolog ACHS - remove overnight accucheck * Goal 110-140 * LOOSEN CF to 20 * LOOSEN CR to 6 * Please note that the plan above was derived based on current level of insulin resistance and hospital stress. These recommendations are appropriate for inpatient admission only. Plan of care upon discharge will need to be reassessed to avoid potential outpatient hypo/hyperglycemia. Thank you.
[2017-05-18] MEDS ORDERED: NURSING VERBAL MED ORDER ONE (12:45)
--- NOTE | 2017-05-18 12:50 | Progress Note ---
Subjective Date of Service: May 18, 2017. Subjective Pt evaluation today including: conversation w/ patient, physical exam, lab review, review of studies, review of inpatient medication list Saw/examined the patient in room 452 Very weak today States she can't move her L LE No chest pain/shortness of breath Review of Systems Constitutional: + weakness, + fatigue, No fever, No chills Respiratory: No shortness of breath Cardiac: No chest pain Abdomen: No pain, No nausea, No vomiting, No diarrhea Musculoskeletal: + joint pain (L LE) Neurologic: + weakness, + balance problems Heme: No abnormal bleeding/bruising Medications Current Inpatient Medications Medications (Trade) Dose Ordered Sig/Solitario Route Start Time Stop Time Status Last Admin Dose Admin Glucose (Glucose 40% Gel) UD PRN PO 05/09/17 19:15 06/08/17 19:14 Glucose (Glucose Chew Tab) 1 tabs UD PRN PO 05/09/17 19:15 06/08/17 19:14 Dextrose (Dextrose 50% 50ML Syringe) 50 ml UD PRN IV 05/09/17 19:15 06/08/17 19:14 Glucagon (Glucagon Inj) 1 mg UD PRN SQ 05/09/17 19:15 06/08/17 19:14 Acetaminophen (Tylenol Tab) 325 mg Q6H PRN PO 05/09/17 21:30 06/08/17 21:29 05/13/17 20:43 325 MG Nitroglycerin (Nitrostat Tab) 0.4 mg UD PRN SL 05/09/17 21:30 06/08/17 21:29 Hydromorphone HCl (Dilaudid Inj) 0.5 mg Q3H PRN IV 05/09/17 21:30 05/23/17 21:29 05/15/17 04:06 0.5 MG Tramadol HCl (Ultram Tab) 25 mg Q6H PRN PO 05/09/17 21:30 06/08/17 21:29 05/18/17 07:50 25 MG Ondansetron HCl (Zofran Inj) 4 mg Q6H PRN IV 05/09/17 21:30 06/08/17 21:29 05/13/17 11:32 4 MG Metoprolol Tartrate (Lopressor Tab) 12.5 mg BID PO 05/10/17 09:00 06/09/17 08:59 05/18/17 07:49 12.5 MG Pantoprazole Sodium (Protonix Tab) 40 mg DAILY PO 05/10/17 09:00 06/09/17 08:59 05/18/17 07:49 40 MG Heparin Sodium (Porcine) (Heparin 10 Unit/ ml 5 ml Flush) 5 ml PRN PRN FLUSH 05/10/17 00:45 06/09/17 00:44 05/18/17 10:16 15 ML Miscellaneous Information (Consult Glycemic Management Pharmacy) 1 ea DAILY PRN N/A 05/10/17 09:00 06/09/17 08:59 Insulin Aspart (novoLOG ASPART) SLIDING SCALE ACHS SC 05/10/17 16:00 06/09/17 15:59 05/18/17 09:24 2 UNITS Ipratropium [place] (Atrovent 0.02% 0.5MG/2.5ML Neb) 0.5 mg Q4H PRN INH 05/10/17 21:45 06/09/17 21:44 Levalbuterol (Xopenex 1.25MG/ 0.5ML Neb) 1.25 mg Q4H PRN INH 05/10/17 21:45 06/09/17 21:44 Ceftaroline Fosamil 200 mg/ Sodium Chloride 256.6667 ml @ 250 mls/hr Q12H IV 05/13/17 12:00 05/23/17 11:59 05/18/17 11:32 250 MLS/HR Insulin Glargine (Lantus Solostar Pen) 16 units QAM SQ 05/18/17 08:00 06/17/17 07:59 05/18/17 09:25 16 UNITS Insulin Glargine (Lantus Solostar Pen) 12 units HS SQ 05/17/17 22:00 06/16/17 21:59 05/17/17 20:41 12 UNITS Miscellaneous Information (Nursing Verbal Med Order) 1 ea ONE ONCE N/A 05/18/17 12:45 05/18/17 12:46 UNV Objective Vital Signs Date Time Temp Pulse Resp B/P (MAP) Pulse Ox O2 Delivery O2 Flow Rate FiO2 05/18/17 08:00 92 Room Air 05/18/17 07:16 36.7 106 20 134/75 (94) 91 Room Air 05/18/17 01:21 Room Air 05/17/17 23:53 36.8 91 20 136/79 (98) 92 Room Air 05/17/17 16:00 Room Air 05/17/17 15:21 36.6 89 18 150/88 (108) 94 Room Air Physical Exam General Appearance: no apparent distress, + pertinent finding (+lethargic) Respiratory/Chest: lungs clear, normal breath sounds, no respiratory distress, no accessory muscle use Cardiovascular: + irregularly irregular Abdomen: normal bowel sounds, non tender, soft Extremities: no pedal edema, + pertinent finding (no significant movement and motor weakness noted of the Left lower extremity) Laboratory Results Last 24 Hours Test 05/17/17 16:21 05/17/17 20:06 05/18/17 02:24 05/18/17 05:26 Bedside Glucose 190 mg/dl 137 mg/dl 86 mg/dl White Blood Count 12.94 K/uL Red Blood Count 3.19 M/uL Hemoglobin 9.7 g/dL Hematocrit 29.3 % Mean Corpuscular Volume 91.8 fL Mean Corpuscular Hemoglobin 30.4 pg Mean Corpuscular Hemoglobin Concent 33.1 g/dl RDW Standard Deviation 44.8 fL RDW Coefficient of Variation 13.4 % Platelet Count 393 K/uL Mean Platelet Volume 8.7 fL Prothrombin Time 56.7 SECONDS Prothromb Time International Ratio 5.0 Sodium Level 140 mmol/L Potassium Level 4.1 mmol/L Chloride Level 107 mmol/L Carbon Dioxide Level 25 mmol/L Anion Gap 8.0 mmol/L Blood Urea Nitrogen 54 mg/dl Creatinine 3.30 mg/dl Est Creatinine Clear Calc Drug Dose 16.3 ml/min Estimated GFR () 15.1 Estimated GFR (Non- 13.0 BUN/Creatinine Ratio 16.4 Random Glucose 78 mg/dl Calcium Level 8.2 mg/dl Test 05/18/17 08:13 05/18/17 11:29 Bedside Glucose 95 mg/dl 131 mg/dl Assessment and Plan This is a 77 year old obese female with a PMH of uncontrolled, insulin dependent DM2, diabetic nephropathy and CKD stage 3, 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 of lacunar infarct, Vsebjgn-paiic-flqon disease, HTN, HLD presents with a fall, and subsequently found to have sepsis, rhabdomyolysis, acute kidney injury, and DKA Sepsis secondary to UTI and R breast cellulitis 05/18 MSSA of the R breast E. Faecalis of the L LE Klebsiella UTI appreciate ID input for now on Teflaro; which we can continue while inpatient 05/14 improving clinically WBC trending down afebrile abx. changed to Teflaro as per ID - length of treatment pending clinical course 05/13 LLE culture - enterococcus faecalis abx. switched around yesterday to Levaquin and Clinda ID consulted for further input, currently has cellulitic changes with Enterococcus and MSSA; also has Klebsiella UTI now c/o diarrhea with Clinda; C. diff negative, may need to switch abx, but noted PCN allergy 05/12 changed Cefepime to Ancef d/c'd Flagyl R breast - MSSA - continue Doxy Urine - Klebsiella - continue Ancef LLE - Strep - awaiting sensitivities 05/11 multiple infections including UTI, R breast and LLE cellulitic changes cultures grown; Klebsiella UTI, Staph, and strep noted on wound cultures; sensitivities pending leukocytosis improved, lactic acidosis resolved Cefepime, Flagyl, Doxy - considered changing Flagyl and Doxy to Vanco, though with kidney issues, will hold off continue IV abx. and fluids 05/10 patient presents with leukocytosis, lactic acidosis, tachycardia, temp of 35.6 UA is dirty with +bacteria, urine culture - gram negative bacilli R breast cellulitic changes CT chest = Infiltration of the subcutaneous tissue with overlying skin thickening along the medial right breast. This could be compatible with cellulitis in the absence of a history of radiation started on Cefepime, Flagyl, and doxycycline leukocytosis, trending down, lactic acid < 2 continue fluids and IV abx. Acute Kidney Injury superimposed on CKD stage 3 05/18 no need for IVFs creatinine is trending down to 3.3 today, monitor 05/14 appreciate nephrology input much improved urine output creatinine still is around 4.4 currently on a low rate NS no need for emergent dialysis 05/13 multifactorial: * significant dehydration, no fluid intake x2 days * ATN secondary to sepsis * rhabdomyolysis * diabetic nephropathy appreciate nephro input creat around 4.3 today also 05/12 improved urine output appreciate nephrology input creatinine up to 4.3, will recheck in AM 05/11 multifactorial: significant dehydration, no fluid intake x2 days ATN secondary to sepsis rhabdomyolysis diabetic nephropathy appreciate nephrology input creatinine increased to 4.0 IVFs changed to 1/2 NSS with sodium bicarb at 150mL monitor for urine output Mechanical Fall 05/14 PT/OT needed plan for d/c to rehab when medically stable 05/13 radiographs suggest no acute fracture will need PT/OT wound care 05/12 decreased ROM of the L LE traumatic wound noted on the L LE will obtain radiographs will need PT/OT DKA - resolved 05/13 appreciate pharmacy glycemic control currently on insulin sliding scale and Lantus protocol BSGs; much improved Uncontrolled DM2 05/11 Ha1c > 11% switched to subq insulin, appreciate glycemic control consult currently on Lantus 30 units BID and sliding scale D5 was removed from fluids late last evening for improved BSG control 05/10 Ha1c > 11% +ketones in urine/serum, BSGs > 600, high anion gap started on insulin drip, BSGs improving continue fluids, monitor for urine output started on Lantus, january d/c insulin drip later today with improved diet Rhabdomyolysis 05/13 CPK >10,000 and trending down 05/11 no significant improvement in CPK decreased urine output will need continued IVFs monitor for output, appreciate nephro input 05/10 CPK >20,000 secondary to fall IVFs, monitor CPK BID Hx. of PE hold Coumadin likely an interaction with antibiotics goal INR of 2-3 Wamdavf-Agvvz-Nwvwa Disease patient has a neurological motor/sensory issue states that she slipped in the shower, and then afterwards did not have the strength to get up uses cane for ambulation at times will need PT/OT Hx. of Lacunar Infarct when more stable, will need PT/OT DVT ppx Coumadin DNR
--- NOTE | 2017-05-18 13:55 | Wound Progress Note: Inpatient ---
Wound Progress Note Date of Service May 18, 2017. Subjective Pt evaluation today including: conversation w/ patient, physical exam, chart review Patient seen today for follow-up evaluation of multiple pressure ulcerations to the left lower extremity right knee and right chest wall. Patient states she is feeling markedly improved over the course of the past week. Patient currently is denying any significant pain in these areas. Patient denies any other systemic complaints at this time. Objective Vital Signs Date Time Temp Pulse Resp B/P (MAP) Pulse Ox O2 Delivery O2 Flow Rate FiO2 05/18/17 08:00 92 Room Air 05/18/17 07:16 36.7 106 20 134/75 (94) 91 Room Air 05/18/17 01:21 Room Air 05/17/17 23:53 36.8 91 20 136/79 (98) 92 Room Air 05/17/17 16:00 Room Air 05/17/17 15:21 36.6 89 18 150/88 (108) 94 Room Air Physical Exam General Appearance: no apparent distress Notes: General: The patient is lying in a hospital bed in no distress. Alert, cooperative and appropriate to all questions. Chest: The ulcerations noted to the right chest wall inferior to the breast area measures today 1.3 x 5.7 x 0 cm. There is a dense blackened eschar present. Some minimal marginal epithelialization is noted. There is no active drainage or odor noted. No periwound erythema present. Extremities: The ulceration to the right knee region today measures 4.5 x 5.2 x 0 cm. There is a blister formation present with clear fluid noted. Underneath that this was noted to be a continued area of deep tissue injury with no specific demarcation. No periwound erythema is noted at this site. No tenderness to palpation present. Left lower extremity ulcerations today are stable and continue to be similar in size to 1 week prior. There is no periwound erythema or active drainage noted there is some marginal epithelialization present. Laboratory Results Last 24 Hours Test 05/17/17 16:21 05/17/17 20:06 05/18/17 02:24 05/18/17 05:26 Bedside Glucose 190 mg/dl 137 mg/dl 86 mg/dl White Blood Count 12.94 K/uL Red Blood Count 3.19 M/uL Hemoglobin 9.7 g/dL Hematocrit 29.3 % Mean Corpuscular Volume 91.8 fL Mean Corpuscular Hemoglobin 30.4 pg Mean Corpuscular Hemoglobin Concent 33.1 g/dl RDW Standard Deviation 44.8 fL RDW Coefficient of Variation 13.4 % Platelet Count 393 K/uL Mean Platelet Volume 8.7 fL Prothrombin Time 56.7 SECONDS Prothromb Time International Ratio 5.0 Sodium Level 140 mmol/L Potassium Level 4.1 mmol/L Chloride Level 107 mmol/L Carbon Dioxide Level 25 mmol/L Anion Gap 8.0 mmol/L Blood Urea Nitrogen 54 mg/dl Creatinine 3.30 mg/dl Est Creatinine Clear Calc Drug Dose 16.3 ml/min Estimated GFR () 15.1 Estimated GFR (Non- 13.0 BUN/Creatinine Ratio 16.4 Random Glucose 78 mg/dl Calcium Level 8.2 mg/dl Test 05/18/17 08:13 05/18/17 11:29 Bedside Glucose 95 mg/dl 131 mg/dl Assessment and Plan Assessment: Unstageable pressure ulcer right knee Unstageable pressure ulcer right chest wall Multiple unstageable pressure ulcers left lower extremity Plan: At this time the ulceration on the right knee require debridement. With the patient's permission the blister was deroofed with scissors and forceps and remove this entirety only clear fluid was present no pain occurred. The site will be dressed with Aquasol AG and gauze changed daily basis the right chest wall area was scored and Santyl will be utilized with gauze dressings daily. The left lower extremities will continue be dressed with Adaptic touch followed by Aquasol AG and gauze dressings changed daily. Patient be reevaluated in 1 week or sooner as needed during her hospitalization. This represented a non-excisional debridement of 30 cm.
[2017-05-18] MEDS: COLLAGENASE OINT 30 GM TUBE EXT SCH (14:38)
[2017-05-18 15:14] VITALS: BP 133/78; PULSE 90; TEMP 36.7; O2SAT 93
--- NOTE | 2017-05-18 16:06 | Infectious Disease Progress Nt ---
Progress Note Date of Service May 18, 2017. Subjective Pt evaluation today including: conversation w/ patient, physical exam, chart review, lab review, review of studies, conversation w/ learning and development consultant, review of inpatient medication list Complaining of left leg weakness. Wound care follow-up noted. Remains afebrile , tolerating antibiotics without apparent difficulty. All Other Systems: Reviewed and Negative Medications Current Inpatient Medications Medications (Trade) Dose Ordered Sig/Solitario Route Start Time Stop Time Status Last Admin Dose Admin Glucose (Glucose 40% Gel) UD PRN PO 05/09/17 19:15 06/08/17 19:14 Glucose (Glucose Chew Tab) 1 tabs UD PRN PO 05/09/17 19:15 06/08/17 19:14 Dextrose (Dextrose 50% 50ML Syringe) 50 ml UD PRN IV 05/09/17 19:15 06/08/17 19:14 Glucagon (Glucagon Inj) 1 mg UD PRN SQ 05/09/17 19:15 06/08/17 19:14 Acetaminophen (Tylenol Tab) 325 mg Q6H PRN PO 05/09/17 21:30 06/08/17 21:29 05/13/17 20:43 325 MG Nitroglycerin (Nitrostat Tab) 0.4 mg UD PRN SL 05/09/17 21:30 06/08/17 21:29 Hydromorphone HCl (Dilaudid Inj) 0.5 mg Q3H PRN IV 05/09/17 21:30 05/23/17 21:29 05/15/17 04:06 0.5 MG Tramadol HCl (Ultram Tab) 25 mg Q6H PRN PO 05/09/17 21:30 06/08/17 21:29 05/18/17 07:50 25 MG Ondansetron HCl (Zofran Inj) 4 mg Q6H PRN IV 05/09/17 21:30 06/08/17 21:29 05/13/17 11:32 4 MG Metoprolol Tartrate (Lopressor Tab) 12.5 mg BID PO 05/10/17 09:00 06/09/17 08:59 05/18/17 07:49 12.5 MG Pantoprazole Sodium (Protonix Tab) 40 mg DAILY PO 05/10/17 09:00 06/09/17 08:59 05/18/17 07:49 40 MG Heparin Sodium (Porcine) (Heparin 10 Unit/ ml 5 ml Flush) 5 ml PRN PRN FLUSH 05/10/17 00:45 06/09/17 00:44 05/18/17 13:03 5 ML Miscellaneous Information (Consult Glycemic Management Pharmacy) 1 ea DAILY PRN N/A 05/10/17 09:00 06/09/17 08:59 Insulin Aspart (novoLOG ASPART) SLIDING SCALE ACHS SC 05/10/17 16:00 06/09/17 15:59 05/18/17 13:05 3 UNITS Ipratropium [place] (Atrovent 0.02% 0.5MG/2.5ML Neb) 0.5 mg Q4H PRN INH 05/10/17 21:45 06/09/17 21:44 Levalbuterol (Xopenex 1.25MG/ 0.5ML Neb) 1.25 mg Q4H PRN INH 05/10/17 21:45 06/09/17 21:44 Ceftaroline Fosamil 200 mg/ Sodium Chloride 256.6667 ml @ 250 mls/hr Q12H IV 05/13/17 12:00 05/23/17 11:59 05/18/17 11:32 250 MLS/HR Insulin Glargine (Lantus Solostar Pen) 16 units QAM SQ 05/18/17 08:00 06/17/17 07:59 05/18/17 09:25 16 UNITS Insulin Glargine (Lantus Solostar Pen) 12 units HS SQ 05/17/17 22:00 06/16/17 21:59 05/17/17 20:41 12 UNITS Collagenase (Santyl Oint) 1 appln DAILY EXT 05/18/17 14:00 06/17/17 13:59 05/18/17 14:38 1 APPLN Objective Vital Signs Date Time Temp Pulse Resp B/P (MAP) Pulse Ox O2 Delivery O2 Flow Rate FiO2 05/18/17 15:14 36.7 90 18 133/78 (96) 93 Room Air 05/18/17 08:00 92 Room Air 05/18/17 07:16 36.7 106 20 134/75 (94) 91 Room Air 05/18/17 01:21 Room Air 05/17/17 23:53 36.8 91 20 136/79 (98) 92 Room Air Physical Exam General Appearance: WD/WN, no apparent distress Eyes: normal inspection, sclerae normal ENT: normal ENT inspection, pharynx normal Neck: supple, no adenopathy, thyroid normal, trachea midline Respiratory/Chest: chest non-tender, lungs clear, normal breath sounds, no respiratory distress Cardiovascular: regular rate, rhythm, no gallop, no murmur Abdomen: normal bowel sounds, non tender, soft, no organomegaly Extremities: no calf tenderness, normal capillary refill Neurologic/Psychiatric: alert, oriented x 3 Skin: normal color, no rash, + pertinent finding (Eschar under breasts, no vianca wound erythema, no evidence of cellulitis of leg.) Lymphatic: no adenopathy Laboratory Results Last 24 Hours Test 05/17/17 16:21 05/17/17 20:06 05/18/17 02:24 05/18/17 05:26 Bedside Glucose 190 mg/dl 137 mg/dl 86 mg/dl White Blood Count 12.94 K/uL Red Blood Count 3.19 M/uL Hemoglobin 9.7 g/dL Hematocrit 29.3 % Mean Corpuscular Volume 91.8 fL Mean Corpuscular Hemoglobin 30.4 pg Mean Corpuscular Hemoglobin Concent 33.1 g/dl RDW Standard Deviation 44.8 fL RDW Coefficient of Variation 13.4 % Platelet Count 393 K/uL Mean Platelet Volume 8.7 fL Prothrombin Time 56.7 SECONDS Prothromb Time International Ratio 5.0 Sodium Level 140 mmol/L Potassium Level 4.1 mmol/L Chloride Level 107 mmol/L Carbon Dioxide Level 25 mmol/L Anion Gap 8.0 mmol/L Blood Urea Nitrogen 54 mg/dl Creatinine 3.30 mg/dl Est Creatinine Clear Calc Drug Dose 16.3 ml/min Estimated GFR () 15.1 Estimated GFR (Non- 13.0 BUN/Creatinine Ratio 16.4 Random Glucose 78 mg/dl Calcium Level 8.2 mg/dl Test 05/18/17 08:13 05/18/17 11:29 Bedside Glucose 95 mg/dl 131 mg/dl Assessment and Plan 77-year-old female with multiple skin ulcerations with infection with cultures positive for enterococcus and methicillin sensitive Staph aureus, as well as Klebsiella urinary tract infection. Will discontinue present antibiotics and change patient to IV ceftaroline adjusted for renal insufficiency. Length of antibiotics to be determined by clinical response but likely in the range 10 days.
[2017-05-19 00:11] VITALS: BP 151/71; PULSE 81; TEMP 36.9; O2SAT 92
[2017-05-19] MEDS: SODIUM CHLORIDE 0.9% IV SCH ×3 (00:13→23:56)
[2017-05-19] MEDS: CEFTAROLINE FOSAMIL IV SCH ×3 (00:13→23:56)
[2017-05-19] MEDS: TRAMADOL HCL 50 MG TAB PO PRN ×3 (00:18→16:50)
[2017-05-19 06:50] LABS: INR 3.4 (0.9-1.1); PROTHROMBIN TIME (PATIENT) 38.8 SECONDS (9.0-12.0)
[2017-05-19 07:03] LABS: BUN/CREATININE RATIO 16.3 (10-20); CALCIUM 8.2 mg/dl (8.5-10.1); CREATININE 3.1 mg/dl (0.60-1.20); POTASSIUM 3.9 mmol/L (3.5-5.1)
--- NOTE | 2017-05-19 07:33 | Nephrology Progress Note ---
Nephrology Progress Note Date of Service: May 19, 2017. Subjective 77 yo female with rhabo and violeta, resolving with infection on appropriate antibiotics. pt continues to be very weak and has decreased appetite. denies sob or chest pain. no n/v. Objective Date Time Temp Pulse Resp B/P (MAP) Pulse Ox O2 Delivery O2 Flow Rate FiO2 05/19/17 00:11 36.9 81 20 151/71 (97) 92 Room Air 05/19/17 00:10 Room Air 05/18/17 16:00 Room Air 05/18/17 15:14 36.7 90 18 133/78 (96) 93 Room Air 05/18/17 08:00 92 Room Air Physical Exam: General-aaox3, obese Eyes-no scleral icterus ENT-mmm Neck-supple Lungs-cta Heart-rrr Abdomen-bs+ s/nt/nd Extremities-mild edema in lower extremities, left leg wounds wrapped Neuro-decreased mobility Current Inpatient Medications Medications (Trade) Dose Ordered Sig/Solitario Route Start Time Stop Time Status Last Admin Dose Admin Glucose (Glucose 40% Gel) UD PRN PO 05/09/17 19:15 06/08/17 19:14 Glucose (Glucose Chew Tab) 1 tabs UD PRN PO 05/09/17 19:15 06/08/17 19:14 Dextrose (Dextrose 50% 50ML Syringe) 50 ml UD PRN IV 05/09/17 19:15 06/08/17 19:14 Glucagon (Glucagon Inj) 1 mg UD PRN SQ 05/09/17 19:15 06/08/17 19:14 Acetaminophen (Tylenol Tab) 325 mg Q6H PRN PO 05/09/17 21:30 06/08/17 21:29 05/13/17 20:43 325 MG Nitroglycerin (Nitrostat Tab) 0.4 mg UD PRN SL 05/09/17 21:30 06/08/17 21:29 Hydromorphone HCl (Dilaudid Inj) 0.5 mg Q3H PRN IV 05/09/17 21:30 05/23/17 21:29 05/15/17 04:06 0.5 MG Tramadol HCl (Ultram Tab) 25 mg Q6H PRN PO 05/09/17 21:30 06/08/17 21:29 05/19/17 00:18 25 MG Ondansetron HCl (Zofran Inj) 4 mg Q6H PRN IV 05/09/17 21:30 06/08/17 21:29 05/13/17 11:32 4 MG Metoprolol Tartrate (Lopressor Tab) 12.5 mg BID PO 05/10/17 09:00 06/09/17 08:59 05/18/17 20:30 12.5 MG Pantoprazole Sodium (Protonix Tab) 40 mg DAILY PO 05/10/17 09:00 06/09/17 08:59 05/18/17 07:49 40 MG Heparin Sodium (Porcine) (Heparin 10 Unit/ ml 5 ml Flush) 5 ml PRN PRN FLUSH 05/10/17 00:45 06/09/17 00:44 05/19/17 05:54 15 ML Miscellaneous Information (Consult Glycemic Management Pharmacy) 1 ea DAILY PRN N/A 05/10/17 09:00 06/09/17 08:59 Insulin Aspart (novoLOG ASPART) SLIDING SCALE ACHS SC 05/10/17 16:00 06/09/17 15:59 05/18/17 18:05 3 UNITS Ipratropium [place] (Atrovent 0.02% 0.5MG/2.5ML Neb) 0.5 mg Q4H PRN INH 05/10/17 21:45 06/09/17 21:44 Levalbuterol (Xopenex 1.25MG/ 0.5ML Neb) 1.25 mg Q4H PRN INH 05/10/17 21:45 06/09/17 21:44 Ceftaroline Fosamil 200 mg/ Sodium Chloride 256.6667 ml @ 250 mls/hr Q12H IV 05/13/17 12:00 05/23/17 11:59 05/19/17 00:13 250 MLS/HR Insulin Glargine (Lantus Solostar Pen) 16 units QAM SQ 05/18/17 08:00 06/17/17 07:59 05/18/17 09:25 16 UNITS Insulin Glargine (Lantus Solostar Pen) 12 units HS SQ 05/17/17 22:00 06/16/17 21:59 05/18/17 20:39 12 UNITS Collagenase (Santyl Oint) 1 appln DAILY EXT 05/18/17 14:00 06/17/17 13:59 05/18/17 14:38 1 APPLN Last 24 Hours Test 05/18/17 08:13 05/18/17 11:29 05/18/17 16:40 05/18/17 20:17 Bedside Glucose 95 mg/dl 131 mg/dl 111 mg/dl 131 mg/dl Test 05/19/17 05:54 Prothrombin Time 38.8 SECONDS Prothromb Time International Ratio 3.4 Sodium Level 141 mmol/L Potassium Level 3.9 mmol/L Chloride Level 108 mmol/L Carbon Dioxide Level 24 mmol/L Anion Gap 9.0 mmol/L Blood Urea Nitrogen 50 mg/dl Creatinine 3.10 mg/dl Est Creatinine Clear Calc Drug Dose 17.3 ml/min Estimated GFR () 16.3 Estimated GFR (Non- 14.0 BUN/Creatinine Ratio 16.3 Random Glucose 93 mg/dl Calcium Level 8.2 mg/dl Assessment & Plan VIOLETA-creatinine peaked at 4.4 and is 3.1 at last check. hopefully continues to slowly improve. would recommend weekly bmp as outpt. ck last checked was down to 3k on the . currently off iv fluids. pt continues to urinate well and creatinine trending down. ok from renal perspective to go to rehab and follow labs weekly.
[2017-05-19] MEDS: PANTOprazole SOD 40 MG TAB PO SCH (07:46)
[2017-05-19] MEDS: METOPROLOL TARTRATE 25 MG TAB PO SCH ×2 (07:46→20:45)
[2017-05-19] MEDS: COLLAGENASE OINT 30 GM TUBE EXT SCH (07:47)
[2017-05-19 08:00] VITALS: O2SAT 95
[2017-05-19 08:11] VITALS: BP 136/79; PULSE 100; TEMP 36.8; O2SAT 92
[2017-05-19] MEDS: INSULIN ASPART 100 UNITS/ML 3 ML PEN SC SCH ×4 (08:58→20:48)
[2017-05-19] MEDS: INSULIN GLARGINE SOLOSTAR 100 UNITS/ML 3 ML PEN SQ SCH (08:58)
--- NOTE | 2017-05-19 11:48 | Pharmacy Progress Note ---
Glycemic Control Progress Note Date of Service May 19, 2017. Scope Glycemic Pharmacist consulted for glycemic control to write orders per [facility] inpatient glycemic control protocol. Objective Accuchecks BSG (last 24hrs): Test 05/18/17 16:40 05/18/17 20:17 05/19/17 05:54 05/19/17 08:17 Bedside Glucose 111 mg/dl (70-90) 131 mg/dl (70-90) 105 mg/dl (70-90) Random Glucose 93 mg/dl (70-99) HbA1c: Test 05/09/17 18:25 Hemoglobin A1c 11.2 % (4.5-5.6) H Recent Pertinent Medications The patient is currently receiving: * Basal insulin: Lantus 16 units every morning + Lantus 12 units every evening * Correctional Insulin: Novolog Correction per scale ACHS Goal Range: Low 110 mg/dL - High 140 mg/dL Correction Factor: 20 mg/dL/unit * Prandial insulin: Per carb ratio of 1 unit per 6 grams CHO consumed Outpatient Anti-Diabetic Meds Oral Agents Basal Insulin Assessment & Plan ASSESSMENT: * See previous progress notes for more background info, in short: * Pt receiving SQ basal bolus insulin regimen for hyperglycemia secondary to baseline DM (outpatient regimen on hold),stress/infection, * Patient is currently receiving an average of 36-39 units of insulin per day * 28 units of basal insulin * 8 units of prandial/correctional insulin * BSGs ranging 105 - 131 mg/dl over the past 24hrs * Changes needed to insulin regimen: * AM Fasting BSG = 93/105 mg/dl. This is in slightly below goal range for patient based on inpatient targets and co-morbidities. Therefore Basal insulin needs decreased * Post-prandial BSGs are in range therefore no changes needed to CF/CR * Total daily dose may need to evenly re-distribute regimen 50%:50% basal: prandial to prevent hypo/hyperglycemia. Will decrease basal insulin accordingly. PLAN FOR INPATIENT GLYCEMIC CONTROL: * Basal insulin * Lantus 16 units SQ AM + 10 units SQ PM * Bolus insulin * NovoLog per scale ACHS or Q6hrs while NPO * Goal Range: Low 110 mg/dL - High 140 mg/dL * Correction Factor: 20 mg/dL/unit * Nutritional / Prandial insulin per carb ratio of 1 unit per 6 grams CHO consumed * Please note that the plan above was derived based on current level of insulin resistance and hospital stress. These recommendations are appropriate for inpatient admission only. Plan of care upon discharge will need to be reassessed to avoid potential outpatient hypo/hyperglycemia. Thank you.
[2017-05-19 15:26] VITALS: BP 142/80; PULSE 90; TEMP 36.5; O2SAT 94
--- NOTE | 2017-05-19 16:08 | Progress Note ---
Subjective Date of Service: May 19, 2017. Subjective Pt evaluation today including: conversation w/ patient, physical exam, lab review, review of studies, review of inpatient medication list Saw/examined the patient in room 452 Not as weak as yesterday, states she sat in a chair today No shortness of breath/chest pain Improved PO intake, though not back to baseline Review of Systems Constitutional: No fever, No chills Respiratory: No cough, No sputum, No shortness of breath Cardiac: No chest pain Abdomen: No pain, No nausea, No vomiting, No diarrhea Musculoskeletal: No joint pain Medications Current Inpatient Medications Medications (Trade) Dose Ordered Sig/Solitario Route Start Time Stop Time Status Last Admin Dose Admin Glucose (Glucose 40% Gel) UD PRN PO 05/09/17 19:15 06/08/17 19:14 Glucose (Glucose Chew Tab) 1 tabs UD PRN PO 05/09/17 19:15 06/08/17 19:14 Dextrose (Dextrose 50% 50ML Syringe) 50 ml UD PRN IV 05/09/17 19:15 06/08/17 19:14 Glucagon (Glucagon Inj) 1 mg UD PRN SQ 05/09/17 19:15 06/08/17 19:14 Acetaminophen (Tylenol Tab) 325 mg Q6H PRN PO 05/09/17 21:30 06/08/17 21:29 05/13/17 20:43 325 MG Nitroglycerin (Nitrostat Tab) 0.4 mg UD PRN SL 05/09/17 21:30 06/08/17 21:29 Hydromorphone HCl (Dilaudid Inj) 0.5 mg Q3H PRN IV 05/09/17 21:30 05/23/17 21:29 05/15/17 04:06 0.5 MG Tramadol HCl (Ultram Tab) 25 mg Q6H PRN PO 05/09/17 21:30 06/08/17 21:29 05/19/17 07:52 25 MG Ondansetron HCl (Zofran Inj) 4 mg Q6H PRN IV 05/09/17 21:30 06/08/17 21:29 05/13/17 11:32 4 MG Metoprolol Tartrate (Lopressor Tab) 12.5 mg BID PO 05/10/17 09:00 9/20/17 08:59 05/19/17 07:46 12.5 MG Pantoprazole Sodium (Protonix Tab) 40 mg DAILY PO 05/10/17 09:00 06/09/17 08:59 05/19/17 07:46 40 MG Heparin Sodium (Porcine) (Heparin 10 Unit/ ml 5 ml Flush) 5 ml PRN PRN FLUSH 05/10/17 00:45 06/09/17 00:44 05/19/17 12:55 5 ML Miscellaneous Information (Consult Glycemic Management Pharmacy) 1 ea DAILY PRN N/A 05/10/17 09:00 06/09/17 08:59 Insulin Aspart (novoLOG ASPART) SLIDING SCALE ACHS SC 05/10/17 16:00 06/09/17 15:59 05/19/17 12:54 3 UNITS Ipratropium [place] (Atrovent 0.02% 0.5MG/2.5ML Neb) 0.5 mg Q4H PRN INH 05/10/17 21:45 06/09/17 21:44 Levalbuterol (Xopenex 1.25MG/ 0.5ML Neb) 1.25 mg Q4H PRN INH 05/10/17 21:45 06/09/17 21:44 Ceftaroline Fosamil 200 mg/ Sodium Chloride 256.6667 ml @ 250 mls/hr Q12H IV 05/13/17 12:00 05/23/17 11:59 05/19/17 11:21 250 MLS/HR Insulin Glargine (Lantus Solostar Pen) 16 units QAM SQ 05/18/17 08:00 06/17/17 07:59 05/19/17 08:58 16 UNITS Collagenase (Santyl Oint) 1 appln DAILY EXT 05/18/17 14:00 06/17/17 13:59 05/19/17 07:47 1 APPLN Insulin Glargine (Lantus Solostar Pen) 10 units HS SQ 05/19/17 22:00 06/18/17 21:59 Objective Vital Signs Date Time Temp Pulse Resp B/P (MAP) Pulse Ox O2 Delivery O2 Flow Rate FiO2 05/19/17 15:26 36.5 90 18 142/80 (100) 94 Room Air 05/19/17 08:11 36.8 100 18 136/79 (98) 92 05/19/17 08:00 95 Room Air 05/19/17 00:11 36.9 81 20 151/71 (97) 92 Room Air 05/19/17 00:10 Room Air 05/18/17 16:00 Room Air Physical Exam General Appearance: no apparent distress, + pertinent finding (+weakness) Respiratory/Chest: lungs clear, normal breath sounds, no respiratory distress, no accessory muscle use Cardiovascular: regular rate, rhythm, no edema, no murmur Laboratory Results Last 24 Hours Test 05/18/17 16:40 05/18/17 20:17 05/19/17 05:54 05/19/17 08:17 Bedside Glucose 111 mg/dl 131 mg/dl 105 mg/dl Prothrombin Time 38.8 SECONDS Prothromb Time International Ratio 3.4 Sodium Level 141 mmol/L Potassium Level 3.9 mmol/L Chloride Level 108 mmol/L Carbon Dioxide Level 24 mmol/L Anion Gap 9.0 mmol/L Blood Urea Nitrogen 50 mg/dl Creatinine 3.10 mg/dl Est Creatinine Clear Calc Drug Dose 17.3 ml/min Estimated GFR () 16.3 Estimated GFR (Non- 14.0 BUN/Creatinine Ratio 16.3 Random Glucose 93 mg/dl Calcium Level 8.2 mg/dl Test 05/19/17 11:40 Bedside Glucose 153 mg/dl Assessment and Plan This is a 77 year old obese female with a PMH of uncontrolled, insulin dependent DM2, diabetic nephropathy and CKD stage 3, 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 of lacunar infarct, Bvvsmyp-tyssj-wlwpa disease, HTN, HLD presents with a fall, and subsequently found to have sepsis, rhabdomyolysis, acute kidney injury, and DKA Sepsis secondary to UTI and R breast cellulitis 05/19 Teflaro for now will need to speak to ID about length of treatment 05/18 MSSA of the R breast E. Faecalis of the L LE Klebsiella UTI appreciate ID input for now on Teflaro; which we can continue while inpatient 05/14 improving clinically WBC trending down afebrile abx. changed to Teflaro as per ID - length of treatment pending clinical course 05/13 LLE culture - enterococcus faecalis abx. switched around yesterday to Levaquin and Clinda ID consulted for further input, currently has cellulitic changes with Enterococcus and MSSA; also has Klebsiella UTI now c/o diarrhea with Clinda; C. diff negative, may need to switch abx, but noted PCN allergy 05/12 changed Cefepime to Ancef d/c'd Flagyl R breast - MSSA - continue Doxy Urine - Klebsiella - continue Ancef LLE - Strep - awaiting sensitivities 05/11 multiple infections including UTI, R breast and LLE cellulitic changes cultures grown; Klebsiella UTI, Staph, and strep noted on wound cultures; sensitivities pending leukocytosis improved, lactic acidosis resolved Cefepime, Flagyl, Doxy - considered changing Flagyl and Doxy to Vanco, though with kidney issues, will hold off continue IV abx. and fluids 05/10 patient presents with leukocytosis, lactic acidosis, tachycardia, temp of 35.6 UA is dirty with +bacteria, urine culture - gram negative bacilli R breast cellulitic changes CT chest = Infiltration of the subcutaneous tissue with overlying skin thickening along the medial right breast. This could be compatible with cellulitis in the absence of a history of radiation started on Cefepime, Flagyl, and doxycycline leukocytosis, trending down, lactic acid < 2 continue fluids and IV abx. Acute Kidney Injury superimposed on CKD stage 3 05/19 creat trending down to 3.1 as per nephrology, can be discharged 05/18 no need for IVFs creatinine is trending down to 3.3 today, monitor 05/14 appreciate nephrology input much improved urine output creatinine still is around 4.4 currently on a low rate NS no need for emergent dialysis 05/13 multifactorial: * significant dehydration, no fluid intake x2 days * ATN secondary to sepsis * rhabdomyolysis * diabetic nephropathy appreciate nephro input creat around 4.3 today also 05/12 improved urine output appreciate nephrology input creatinine up to 4.3, will recheck in AM 05/11 multifactorial: significant dehydration, no fluid intake x2 days ATN secondary to sepsis rhabdomyolysis diabetic nephropathy appreciate nephrology input creatinine increased to 4.0 IVFs changed to 1/2 NSS with sodium bicarb at 150mL monitor for urine output Mechanical Fall 05/14 PT/OT needed plan for d/c to rehab when medically stable 05/13 radiographs suggest no acute fracture will need PT/OT wound care 05/12 decreased ROM of the L LE traumatic wound noted on the L LE will obtain radiographs will need PT/OT DKA - resolved 05/13 appreciate pharmacy glycemic control currently on insulin sliding scale and Lantus protocol BSGs; much improved Uncontrolled DM2 05/11 Ha1c > 11% switched to subq insulin, appreciate glycemic control consult currently on Lantus 30 units BID and sliding scale D5 was removed from fluids late last evening for improved BSG control 05/10 Ha1c > 11% +ketones in urine/serum, BSGs > 600, high anion gap started on insulin drip, BSGs improving continue fluids, monitor for urine output started on Lantus, january d/c insulin drip later today with improved diet Rhabdomyolysis 05/13 CPK >10,000 and trending down 05/11 no significant improvement in CPK decreased urine output will need continued IVFs monitor for output, appreciate nephro input 05/10 CPK >20,000 secondary to fall IVFs, monitor CPK BID Hx. of PE hold Coumadin likely an interaction with antibiotics goal INR of 2-3 Cgqwyjl-[id number]-Wdadu Disease patient has a neurological motor/sensory issue states that she slipped in the shower, and then afterwards did not have the strength to get up uses cane for ambulation at times will need PT/OT Hx. of Lacunar Infarct when more stable, will need PT/OT DVT ppx Coumadin DNR
[2017-05-19 16:59] VITALS: BP 149/77; PULSE 86
[2017-05-19 20:44] VITALS: BP 138/80; PULSE 94
[2017-05-19] MEDS: ACETAMINOPHEN 325 MG TAB PO PRN (20:50)
[2017-05-19] MEDS ORDERED: INSULIN GLARGINE SOLOSTAR 100 UNITS/ML 3 ML PEN SQ SCH (22:00)
[2017-05-20] VITALS: O2SAT 95
[2017-05-20 00:20] VITALS: BP 130/72; PULSE 80; TEMP 36.4; O2SAT 94
[2017-05-20 06:14] LABS: INR 3.2 (0.9-1.1); PROTHROMBIN TIME (PATIENT) 35.9 SECONDS (9.0-12.0)
[2017-05-20 06:35] LABS: BUN/CREATININE RATIO 15.9 (10-20); CALCIUM 8.3 mg/dl (8.5-10.1); POTASSIUM 3.9 mmol/L (3.5-5.1)
[2017-05-20] MEDS: COLLAGENASE OINT 30 GM TUBE EXT SCH (07:51)
[2017-05-20] MEDS: PANTOprazole SOD 40 MG TAB PO SCH (07:51)
[2017-05-20] MEDS: METOPROLOL TARTRATE 25 MG TAB PO SCH (07:51)
[2017-05-20] MEDS: TRAMADOL HCL 50 MG TAB PO PRN (07:55)
[2017-05-20 08:00] VITALS: O2SAT 95
[2017-05-20 08:09] VITALS: BP 145/78; PULSE 84; TEMP 36.6; O2SAT 93
[2017-05-20] MEDS: INSULIN ASPART 100 UNITS/ML 3 ML PEN SC SCH ×2 (09:07→12:37)
[2017-05-20] MEDS: INSULIN GLARGINE SOLOSTAR 100 UNITS/ML 3 ML PEN SQ SCH (09:08)
[2017-05-20] MEDS: SODIUM CHLORIDE 0.9% IV SCH (12:36)
[2017-05-20] MEDS: CEFTAROLINE FOSAMIL IV SCH (12:36)
--- NOTE | 2017-05-20 13:24 | Pharmacy Progress Note ---
Glycemic: Assessment & Plan Date of Service May 20, 2017. Assessment & Plan Current inpatient regimen: * Basal insulin: Lantus 16 units qAM + 10 units qHS * Correctional Insulin: Novolog Correction per scale ACHS Goal Range: Low 110 mg/dL - High 140 mg/dL Correction Factor: 20 mg/dL/unit * Prandial insulin: Per carb ratio of 1 unit per 6 grams CHO consumed The patient is currently receiving 37 units of insulin per day. BSGs ranging 86 - 171 mg/dl over the past 24hrs. Changes needed to insulin regimen: * AM Fasting BSG = 86/96 mg/dl. This is in slightly below goal range for patient based on inpatient targets and co-morbidities. Fasting remains below 100 mg/dL despite decrease in basal insulin, therefore I will further decrease today. Will plan to transition patient to once daily dose as this is how she takes Lantus at home. * Post-prandial BSGs are in range therefore no changes needed to CF/CR today. PLAN FOR INPATIENT GLYCEMIC CONTROL: * Basal insulin - decrease * Lantus 16 units SQ AM + 5 units SQ PM * Bolus insulin - no change * NovoLog per scale ACHS or Q6hrs while NPO * Goal Range: Low 110 mg/dL - High 140 mg/dL * Correction Factor: 20 mg/dL/unit * Nutritional / Prandial insulin per carb ratio of 1 unit per 6 grams CHO consumed * Please note that the plan above was derived based on current level of insulin resistance and hospital stress. These recommendations are appropriate for inpatient admission only. Plan of care upon discharge will need to be reassessed to avoid potential outpatient hypo/hyperglycemia.
[2017-05-20 14:52] VITALS: BP 135/78; PULSE 83; TEMP 36.7; O2SAT 94
--- NOTE | 2017-05-20 15:46 | Progress Note ---
Subjective Date of Service: May 20, 2017. Subjective Pt evaluation today including: conversation w/ patient, physical exam, lab review, review of studies, review of inpatient medication list Saw/examined the patient in room 452 She's doing okay, +weakness, +fatigue persist Review of Systems Constitutional: No fever, No chills Respiratory: No shortness of breath Cardiac: No chest pain Abdomen: No pain, No nausea, No vomiting, No diarrhea Medications Current Inpatient Medications Medications (Trade) Dose Ordered Sig/Solitario Route Start Time Stop Time Status Last Admin Dose Admin Glucose (Glucose 40% Gel) UD PRN PO 05/09/17 19:15 06/08/17 19:14 Glucose (Glucose Chew Tab) 1 tabs UD PRN PO 05/09/17 19:15 06/08/17 19:14 Dextrose (Dextrose 50% 50ML Syringe) 50 ml UD PRN IV 05/09/17 19:15 06/08/17 19:14 Glucagon (Glucagon Inj) 1 mg UD PRN SQ 05/09/17 19:15 06/08/17 19:14 Acetaminophen (Tylenol Tab) 325 mg Q6H PRN PO 05/09/17 21:30 06/08/17 21:29 05/19/17 20:50 325 MG Nitroglycerin (Nitrostat Tab) 0.4 mg UD PRN SL 05/09/17 21:30 06/08/17 21:29 Hydromorphone HCl (Dilaudid Inj) 0.5 mg Q3H PRN IV 05/09/17 21:30 05/23/17 21:29 05/15/17 04:06 0.5 MG Tramadol HCl (Ultram Tab) 25 mg Q6H PRN PO 05/09/17 21:30 06/08/17 21:29 05/20/17 07:55 25 MG Ondansetron HCl (Zofran Inj) 4 mg Q6H PRN IV 05/09/17 21:30 06/08/17 21:29 05/13/17 11:32 4 MG Metoprolol Tartrate (Lopressor Tab) 12.5 mg BID PO 05/10/17 09:00 06/09/17 08:59 05/20/17 07:51 12.5 MG Pantoprazole Sodium (Protonix Tab) 40 mg DAILY PO 05/10/17 09:00 06/09/17 08:59 05/20/17 07:51 40 MG Heparin Sodium (Porcine) (Heparin 10 Unit/ ml 5 ml Flush) 5 ml PRN PRN FLUSH 05/10/17 00:45 06/09/17 00:44 05/20/17 13:06 5 ML Miscellaneous Information (Consult Glycemic Management Pharmacy) 1 ea DAILY PRN N/A 05/10/17 09:00 06/09/17 08:59 Insulin Aspart (novoLOG ASPART) SLIDING SCALE ACHS SC 05/10/17 16:00 06/09/17 15:59 05/20/17 12:37 4 UNITS Ipratropium [place] (Atrovent 0.02% 0.5MG/2.5ML Neb) 0.5 mg Q4H PRN INH 05/10/17 21:45 06/09/17 21:44 Levalbuterol (Xopenex 1.25MG/ 0.5ML Neb) 1.25 mg Q4H PRN INH 05/10/17 21:45 06/09/17 21:44 Insulin Glargine (Lantus Solostar Pen) 16 units QAM SQ 05/18/17 08:00 06/17/17 07:59 05/20/17 09:08 16 UNITS Collagenase (Santyl Oint) 1 appln DAILY EXT 05/18/17 14:00 06/17/17 13:59 05/20/17 07:51 1 APPLN Insulin Glargine (Lantus Solostar Pen) 5 units HS SQ 05/20/17 22:00 05/20/17 23:59 Objective Vital Signs Date Time Temp Pulse Resp B/P (MAP) Pulse Ox O2 Delivery O2 Flow Rate FiO2 05/20/17 14:52 36.7 83 18 135/78 (97) 94 05/20/17 08:09 36.6 84 18 145/78 (100) 93 Room Air 05/20/17 08:00 95 Room Air 05/20/17 00:20 36.4 80 20 130/72 (91) 94 Room Air 05/20/17 00:00 95 Room Air 05/19/17 20:44 94 138/80 (99) 05/19/17 16:59 05/19/17 16:00 Room Air 05/19/17 15:26 36.5 90 18 142/80 (100) 94 Room Air Physical Exam General Appearance: no apparent distress Respiratory/Chest: lungs clear, normal breath sounds, no respiratory distress, no accessory muscle use Cardiovascular: regular rate, rhythm, no edema, no murmur Neurologic/Psychiatric: + motor weakness Laboratory Results Last 24 Hours Test 05/19/17 16:42 05/19/17 20:43 05/20/17 05:53 05/20/17 07:44 Bedside Glucose 171 mg/dl 156 mg/dl 96 mg/dl Prothrombin Time 35.9 SECONDS Prothromb Time International Ratio 3.2 Sodium Level 141 mmol/L Potassium Level 3.9 mmol/L Chloride Level 109 mmol/L Carbon Dioxide Level 26 mmol/L Anion Gap 6.0 mmol/L Blood Urea Nitrogen 48 mg/dl Creatinine 3.00 mg/dl Est Creatinine Clear Calc Drug Dose 17.9 ml/min Estimated GFR () 16.9 Estimated GFR (Non- 14.6 BUN/Creatinine Ratio 15.9 Random Glucose 86 mg/dl Calcium Level 8.3 mg/dl Test 05/20/17 11:47 Bedside Glucose 137 mg/dl Assessment and Plan This is a 77 year old obese female with a PMH of uncontrolled, insulin dependent DM2, diabetic nephropathy and CKD stage 3, 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 of lacunar infarct, Lkjsdlc-niyrd-avtje disease, HTN, HLD presents with a fall, and subsequently found to have sepsis, rhabdomyolysis, acute kidney injury, and DKA Sepsis secondary to UTI and R breast cellulitis - resolved 05/20 patient has had seven days of Teflaro, and multiple days of Cefepime, Levaquin, Flagyl, etc. I will stop abx. as there is no sign of systemic infection 05/19 Teflaro for now will need to speak to ID about length of treatment 05/18 MSSA of the R breast E. Faecalis of the L LE Klebsiella UTI appreciate ID input for now on Teflaro; which we can continue while inpatient 05/14 improving clinically WBC trending down afebrile abx. changed to Teflaro as per ID - length of treatment pending clinical course 05/13 LLE culture - enterococcus faecalis abx. switched around yesterday to Levaquin and Clinda ID consulted for further input, currently has cellulitic changes with Enterococcus and MSSA; also has Klebsiella UTI now c/o diarrhea with Clinda; C. diff negative, may need to switch abx, but noted PCN allergy 05/12 changed Cefepime to Ancef d/c'd Flagyl R breast - MSSA - continue Doxy Urine - Klebsiella - continue Ancef LLE - Strep - awaiting sensitivities 05/11 multiple infections including UTI, R breast and LLE cellulitic changes cultures grown; Klebsiella UTI, Staph, and strep noted on wound cultures; sensitivities pending leukocytosis improved, lactic acidosis resolved Cefepime, Flagyl, Doxy - considered changing Flagyl and Doxy to Vanco, though with kidney issues, will hold off continue IV abx. and fluids 05/10 patient presents with leukocytosis, lactic acidosis, tachycardia, temp of 35.6 UA is dirty with +bacteria, urine culture - gram negative bacilli R breast cellulitic changes CT chest = Infiltration of the subcutaneous tissue with overlying skin thickening along the medial right breast. This could be compatible with cellulitis in the absence of a history of radiation started on Cefepime, Flagyl, and doxycycline leukocytosis, trending down, lactic acid < 2 continue fluids and IV abx. Acute Kidney Injury superimposed on CKD stage 3 05/20 creatinine down to 3.0 05/19 creat trending down to 3.1 as per nephrology, can be discharged 05/18 no need for IVFs creatinine is trending down to 3.3 today, monitor 05/14 appreciate nephrology input much improved urine output creatinine still is around 4.4 currently on a low rate NS no need for emergent dialysis 05/13 multifactorial: * significant dehydration, no fluid intake x2 days * ATN secondary to sepsis * rhabdomyolysis * diabetic nephropathy appreciate nephro input creat around 4.3 today also 05/12 improved urine output appreciate nephrology input creatinine up to 4.3, will recheck in AM 05/11 multifactorial: significant dehydration, no fluid intake x2 days ATN secondary to sepsis rhabdomyolysis diabetic nephropathy appreciate nephrology input creatinine increased to 4.0 IVFs changed to 1/2 NSS with sodium bicarb at 150mL monitor for urine output Mechanical Fall 05/14 PT/OT needed plan for d/c to rehab when medically stable 05/13 radiographs suggest no acute fracture will need PT/OT wound care 05/12 decreased ROM of the L LE traumatic wound noted on the L LE will obtain radiographs will need PT/OT DKA - resolved 05/13 appreciate pharmacy glycemic control currently on insulin sliding scale and Lantus protocol BSGs; much improved Uncontrolled DM2 05/11 Ha1c > 11% switched to subq insulin, appreciate glycemic control consult currently on Lantus 30 units BID and sliding scale D5 was removed from fluids late last evening for improved BSG control 05/10 Ha1c > 11% +ketones in urine/serum, BSGs > 600, high anion gap started on insulin drip, BSGs improving continue fluids, monitor for urine output started on Lantus, january d/c insulin drip later today with improved diet Rhabdomyolysis 05/13 CPK >10,000 and trending down 05/11 no significant improvement in CPK decreased urine output will need continued IVFs monitor for output, appreciate nephro input 05/10 CPK >20,000 secondary to fall IVFs, monitor CPK BID Hx. of PE hold Coumadin likely an interaction with antibiotics goal INR of 2-3 Dnynfrj-Sryrs-Khkde Disease patient has a neurological motor/sensory issue states that she slipped in the shower, and then afterwards did not have the strength to get up uses cane for ambulation at times will need PT/OT Hx. of Lacunar Infarct when more stable, will need PT/OT DVT ppx Coumadin DNR
[2017-05-20] MEDS ORDERED: INSDGIPEN SQ ×2 (15:54)
--- NOTE | 2017-05-20 15:57 | Discharge Instructions ---
Discharge Instructions Date of Service May 20, 2017. Admission Reason for Admission: Arf, Hyperglycemic Crisis In Diabetes Mellitus Discharge Discharge Diagnosis / Problem: Acute Renal Failure, Rhabdomyolysis, Diabetic Ketoacidosis Discharge Goals Goal(s): Decrease discomfort, Improve function, Diagnostic testing, Therapeutic intervention Activity Recommendations Activity Level: Up Ad Bess Therapies: Physical Therapy, Occupational Therapy Exercise/Sports Limitations: as tolerated . Additional Information Patient informed of condition: Yes Advance Directives: Yes DNR: Yes Level of Care: Skilled Communicable Disease: No Prognosis: Stable Castellanos Catheter: Yes Instructions / Follow-Up Instructions / Follow-Up You will be discharged to get some rehab at a facility - please follow-up with your primary care doctor after rehab You should have blood work drawn in one week to check your kidney function Current Hospital Diet Patient's current hospital diet: AHA Diet (Heart Healthy), Diabetes Type 2 Diet Discharge Diet Recommended Diet: Diabetes Type 2 Diet, Renal Diet Pending Studies Studies pending at discharge: no Laboratory Results Hemoglobin A1c Test 05/09/17 18:25 Range/Units Estimated Average Glucose 275 mg/dl Hemoglobin A1c 11.2 H 4.5-5.6 % Medical Emergencies . Who to Call and When: Medical Emergencies: If at any time you feel your situation is an emergency, please call 911 immediately. . Non-Emergent Contact Non-Emergency issues call your: Primary Care Provider . . "Provider Documentation" section prepared by Wojciech Diallo. . Core Measure Problem Core Measures: None
--- NOTE | 2017-05-20 16:00 | Discharge Summary ---
Discharge Summary Date of Service May 20, 2017. Discharge Summary Admission Date: May 09, 2017 at 20:30 Discharge Date: May 20, 2017 Discharge Disposition: [facility] facility Principal Diagnosis: Mechanical Fall Acute Kidney Injury Sepsis - Cellulitis, Wound Ulcer R breast, UTI DKA Rhabdomyolysis Qqbxhvh-Qwqjy-Rqkrn Consultations: Cl Medication Reconciliation New Medications: Insulin Glargine (Lantus Solostar) 100 Unit/Ml Inj 5 UNITS SQ HS for 30 Days Insulin Glargine (Lantus Solostar) 100 Unit/Ml Inj 16 UNITS SQ QAM for 30 Days Continued Medications: Allopurinol (Zyloprim) 300 Mg Tab 300 MG PO DAILY, TAB Calcium W/ Vitamin D (Calcium/Vitamin D) 1 Tab Tab 1 TAB PO DAILY Metoprolol Tartrate (Lopressor) (Lopressor) 25 Mg Tab 12.5 MG PO BID, TAB Pantoprazole (Protonix) 40 Mg Tab 40 MG PO DAILY, #30 TAB Warfarin Sodium (Coumadin) 5 Mg Tab 5 MG PO DAILY, TAB Discontinued Medications: Insulin Glargine (Lantus Solostar) 100 Unit/Ml Inj 45 UNITS SC QAM, PEN Lisinopril (Zestril) 2.5 Mg Tab 2.5 MG PO DAILY Metformin Hcl (Glucophage) 500 Mg Tab 500 MG PO BID, TAB Admission Information HPI (per Admitting provider): DATE OF ADMISSION: 05/09/2017 PRIMARY CARE DOCTOR: Dr. Celis. CHIEF COMPLAINT: Fall. HISTORY OF PRESENT ILLNESS: History obtained from patient, family, and records. Limited history of the patient secondary to lethargic state. Medical history significant for hypertension, hyperlipidemia, ambulatory dysfunction, Zqpuvyf-Vmkfo-Zexgh disease, obesity, hx CVA, pulmonary embolism on oral anticoagulation, DM2, insulin requiring. Recent confinement last July 2013 for acute gout attack. Patient resides with a grandson at home. Last Wednesday, patient's grandson had left patient at home alone for an event. Patient had a fall in the bathroom, sliding in the shower. Sustained bruising on the left leg and under her breast. Chest pain from traumatic right chest wound. Px denies shortness of breath or syncope. Patient could not get up. Unable to access water, food, and the phone. Grandson found patient this afternoon, two days. Dry cough symptoms. Denies aspiration. At the Emergency Room, blood sugars noted to be blood sugars noted to be in the 600, CPK noted to be 19,000. IV insulin, fluid boluses given; Vancomycin, Cefepime administered for possible sepsis. MEDICAL HISTORY: As above. Home Blood sugars 180s-300s as per recent outpatient visit with the PCP. [facility] clinical referral made. SURGERIES: IVC filter, appendectomy, cholecystectomy, hysterectomy, urologic procedures, cataract surgery, breast biopsy, hernia repair HOME MEDICATIONS: Include Zyloprim, Lantus, Zestril, Glucophage, Lopressor, Protonix, and Coumadin. ALLERGIES: PENICILLIN AND NSAIDS. FAMILY HISTORY: Diabetes. 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 REVIEW OF SYSTEMS: Could not be reliably obtained PHYSICAL EXAMINATION: VITAL SIGNS: Blood pressure was noted to be 136/80, pulse rate 120, RR 24, temperature 35.6, and sats 90 on room air. GENERAL: Noted to be anxious. No overt respiratory distress. Looks younger for stated age. Lethargic SKIN: Normal color. HEENT: [place] palpebral conjunctivae. Dry mucosa. NECK: Short neck. LUNGS: Decreased breath sounds. There is note of an ulcerated wound on the right inframammary area HEART: Tachycardic. ABDOMEN: Some distention. NT EXTREMITIES: Some blisters noted on the lower extremity. NEUROLOGIC: Some lethargy, gait and stance not assessed LABORATORY AND IMAGING DATA: Hemoglobin was noted to be 14.1, hematocrit 40, white cell 25.36 and platelets 239. Sodium 131, potassium 4.9, chloride 96, CO2 18, anion gap 17, BUN 79, creatinine 3.8, glucose 64, AST 317, ALT 160, alkaline phosphatase 128. CPK 19,000. Ketones positive. INR 3.2. Trace ketones in the urine, brown, turbid, positive for blood. WBC, epithelial cells noted. CT head, no acute pathology. Chest x-ray, cardiomegaly. Cervical spine CT: No evidence of fx/dislocation of the cervical spine. EKG as per my interpretation rate 120 sinus tachycardia LAD LAFB, PRWP, PVCs ASSESSMENT: 1. Severe sepsis SIRS plus ARF plus lactic acidosis possible sources : UTI Wound, Right breast, left leg 2. acute renal failure secondary to traumatic rhabdomyolysis, marked clinical dehydration, hyperglycemia following traumatic fall, inability to access water for more than 24 hours 3. DKA DM 2, insulin requiring, suboptimal control as of recent outpx HgA1c of 12.8 from 02/03/2017. Compliance issues as per PCP note. 4. Hypertension, slightly elevated 5. pulmonary embolism, INR supra-therapeutic, 6. History ambulatory dysfunction 2 to Hejrnxf-Cpngl-Zgzsv neuropathy, PLAN: PCU CS, Cefepime, Doxycycline and Flagyl for now De-escalate antibiotics pending CS results availability CT chest RE re: traumatic wound, right inframammary area rule out abscess Follow CPK, creatinine in response to IV fluids Hold CASSIDY inhibitor for now until creatinine at baseline. Nephrology consult, ARF, rhabdomyolysis (Dr. Gonzalez has already seen the patient at the ER) IV insulin BG goal 150-200 Glycemic control consult in the morning. Check hemoglobin A1c. PT, OT eval. Social service RE discharge planning DVT prophylaxis, Coumadin INR 2-3. DNR as per patient's daughter/POA, Miss Rosio Sow. She requests updates from providers at [phone]. Hospital Course This is a 77 year old obese female with a PMH of uncontrolled, insulin dependent DM2, diabetic nephropathy and CKD stage 3, 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 of lacunar infarct, Vjraszh-yalkb-qzdui disease, HTN, HLD presents with a fall, and subsequently found to have sepsis, rhabdomyolysis, acute kidney injury, and DKA Sepsis secondary to UTI and R breast cellulitis - resolved 05/20 patient has had seven days of Teflaro, and multiple days of Cefepime, Levaquin, Flagyl, etc. I will stop abx. as there is no sign of systemic infection 05/19 Teflaro for now will need to speak to ID about length of treatment 05/18 MSSA of the R breast E. Faecalis of the L LE Klebsiella UTI appreciate ID input for now on Teflaro; which we can continue while inpatient 05/14 improving clinically WBC trending down afebrile abx. changed to Teflaro as per ID - length of treatment pending clinical course 05/13 LLE culture - enterococcus faecalis abx. switched around yesterday to Levaquin and Clinda ID consulted for further input, currently has cellulitic changes with Enterococcus and MSSA; also has Klebsiella UTI now c/o diarrhea with Clinda; C. diff negative, may need to switch abx, but noted PCN allergy 05/12 changed Cefepime to Ancef d/c'd Flagyl R breast - MSSA - continue Doxy Urine - Klebsiella - continue Ancef LLE - Strep - awaiting sensitivities 05/11 multiple infections including UTI, R breast and LLE cellulitic changes cultures grown; Klebsiella UTI, Staph, and strep noted on wound cultures; sensitivities pending leukocytosis improved, lactic acidosis resolved Cefepime, Flagyl, Doxy - considered changing Flagyl and Doxy to Vanco, though with kidney issues, will hold off continue IV abx. and fluids 05/10 patient presents with leukocytosis, lactic acidosis, tachycardia, temp of 35.6 UA is dirty with +bacteria, urine culture - gram negative bacilli R breast cellulitic changes CT chest = Infiltration of the subcutaneous tissue with overlying skin thickening along the medial right breast. This could be compatible with cellulitis in the absence of a history of radiation started on Cefepime, Flagyl, and doxycycline leukocytosis, trending down, lactic acid < 2 continue fluids and IV abx. Acute Kidney Injury superimposed on CKD stage 3 05/20 creatinine down to 3.0 05/19 creat trending down to 3.1 as per nephrology, can be discharged 05/18 no need for IVFs creatinine is trending down to 3.3 today, monitor 05/14 appreciate nephrology input much improved urine output creatinine still is around 4.4 currently on a low rate NS no need for emergent dialysis 05/13 multifactorial: * significant dehydration, no fluid intake x2 days * ATN secondary to sepsis * rhabdomyolysis * diabetic nephropathy appreciate nephro input creat around 4.3 today also 05/12 improved urine output appreciate nephrology input creatinine up to 4.3, will recheck in AM 05/11 multifactorial: significant dehydration, no fluid intake x2 days ATN secondary to sepsis rhabdomyolysis diabetic nephropathy appreciate nephrology input creatinine increased to 4.0 IVFs changed to 1/2 NSS with sodium bicarb at 150mL monitor for urine output Mechanical Fall 05/14 PT/OT needed plan for d/c to rehab when medically stable 05/13 radiographs suggest no acute fracture will need PT/OT wound care 05/12 decreased ROM of the L LE traumatic wound noted on the L LE will obtain radiographs will need PT/OT DKA - resolved 05/13 appreciate pharmacy glycemic control currently on insulin sliding scale and Lantus protocol BSGs; much improved Uncontrolled DM2 05/11 Ha1c > 11% switched to subq insulin, appreciate glycemic control consult currently on Lantus 30 units BID and sliding scale D5 was removed from fluids late last evening for improved BSG control 05/10 Ha1c > 11% +ketones in urine/serum, BSGs > 600, high anion gap started on insulin drip, BSGs improving continue fluids, monitor for urine output started on Lantus, january d/c insulin drip later today with improved diet Rhabdomyolysis 05/13 CPK >10,000 and trending down 05/11 no significant improvement in CPK decreased urine output will need continued IVFs monitor for output, appreciate nephro input 05/10 CPK >20,000 secondary to fall IVFs, monitor CPK BID Hx. of PE hold Coumadin likely an interaction with antibiotics goal INR of 2-3 Oedxrlh-Gmsoa-Ianpu Disease patient has a neurological motor/sensory issue states that she slipped in the shower, and then afterwards did not have the strength to get up uses cane for ambulation at times will need PT/OT Hx. of Lacunar Infarct when more stable, will need PT/OT DVT ppx Coumadin DNR Total time spent on discharge = 50 minutes This includes examination of the patient, discharge planning, medication reconciliation, and communication with other providers. Discharge Instructions You will be discharged to get some rehab at a facility - please follow-up with your primary care doctor after rehab You should have blood work drawn in one week to check your kidney function
[2017-05-20 16:09] VITALS: BP 135/78; PULSE 83; TEMP 36.7; O2SAT 94
[2017-05-20] MEDS ORDERED: INSULIN GLARGINE SOLOSTAR 100 UNITS/ML 3 ML PEN SQ SCH (22:00)
[2017-05-26] MEDS ORDERED: ACET-1311 PO (08:02)
[2017-06-16] MEDS ORDERED: TRAM-10 PO (14:55)
[2017-06-16] MEDS ORDERED: ACET-1256 PO (14:55)
[2017-06-16] MEDS ORDERED: CLC100 PO (14:55)
[2017-06-16] MEDS ORDERED: OXYC1TAB3 PO (14:55)
[2017-06-24] MEDS ORDERED: CFP2IV IV (14:05)
[2017-06-30] MEDS ORDERED: METR-163 PO (11:56)
== END 2017-05-20 18:39 | DRG 853 ==
LOC: EDBD 17:38 → C.ED 17:39 → C.MSICU 20:30 → ENRESERV 20:40 → EDBEDREQ 05-10 15:53 → ENRESERV 05-10 15:53 → C.2E 05-10 18:08 → ENRESERV 05-17 11:34 → C.MS4W 05-17 12:06
PROVIDERS: ADMIT Family Medicine; ATTEND Family Medicine
PROC: 02HV33Z Insertion of Infusion Device into Superior Vena Cava, Percutaneous Approach (ICD-10-PCS; 2017-05-09)
PROC: 0JD60ZZ Extraction of Chest Subcutaneous Tissue and Fascia, Open Approach (ICD-10-PCS; principal; 2017-05-13)
PROC: 0JDP0ZZ Extraction of Left Lower Leg Subcutaneous Tissue and Fascia, Open Approach (ICD-10-PCS; principal; 2017-05-13)
PROC: 0JDR0ZZ Extraction of Left Foot Subcutaneous Tissue and Fascia, Open Approach (ICD-10-PCS; principal; 2017-05-13)
DX: A41.59 Other Gram-negative sepsis (principal); M62.82 Rhabdomyolysis; N17.0 Acute kidney failure with tubular necrosis; N39.0 Urinary tract infection, site not specified; L89.899 Pressure ulcer of other site, unspecified stage; D68.32 Hemorrhagic disorder due to extrinsic circulating anticoagulants; A41.01 Sepsis due to Methicillin susceptible Staphylococcus aureus; T45.515A Adverse effect of anticoagulants, initial encounter; E86.0 Dehydration; E87.2 Acidosis; N61.0 Mastitis without abscess; Z66 Do not resuscitate; I12.9 Hypertensive chronic kidney disease with stage 1 through stage 4 chronic kidney disease, or unspecified chronic kidney disease; G60.0 Hereditary motor and sensory neuropathy; N18.3 Chronic kidney disease, stage 3 (moderate); E11.21 Type 2 diabetes mellitus with diabetic nephropathy; E78.5 Hyperlipidemia, unspecified; E66.9 Obesity, unspecified; R65.20 Severe sepsis without septic shock; E13.10 Other specified diabetes mellitus with ketoacidosis without coma; D64.9 Anemia, unspecified; Z86.73 Personal history of transient ischemic attack (TIA), and cerebral infarction without residual deficits; W18.2XXA Fall in (into) shower or empty bathtub, initial encounter; Z86.711 Personal history of pulmonary embolism

== ENCOUNTER → 2017-05-25 | Outpatient (CLI) | payer OTHER ==
[~2017-05-25] MED LIST changes: +ACET-1256 PO; +ACET-1311 PO; +ALLO300T2 PO; +ASCA500 PO; +CALC600T24 PO; +CFP2IV IV; -CHOL100041 PO; +CLC100 PO; -GLIP10TA9 PO; -INSDGI SC; +INSDGIPEN SQ; +MELATAB2 PO; +METR-163 PO; +MULT-506 PO; -ONDA4TAB7 SL; +OXYC1TAB3 PO; -POTA1080 PO; -ROSU5TAB PO; +ZINC1CAP PO
[2017-05-25 11:43] LABS: BASO % 0.6 %; BASO ABS # 0.06 K/uL (0-0.2); COMPLETE YES; EOS % 2.5 %; HEMATOCRIT 27.8 % (37-47); IG% 0.7 %; LYMPH % 23.8 %; MEAN CELL VOLUME 92.7 fL (80-100); MEAN CORPUSCULAR HEMOGLOBIN 30.3 pg (25-34); MEAN CORPUSCULAR HGB CONC 32.7 g/dl (32-36); MEAN PLATELET VOLUME 8.8 fL (7.4-10.4); MONO % 7.8 %; NEUT % 64.6 %; PLATELET COUNT 483 K/uL (130-400); WHITE BLOOD COUNT 10.09 K/uL (4.8-10.8)
[2017-05-25 11:57] LABS: PROTHROMBIN TIME (PATIENT) 47.4 SECONDS (9.0-12.0)
[2017-05-25 12:00] LABS: INR 4.2 (0.9-1.1)
[2017-05-25 12:05] LABS: ALB/GLOB RATIO 0.5 (0.9-2); ALKALINE PHOSPHATASE 86 U/L (45-117); ALT/SGPT 46 U/L (12-78); AST/SGOT 33 U/L (15-37); BLOOD UREA NITROGEN 35 mg/dl (7-18); BUN/CREATININE RATIO 14.2 (10-20); CALCIUM 8.4 mg/dl (8.5-10.1); CARBON DIOXIDE 25 mmol/L (21-32); CHLORIDE 106 mmol/L (98-107); GLUCOSE 213 mg/dl (70-99); POTASSIUM 4.5 mmol/L (3.5-5.1); SODIUM 137 mmol/L (136-145)
== END ==
LOC: C.LABCC 11:02
PROVIDERS: ATTEND Internal Medicine
DX: D64.9 Anemia, unspecified (principal); M62.82 Rhabdomyolysis; Z51.81 Encounter for therapeutic drug level monitoring; Z79.01 Long term (current) use of anticoagulants

== ENCOUNTER → 2017-06-01 | Outpatient (CLI) | payer OTHER ==
[2017-06-01 12:40] LABS: BASO % 0.5 %; BASO ABS # 0.05 K/uL (0-0.2); EOS % 4.6 %; HEMATOCRIT 28.1 % (37-47); IG% 0.4 %; LYMPH % 26.9 %; LYMPH ABS # 2.45 K/uL (1.2-3.4); MEAN CELL VOLUME 92.1 fL (80-100); MEAN CORPUSCULAR HEMOGLOBIN 30.5 pg (25-34); MEAN PLATELET VOLUME 8.9 fL (7.4-10.4); MONO % 7.3 %; NEUT % 60.3 %; PLATELET COUNT 639 K/uL (130-400); RED BLOOD COUNT 3.05 M/uL (4.2-5.4)
[2017-06-01 12:46] LABS: INR 1.6 (0.9-1.1); PROTHROMBIN TIME (PATIENT) 17.8 SECONDS (9.0-12.0)
[2017-06-01 12:55] LABS: BLOOD UREA NITROGEN 28 mg/dl (7-18); BUN/CREATININE RATIO 14.1 (10-20); CALCIUM 9.1 mg/dl (8.5-10.1); CARBON DIOXIDE 30 mmol/L (21-32); CHLORIDE 100 mmol/L (98-107); GLUCOSE 173 mg/dl (70-99); POTASSIUM 5.1 mmol/L (3.5-5.1); SODIUM 135 mmol/L (136-145)
[2017-06-01 12:59] LABS: ALB/GLOB RATIO 0.5 (0.9-2); ALKALINE PHOSPHATASE 105 U/L (45-117); ALT/SGPT 31 U/L (12-78); AST/SGOT 28 U/L (15-37)
[2017-06-01 13:41] LABS: COMPLETE YES; MEAN CORPUSCULAR HGB CONC 33.1 g/dl (32-36)
== END ==
LOC: C.LABCC 12:06
PROVIDERS: ATTEND Internal Medicine
DX: D64.9 Anemia, unspecified (principal); N28.9 Disorder of kidney and ureter, unspecified; M62.82 Rhabdomyolysis

== ENCOUNTER 2017-06-04 19:31 | Inpatient (IN) | payer OTHER ==
[~2017-06-04] VITALS: Ht 154.9 cm; Wt 100.1 kg
[~2017-06-04 19:31] MED LIST changes: -ACET-1256 PO; -ASCA500 PO; -CFP2IV IV; -CLC100 PO; -MELATAB2 PO; -METR-163 PO; -MULT-506 PO; -OXYC1TAB3 PO; -TRAM-10 PO; -ZINC1CAP PO
[2017-06-04] MEDS ORDERED: SODIUM CHLORIDE 0.9% 1000ML 1,000 ML IV STA (20:01)
[2017-06-04] MEDS ORDERED: SODIUM CHLORIDE 0.9% 1000ML 250 ML IV STA (20:01)
--- NOTE | 2017-06-04 20:09 | EMERGENCY ROOM VISIT NOTE ---
History Report prepared by Spencer: Luis Alfredo Suarez Under the Supervision of: Dr. Brendon Stevenson M.D. First contact with patient: 19:34 Chief Complaint: LEG PAIN,LEG INJURY Stated Complaint: LEG SWELLING & PAIN History of Present Illness The patient is a 77 year old female who presents to the Emergency Room with complaints of worsening, ulcers to her left leg beginning two weeks ago. The patient's daughter states the patient fell getting out of the shower three weeks ago. She reports that she was hospitalized and diagnoses with DKA, kidney failure, and sepsis. The daughter notes that the patient was on the floor for four days because she lives by herself. She states the patient developed blisters from the DKA, and they were eventually popped because they were not healing. The daughter reports the patient was seen by a photo specialist and discharged on antibiotics. She notes the wounds were supposed to be changed three times a day. The daughter states that they are not being changed at [facility], and her antibiotics were stopped because [facility] did not use the same medication. She reports that the wounds increased, and they must be debrided before antibiotics may be resumed. The daughter notes the patient has a history of CMT, gout, and cellulitis. She states the patient's blood sugar has been maintained, and she is on Coumadin. The patient reports nausea and knee pain. She denies fevers, chills, vomiting, chest pain, shortness of breath , and abdominal pain. Source of History: patient, family (daughter) Onset: two weeks ago Position: leg (left) Quality: other (ulcers) Timing: worsening Associated Symptoms: + nausea, No fevers, No chills, No SOB, No vomiting, No abdominal pain Note: Associated symptoms: knee pain Review of Systems See HPI for pertinent positives & negatives. A total of 10 systems reviewed and were otherwise negative. Past Medical & Surgical Medical Problems: (1) Acute renal failure syndrome (2) Calculus in urethra (3) Vvhwzer-Ckbcd-Vcxxm disease (4) Chronic kidney disease stage 3 (5) Diabetes mellitus type 2 (6) Essential hypertension (7) Gout (8) Lacunar stroke (9) Obesity, morbid, BMI 40.0-49.9 (10) Pulmonary embolism Surgical Problems: (1) H/O hernia repair (2) History of appendectomy (3) History of cholecystectomy (4) History of hysterectomy Old medical records were reviewed. Nurse's notes were reviewed and I agree with. Family History Patient reports no known family medical history. Social History Smoking Status: Never Smoker Alcohol Use: none Drug Use: none Marital Status: Housing Status: lives with family Occupation Status: unemployed Current/Historical Medications Scheduled Acetaminophen (Tylenol), 1,000 MG PO BID Allopurinol (Zyloprim), 300 MG PO DAILY Ascorbic Acid (Vitamin C), 500 MG PO DAILY Calcium W/ Vitamin D (Calcium/Vitamin D), 1 TAB PO DAILY Insulin Glargine (Lantus Solostar), 5 UNITS SQ HS Insulin Glargine (Lantus Solostar), 16 UNITS SQ QAM Melatonin (Melatonin Maximum Strengt), 5 MG PO HS Metoprolol Tartrate (Lopressor) (Lopressor), 12.5 MG PO BID Multivitamin (Multivitamin), 1 TAB PO DAILY Pantoprazole (Protonix), 40 MG PO DAILY Tramadol (Ultram), 50 MG PO BID Warfarin Sodium (Coumadin), 5 MG PO DAILY Zinc Sulfate (Zinc Sulfate), 220 MG PO DIRECTED Scheduled PRN Oxycodone Ir (Roxicodone Ir), 5 MG PO Q4H PRN for Severe Pain Allergies Coded Allergies: Penicillins (Verified Allergy, Unknown, rash that occurred ~ 4 hrs ago, no resp symptoms, 05/12/17) NSAIDs (Verified Adverse Reaction, Unknown, KIDNEY ISSUES, 05/09/17) Physical Exam Vital Signs Date Time Temp Pulse Resp B/P (MAP) Pulse Ox O2 Delivery O2 Flow Rate FiO2 06/04/17 22:39 94 17 116/64 92 Room Air 06/04/17 22:03 92 18 119/66 92 Room Air 06/04/17 20:44 88 19 119/66 93 Room Air 06/04/17 19:38 91 06/04/17 19:31 36.6 92 20 119/66 94 Room Air Physical Exam General: Well developed well nourished in no acute distress, breathing comfortably on room air. Normal speech. Non-ill appearing, older female. Multiple extensive ulceration. HEENT: Normal cephalic atraumatic. Pupils are equal round and reactive to light. Extraocular movements are intact. Oropharynx is pink with moist mucous membranes. No swelling of the mouth lips or tongue. Neck: Supple with a midline trachea. No meningeal signs or stiffness, no JVD or bruits. No Stridor. Chest: Clear to auscultation bilaterally. No wheezes or rhonchi. No increased work of breathing. Under the right breast there is a black scab without drainage or cellulitis. Heart: regular rate and rhythm. Abdomen: Soft nontender, nondistended without rebound guarding or rigidity. Extremities: No cyanosis clubbing or edema. No calf tenderness or assymetry. Several cm ulcer on the left posterior aspect of the knee that goes into the layer of subcutaneous fat. Small ulcer to her left foot. Spine/Back. Non tender to palpation. No CVA tenderness Skin: Good turgor without rashes. Neurologic exam: Cranial nerves two through 12 are intact. Motor and sensation are intact and symmetrical throughout. Medical Decision & Procedures ER Provider Diagnostic Interpretation: X-ray results as stated below per interpretation by me and the radiologist: CHEST ONE VIEW PORTABLE CLINICAL HISTORY: 77 years-old Female presenting with CHEST PAIN. TECHNIQUE: Portable upright AP view of the chest was obtained. COMPARISON: 05/10/2017. FINDINGS: Cardiomediastinal silhouette normal. Interval decrease in bibasilar opacities. Possible small left pleural effusion. No pneumothorax. Osseous structures normal. Upper abdomen normal. IMPRESSION: 1. Interval decrease in bibasilar opacities. No new focal infiltrate. 2. Possible small left pleural effusion. Electronically signed by: Tarik Irving M.D. 06/04/2017 8:54 PM Dictated Date/Time: 06/04/2017 8:52 PM Laboratory Results 06/04/17 20:13 Red Blood Count 3.06, Mean Corpuscular Volume 93.8, Mean Corpuscular Hemoglobin 29.7, Mean Corpuscular Hemoglobin Concent 31.7, Mean Platelet Volume 8.4, Neutrophils (%) (Auto) 51.8, Lymphocytes (%) (Auto) 33.3, Monocytes (%) (Auto) 9.1, Eosinophils (%) (Auto) 4.5, Basophils (%) (Auto) 0.7, Neutrophils # (Auto) 4.65, Lymphocytes # (Auto) 2.98, Monocytes # (Auto) 0.81, Eosinophils # (Auto) 0.40, Basophils # (Auto) 0.06 06/04/17 20:13 Test 9/15/17 20:13 06/04/17 20:21 White Blood Count 8.95 K/uL (4.8-10.8) Red Blood Count 3.06 M/uL (4.2-5.4) Hemoglobin 9.1 g/dL (12.0-16.0) Hematocrit 28.7 % (37-47) Mean Corpuscular Volume 93.8 fL (80-100) Mean Corpuscular Hemoglobin 29.7 pg (25-34) Mean Corpuscular Hemoglobin Concent 31.7 g/dl (32-36) Platelet Count 521 K/uL (130-400) Mean Platelet Volume 8.4 fL (7.4-10.4) Neutrophils (%) (Auto) 51.8 % Lymphocytes (%) (Auto) 33.3 % Monocytes (%) (Auto) 9.1 % Eosinophils (%) (Auto) 4.5 % Basophils (%) (Auto) 0.7 % Neutrophils # (Auto) 4.65 K/uL (1.4-6.5) Lymphocytes # (Auto) 2.98 K/uL (1.2-3.4) Monocytes # (Auto) 0.81 K/uL (0.11-0.59) Eosinophils # (Auto) 0.40 K/uL (0-0.5) Basophils # (Auto) 0.06 K/uL (0-0.2) RDW Standard Deviation 46.4 fL (36.4-46.3) RDW Coefficient of Variation 13.5 % (11.5-14.5) Immature Granulocyte % (Auto) 0.6 % Immature Granulocyte # (Auto) 0.05 K/uL (0.00-0.02) Anion Gap 7.0 mmol/L (3-11) Est Creatinine Clear Calc Drug Dose 29.2 ml/min Estimated GFR () 31.4 Estimated GFR (Non- 27.1 BUN/Creatinine Ratio 18.2 (10-20) Calcium Level 8.7 mg/dl (8.5-10.1) Total Bilirubin 0.1 mg/dl (0.2-1) Direct Bilirubin < 0.1 mg/dl (0-0.2) Aspartate Amino Transf (AST/SGOT) 24 U/L (15-37) Alanine Aminotransferase (ALT/SGPT) 21 U/L (12-78) Alkaline Phosphatase 107 U/L (45-117) Total Creatine Kinase 366 U/L (26-192) Creatine Kinase MB 7.5 ng/ml (0.5-3.6) Creatine Kinase MB Ratio 2.0 (0-3.0) Troponin I < 0.015 ng/ml (0-0.045) Total Protein 5.9 gm/dl (6.4-8.2) Albumin 2.1 gm/dl (3.4-5.0) Lipase 162 U/L (73-393) Bedside Lactic Acid Venous 1.12 mmol/L (0.90-1.70) Laboratory studies as stated above per my review. Medications Administered Medications (Trade) Dose Ordered Sig/Solitario Route Start Time Stop Time Status Last Admin Dose Admin Sodium Chloride 250 ml @ 999 mls/hr Q16M STAT IV 06/04/17 20:01 06/04/17 20:16 DC 06/04/17 20:42 999 MLS/HR Sodium Chloride 1,000 ml @ 100 mls/hr Q10H STAT IV 06/04/17 20:01 06/05/17 06:00 06/04/17 20:42 100 MLS/HR ECG Indication: weakness Rate (beats per minute): 90 Rhythm: normal sinus Findings: no acute ischemic change, no ectopy Comparison ECG Date: 05/10/17 Change: PACs are now absent. ED Course 1939: Past medical records reviewed. The patient was evaluated in room B04B, and a complete history and physical examination were performed. 2000: Ordered Sodium Chloride 1000 ml @ 100 mls/hr IV, Sodium Chloride 250 ml @ 999 mls/hr IV 2020: The patient's IV is in place, and she is resting. 2037: I spoke with the pharmacist about what antibiotic would be most effective. 2127: I discussed the patient's case with Dr. Moralez, [facility]. The patient will be evaluated for further treatment and care. 2134: Upon reevaluation, the patient is resting comfortably. I discussed the results and treatment plan with the patient and her family. They verbalized agreement of the treatment plan. The patient will be evaluated for further management. Medical Decision Differentials include, but are not limited to; sepsis, skin ulcer, infection, necrotizing fasciitis. This patient comes in as described above she has multiple ulcers which have been getting worse and persistent over several weeks. She was brought in by her daughter and is very concerned about this and does not feel that she is being treated as aggressively as they would like at the longterm. She's had no fever. she does not appear septic at present. IV access established and she was hydrated with IV normal saline. Multiple blood testing was obtained. She has no white count or fever to suggest infection. Lactic acid is not elevated. She has mild baseline renal insufficiency. She has mild CK elevation however nothing to suggest rhabdo. I do think she needs to be admitted for further inpatient treatment and evaluation of her wounds. she may need ID or surgical or wound care evaluation. I did consult Dr. Snider and he is going to see her in the ER and decide upon which antibiotic he would like if needed. The family was agreement and happy with the plan. Medication Reconcilliation Current Medication List: was personally reviewed by me Blood Pressure Screening Patient's blood pressure: Normal blood pressure Blood pressure disposition: Did not require urgent referral Consults Time Called: 2125 [facility] Returned Call: 2127 I discussed the patient's case with [facility]. The patient will be evaluated for further treatment and care. Impression Primary Impression: Skin ulcer of multiple sites Scribe Attestation The scribe's documentation has been prepared under my direction and personally reviewed by me in its entirety. I confirm that the note above accurately reflects all work, treatment, procedures, and medical decision making performed by me. Departure Information Dispostion Being Evaluated By Hospitalist Referrals Tyler HillGarrett (PCP) Patient Instructions My [facility]
[2017-06-04 20:32] LABS: BASO % 0.7 %; BASO ABS # 0.06 K/uL (0-0.2); COMPLETE YES; EOS % 4.5 %; HEMATOCRIT 28.7 % (37-47); IG% 0.6 %; LYMPH % 33.3 %; LYMPH ABS # 2.98 K/uL (1.2-3.4); MEAN CELL VOLUME 93.8 fL (80-100); MEAN CORPUSCULAR HEMOGLOBIN 29.7 pg (25-34); MEAN CORPUSCULAR HGB CONC 31.7 g/dl (32-36); MEAN PLATELET VOLUME 8.4 fL (7.4-10.4); MONO % 9.1 %; NEUT % 51.8 %; PLATELET COUNT 521 K/uL (130-400); RED BLOOD COUNT 3.06 M/uL (4.2-5.4); WHITE BLOOD COUNT 8.95 K/uL (4.8-10.8)
[2017-06-04 20:45] LABS: ALT/SGPT 21 U/L (12-78); BLOOD UREA NITROGEN 33 mg/dl (7-18); BUN/CREATININE RATIO 18.2 (10-20); CALCIUM 8.7 mg/dl (8.5-10.1); CARBON DIOXIDE 28 mmol/L (21-32); CHLORIDE 99 mmol/L (98-107); GLUCOSE 175 mg/dl (70-99); POTASSIUM 4.5 mmol/L (3.5-5.1); SODIUM 134 mmol/L (136-145)
[2017-06-04 20:50] LABS: ALKALINE PHOSPHATASE 107 U/L (45-117); AST/SGOT 24 U/L (15-37)
--- NOTE | 2017-06-04 20:55 | DIAGNOSTIC IMAGING REPORT ---
CHEST ONE VIEW PORTABLE CLINICAL HISTORY: 77 years-old Female presenting with CHEST PAIN. TECHNIQUE: Portable upright AP view of the chest was obtained. COMPARISON: 05/10/2017. FINDINGS: Cardiomediastinal silhouette normal. Interval decrease in bibasilar opacities. Possible small left pleural effusion. No pneumothorax. Osseous structures normal. Upper abdomen normal. IMPRESSION: 1. Interval decrease in bibasilar opacities. No new focal infiltrate. 2. Possible small left pleural effusion. Electronically signed by: Tarik Irving M.D. 06/04/2017 8:54 PM Dictated Date/Time: 06/04/2017 8:52 PM
[2017-06-04] MEDS ORDERED: OXYC1TAB3 PO (21:19)
[2017-06-04] MEDS ORDERED: ASCA500 PO (21:19)
[2017-06-04] MEDS ORDERED: TRAM-10 PO (21:19)
[2017-06-04] MEDS ORDERED: ZINC1CAP PO (21:19)
[2017-06-04] MEDS ORDERED: ACET-1256 PO (21:19)
[2017-06-04] MEDS ORDERED: MULT-506 PO (21:19)
[2017-06-04] MEDS ORDERED: MELATAB2 PO (21:19)
[2017-06-04] MEDS ORDERED: HYDROmorphone INJ 0.5 MG/0.5 ML SYR IV PRN (23:45)
[2017-06-04] MEDS ORDERED: DEXTROSE 50% 50 ML SYR IV PRN (23:45)
[2017-06-04] MEDS ORDERED: ACETAMINOPHEN 325 MG TAB PO PRN (23:45)
[2017-06-04] MEDS ORDERED: GLUCOSE 10 TABS/TUBE PO PRN (23:45)
[2017-06-04] MEDS ORDERED: TRAMADOL HCL 50 MG TAB PO PRN (23:45)
[2017-06-04] MEDS ORDERED: GLUCAGON FOR INJ 1 MG VIAL SQ PRN (23:45)
[2017-06-04] MEDS ORDERED: GLUCOSE 40% GEL 15 GM TUBE PO PRN (23:45)
[2017-06-05 00:10] LABS: INR 2.1 (0.9-1.1); PARTIAL THROMBOPLASTIN RATIO 1.8; PROTHROMBIN TIME (PATIENT) 22.7 SECONDS (9.0-12.0)
[2017-06-05] MEDS ORDERED: INSULIN ASPART 100 UNITS/ML 3 ML PEN SC ONE (02:00)
[2017-06-05] MEDS ORDERED: IMIPENEM-CILASTATIN 500 MG in DEXTROSE 5% 100ML 100 ML IV ONE (02:00)
[2017-06-05 02:42] VITALS: BMI 41.4
[2017-06-05 02:50] VITALS: BP 128/63; PULSE 90; TEMP 36.8; Ht 154.9 cm; Wt 100.1 kg
--- NOTE | 2017-06-05 03:37 | HISTORY & PHYSICAL EXAMINATION ---
DATE OF ADMISSION: 06/04/2017 PRIMARY CARE DOCTOR: Dr. Celis The patient is currently undergoing rehab at [facility] after a recent protracted hospital confinement. History was obtained from patient, daughter and records. Patient is a fair historian, poor insight into her medical issues. CHIEF COMPLAINT: "I don't know," as per px, Worsening infected wounds as per daughter. HISTORY OF PRESENT ILLNESS: Medical history is significant for pulmonary embolism sp IVC on anticoagulation , hypertension, hyperlipidemia, Ukdhszs-Bhdql-Yefjs disease, history of CVA, DM2 insulin requiring, chronic renal insufficiency (possible new baseline of 1.7). Chronic anemia ( baseline hemoglobin of 9) Recent confinement from May 09 to 2016 for ARF, rhabdomyolysis secondary to mechanical fall. Patient also came in with DKA. She was septic from cellulitis 2 to ulcerated wounds on the right breast and legs. Wound CS grew MSSA from R breast, Enterococcus faecalis from L leg. Urine CS grew Klebsiella. She was on Ceftaroline rx 2 discharge date as per ID recommendation. Kidney function steadily improving following discharge to [facility]. Last visit to [facility] was on 05/26/2017. As per note; re-evaluation of right chest wall, right knee, left lower extremity, left foot wounds done. Unstageable ulcers. Some eschars noted. All sites required debridement during visit. Daughter was frustrated with the appearance of the wound especially of the right breast and the back of the left leg in the last week. Increase black crusting on right chest wound. Foul smelling yellowish drainage was noted on the posterior L leg wound. As per daughter, she was told by [facility] staff that follow-up visit at [facility] was not possible. Wound care services to be done by facility wound care nurse. As per daughter, the patient occasionally complaining of left leg pain, unable to stand up. No fever, no chills. As per daughter, the patient would not know if her wounds were infected because of her poor eyesight. Patient was brought to the Emergency Room for evaluation as per daughter's request. MEDICAL HISTORY: As above. SURGERIES: Hernia repair, appendectomy, cholecystectomy, hysterectomy, IVC filter placement, urologic procedures, cataract surgery, breast biopsy and hernia repair. HOME MEDICATIONS: Include; multivitamins, OxyIR, Protonix, Ultram, Coumadin, zinc Zyloprim, Tylenol, vitamin C, calcium plus D, melatonin and Lopressor. ALLERGIES: TO PENICILLIN AND NSAIDS. FAMILY HISTORY: Diabetes. PERSONAL AND SOCIAL HISTORY: Nonsmoker. No chronic intake of alcoholic beverages. 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 Px was living with her grandson prior to the injury from last month. Currently undergoing rehab at [facility]. Eventually plan is to go home when she's stronger.. REVIEW OF SYSTEMS: As per HPI, all other ROS negative. PHYSICAL EXAMINATION: VITAL SIGNS: Blood pressure was noted to be 119/68, pulse rate 92, RR 18, temperature 36.6 and sats 98 on room air. GENERAL: Pleasant, in no respiratory distress. Obese. SKIN: pallor, right inframammary ulcerated wound with black eschar. No drainage. Ulcerated wound on the right knee with exposure of subcutaneous tissue and granulation. Ulcerated wound on the left posterior leg popliteal area extending to the upper leg with foul smelling yellow drainage. Ulcerated wound of the left foot with some eschar. HEENT: Pale palpebral conjunctivae. Dry mucosa. NECK: Short neck. LUNGS: Decreased breath sounds. HEART: Regular rate and rhythm. ABDOMEN: Some distention. EXTREMITIES: Bilateral leg edema, no tenderness of exam NE coherent. Gait and stance not assessed LABORATORIES: Hemoglobin was 9.1, hematocrit 28.7, white cell count 8.9 and platelets 352 Sodium 138 potassium 4.5, chloride 99, CO2 28, BUN 30, creatinine 1.8 and glucose 175. INR was noted to be 2.1. Hemoglobin A1c from April 2017 was 11.2. ASSESSMENT: 1. Infected post-traumatic wounds from fall from last month; (Markedly deterioration particularly for right inframammary and left posterior leg and wounds) MSSA, enterococcus on respective wound CS from previous confinement no sepsis for now. 2. LLE pain as per daughter account Rule out osteomyelitis/abscess 3. Hypertension, stable. 4. Recurrent pulmonary embolism sp IVC filter placement on Coumadin. INR therapeutic. 5. hx CVA as per records 6. CRI Steady improvement off kidney function following recent confinement new baseline might be 1.7-1.8. 7. Chronic anemia secondary to chronic kidney disease. Hg at baseline 8. DM2 insulin requiring, suboptimal control as of recent HgA1c. 9. hx Hsrzpbc-Zumts-Fdkln neuropathy as per records PLAN: GMF follow wound cultures. Imipenem for now. ID consult RE Imipenem use for infected wound Followup evaluation by accounts specialist (Dr. Melendrez). CT left leg RE left leg pain ro abscess/osteomyelitis. Basal insulin, ISS BG goal 140-180. Carb count coverage indicated for suboptimal blood sugar control. DVT prophylaxis, Coumadin INR 2-3. DNR. Patient's daughter requesting updates from providers. Miss Rosio Mercado (contact #[phone]) KERRY
[2017-06-05 07:29] VITALS: BP 107/72; PULSE 108; TEMP 37.1; O2SAT 96
[2017-06-05 07:42] LABS: BASO % 0.5 %; BASO ABS # 0.04 K/uL (0-0.2); COMPLETE YES; EOS % 5.1 %; HEMATOCRIT 29.4 % (37-47); IG% 0.7 %; LYMPH % 23.4 %; LYMPH ABS # 1.89 K/uL (1.2-3.4); MEAN CELL VOLUME 93.3 fL (80-100); MEAN CORPUSCULAR HEMOGLOBIN 29.8 pg (25-34); MEAN PLATELET VOLUME 8.3 fL (7.4-10.4); MONO % 11.9 %; NEUT % 58.4 %; PLATELET COUNT 489 K/uL (130-400); RED BLOOD COUNT 3.15 M/uL (4.2-5.4); WHITE BLOOD COUNT 8.09 K/uL (4.8-10.8)
--- NOTE | 2017-06-05 07:44 | DIAGNOSTIC IMAGING REPORT ---
CT LEFT LOWER LEG NO CONTRAST CT DOSE: 469.35 mGy.cm CLINICAL HISTORY: Left leg pain and swelling. Infected wound. TECHNIQUE: Helical images were acquired without intravenous contrast. A dose lowering technique was utilized adhering to the principles of ALARA. COMPARISON STUDY: Conventional radiographic study dated 05/12/2017 FINDINGS: The examination is somewhat limited due to the lack of intravenous and administered contrast. There is fatty muscular atrophy present. There is a small suprapatellar joint effusion present. There is diffuse cutaneous and subcutaneous edema. There is a fluid collection abutting the lateral aspect of the deep fascia measuring 90 mm in maximal AP diameter, 11 mm transversely, and 105 mm in craniocaudad dimension. There are no bony destructive changes to indicate acute osteomyelitis. Degenerative changes are present within the knee. IMPRESSION: 1. Degenerative changes involving the knee. 2. Cutaneous and subcutaneous edema, consistent with a cellulitis 3. There are no bony destructive changes to indicate osteomyelitis 4. Fluid collection abutting the lateral aspect of the deep fascia in the measuring 90 x 11 x 105 mm. It is not possible to determine whether this is infected.. Electronically signed by: Juvenal Pope M.D. 06/05/2017 7:43 AM Dictated Date/Time: 06/05/2017 7:36 AM
[2017-06-05 07:57] LABS: INR 1.9 (0.9-1.1); PROTHROMBIN TIME (PATIENT) 21.4 SECONDS (9.0-12.0)
[2017-06-05] MEDS ORDERED: IMIPENEM-CILASTATIN 200 MG in DEXTROSE 5% 100ML 100 ML IV SCH (08:00)
[2017-06-05 08:17] LABS: BUN/CREATININE RATIO 18.6 (10-20); CALCIUM 8.6 mg/dl (8.5-10.1); CREATININE 1.6 mg/dl (0.60-1.20)
[2017-06-05] MEDS: METOPROLOL TARTRATE 25 MG TAB PO SCH ×2 (08:18→21:48)
[2017-06-05] MEDS: ALLOPURINOL 300 MG TAB PO SCH (08:18)
[2017-06-05] MEDS: PANTOprazole SOD 40 MG TAB PO SCH (08:19)
[2017-06-05] MEDS: MULTIVITAMIN TAB PO SCH (08:19)
[2017-06-05] MEDS: INSULIN GLARGINE SOLOSTAR 100 UNITS/ML 3 ML PEN SQ SCH (08:25)
[2017-06-05] MEDS: INSULIN ASPART 100 UNITS/ML 3 ML PEN SC SCH ×4 (08:25→21:45)
[2017-06-05] MEDS ORDERED: IMIPENEM/CILASTATIN CONSULT ACTIVE PRN (09:00)
[2017-06-05] MEDS ORDERED: POLYETHYLENE (MIRALAX) 17 GM PACK ONE (09:00)
--- NOTE | 2017-06-05 10:48 | Progress Note ---
Subjective Date of Service: Jun 05, 2017. Subjective Pt evaluation today including: conversation w/ patient, physical exam, lab review, review of studies, review of inpatient medication list Saw/examined the patient in room 253 She is doing okay; tells she is not in much pain from the wounds on her R breast and L leg A bit confused about why she came here States she worked with therapy at [facility] No other issues to note currently Problem List Medical Problems: (1) Skin ulcer of multiple sites Status: Acute Review of Systems Constitutional: No fever, No chills Respiratory: No shortness of breath Cardiac: No chest pain Abdomen: No pain, No nausea, No vomiting, No diarrhea Musculoskeletal: + joint pain (LLE pain, improved) Medications Current Inpatient Medications Medications (Trade) Dose Ordered Sig/Solitario Route Start Time Stop Time Status Last Admin Dose Admin Imipenem/ Cilastatin Sodium (Consult) 1 ea UD PRN N/A 06/05/17 09:00 07/05/17 08:59 Acetaminophen (Tylenol Tab) 650 mg Q4H PRN PO 06/04/17 23:45 07/04/17 23:44 Insulin Aspart (novoLOG ASPART) SLIDING SCALE If C... ACHS SC 06/05/17 06:30 07/05/17 06:59 06/05/17 08:25 1 UNITS Glucose (Glucose 40% Gel) 15-30 GRAMS 15 GRAMS... UD PRN PO 06/04/17 23:45 07/04/17 23:44 Glucose (Glucose Chew Tab) 4-8 Tablets 4 Tabl... UD PRN PO 06/04/17 23:45 07/04/17 23:44 Dextrose (Dextrose 50% 50ML Syringe) 25-50ML OF 50% DW IV FOR... UD PRN IV 06/04/17 23:45 07/04/17 23:44 Glucagon (Glucagon Inj) 1 mg UD PRN SQ 06/04/17 23:45 07/04/17 23:44 Allopurinol (Zyloprim Tab) 300 mg DAILY PO 06/05/17 09:00 07/05/17 08:59 06/05/17 08:18 300 MG Insulin Glargine (Lantus Solostar Pen) 15 units QAM SQ 06/05/17 09:00 07/05/17 08:59 06/05/17 08:25 15 UNITS Metoprolol Tartrate (Lopressor Tab) 12.5 mg BID PO 06/05/17 09:00 07/05/17 08:59 06/05/17 08:18 12.5 MG Multivitamins (Multivitamin Tab) 1 tab DAILY PO 06/05/17 09:00 07/05/17 08:59 06/05/17 08:19 1 TAB Oxycodone HCl (Roxicodone Immediate Rel Tab) 5 mg Q4H PRN PO 06/04/17 23:45 06/18/17 23:44 Pantoprazole Sodium (Protonix Tab) 40 mg DAILY PO 06/05/17 09:00 07/05/17 08:59 06/05/17 08:19 40 MG Tramadol HCl (Ultram Tab) Not relieved ... Q6H PRN PO 06/04/17 23:45 07/04/17 23:44 Hydromorphone HCl (Dilaudid Inj) 0.5 mg Q3H PRN IV 06/04/17 23:45 06/18/17 23:44 Ondansetron HCl (Zofran Inj) 4 mg Q6H PRN IV 06/04/17 23:45 07/04/17 23:44 Imipenem/ Cilastatin Sodium 200 mg/Dextrose 108 ml @ 108 mls/hr Q6H IV 06/05/17 08:00 06/15/17 07:59 06/05/17 09:05 108 MLS/HR Polyethylene (Miralax Powder Packet) 17 gm DAILY PO 06/06/17 09:00 07/06/17 08:59 Objective Vital Signs Date Time Temp Pulse Resp B/P (MAP) Pulse Ox O2 Delivery O2 Flow Rate FiO2 06/05/17 08:00 Room Air 06/05/17 07:29 37.1 108 18 107/72 (84) 96 Room Air 06/05/17 02:50 36.8 90 18 128/63 06/04/17 23:50 37.1 89 18 119/68 95 Room Air 06/04/17 23:22 93 06/04/17 22:39 94 17 116/64 92 Room Air 06/04/17 22:03 92 18 119/66 92 Room Air 06/04/17 20:44 88 19 119/66 93 Room Air 06/04/17 19:38 91 06/04/17 19:31 36.6 92 20 119/66 94 Room Air Physical Exam General Appearance: no apparent distress, + obese Cardiovascular: regular rate, rhythm, no edema, no murmur Extremities: normal inspection, no pedal edema Neurologic/Psychiatric: alert, + disoriented (mildly disoriented) Laboratory Results Last 24 Hours Test 06/04/17 20:05 06/04/17 20:13 06/04/17 20:21 06/04/17 23:41 Creatine Kinase MB Ratio 2.0 White Blood Count 8.95 K/uL Red Blood Count 3.06 M/uL Hemoglobin 9.1 g/dL Hematocrit 28.7 % Mean Corpuscular Volume 93.8 fL Mean Corpuscular Hemoglobin 29.7 pg Mean Corpuscular Hemoglobin Concent 31.7 g/dl Platelet Count 521 K/uL Mean Platelet Volume 8.4 fL Neutrophils (%) (Auto) 51.8 % Lymphocytes (%) (Auto) 33.3 % Monocytes (%) (Auto) 9.1 % Eosinophils (%) (Auto) 4.5 % Basophils (%) (Auto) 0.7 % Neutrophils # (Auto) 4.65 K/uL Lymphocytes # (Auto) 2.98 K/uL Monocytes # (Auto) 0.81 K/uL Eosinophils # (Auto) 0.40 K/uL Basophils # (Auto) 0.06 K/uL RDW Standard Deviation 46.4 fL RDW Coefficient of Variation 13.5 % Immature Granulocyte % (Auto) 0.6 % Immature Granulocyte # (Auto) 0.05 K/uL Sodium Level 134 mmol/L Potassium Level 4.5 mmol/L Chloride Level 99 mmol/L Carbon Dioxide Level 28 mmol/L Anion Gap 7.0 mmol/L Blood Urea Nitrogen 33 mg/dl Creatinine 1.80 mg/dl Est Creatinine Clear Calc Drug Dose 29.2 ml/min Estimated GFR () 31.4 Estimated GFR (Non- 27.1 BUN/Creatinine Ratio 18.2 Random Glucose 175 mg/dl Calcium Level 8.7 mg/dl Total Bilirubin 0.1 mg/dl Direct Bilirubin < 0.1 mg/dl Aspartate Amino Transf (AST/SGOT) 24 U/L Alanine Aminotransferase (ALT/SGPT) 21 U/L Alkaline Phosphatase 107 U/L Total Creatine Kinase 366 U/L Creatine Kinase MB 7.5 ng/ml Troponin I < 0.015 ng/ml Total Protein 5.9 gm/dl Albumin 2.1 gm/dl Lipase 162 U/L Bedside Lactic Acid Venous 1.12 mmol/L Prothrombin Time 22.7 SECONDS Prothromb Time International Ratio 2.1 Activated Partial Thromboplast Time 47.6 SECONDS Partial Thromboplastin Ratio 1.8 Test 06/05/17 02:21 06/05/17 07:22 06/05/17 07:44 Bedside Glucose 131 mg/dl 128 mg/dl White Blood Count 8.09 K/uL Red Blood Count 3.15 M/uL Hemoglobin 9.4 g/dL Hematocrit 29.4 % Mean Corpuscular Volume 93.3 fL Mean Corpuscular Hemoglobin 29.8 pg Mean Corpuscular Hemoglobin Concent 32.0 g/dl Platelet Count 489 K/uL Mean Platelet Volume 8.3 fL Neutrophils (%) (Auto) 58.4 % Lymphocytes (%) (Auto) 23.4 % Monocytes (%) (Auto) 11.9 % Eosinophils (%) (Auto) 5.1 % Basophils (%) (Auto) 0.5 % Neutrophils # (Auto) 4.73 K/uL Lymphocytes # (Auto) 1.89 K/uL Monocytes # (Auto) 0.96 K/uL Eosinophils # (Auto) 0.41 K/uL Basophils # (Auto) 0.04 K/uL RDW Standard Deviation 45.8 fL RDW Coefficient of Variation 13.5 % Immature Granulocyte % (Auto) 0.7 % Immature Granulocyte # (Auto) 0.06 K/uL Prothrombin Time 21.4 SECONDS Prothromb Time International Ratio 1.9 Sodium Level 134 mmol/L Potassium Level 4.0 mmol/L Chloride Level 100 mmol/L Carbon Dioxide Level 26 mmol/L Anion Gap 8.0 mmol/L Blood Urea Nitrogen 30 mg/dl Creatinine 1.60 mg/dl Est Creatinine Clear Calc Drug Dose 32.9 ml/min Estimated GFR () 36.2 Estimated GFR (Non- 31.2 BUN/Creatinine Ratio 18.6 Random Glucose 124 mg/dl Calcium Level 8.6 mg/dl Total Creatine Kinase 323 U/L Assessment and Plan This is a 77 year old obese female with a PMH of uncontrolled, insulin dependent DM2, diabetic nephropathy and CKD stage 3, 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 of lacunar infarct, [id number] disease, HTN, HLD presented last month with a fall, rhabdo, DKA, sepsis, and infectious of the R breast, L LE Cellulitis of Ulcerative Wounds of the R breast and Left LE started on Imipenem will consult ID as patient has grown multiple organisms in the past wound care consultation cultures pending Insulin Dependent DM2 patient presented last month with DKA will start Lantus and sliding scale and monitor BSGs CKD stage 3 creatinine is around 1.6 probably her new baseline much improved from previous admission Hx. of PE on Coumadin continue Coumadin with goal INR of 2-3 [id number] will need PT/OT DVT ppx Coumadin DNR
[2017-06-05] MEDS: OXYCODONE HCL IR 5 MG TAB (IMMEDIATE RELEASE) PO PRN (12:48)
[2017-06-05] MEDS: IMIPENEM/CILASTATIN IV 300 MG in DEXTROSE 5% 100ML 100 ML IV SCH ×2 (13:34→20:27)
[2017-06-05 14:56] VITALS: BP 137/73; PULSE 103; TEMP 36.8; O2SAT 94
[2017-06-05] MEDS: WARFARIN SOD 5 MG TAB PO SCH (15:48)
[2017-06-05] MEDS: ONDANSETRON INJ 2 MG/ML 2 ML VIAL IV PRN ×2 (16:40→17:30)
[2017-06-05] MEDS: BOOST GLUCOSE CONTROL PO SCH (17:36)
--- NOTE | 2017-06-05 19:45 | Medical Consult ---
Consultation Date of Consultation: Jun 05, 2017. Attending Physician: Wojciech Diallo DO Reason for Consultation: Imipenem use for worsening wound infection History of Present Illness 77-year-old female well known to the Infectious Disease service, recently hospitalized and treated for infection of leg ulcerations and chest wall infection with cultures at that time positive for Staph aureus and Enterococcus. Also with Klebsiella urinary tract infection. Apparently over the last week there has been worsening of her infection under her right breast and her leg ulcerations, and was brought to the hospital finally for further management. Has been started on IV imipenem, cultures from wounds now growing gram-negative bacilli. Has been afebrile and hemodynamically stable. Past Medical/Surgical History Medical Problems: (1) Skin ulcer of multiple sites Status: Acute Medical Problems: (1) Acute renal failure syndrome (2) Calculus in urethra (3) Lqwmvyl-Easrq-Jrskc disease (4) Chronic kidney disease stage 3 (5) Diabetes mellitus type 2 (6) Essential hypertension (7) Gout (8) Infected wound (9) Lacunar stroke (10) Obesity, morbid, BMI 40.0-49.9 (11) Pulmonary embolism Surgical Problems: (1) H/O hernia repair (2) History of appendectomy (3) History of cholecystectomy (4) History of hysterectomy Family History Patient reports no known family medical history. Social History Smoking Status: Never Smoker Drug Use: none Marital Status: Housing Status: lives with family Occupation Status: unemployed Allergies Coded Allergies: Penicillins (Verified Allergy, Unknown, rash that occurred ~ 4 hrs ago, no resp symptoms, 05/12/17) NSAIDs (Verified Adverse Reaction, Unknown, KIDNEY ISSUES, 05/09/17) Current Inpatient Medications Current Inpatient Medications Medications (Trade) Dose Ordered Sig/Solitario Route Start Time Stop Time Status Last Admin Dose Admin Imipenem/ Cilastatin Sodium (Consult) 1 ea UD PRN N/A 06/05/17 09:00 07/05/17 08:59 Acetaminophen (Tylenol Tab) 650 mg Q4H PRN PO 06/04/17 23:45 07/04/17 23:44 Insulin Aspart (novoLOG ASPART) SLIDING SCALE If C... ACHS SC 06/05/17 06:30 07/05/17 06:59 06/05/17 08:25 1 UNITS Glucose (Glucose 40% Gel) 15-30 GRAMS 15 GRAMS... UD PRN PO 06/04/17 23:45 07/04/17 23:44 Glucose (Glucose Chew Tab) 4-8 Tablets 4 Tabl... UD PRN PO 06/04/17 23:45 07/04/17 23:44 Dextrose (Dextrose 50% 50ML Syringe) 25-50ML OF 50% DW IV FOR... UD PRN IV 06/04/17 23:45 07/04/17 23:44 Glucagon (Glucagon Inj) 1 mg UD PRN SQ 06/04/17 23:45 07/04/17 23:44 Allopurinol (Zyloprim Tab) 300 mg DAILY PO 06/05/17 09:00 07/05/17 08:59 06/05/17 08:18 300 MG Insulin Glargine (Lantus Solostar Pen) 15 units QAM SQ 06/05/17 09:00 07/05/17 08:59 06/05/17 08:25 15 UNITS Metoprolol Tartrate (Lopressor Tab) 12.5 mg BID PO 06/05/17 09:00 07/05/17 08:59 06/05/17 08:18 12.5 MG Multivitamins (Multivitamin Tab) 1 tab DAILY PO 06/05/17 09:00 07/05/17 08:59 06/05/17 08:19 1 TAB Oxycodone HCl (Roxicodone Immediate Rel Tab) 5 mg Q4H PRN PO 06/04/17 23:45 06/18/17 23:44 06/05/17 12:48 5 MG Pantoprazole Sodium (Protonix Tab) 40 mg DAILY PO 06/05/17 09:00 07/05/17 08:59 06/05/17 08:19 40 MG Tramadol HCl (Ultram Tab) Not relieved ... Q6H PRN PO 06/04/17 23:45 07/04/17 23:44 Hydromorphone HCl (Dilaudid Inj) 0.5 mg Q3H PRN IV 06/04/17 23:45 06/18/17 23:44 Ondansetron HCl (Zofran Inj) 4 mg Q6H PRN IV 06/04/17 23:45 07/04/17 23:44 06/05/17 17:30 4 MG Polyethylene (Miralax Powder Packet) 17 gm DAILY PO 06/06/17 09:00 07/06/17 08:59 Tramadol HCl (Ultram Tab) 50 mg BID PO 06/05/17 21:00 07/05/17 20:59 Warfarin Sodium (Coumadin Tab) 5 mg DAILY@1600 PO 06/05/17 16:00 07/05/17 15:59 06/05/17 15:48 5 MG Zinc Sulfate (Zinc Sulfate Cap) 220 mg DAILY PO 06/06/17 09:00 07/06/17 08:59 Imipenem/ Cilastatin Sodium 300 mg/Dextrose 106 ml @ 106 mls/hr Q6H IV 06/05/17 14:00 06/15/17 07:59 06/05/17 13:34 106 MLS/HR Enteral Nutritional Formula (Boost Glucose Control) 1 can BIDM PO 06/05/17 17:00 07/05/17 16:59 06/05/17 17:36 1 CAN Review of Systems All systems were reviewed and are negative except as per HPI Physical Exam Date Time Temp Pulse Resp B/P (MAP) Pulse Ox O2 Delivery O2 Flow Rate FiO2 06/05/17 16:00 Room Air 06/05/17 14:56 36.8 103 18 137/73 (94) 94 Room Air 06/05/17 08:00 Room Air 06/05/17 07:29 37.1 108 18 107/72 (84) 96 Room Air 06/05/17 02:50 36.8 90 18 128/63 06/04/17 23:50 37.1 89 18 119/68 95 Room Air 06/04/17 23:22 93 06/04/17 22:39 94 17 116/64 92 Room Air 06/04/17 22:03 92 18 119/66 92 Room Air 06/04/17 20:44 88 19 119/66 93 Room Air General Appearance: WD/WN, no apparent distress, + obese Head: normocephalic, atraumatic Eyes: normal inspection, EOMI, sclerae normal ENT: normal ENT inspection, pharynx normal Neck: supple, no adenopathy, trachea midline Respiratory/Chest: chest non-tender, lungs clear, normal breath sounds, no respiratory distress Cardiovascular: regular rate, rhythm, no gallop, no murmur Abdomen/GI: normal bowel sounds, non tender, soft, no organomegaly Back: normal inspection, no CVA tenderness Extremities/Musculoskelatal: no calf tenderness, + pertinent finding ( multiple leg ulcerations) Neurologic/Psych: alert, + disoriented Skin: normal color, + pertinent finding ( multiple leg ulcerations with some necrosis and yellowish drainage, foul-smelling) Lymphatic: no adenopathy Laboratory Results Date/Time Source Procedure Growth Status 06/04/17 20:20 Blood Blood Culture Pending Received 06/04/17 20:13 Blood Blood Culture Pending Received 06/05/17 04:30 Nasal MRSA DNA Surveillance Screen - Final Specimen Negative for MRSA by DNA Probe Complete 06/04/17 21:40 Ulcer Leg Right Lower Gram Stain - Final Resulted 06/04/17 21:40 Wound Culture - Preliminary Gram Negative Bacilli Resulted 06/04/17 21:40 Ulcer Knee Left Gram Stain - Final Resulted 06/04/17 21:40 Wound Culture - Preliminary Gram Negative Bacilli Resulted 06/04/17 21:40 Ulcer Breast, Right Gram Stain - Final Resulted 06/04/17 21:40 Wound Culture - Preliminary Gram Negative Bacilli Resulted Last 24 Hours Test 06/04/17 20:05 06/04/17 20:13 06/04/17 20:21 06/04/17 23:41 Creatine Kinase MB Ratio 2.0 White Blood Count 8.95 K/uL Red Blood Count 3.06 M/uL Hemoglobin 9.1 g/dL Hematocrit 28.7 % Mean Corpuscular Volume 93.8 fL Mean Corpuscular Hemoglobin 29.7 pg Mean Corpuscular Hemoglobin Concent 31.7 g/dl Platelet Count 521 K/uL Mean Platelet Volume 8.4 fL Neutrophils (%) (Auto) 51.8 % Lymphocytes (%) (Auto) 33.3 % Monocytes (%) (Auto) 9.1 % Eosinophils (%) (Auto) 4.5 % Basophils (%) (Auto) 0.7 % Neutrophils # (Auto) 4.65 K/uL Lymphocytes # (Auto) 2.98 K/uL Monocytes # (Auto) 0.81 K/uL Eosinophils # (Auto) 0.40 K/uL Basophils # (Auto) 0.06 K/uL RDW Standard Deviation 46.4 fL RDW Coefficient of Variation 13.5 % Immature Granulocyte % (Auto) 0.6 % Immature Granulocyte # (Auto) 0.05 K/uL Sodium Level 134 mmol/L Potassium Level 4.5 mmol/L Chloride Level 99 mmol/L Carbon Dioxide Level 28 mmol/L Anion Gap 7.0 mmol/L Blood Urea Nitrogen 33 mg/dl Creatinine 1.80 mg/dl Est Creatinine Clear Calc Drug Dose 29.2 ml/min Estimated GFR () 31.4 Estimated GFR (Non- 27.1 BUN/Creatinine Ratio 18.2 Random Glucose 175 mg/dl Calcium Level 8.7 mg/dl Total Bilirubin 0.1 mg/dl Direct Bilirubin < 0.1 mg/dl Aspartate Amino Transf (AST/SGOT) 24 U/L Alanine Aminotransferase (ALT/SGPT) 21 U/L Alkaline Phosphatase 107 U/L Total Creatine Kinase 366 U/L Creatine Kinase MB 7.5 ng/ml Troponin I < 0.015 ng/ml Total Protein 5.9 gm/dl Albumin 2.1 gm/dl Lipase 162 U/L Bedside Lactic Acid Venous 1.12 mmol/L Prothrombin Time 22.7 SECONDS Prothromb Time International Ratio 2.1 Activated Partial Thromboplast Time 47.6 SECONDS Partial Thromboplastin Ratio 1.8 Test 06/05/17 02:21 06/05/17 07:22 06/05/17 07:44 06/05/17 11:13 Bedside Glucose 131 mg/dl 128 mg/dl 145 mg/dl White Blood Count 8.09 K/uL Red Blood Count 3.15 M/uL Hemoglobin 9.4 g/dL Hematocrit 29.4 % Mean Corpuscular Volume 93.3 fL Mean Corpuscular Hemoglobin 29.8 pg Mean Corpuscular Hemoglobin Concent 32.0 g/dl Platelet Count 489 K/uL Mean Platelet Volume 8.3 fL Neutrophils (%) (Auto) 58.4 % Lymphocytes (%) (Auto) 23.4 % Monocytes (%) (Auto) 11.9 % Eosinophils (%) (Auto) 5.1 % Basophils (%) (Auto) 0.5 % Neutrophils # (Auto) 4.73 K/uL Lymphocytes # (Auto) 1.89 K/uL Monocytes # (Auto) 0.96 K/uL Eosinophils # (Auto) 0.41 K/uL Basophils # (Auto) 0.04 K/uL RDW Standard Deviation 45.8 fL RDW Coefficient of Variation 13.5 % Immature Granulocyte % (Auto) 0.7 % Immature Granulocyte # (Auto) 0.06 K/uL Prothrombin Time 21.4 SECONDS Prothromb Time International Ratio 1.9 Sodium Level 134 mmol/L Potassium Level 4.0 mmol/L Chloride Level 100 mmol/L Carbon Dioxide Level 26 mmol/L Anion Gap 8.0 mmol/L Blood Urea Nitrogen 30 mg/dl Creatinine 1.60 mg/dl Est Creatinine Clear Calc Drug Dose 32.9 ml/min Estimated GFR () 36.2 Estimated GFR (Non- 31.2 BUN/Creatinine Ratio 18.6 Random Glucose 124 mg/dl Calcium Level 8.6 mg/dl Total Creatine Kinase 323 U/L Test 06/05/17 16:35 Bedside Glucose 145 mg/dl Assessment & Plan 77 yo female with gram negative skin/skin structure infection. with worry about resistant pathogen given recent Abx and hospital stay. Patient will be treated with imipenem pending final identification and sensitivities. Will follow.
[2017-06-05] MEDS: TRAMADOL HCL 50 MG TAB PO SCH (21:47)
[2017-06-05 21:50] VITALS: BP 118/75; PULSE 108
[2017-06-06] VITALS: BP 115/68; PULSE 100; TEMP 37.1; O2SAT 91
[2017-06-06 02:00] VITALS: BP 149/85; PULSE 100; TEMP 36.7; O2SAT 94
[2017-06-06] MEDS: OXYCODONE HCL IR 5 MG TAB (IMMEDIATE RELEASE) PO PRN ×2 (02:08→16:17)
[2017-06-06] MEDS: IMIPENEM/CILASTATIN IV 300 MG in DEXTROSE 5% 100ML 100 ML IV SCH ×4 (02:09→19:44)
[2017-06-06] MEDS: ONDANSETRON INJ 2 MG/ML 2 ML VIAL IV PRN (04:48)
[2017-06-06] MEDS ORDERED: NURSING VERBAL MED ORDER ONE (07:30)
[2017-06-06] MEDS ORDERED: ALUMINUM/MAGNESIUM SUSP 30 ML UDC PO PRN (08:00)
[2017-06-06 08:07] VITALS: BP 122/73; PULSE 110; TEMP 37; O2SAT 96
[2017-06-06 08:16] LABS: BASO % 0.4 %; BASO ABS # 0.05 K/uL (0-0.2); COMPLETE YES; EOS % 0.8 %; HEMATOCRIT 29.4 % (37-47); LYMPH % 12.4 %; LYMPH ABS # 1.68 K/uL (1.2-3.4); MEAN CELL VOLUME 92.5 fL (80-100); MEAN CORPUSCULAR HEMOGLOBIN 29.9 pg (25-34); MEAN CORPUSCULAR HGB CONC 32.3 g/dl (32-36); MEAN PLATELET VOLUME 8.4 fL (7.4-10.4); MONO % 8.1 %; NEUT % 77.3 %; PLATELET COUNT 473 K/uL (130-400); RED BLOOD COUNT 3.18 M/uL (4.2-5.4); WHITE BLOOD COUNT 13.59 K/uL (4.8-10.8)
[2017-06-06 08:27] LABS: INR 2.7 (0.9-1.1); PROTHROMBIN TIME (PATIENT) 30.1 SECONDS (9.0-12.0)
[2017-06-06] MEDS: ALLOPURINOL 300 MG TAB PO SCH (08:30)
[2017-06-06] MEDS: METOPROLOL TARTRATE 25 MG TAB PO SCH ×2 (08:30→21:43)
[2017-06-06] MEDS: POLYETHYLENE (MIRALAX) 17 GM PACK PO SCH (08:30)
[2017-06-06] MEDS: MULTIVITAMIN TAB PO SCH (08:30)
[2017-06-06] MEDS: ZINC SULFATE 220 MG CAP PO SCH (08:30)
[2017-06-06] MEDS: PANTOprazole SOD 40 MG TAB PO SCH (08:30)
[2017-06-06] MEDS: BOOST GLUCOSE CONTROL PO SCH ×2 (08:31→17:00)
[2017-06-06] MEDS: TRAMADOL HCL 50 MG TAB PO SCH ×2 (08:32→21:44)
[2017-06-06] MEDS: INSULIN ASPART 100 UNITS/ML 3 ML PEN SC SCH ×4 (08:35→21:44)
[2017-06-06] MEDS: INSULIN GLARGINE SOLOSTAR 100 UNITS/ML 3 ML PEN SQ SCH (08:35)
[2017-06-06 08:49] LABS: BUN/CREATININE RATIO 15.3 (10-20); CREATININE 1.5 mg/dl (0.60-1.20)
[2017-06-06 08:50] LABS: CALCIUM 8.9 mg/dl (8.5-10.1)
--- NOTE | 2017-06-06 14:27 | Orthopedic Consultation ---
Orthopedic Consultation Date of Consultation: Jun 06, 2017. Attending Physician: Wojciech Diallo DO Reason for Consultation: Right LE fluid collection History of Present Illness 77 yo Female with history of multiple ulcers on lower extremities and chest admitted secondary to worsening symptoms. She has an extensive history involving a recent admission on 05/09/17 after being found down for 4 days with sepsis, DKA and kidney failure. She had developed blisters at that time which subsequently ruptured. She has been seeing wound care for her multiple extremity and body ulcers and treated with debridement and antibiotics. Upon the most current admission a CT was performed of the right LE which demonstrated a superficial fluid collection. Past Medical/Surgical History Medical Problems: (1) Skin ulcer of multiple sites Status: Acute Family History Patient reports no known family medical history. Social History Smoking Status: Never Smoker Drug Use: none Marital Status: Housing Status: lives with family Occupation Status: unemployed Allergies Coded Allergies: Penicillins (Verified Allergy, Unknown, rash that occurred ~ 4 hrs ago, no resp symptoms, 05/12/17) NSAIDs (Verified Adverse Reaction, Unknown, KIDNEY ISSUES, 05/09/17) Home Medications Scheduled Acetaminophen (Tylenol), 1,000 MG PO BID Allopurinol (Zyloprim), 300 MG PO DAILY Ascorbic Acid (Vitamin C), 500 MG PO DAILY Calcium W/ Vitamin D (Calcium/Vitamin D), 1 TAB PO DAILY Insulin Glargine (Lantus Solostar), 5 UNITS SQ HS Insulin Glargine (Lantus Solostar), 16 UNITS SQ QAM Melatonin (Melatonin Maximum Strengt), 5 MG PO HS Metoprolol Tartrate (Lopressor) (Lopressor), 12.5 MG PO BID Multivitamin (Multivitamin), 1 TAB PO DAILY Pantoprazole (Protonix), 40 MG PO DAILY Tramadol (Ultram), 50 MG PO BID Warfarin Sodium (Coumadin), 5 MG PO DAILY Zinc Sulfate (Zinc Sulfate), 220 MG PO DIRECTED Scheduled PRN Oxycodone Ir (Roxicodone Ir), 5 MG PO Q4H PRN for Severe Pain Current Inpatient Medications Current Inpatient Medications Medications (Trade) Dose Ordered Sig/Solitario Route Start Time Stop Time Status Last Admin Dose Admin Imipenem/ Cilastatin Sodium (Consult) 1 ea UD PRN N/A 06/05/17 09:00 07/05/17 08:59 Acetaminophen (Tylenol Tab) 650 mg Q4H PRN PO 06/04/17 23:45 07/04/17 23:44 Insulin Aspart (novoLOG ASPART) SLIDING SCALE If C... ACHS SC 06/05/17 06:30 07/05/17 06:59 06/06/17 11:58 3 UNITS Glucose (Glucose 40% Gel) 15-30 GRAMS 15 GRAMS... UD PRN PO 06/04/17 23:45 07/04/17 23:44 Glucose (Glucose Chew Tab) 4-8 Tablets 4 Tabl... UD PRN PO 06/04/17 23:45 07/04/17 23:44 Dextrose (Dextrose 50% 50ML Syringe) 25-50ML OF 50% DW IV FOR... UD PRN IV 06/04/17 23:45 07/04/17 23:44 Glucagon (Glucagon Inj) 1 mg UD PRN SQ 06/04/17 23:45 07/04/17 23:44 Allopurinol (Zyloprim Tab) 300 mg DAILY PO 06/05/17 09:00 07/05/17 08:59 06/06/17 08:30 300 MG Insulin Glargine (Lantus Solostar Pen) 15 units QAM SQ 06/05/17 09:00 07/05/17 08:59 06/06/17 08:35 15 UNITS Metoprolol Tartrate (Lopressor Tab) 12.5 mg BID PO 06/05/17 09:00 07/05/17 08:59 06/06/17 08:30 12.5 MG Multivitamins (Multivitamin Tab) 1 tab DAILY PO 06/05/17 09:00 07/05/17 08:59 06/06/17 08:30 1 TAB Oxycodone HCl (Roxicodone Immediate Rel Tab) 5 mg Q4H PRN PO 06/04/17 23:45 06/18/17 23:44 06/06/17 02:08 5 MG Pantoprazole Sodium (Protonix Tab) 40 mg DAILY PO 06/05/17 09:00 07/05/17 08:59 06/06/17 08:30 40 MG Tramadol HCl (Ultram Tab) Not relieved ... Q6H PRN PO 06/04/17 23:45 07/04/17 23:44 Hydromorphone HCl (Dilaudid Inj) 0.5 mg Q3H PRN IV 06/04/17 23:45 06/18/17 23:44 Ondansetron HCl (Zofran Inj) 4 mg Q6H PRN IV 06/04/17 23:45 07/04/17 23:44 06/06/17 04:48 4 MG Polyethylene (Miralax Powder Packet) 17 gm DAILY PO 06/06/17 09:00 07/06/17 08:59 06/06/17 08:30 17 GM Tramadol HCl (Ultram Tab) 50 mg BID PO 06/05/17 21:00 07/05/17 20:59 06/06/17 08:32 50 MG Warfarin Sodium (Coumadin Tab) 5 mg DAILY@1600 PO 06/05/17 16:00 07/05/17 15:59 06/05/17 15:48 5 MG Zinc Sulfate (Zinc Sulfate Cap) 220 mg DAILY PO 06/06/17 09:00 07/06/17 08:59 06/06/17 08:30 220 MG Imipenem/ Cilastatin Sodium 300 mg/Dextrose 106 ml @ 106 mls/hr Q6H IV 06/05/17 14:00 06/15/17 07:59 06/06/17 13:48 106 MLS/HR Enteral Nutritional Formula (Boost Glucose Control) 1 can BIDM PO 06/05/17 17:00 07/05/17 16:59 06/06/17 08:31 1 CAN Al Hydroxide/Mg Hydroxide (Maalox Susp) 30 ml Q6H PRN PO 06/06/17 08:00 07/06/17 07:59 06/06/17 08:29 30 ML Review of Systems Constitutional: No fever, No chills, No sweats, No weight loss, No weakness, No fatigue, No problem reported Eyes: No worsening of vision, No eye pain, No redness, No discharge, No diplopia, No problem reported ENT: No hearing loss, No unusual epistaxis, No nasal symptoms, No sore throat, No tinnitus, No dental problems, No trouble swallowing, No problem reported Respiratory: No cough, No sputum, No wheezing, No shortness of breath, No dyspnea on exertion, No dyspnea at rest, No hemoptysis, No problem reported Cardiovascular: No chest pain, No orthopnea, No PND, No edema, No claudication , No palpitations, No problem reported Abdomen: No pain, No nausea, No vomiting, No diarrhea, No constipation, No GI bleeding, No problem reported Musculoskeletal: + swelling, No joint pain, No muscle pain, No calf pain, No problem reported Genitourinary - Female: No dysuria, No urinary frequency, No urinary urgency, No urinary incontinence, No urinary retention, No hematuria, No dysmenorrhea, No menorrhagia, No metrorrhagia, No rash, No vaginal bleeding, No vaginal discharge, No vaginal itching, No vulvodynia, No , No problem reported Neurologic: + paralysis, + weakness, + numbness/tingling Psychiatric: No depression symptoms, No anhedonism, No anxiety, No insomnia, No substance abuse, No problem reported Endocrine: No fatigue, No excessive thirst, No excessive urination, No problem reported Integumentary: + new/changing skin lesions Allergic / Immunologic: No environmental allergies, No seasonal allergies, No pet sensitivities, No food allergies, No hives, No frequent infections, No poor healing, No prolonged convalescence, No problem reported Physical Exam Date Time Temp Pulse Resp B/P (MAP) Pulse Ox O2 Delivery O2 Flow Rate FiO2 06/06/17 08:07 37.0 110 18 122/73 (89) 96 Room Air 06/06/17 08:00 Room Air 06/06/17 02:00 36.7 100 18 149/85 (106) 94 Room Air 06/06/17 00:55 Room Air 06/06/17 00:00 37.1 100 20 115/68 (84) 91 Room Air 06/05/17 21:50 108 118/75 (89) 06/05/17 16:00 Room Air 06/05/17 14:56 36.8 103 18 137/73 (94) 94 Room Air NAD, Bilateral LE: -EHL/FHL/TA/GS, decreased sensation bilateral LE L>R, +2 DP pulse , no knee effusion or erythema, fluctuance, streaking or bruising Bilateral cavus feet +bilateral foot drop Multiple malodorous LE ulcers with moderate sloth Laboratory Results Last 24 Hours Test 06/05/17 16:35 06/05/17 20:09 06/06/17 07:49 06/06/17 08:04 Bedside Glucose 145 mg/dl 130 mg/dl 121 mg/dl White Blood Count 13.59 K/uL Red Blood Count 3.18 M/uL Hemoglobin 9.5 g/dL Hematocrit 29.4 % Mean Corpuscular Volume 92.5 fL Mean Corpuscular Hemoglobin 29.9 pg Mean Corpuscular Hemoglobin Concent 32.3 g/dl Platelet Count 473 K/uL Mean Platelet Volume 8.4 fL Neutrophils (%) (Auto) 77.3 % Lymphocytes (%) (Auto) 12.4 % Monocytes (%) (Auto) 8.1 % Eosinophils (%) (Auto) 0.8 % Basophils (%) (Auto) 0.4 % Neutrophils # (Auto) 10.51 K/uL Lymphocytes # (Auto) 1.68 K/uL Monocytes # (Auto) 1.10 K/uL Eosinophils # (Auto) 0.11 K/uL Basophils # (Auto) 0.05 K/uL RDW Standard Deviation 45.4 fL RDW Coefficient of Variation 13.5 % Immature Granulocyte % (Auto) 1.0 % Immature Granulocyte # (Auto) 0.14 K/uL Prothrombin Time 30.1 SECONDS Prothromb Time International Ratio 2.7 Sodium Level 131 mmol/L Potassium Level 4.0 mmol/L Chloride Level 97 mmol/L Carbon Dioxide Level 27 mmol/L Anion Gap 7.0 mmol/L Blood Urea Nitrogen 23 mg/dl Creatinine 1.50 mg/dl Est Creatinine Clear Calc Drug Dose 35.2 ml/min Estimated GFR () 39.1 Estimated GFR (Non- 33.7 BUN/Creatinine Ratio 15.3 Random Glucose 108 mg/dl Calcium Level 8.9 mg/dl Test 06/06/17 11:40 06/06/17 14:01 Bedside Glucose 169 mg/dl Assessment & Plan 77 yo Female with Multiple ulcers of the lower extremities and torso and superficial fluid collection lateral aspect of the left knee, does not communicate deep or involve the joint. -Rec ID and abx for poly microbial infection, ulcers positive for Pseudomonas Aeruginosa, Strep, Corynebacterium. -Blood cultures negative - pending -Fluid collection left knee likely residual subcutaneous edema/fat necrosis secondary to history of 4 days of being found down. If concerned about infection, I would recommend IR aspiration, culture and drain placement. -I will order AFO braces for bilateral foot drop, I recommend evaluation by neurology due to the acute nature of the complaint and history of CMT. -Will need extensive wound care and would consult wound care team for management of multiple ulcerations to lower extremities and torso. -WBAT bilateral LE however I would hold off and ambulating/physical therapy till AFO braces obtained. Thank you for the consultation. Results CT Left Knee 1. Degenerative changes involving the knee. 2. Cutaneous and subcutaneous edema, consistent with a cellulitis 3. There are no bony destructive changes to indicate osteomyelitis 4. Fluid collection abutting the lateral aspect of the deep fascia in the measuring 90 x 11 x 105 mm. It is not possible to determine whether this is infected..
[2017-06-06 15:24] VITALS: BP 109/69; PULSE 102; TEMP 37.1; O2SAT 91
[2017-06-06] MEDS: WARFARIN SOD 5 MG TAB PO SCH (16:17)
--- NOTE | 2017-06-06 17:31 | Progress Note ---
Subjective Date of Service: Jun 06, 2017. Subjective Pt evaluation today including: conversation w/ patient, physical exam, lab review, review of studies, review of inpatient medication list Saw/examined the patient in room 253 +Pain at the LLE wound No chest pain/shortness of breath No fevers Problem List Medical Problems: (1) Skin ulcer of multiple sites Status: Acute Review of Systems Constitutional: + weakness, No fever, No chills Respiratory: No shortness of breath Cardiac: No chest pain Abdomen: No nausea, No vomiting, No diarrhea Musculoskeletal: + see HPI, + joint pain, + muscle pain Neurologic: + weakness (muscle weakness) Medications Current Inpatient Medications Medications (Trade) Dose Ordered Sig/Solitario Route Start Time Stop Time Status Last Admin Dose Admin Imipenem/ Cilastatin Sodium (Consult) 1 ea UD PRN N/A 06/05/17 09:00 07/05/17 08:59 Acetaminophen (Tylenol Tab) 650 mg Q4H PRN PO 06/04/17 23:45 07/04/17 23:44 Insulin Aspart (novoLOG ASPART) SLIDING SCALE If C... ACHS SC 06/05/17 06:30 07/05/17 06:59 06/06/17 11:58 3 UNITS Glucose (Glucose 40% Gel) 15-30 GRAMS 15 GRAMS... UD PRN PO 06/04/17 23:45 07/04/17 23:44 Glucose (Glucose Chew Tab) 4-8 Tablets 4 Tabl... UD PRN PO 06/04/17 23:45 07/04/17 23:44 Dextrose (Dextrose 50% 50ML Syringe) 25-50ML OF 50% DW IV FOR... UD PRN IV 06/04/17 23:45 07/04/17 23:44 Glucagon (Glucagon Inj) 1 mg UD PRN SQ 06/04/17 23:45 07/04/17 23:44 Allopurinol (Zyloprim Tab) 300 mg DAILY PO 06/05/17 09:00 07/05/17 08:59 06/06/17 08:30 300 MG Insulin Glargine (Lantus Solostar Pen) 15 units QAM SQ 06/05/17 09:00 07/05/17 08:59 06/06/17 08:35 15 UNITS Metoprolol Tartrate (Lopressor Tab) 12.5 mg BID PO 06/05/17 09:00 07/05/17 08:59 06/06/17 08:30 12.5 MG Multivitamins (Multivitamin Tab) 1 tab DAILY PO 06/05/17 09:00 07/05/17 08:59 06/06/17 08:30 1 TAB Oxycodone HCl (Roxicodone Immediate Rel Tab) 5 mg Q4H PRN PO 06/04/17 23:45 06/18/17 23:44 06/06/17 16:17 5 MG Pantoprazole Sodium (Protonix Tab) 40 mg DAILY PO 06/05/17 09:00 07/05/17 08:59 06/06/17 08:30 40 MG Tramadol HCl (Ultram Tab) Not relieved ... Q6H PRN PO 06/04/17 23:45 07/04/17 23:44 Hydromorphone HCl (Dilaudid Inj) 0.5 mg Q3H PRN IV 06/04/17 23:45 06/18/17 23:44 Ondansetron HCl (Zofran Inj) 4 mg Q6H PRN IV 06/04/17 23:45 07/04/17 23:44 06/06/17 04:48 4 MG Polyethylene (Miralax Powder Packet) 17 gm DAILY PO 06/06/17 09:00 07/06/17 08:59 06/06/17 08:30 17 GM Tramadol HCl (Ultram Tab) 50 mg BID PO 06/05/17 21:00 07/05/17 20:59 06/06/17 08:32 50 MG Warfarin Sodium (Coumadin Tab) 5 mg DAILY@1600 PO 06/05/17 16:00 07/05/17 15:59 06/06/17 16:17 5 MG Zinc Sulfate (Zinc Sulfate Cap) 220 mg DAILY PO 06/06/17 09:00 07/06/17 08:59 06/06/17 08:30 220 MG Imipenem/ Cilastatin Sodium 300 mg/Dextrose 106 ml @ 106 mls/hr Q6H IV 06/05/17 14:00 06/15/17 07:59 06/06/17 13:48 106 MLS/HR Enteral Nutritional Formula (Boost Glucose Control) 1 can BIDM PO 06/05/17 17:00 07/05/17 16:59 06/06/17 08:31 1 CAN Al Hydroxide/Mg Hydroxide (Maalox Susp) 30 ml Q6H PRN PO 06/06/17 08:00 07/06/17 07:59 06/06/17 08:29 30 ML Objective Vital Signs Date Time Temp Pulse Resp B/P (MAP) Pulse Ox O2 Delivery O2 Flow Rate FiO2 06/06/17 15:24 37.1 102 18 109/69 (82) 91 Room Air 06/06/17 08:07 37.0 110 18 122/73 (89) 96 Room Air 06/06/17 08:00 Room Air 06/06/17 02:00 36.7 100 18 149/85 (106) 94 Room Air 06/06/17 00:55 Room Air 06/06/17 00:00 37.1 100 20 115/68 (84) 91 Room Air 06/05/17 21:50 108 118/75 (89) Physical Exam General Appearance: no apparent distress, + obese, + pertinent finding (motor weakness b/l LE) Respiratory/Chest: lungs clear, normal breath sounds, no respiratory distress, no accessory muscle use Cardiovascular: regular rate, rhythm, no edema, no murmur Extremities: + pertinent finding (traumatic wound of the LLE, R eschar noted at the breast) Neurologic/Psychiatric: + motor weakness Laboratory Results Last 24 Hours Test 06/05/17 20:09 06/06/17 07:49 06/06/17 08:04 06/06/17 11:40 Bedside Glucose 130 mg/dl 121 mg/dl 169 mg/dl White Blood Count 13.59 K/uL Red Blood Count 3.18 M/uL Hemoglobin 9.5 g/dL Hematocrit 29.4 % Mean Corpuscular Volume 92.5 fL Mean Corpuscular Hemoglobin 29.9 pg Mean Corpuscular Hemoglobin Concent 32.3 g/dl Platelet Count 473 K/uL Mean Platelet Volume 8.4 fL Neutrophils (%) (Auto) 77.3 % Lymphocytes (%) (Auto) 12.4 % Monocytes (%) (Auto) 8.1 % Eosinophils (%) (Auto) 0.8 % Basophils (%) (Auto) 0.4 % Neutrophils # (Auto) 10.51 K/uL Lymphocytes # (Auto) 1.68 K/uL Monocytes # (Auto) 1.10 K/uL Eosinophils # (Auto) 0.11 K/uL Basophils # (Auto) 0.05 K/uL RDW Standard Deviation 45.4 fL RDW Coefficient of Variation 13.5 % Immature Granulocyte % (Auto) 1.0 % Immature Granulocyte # (Auto) 0.14 K/uL Prothrombin Time 30.1 SECONDS Prothromb Time International Ratio 2.7 Sodium Level 131 mmol/L Potassium Level 4.0 mmol/L Chloride Level 97 mmol/L Carbon Dioxide Level 27 mmol/L Anion Gap 7.0 mmol/L Blood Urea Nitrogen 23 mg/dl Creatinine 1.50 mg/dl Est Creatinine Clear Calc Drug Dose 35.2 ml/min Estimated GFR () 39.1 Estimated GFR (Non- 33.7 BUN/Creatinine Ratio 15.3 Random Glucose 108 mg/dl Calcium Level 8.9 mg/dl Test 06/06/17 14:18 06/06/17 16:21 Erythrocyte Sedimentation Rate 44 mm/hr C-Reactive Protein 14.60 mg/dl Bedside Glucose 153 mg/dl Assessment and Plan This is a 77 year old obese female with a PMH of uncontrolled, insulin dependent DM2, diabetic nephropathy and CKD stage 3, 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 of lacunar infarct, [id number] disease, HTN, HLD presented last month with a fall, rhabdo, DKA, sepsis, and infectious of the R breast, L LE Cellulitis of Ulcerative Wounds 06/06 appreciate ortho input continue Imipenem - multiple organisms grown on culture, Pseudomonas, strep, Corynebacterium appreciate ID input wound care consult pending ortho - recommended no drainage neuro consulted due to worsening weakness - b/l foot drop - chronic due to CMT vs. acute? 06/05 of the R breast and Left LE started on Imipenem will consult ID as patient has grown multiple organisms in the past wound care consultation cultures pending Insulin Dependent DM2 patient presented last month with DKA will start Lantus and sliding scale and monitor BSGs CKD stage 3 creatinine is around 1.6 probably her new baseline much improved from previous admission Hx. of PE on Coumadin continue Coumadin with goal INR of 2-3 [id number] will need PT/OT DVT ppx Coumadin DNR
[2017-06-06 21:41] VITALS: BP 127/74; PULSE 103
[2017-06-07] VITALS: BP 107/60; PULSE 108; TEMP 36.8; O2SAT 93
[2017-06-07] MEDS: IMIPENEM/CILASTATIN IV 300 MG in DEXTROSE 5% 100ML 100 ML IV SCH ×4 (02:15→20:18)
[2017-06-07 07:30] LABS: BASO % 0.4 %; BASO ABS # 0.05 K/uL (0-0.2); EOS % 1.7 %; HEMATOCRIT 27.9 % (37-47); IG% 0.8 %; LYMPH % 15.6 %; LYMPH ABS # 2.22 K/uL (1.2-3.4); MEAN CORPUSCULAR HEMOGLOBIN 29.3 pg (25-34); MEAN CORPUSCULAR HGB CONC 31.5 g/dl (32-36); MEAN PLATELET VOLUME 8.3 fL (7.4-10.4); MONO % 8.1 %; NEUT % 73.4 %; PLATELET COUNT 450 K/uL (130-400); WHITE BLOOD COUNT 14.26 K/uL (4.8-10.8)
[2017-06-07 07:31] VITALS: BP 114/55; PULSE 96; TEMP 36.8; O2SAT 90
[2017-06-07 07:38] LABS: INR 2.9 (0.9-1.1); PROTHROMBIN TIME (PATIENT) 32.7 SECONDS (9.0-12.0)
[2017-06-07 07:54] LABS: BUN/CREATININE RATIO 15.1 (10-20); CALCIUM 8.6 mg/dl (8.5-10.1); CREATININE 1.4 mg/dl (0.60-1.20); MAGNESIUM 1.3 mg/dl (1.8-2.4); POTASSIUM 4.2 mmol/L (3.5-5.1)
[2017-06-07 08:02] LABS: COMPLETE YES
[2017-06-07] MEDS: ALLOPURINOL 300 MG TAB PO SCH (08:23)
[2017-06-07] MEDS: BOOST GLUCOSE CONTROL PO SCH ×2 (08:24→17:18)
[2017-06-07] MEDS: ZINC SULFATE 220 MG CAP PO SCH (08:24)
[2017-06-07] MEDS: TRAMADOL HCL 50 MG TAB PO SCH ×2 (08:24→20:32)
[2017-06-07] MEDS: PANTOprazole SOD 40 MG TAB PO SCH (08:24)
[2017-06-07] MEDS: METOPROLOL TARTRATE 25 MG TAB PO SCH ×2 (08:24→20:31)
[2017-06-07] MEDS: MULTIVITAMIN TAB PO SCH (08:24)
[2017-06-07] MEDS: INSULIN ASPART 100 UNITS/ML 3 ML PEN SC SCH ×4 (08:25→20:35)
[2017-06-07] MEDS: POLYETHYLENE (MIRALAX) 17 GM PACK PO SCH (08:25)
[2017-06-07] MEDS: INSULIN GLARGINE SOLOSTAR 100 UNITS/ML 3 ML PEN SQ SCH (08:26)
--- NOTE | 2017-06-07 08:48 | Orthopedic Progress Note ---
Orthopedic Progress Note Date of Service Jun 07, 2017. Subjective Reports: feeling well, pain controlled w PO medications, Denies: complaints, SOB , nausea / vomiting, light headedness, calf pain Additional Notes: Patient seen at bedside accompanied with her daughter. The patient is comfortable and doing well today, no acute issues overnight. Per her daughter, the patient has always had decreased strength and sensation in her B/L LE L > R however she was able to ambulate better prior to her previous hospital admission and has since decompensated and unable to ambulate independently. Objective calves soft nontender, dressing C/D/I, A&O x3, toes mobile Multiple rt LE, rt knee, and torso sores with dressings per wound team ROM, strength knee deferred, no erythema, no active drainage through dressings. Decreased motor strength TA/GS bilateral, decreased sensation B/L LE L>R Compartments soft NT +2 DP pulse Date Time Temp Pulse Resp B/P (MAP) Pulse Ox O2 Delivery O2 Flow Rate FiO2 06/07/17 07:31 36.8 96 18 114/55 (74) 90 Room Air 06/07/17 01:30 Room Air 06/07/17 00:00 36.8 108 20 107/60 (76) 93 Room Air 06/06/17 21:41 103 127/74 (91) 06/06/17 16:00 Room Air 06/06/17 15:24 37.1 102 18 109/69 (82) 91 Room Air Laboratory Results 24 Hours: Test 06/07/17 07:06 White Blood Count 14.26 K/uL Red Blood Count 3.00 M/uL Hemoglobin 8.8 g/dL Hematocrit 27.9 % Mean Corpuscular Volume 93.0 fL Mean Corpuscular Hemoglobin 29.3 pg Mean Corpuscular Hemoglobin Concent 31.5 g/dl Platelet Count 450 K/uL Mean Platelet Volume 8.3 fL Neutrophils (%) (Auto) 73.4 % Lymphocytes (%) (Auto) 15.6 % Monocytes (%) (Auto) 8.1 % Eosinophils (%) (Auto) 1.7 % Basophils (%) (Auto) 0.4 % Neutrophils # (Auto) 10.48 K/uL Lymphocytes # (Auto) 2.22 K/uL Monocytes # (Auto) 1.16 K/uL Eosinophils # (Auto) 0.24 K/uL Basophils # (Auto) 0.05 K/uL Prothromb Time International Ratio 2.9 Prothrombin Time 32.7 SECONDS Assessment & Plan Assessment: 77 yo Female with Multiple ulcers of the lower extremities and torso and superficial fluid collection lateral aspect of the left knee, does not communicate deep or involve the joint. -Rec ID and abx for poly microbial infection, ulcers positive for Pseudomonas Aeruginosa, Strep, Corynebacterium. -Blood cultures negative to date -Fluid collection left knee likely residual subcutaneous edema/fat necrosis secondary to history of 4 days of being found down. If concerned about infection, I would recommend IR aspiration, culture and drain placement. - AFO braces for bilateral foot drop ordered - consult placed to Nick Lal, orthotics training consultant - recommend evaluation by neurology due to the acute nature of the complaint and history of CMT. Per the patients daughter the patient does not regularly see a neurologist for her condition. -Will need extensive wound care and would consult wound care team for management of multiple ulcerations to lower extremities and torso. -WBAT bilateral LE however I would hold off and ambulating/physical therapy till AFO braces obtained.
--- NOTE | 2017-06-07 15:15 | Neurology Consultation ---
Neurology Consultation Date of Consultation: Jun 07, 2017. Attending Physician: Wojciech Diallo DO Primary Care Physician: Garrett Langston Reason for Consultation: b/l foot drop hx Charcot Sepideh Tooth History of Present Illness Source: patient, family Medical history is significant for pulmonary embolism sp IVC on anticoagulation , hypertension, Evelyn is a 77 year old female with DL, Fxstbrr-Vbxkd-Rytyz disease, history of CVA, DM2 insulin requiring, chronic renal insufficiency (possible new baseline of 1.7). Chronic anemia (baseline hemoglobin of 9) She was admitted on 05/09-2016 for ARF, rhabdomyolysis secondary to mechanical fall. She also came to the hospital with DKA, was septic from cellulitis 2 to ulcerated wounds on the right breast and legs. She was discharged on antibiotic therapy and her Kidney function steadily improving following discharge to [facility]. Today her daughter is bedside and states her skin has multiple infected areas on her body. She is aware of mom's CMT disease which she also has. Her mother has never seen a neurologist for this but she sees Dr Sanon. She walks with a cane at baseline but the foot drop on the left is much worse than the right. It is also worse since she has been sick. She lives alone. denies CP, SOB, abdominal pain, N, V. Past Medical/Surgical History Medical Problems: (1) Skin ulcer of multiple sites Status: Acute Social History Smoking Status: Unknown if ever smoked Drug Use: none Marital Status: Housing Status: lives with family Occupation Status: unemployed Allergies Coded Allergies: Penicillins (Verified Allergy, Unknown, rash that occurred ~ 4 hrs ago, no resp symptoms, 05/12/17) NSAIDs (Verified Adverse Reaction, Unknown, KIDNEY ISSUES, 05/09/17) Current Inpatient Medications Current Inpatient Medications Medications (Trade) Dose Ordered Sig/Solitario Route Start Time Stop Time Status Last Admin Dose Admin Imipenem/ Cilastatin Sodium (Consult) 1 ea UD PRN N/A 06/05/17 09:00 07/05/17 08:59 Acetaminophen (Tylenol Tab) 650 mg Q4H PRN PO 06/04/17 23:45 07/04/17 23:44 Insulin Aspart (novoLOG ASPART) SLIDING SCALE If C... ACHS SC 06/05/17 06:30 07/05/17 06:59 06/07/17 12:49 3 UNITS Glucose (Glucose 40% Gel) 15-30 GRAMS 15 GRAMS... UD PRN PO 06/04/17 23:45 07/04/17 23:44 Glucose (Glucose Chew Tab) 4-8 Tablets 4 Tabl... UD PRN PO 06/04/17 23:45 07/04/17 23:44 Dextrose (Dextrose 50% 50ML Syringe) 25-50ML OF 50% DW IV FOR... UD PRN IV 06/04/17 23:45 07/04/17 23:44 Glucagon (Glucagon Inj) 1 mg UD PRN SQ 06/04/17 23:45 07/04/17 23:44 Allopurinol (Zyloprim Tab) 300 mg DAILY PO 06/05/17 09:00 07/05/17 08:59 06/07/17 08:23 300 MG Insulin Glargine (Lantus Solostar Pen) 15 units QAM SQ 06/05/17 09:00 07/05/17 08:59 06/07/17 08:26 15 UNITS Metoprolol Tartrate (Lopressor Tab) 12.5 mg BID PO 06/05/17 09:00 07/05/17 08:59 06/07/17 08:24 12.5 MG Multivitamins (Multivitamin Tab) 1 tab DAILY PO 06/05/17 09:00 07/05/17 08:59 06/07/17 08:24 1 TAB Oxycodone HCl (Roxicodone Immediate Rel Tab) 5 mg Q4H PRN PO 06/04/17 23:45 06/18/17 23:44 06/06/17 16:17 5 MG Pantoprazole Sodium (Protonix Tab) 40 mg DAILY PO 06/05/17 09:00 07/05/17 08:59 06/07/17 08:24 40 MG Tramadol HCl (Ultram Tab) Not relieved ... Q6H PRN PO 06/04/17 23:45 07/04/17 23:44 Hydromorphone HCl (Dilaudid Inj) 0.5 mg Q3H PRN IV 06/04/17 23:45 06/18/17 23:44 Ondansetron HCl (Zofran Inj) 4 mg Q6H PRN IV 06/04/17 23:45 07/04/17 23:44 06/06/17 04:48 4 MG Polyethylene (Miralax Powder Packet) 17 gm DAILY PO 06/06/17 09:00 07/06/17 08:59 06/07/17 08:25 17 GM Tramadol HCl (Ultram Tab) 50 mg BID PO 06/05/17 21:00 07/05/17 20:59 06/07/17 08:24 50 MG Warfarin Sodium (Coumadin Tab) 5 mg DAILY@1600 PO 06/05/17 16:00 07/05/17 15:59 06/06/17 16:17 5 MG Zinc Sulfate (Zinc Sulfate Cap) 220 mg DAILY PO 06/06/17 09:00 07/06/17 08:59 06/07/17 08:24 220 MG Imipenem/ Cilastatin Sodium 300 mg/Dextrose 106 ml @ 106 mls/hr Q6H IV 06/05/17 14:00 06/15/17 07:59 06/07/17 13:52 106 MLS/HR Enteral Nutritional Formula (Boost Glucose Control) 1 can BIDM PO 06/05/17 17:00 07/05/17 16:59 06/07/17 08:24 1 CAN Al Hydroxide/Mg Hydroxide (Maalox Susp) 30 ml Q6H PRN PO 06/06/17 08:00 07/06/17 07:59 06/06/17 08:29 30 ML Physical Exam Vital Signs (Past 24 Hrs): Date Time Temp Pulse Resp B/P (MAP) Pulse Ox O2 Delivery O2 Flow Rate FiO2 06/07/17 08:00 Room Air 06/07/17 07:31 36.8 96 18 114/55 (74) 90 Room Air 06/07/17 01:30 Room Air 06/07/17 00:00 36.8 108 20 107/60 (76) 93 Room Air 06/06/17 21:41 103 127/74 (91) 06/06/17 16:00 Room Air 06/06/17 15:24 37.1 102 18 109/69 (82) 91 Room Air Physical Exam: Constitutional: appearance ill appearing Ears, Nose, Mouth and Throat: mucous membranes moist, no injection and skin normal, eyes normal Cardiovascular: normal S-1 and S-2 and regular rate and rhythm Respiratory: clear to auscultation (CTA) and no rales, rhonchi or wheeze Musculoskeletal: bilateral peripheral edema Skin: multiple ulcerations on arms and legs with oozing Eyes: extraocular muscles intact (EOMI) and pupils equal, round and reactive to light (PERRL) NEUROLOGIC EXAMINATION: Mental status: Alert and interactive Oriented to [facility], 2017, president Oriented to person Speech fluent with no evidence of aphasia Cranial Nerves smile eye brow raise symmetric, tongue midline Coordination: finger to nose without bi pass Gait/Stance: Posture sitting in bed Strength: hand 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 program manager biceps triceps 5/5 bilaterally, hip flex against gravity not against resistance, plantar flex ext left absent, right 3/4 flex/ext Laboratory Results Past 24 Hours: 06/07/17 07:06 Red Blood Count 3.00, Mean Corpuscular Volume 93.0, Mean Corpuscular Hemoglobin 29.3, Mean Corpuscular Hemoglobin Concent 31.5, Mean Platelet Volume 8.3, Neutrophils (%) (Auto) 73.4, Lymphocytes (%) (Auto) 15.6, Monocytes (%) (Auto) 8.1, Eosinophils (%) (Auto) 1.7, Basophils (%) (Auto) 0.4, Neutrophils # (Auto) 10.48, Lymphocytes # (Auto) 2.22, Monocytes # (Auto) 1.16, Eosinophils # (Auto) 0.24, Basophils # (Auto) 0.05 06/07/17 07:06 Test 06/07/17 07:06 06/07/17 11:24 White Blood Count 14.26 K/uL (4.8-10.8) Red Blood Count 3.00 M/uL (4.2-5.4) Hemoglobin 8.8 g/dL (12.0-16.0) Hematocrit 27.9 % (37-47) Mean Corpuscular Volume 93.0 fL (80-100) Mean Corpuscular Hemoglobin 29.3 pg (25-34) Mean Corpuscular Hemoglobin Concent 31.5 g/dl (32-36) Platelet Count 450 K/uL (130-400) Mean Platelet Volume 8.3 fL (7.4-10.4) Neutrophils (%) (Auto) 73.4 % Lymphocytes (%) (Auto) 15.6 % Monocytes (%) (Auto) 8.1 % Eosinophils (%) (Auto) 1.7 % Basophils (%) (Auto) 0.4 % Neutrophils # (Auto) 10.48 K/uL (1.4-6.5) Lymphocytes # (Auto) 2.22 K/uL (1.2-3.4) Monocytes # (Auto) 1.16 K/uL (0.11-0.59) Eosinophils # (Auto) 0.24 K/uL (0-0.5) Basophils # (Auto) 0.05 K/uL (0-0.2) RDW Standard Deviation 46.2 fL (36.4-46.3) RDW Coefficient of Variation 13.5 % (11.5-14.5) Immature Granulocyte % (Auto) 0.8 % Immature Granulocyte # (Auto) 0.11 K/uL (0.00-0.02) Red Blood Cell Morphology Unremarkable Prothrombin Time 32.7 SECONDS (9.0-12.0) Prothromb Time International Ratio 2.9 (0.9-1.1) Anion Gap 6.0 mmol/L (3-11) Est Creatinine Clear Calc Drug Dose 37.7 ml/min Estimated GFR () 42.5 Estimated GFR (Non- 36.7 BUN/Creatinine Ratio 15.1 (10-20) Calcium Level 8.6 mg/dl (8.5-10.1) Magnesium Level 1.3 mg/dl (1.8-2.4) Bedside Glucose 200 mg/dl (70-90) Imaging no imaging for CMT disease Impression 77 year old female with wound infection and CKD- hx CMT Plan 1. recommend orthotics evaluate and treat for left foot drop and progressing right foot drop 2. PT/OT for discharge needs 3. fall precautions 4. home nursing evaluation- should have emergency call alert at home or may need other living arrangements 5. primary team for medical issues 6. Charcot Sepideh Tooth is a progressive disease and part of the progression is foot drop 7. 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
[2017-06-07 15:30] VITALS: BP 118/71; PULSE 99; TEMP 37.2; O2SAT 90
[2017-06-07] MEDS: WARFARIN SOD 5 MG TAB PO SCH (15:52)
--- NOTE | 2017-06-07 16:44 | Progress Note ---
Subjective Date of Service: Jun 07, 2017. Subjective Pt evaluation today including: conversation w/ patient, physical exam, lab review, review of studies, review of inpatient medication list Saw/examined the patient in room 253 Pain at the L LE +weakness Problem List Medical Problems: (1) Skin ulcer of multiple sites Status: Acute Review of Systems Constitutional: + weakness Respiratory: No shortness of breath Cardiac: No chest pain Musculoskeletal: + joint pain, + muscle pain (LLE) Medications Current Inpatient Medications Medications (Trade) Dose Ordered Sig/Solitario Route Start Time Stop Time Status Last Admin Dose Admin Imipenem/ Cilastatin Sodium (Consult) 1 ea UD PRN N/A 06/05/17 09:00 07/05/17 08:59 Acetaminophen (Tylenol Tab) 650 mg Q4H PRN PO 06/04/17 23:45 07/04/17 23:44 Insulin Aspart (novoLOG ASPART) SLIDING SCALE If C... ACHS SC 06/05/17 06:30 07/05/17 06:59 06/07/17 12:49 3 UNITS Glucose (Glucose 40% Gel) 15-30 GRAMS 15 GRAMS... UD PRN PO 06/04/17 23:45 07/04/17 23:44 Glucose (Glucose Chew Tab) 4-8 Tablets 4 Tabl... UD PRN PO 06/04/17 23:45 07/04/17 23:44 Dextrose (Dextrose 50% 50ML Syringe) 25-50ML OF 50% DW IV FOR... UD PRN IV 06/04/17 23:45 07/04/17 23:44 Glucagon (Glucagon Inj) 1 mg UD PRN SQ 06/04/17 23:45 07/04/17 23:44 Allopurinol (Zyloprim Tab) 300 mg DAILY PO 06/05/17 09:00 07/05/17 08:59 06/07/17 08:23 300 MG Insulin Glargine (Lantus Solostar Pen) 15 units QAM SQ 06/05/17 09:00 07/05/17 08:59 06/07/17 08:26 15 UNITS Metoprolol Tartrate (Lopressor Tab) 12.5 mg BID PO 06/05/17 09:00 07/05/17 08:59 06/07/17 08:24 12.5 MG Multivitamins (Multivitamin Tab) 1 tab DAILY PO 06/05/17 09:00 07/05/17 08:59 06/07/17 08:24 1 TAB Oxycodone HCl (Roxicodone Immediate Rel Tab) 5 mg Q4H PRN PO 06/04/17 23:45 06/18/17 23:44 06/06/17 16:17 5 MG Pantoprazole Sodium (Protonix Tab) 40 mg DAILY PO 06/05/17 09:00 07/05/17 08:59 06/07/17 08:24 40 MG Tramadol HCl (Ultram Tab) Not relieved ... Q6H PRN PO 06/04/17 23:45 07/04/17 23:44 Hydromorphone HCl (Dilaudid Inj) 0.5 mg Q3H PRN IV 06/04/17 23:45 06/18/17 23:44 Ondansetron HCl (Zofran Inj) 4 mg Q6H PRN IV 06/04/17 23:45 07/04/17 23:44 06/06/17 04:48 4 MG Polyethylene (Miralax Powder Packet) 17 gm DAILY PO 06/06/17 09:00 07/06/17 08:59 06/07/17 08:25 17 GM Tramadol HCl (Ultram Tab) 50 mg BID PO 06/05/17 21:00 07/05/17 20:59 06/07/17 08:24 50 MG Warfarin Sodium (Coumadin Tab) 5 mg DAILY@1600 PO 06/05/17 16:00 07/05/17 15:59 06/07/17 15:52 5 MG Zinc Sulfate (Zinc Sulfate Cap) 220 mg DAILY PO 06/06/17 09:00 07/06/17 08:59 06/07/17 08:24 220 MG Imipenem/ Cilastatin Sodium 300 mg/Dextrose 106 ml @ 106 mls/hr Q6H IV 06/05/17 14:00 06/15/17 07:59 06/07/17 13:52 106 MLS/HR Enteral Nutritional Formula (Boost Glucose Control) 1 can BIDM PO 06/05/17 17:00 07/05/17 16:59 06/07/17 08:24 1 CAN Al Hydroxide/Mg Hydroxide (Maalox Susp) 30 ml Q6H PRN PO 06/06/17 08:00 07/06/17 07:59 06/06/17 08:29 30 ML Collagenase (Santyl Oint) 1 appln DAILY EXT 06/07/17 16:00 07/07/17 15:59 Objective Vital Signs Date Time Temp Pulse Resp B/P (MAP) Pulse Ox O2 Delivery O2 Flow Rate FiO2 06/07/17 15:30 37.2 99 18 118/71 (87) 90 Room Air 06/07/17 08:00 Room Air 06/07/17 07:31 36.8 96 18 114/55 (74) 90 Room Air 06/07/17 01:30 Room Air 06/07/17 00:00 36.8 108 20 107/60 (76) 93 Room Air 06/06/17 21:41 103 127/74 (91) Physical Exam General Appearance: no apparent distress, + obese Respiratory/Chest: lungs clear, normal breath sounds, no respiratory distress, no accessory muscle use Cardiovascular: regular rate, rhythm, no edema, no murmur Extremities: + pertinent finding (Left LE wound - necrotic, erythematous) Laboratory Results Last 24 Hours Test 06/06/17 20:20 06/07/17 07:06 06/07/17 07:37 06/07/17 11:24 Bedside Glucose 220 mg/dl 137 mg/dl 200 mg/dl White Blood Count 14.26 K/uL Red Blood Count 3.00 M/uL Hemoglobin 8.8 g/dL Hematocrit 27.9 % Mean Corpuscular Volume 93.0 fL Mean Corpuscular Hemoglobin 29.3 pg Mean Corpuscular Hemoglobin Concent 31.5 g/dl Platelet Count 450 K/uL Mean Platelet Volume 8.3 fL Neutrophils (%) (Auto) 73.4 % Lymphocytes (%) (Auto) 15.6 % Monocytes (%) (Auto) 8.1 % Eosinophils (%) (Auto) 1.7 % Basophils (%) (Auto) 0.4 % Neutrophils # (Auto) 10.48 K/uL Lymphocytes # (Auto) 2.22 K/uL Monocytes # (Auto) 1.16 K/uL Eosinophils # (Auto) 0.24 K/uL Basophils # (Auto) 0.05 K/uL RDW Standard Deviation 46.2 fL RDW Coefficient of Variation 13.5 % Immature Granulocyte % (Auto) 0.8 % Immature Granulocyte # (Auto) 0.11 K/uL Red Blood Cell Morphology Unremarkable Prothrombin Time 32.7 SECONDS Prothromb Time International Ratio 2.9 Sodium Level 134 mmol/L Potassium Level 4.2 mmol/L Chloride Level 98 mmol/L Carbon Dioxide Level 30 mmol/L Anion Gap 6.0 mmol/L Blood Urea Nitrogen 21 mg/dl Creatinine 1.40 mg/dl Est Creatinine Clear Calc Drug Dose 37.7 ml/min Estimated GFR () 42.5 Estimated GFR (Non- 36.7 BUN/Creatinine Ratio 15.1 Random Glucose 130 mg/dl Calcium Level 8.6 mg/dl Magnesium Level 1.3 mg/dl Test 06/07/17 16:13 Bedside Glucose 205 mg/dl Assessment and Plan This is a 77 year old obese female with a PMH of uncontrolled, insulin dependent DM2, diabetic nephropathy and CKD stage 3, 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 of lacunar infarct, Ncncgnb-oxvdz-jenja disease, HTN, HLD presented last month with a fall, rhabdo, DKA, sepsis, and infectious of the R breast, L LE Cellulitis of Ulcerative Wounds 06/07 significant wounds noted on the LLE and R breast ID on board, currently on Imipenem multiple organisms on culture, including Pseudomonas wound care consulted - dressed appreciate ortho input - no I&D orthotics consulted for foot drop 06/06 appreciate ortho input continue Imipenem - multiple organisms grown on culture, Pseudomonas, strep, Corynebacterium appreciate ID input wound care consult pending ortho - recommended no drainage neuro consulted due to worsening weakness - b/l foot drop - chronic due to CMT vs. acute? 06/05 of the R breast and Left LE started on Imipenem will consult ID as patient has grown multiple organisms in the past wound care consultation cultures pending Insulin Dependent DM2 patient presented last month with DKA will start Lantus and sliding scale and monitor BSGs CKD stage 3 creatinine is around 1.6 probably her new baseline much improved from previous admission Hx. of PE on Coumadin continue Coumadin with goal INR of 2-3 Woyzygi-Kqihg-gvzot will need PT/OT DVT ppx Coumadin DNR
[2017-06-07] MEDS: COLLAGENASE OINT 30 GM TUBE EXT SCH (16:51)
[2017-06-07 20:30] VITALS: BP 124/72; PULSE 101
--- NOTE | 2017-06-07 20:42 | Infectious Disease Progress Nt ---
Progress Note Date of Service Jun 07, 2017. Subjective Pt evaluation today including: conversation w/ patient, physical exam, chart review, lab review, review of studies, conversation w/ bilingual sales consultant, review of inpatient medication list Patient continues to complain of left lower extremity pain although better than admission. Has generalized weakness. No fever. Tolerating antibiotics without apparent difficulty. cultures growing Pseudomonas aeruginosa All Other Systems: Reviewed and Negative Medications Current Inpatient Medications Medications (Trade) Dose Ordered Sig/Solitario Route Start Time Stop Time Status Last Admin Dose Admin Imipenem/ Cilastatin Sodium (Consult) 1 ea UD PRN N/A 06/05/17 09:00 07/05/17 08:59 Acetaminophen (Tylenol Tab) 650 mg Q4H PRN PO 06/04/17 23:45 07/04/17 23:44 Insulin Aspart (novoLOG ASPART) SLIDING SCALE If C... ACHS SC 06/05/17 06:30 07/05/17 06:59 06/07/17 20:35 2 UNITS Glucose (Glucose 40% Gel) 15-30 GRAMS 15 GRAMS... UD PRN PO 06/04/17 23:45 07/04/17 23:44 Glucose (Glucose Chew Tab) 4-8 Tablets 4 Tabl... UD PRN PO 06/04/17 23:45 07/04/17 23:44 Dextrose (Dextrose 50% 50ML Syringe) 25-50ML OF 50% DW IV FOR... UD PRN IV 06/04/17 23:45 07/04/17 23:44 Glucagon (Glucagon Inj) 1 mg UD PRN SQ 06/04/17 23:45 07/04/17 23:44 Allopurinol (Zyloprim Tab) 300 mg DAILY PO 06/05/17 09:00 07/05/17 08:59 06/07/17 08:23 300 MG Insulin Glargine (Lantus Solostar Pen) 15 units QAM SQ 06/05/17 09:00 07/05/17 08:59 06/07/17 08:26 15 UNITS Metoprolol Tartrate (Lopressor Tab) 12.5 mg BID PO 06/05/17 09:00 07/05/17 08:59 06/07/17 20:31 12.5 MG Multivitamins (Multivitamin Tab) 1 tab DAILY PO 06/05/17 09:00 07/05/17 08:59 06/07/17 08:24 1 TAB Oxycodone HCl (Roxicodone Immediate Rel Tab) 5 mg Q4H PRN PO 06/04/17 23:45 06/18/17 23:44 06/06/17 16:17 5 MG Pantoprazole Sodium (Protonix Tab) 40 mg DAILY PO 06/05/17 09:00 07/05/17 08:59 06/07/17 08:24 40 MG Tramadol HCl (Ultram Tab) Not relieved ... Q6H PRN PO 06/04/17 23:45 07/04/17 23:44 Hydromorphone HCl (Dilaudid Inj) 0.5 mg Q3H PRN IV 06/04/17 23:45 06/18/17 23:44 Ondansetron HCl (Zofran Inj) 4 mg Q6H PRN IV 06/04/17 23:45 07/04/17 23:44 06/06/17 04:48 4 MG Polyethylene (Miralax Powder Packet) 17 gm DAILY PO 06/06/17 09:00 07/06/17 08:59 06/07/17 08:25 17 GM Tramadol HCl (Ultram Tab) 50 mg BID PO 06/05/17 21:00 07/05/17 20:59 06/07/17 20:32 50 MG Warfarin Sodium (Coumadin Tab) 5 mg DAILY@1600 PO 06/05/17 16:00 07/05/17 15:59 06/07/17 15:52 5 MG Zinc Sulfate (Zinc Sulfate Cap) 220 mg DAILY PO 06/06/17 09:00 07/06/17 08:59 06/07/17 08:24 220 MG Imipenem/ Cilastatin Sodium 300 mg/Dextrose 106 ml @ 106 mls/hr Q6H IV 06/05/17 14:00 06/15/17 07:59 06/07/17 20:18 106 MLS/HR Enteral Nutritional Formula (Boost Glucose Control) 1 can BIDM PO 06/05/17 17:00 07/05/17 16:59 06/07/17 17:18 1 CAN Al Hydroxide/Mg Hydroxide (Maalox Susp) 30 ml Q6H PRN PO 06/06/17 08:00 07/06/17 07:59 06/06/17 08:29 30 ML Collagenase (Santyl Oint) 1 appln DAILY EXT 06/07/17 16:00 07/07/17 15:59 06/07/17 16:51 1 APPLN Objective Vital Signs Date Time Temp Pulse Resp B/P (MAP) Pulse Ox O2 Delivery O2 Flow Rate FiO2 06/07/17 20:30 101 124/72 (89) 06/07/17 16:00 Room Air 06/07/17 15:30 37.2 99 18 118/71 (87) 90 Room Air 06/07/17 08:00 Room Air 06/07/17 07:31 36.8 96 18 114/55 (74) 90 Room Air 06/07/17 01:30 Room Air 06/07/17 00:00 36.8 108 20 107/60 (76) 93 Room Air 06/06/17 21:41 103 127/74 (91) Physical Exam General Appearance: WD/WN, no apparent distress Eyes: normal inspection, sclerae normal ENT: normal ENT inspection, pharynx normal Neck: supple, no adenopathy, trachea midline Respiratory/Chest: chest non-tender, lungs clear, normal breath sounds, no respiratory distress Cardiovascular: regular rate, rhythm, no gallop, no murmur Abdomen: normal bowel sounds, non tender, soft, no organomegaly Extremities: no calf tenderness, + inflammation ( left leg), + swelling ( left leg) Neurologic/Psychiatric: alert, oriented x 3 Skin: normal color, no rash, + pertinent finding ( slightly improved cellulitis left lower extremity) Lymphatic: no adenopathy Laboratory Results RUN DATE: 06/07/17 [facility] PAGE 1 RUN TIME: 1321 Specimen Inquiry PATIENT: [facility]ODA NUNEZ [facility] #: [id number] LOC: [facility] U # : [id number] AGE/SX: 77/F ROOM: [facility] REG : 06/04/[address]: Wojciech Diallo DO : 1940 BED: 2 DIS : STATUS: ADM IN TLOC: SPEC #: [id number] ANN-MARIE: 06/04/17 STATUS: COMP REQ #: [id number] RECD: 06/04/[address]: Brendon Stevenson M.D. SOURCE: ULCER ENTR: 06/04/[address]: Garrett Langston SPDESC: LEG RL ORDERED: SURF WND CU/SMR COMMENTS: Has Specimen Been Obtained/Collected? Y Procedure Result Verified Site GRAM STAIN Final 06/05/17 RESULT FEW EPITHELIAL CELLS MODERATE POLYS MODERATE GRAM POSITIVE COCCI FEW GRAM NEGATIVE BACILLI RARE YEAST SURFACE WOUND CULTURE Final 06/07/17-1321 Organism 1 PSEUDOMONAS AERUGINOSA QUANITY MANY SENS SENSITIVITY TO FOLLOW Organism 2 ENTEROCOCCUS FAECALIS QUANITY FEW SENS SENSITIVITY TO FOLLOW PSEUD AERG E FAECALIS M.I.C. RX M.I.C. RX --------- ------ --------- ------ AMPICILLIN <=2 S CEFTAZIDIME 4 S CEFEPIME <=4 S IMIPENEM <=1 S GENT SYNERGY <=500 S AZTREONAM 8 S VANCOMYCIN 2 S PENICILLIN 2 S GENTAMICIN <=4 S TOBRAMYCIN <=4 S AMIKACIN <=16 S CIPROFLOXACIN 2 I LEVOFLOXACIN >4 R DAPTOMYCIN 2 S PIP/TAZO <=16 S STREP SYNERGY <=1000 S ENTEROCOCCUS FAECALIS: POSITIVE COMBO 33 Streptomycin Synergy Screen S Gentamicin Synergy Screen S CONTINUED ON NEXT PAGE RUN DATE: 06/07/17 [facility] PAGE 2 RUN TIME: 1321 Specimen Inquiry SPEC: [id number] PATIENT: HODA NUNEZ [id number] ( Continued) Procedure Result Verified Site SURFACE WOUND CULTURE Final (continued) 06/07/17-1321 1. PSEUDOMONAS AERUGINOSA Target Route Dose RX AB Cost M.I.C. IQ ------ ----- ------ -- ------ -------- - ------ CEFTAZIDIME S 4 CEFEPIME S <=4 IMIPENEM S <=1 AZTREONAM S 8 GENTAMICIN S <=4 TOBRAMYCIN S <=4 AMIKACIN S <=16 CIPROFLOXACIN I 2 LEVOFLOXACIN R >4 PIP/TAZO S <=16 2. ENTEROCOCCUS FAECALIS Target Route Dose RX AB Cost M.I.C. IQ ------ ----- ------ -- ------ -------- - ------ AMPICILLIN S <=2 GENT SYNERGY S <=500 VANCOMYCIN S 2 PENICILLIN S 2 DAPTOMYCIN S 2 STREP SYNERGY S <=1000 Streptomycin Synergy Screen S Gentamicin Synergy Screen S S = SENSITIVE I = INTERMEDIATE R = RESISTANT END OF REPORT Last 24 Hours Test 06/07/17 07:06 06/07/17 07:37 06/07/17 11:24 06/07/17 16:13 White Blood Count 14.26 K/uL Red Blood Count 3.00 M/uL Hemoglobin 8.8 g/dL Hematocrit 27.9 % Mean Corpuscular Volume 93.0 fL Mean Corpuscular Hemoglobin 29.3 pg Mean Corpuscular Hemoglobin Concent 31.5 g/dl Platelet Count 450 K/uL Mean Platelet Volume 8.3 fL Neutrophils (%) (Auto) 73.4 % Lymphocytes (%) (Auto) 15.6 % Monocytes (%) (Auto) 8.1 % Eosinophils (%) (Auto) 1.7 % Basophils (%) (Auto) 0.4 % Neutrophils # (Auto) 10.48 K/uL Lymphocytes # (Auto) 2.22 K/uL Monocytes # (Auto) 1.16 K/uL Eosinophils # (Auto) 0.24 K/uL Basophils # (Auto) 0.05 K/uL RDW Standard Deviation 46.2 fL RDW Coefficient of Variation 13.5 % Immature Granulocyte % (Auto) 0.8 % Immature Granulocyte # (Auto) 0.11 K/uL Red Blood Cell Morphology Unremarkable Prothrombin Time 32.7 SECONDS Prothromb Time International Ratio 2.9 Sodium Level 134 mmol/L Potassium Level 4.2 mmol/L Chloride Level 98 mmol/L Carbon Dioxide Level 30 mmol/L Anion Gap 6.0 mmol/L Blood Urea Nitrogen 21 mg/dl Creatinine 1.40 mg/dl Est Creatinine Clear Calc Drug Dose 37.7 ml/min Estimated GFR () 42.5 Estimated GFR (Non- 36.7 BUN/Creatinine Ratio 15.1 Random Glucose 130 mg/dl Calcium Level 8.6 mg/dl Magnesium Level 1.3 mg/dl Bedside Glucose 137 mg/dl 200 mg/dl 205 mg/dl Assessment and Plan 77 yo female with gram negative skin/skin structure infection. with cultures positive for Pseudomonas aeruginosa. Patient has penicillin allergy, will continue her on imipenem for now. No oral option available. Will follow.
[2017-06-08 00:16] VITALS: BP 118/72; PULSE 97; TEMP 37.2; O2SAT 92
[2017-06-08] MEDS: IMIPENEM/CILASTATIN IV 300 MG in DEXTROSE 5% 100ML 100 ML IV SCH ×5 (02:00→21:27)
[2017-06-08 07:28] LABS: BASO % 0.5 %; BASO ABS # 0.06 K/uL (0-0.2); EOS % 2.1 %; HEMATOCRIT 25.8 % (37-47); IG% 1.4 %; LYMPH ABS # 2.74 K/uL (1.2-3.4); MEAN CELL VOLUME 91.5 fL (80-100); MEAN CORPUSCULAR HEMOGLOBIN 30.1 pg (25-34); MEAN CORPUSCULAR HGB CONC 32.9 g/dl (32-36); MEAN PLATELET VOLUME 8.4 fL (7.4-10.4); MONO % 7.9 %; NEUT % 67.1 %; PLATELET COUNT 420 K/uL (130-400); RED BLOOD COUNT 2.82 M/uL (4.2-5.4); WHITE BLOOD COUNT 13.06 K/uL (4.8-10.8)
[2017-06-08 07:36] LABS: INR 3.4 (0.9-1.1); PROTHROMBIN TIME (PATIENT) 38.8 SECONDS (9.0-12.0)
[2017-06-08 08:04] LABS: BUN/CREATININE RATIO 14.8 (10-20); CALCIUM 8.3 mg/dl (8.5-10.1); CREATININE 1.4 mg/dl (0.60-1.20); POTASSIUM 4.3 mmol/L (3.5-5.1)
[2017-06-08] MEDS: MULTIVITAMIN TAB PO SCH (08:07)
[2017-06-08] MEDS: BOOST GLUCOSE CONTROL PO SCH ×2 (08:07→17:25)
[2017-06-08] MEDS: ZINC SULFATE 220 MG CAP PO SCH (08:07)
[2017-06-08] MEDS: PANTOprazole SOD 40 MG TAB PO SCH (08:08)
[2017-06-08] MEDS: ALLOPURINOL 300 MG TAB PO SCH (08:08)
[2017-06-08] MEDS: POLYETHYLENE (MIRALAX) 17 GM PACK PO SCH (08:08)
[2017-06-08] MEDS: METOPROLOL TARTRATE 25 MG TAB PO SCH ×2 (08:08→21:27)
[2017-06-08] MEDS: COLLAGENASE OINT 30 GM TUBE EXT SCH (08:08)
[2017-06-08] MEDS: INSULIN GLARGINE SOLOSTAR 100 UNITS/ML 3 ML PEN SQ SCH (08:09)
[2017-06-08] MEDS: TRAMADOL HCL 50 MG TAB PO SCH ×2 (08:11→21:27)
[2017-06-08 08:15] LABS: COMPLETE YES
[2017-06-08] MEDS: INSULIN ASPART 100 UNITS/ML 3 ML PEN SC SCH ×4 (08:18→21:29)
[2017-06-08 08:42] VITALS: BP 99/64; PULSE 89; TEMP 36.4; O2SAT 92
--- NOTE | 2017-06-08 09:26 | Progress Note ---
Progress Note Date of Service Jun 08, 2017. Progress Note having difficult IV access for the pt IV team unable to establish peripheral access with USG D/w Dr Mata -pt wound culture growing Pseudomonas resistant to Levaquin no oral antibiotic available pt will need snf IV Abx for > 2 weeks ordered for PICC line hold Coumadin dose today
--- NOTE | 2017-06-08 12:41 | Progress Note ---
Internal Med Progress Note Date of Service: Jun 08, 2017. 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 Abx therapy for multiple infected wounds OBJECTIVE: Vital Signs-as noted below Exam: General-chronically ill appearing ,no sign of distress Eyes-sclera non icteric ENT-NAd Neck-no JVD Lungs-CTA ,no rales or wheeze Heart-regular S1/S2 Abdomen-soft, non tender Extremities-infected wound underneath the rt breath -base in dark brown / greenish , dressing present , multiple skin wounds in left and rt knee and behind left knee , lower leg Neuro-slow to process conversation , no focal deficit noted , has progressive weakness of bilateral lower ext weakness due to her known diagnosis of CMT Lab data as noted below. ASSESSMENT & PLAN: This is a 77 year old obese female with a PMH insulin dependent DM2, diabetic nephropathy and CKD stage 3, 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 of lacunar infarct, Qvwgmbv-yrfbj-bodwm disease, HTN, HLD presented last month with a fall, rhabdo, DKA, sepsis, and infectious of the R breast, L LE INFECTED MULTIPLE WOUND WITH PSEUDOMONAS INFECTION significant wounds noted on the LLE and R breast ID on board, currently on Imipenem Wound culture growing multiple organisms on culture, including Pseudomonas-no oral antibiotics available pt will need continued IV Abx with Imipenem > 14 days wound care consulted - dressed appreciate ortho input - no I&D indicated orthotics consulted for foot drop associated with CMT Insulin Dependent DM2 patient presented last month with DKA BSG better control now cont Lantus and sliding scale and monitor BSGs CKD stage 3 creatinine is around 1.6 probably her new baseline much improved from previous admission Hx. of PE s/p IVC filter placement on Coumadin will be kept on hold for elevated INR ; pt will need PICC line placement Kogszpy-Zmhil-cxeqj appreciate neurology eval progressive disease , supportive care only Orthotics consulted for foot drop will need to be fitted with Orthotics cont PT/OT DVT ppx INR elevated DNR DISPOSITION will need SNF vs placement at present complete care needs very close monitoring and wound care for multiple infected wound needs [facility]itentiary IV Abx social service consulted for discharge planning Vital Signs: Date Time Temp Pulse Resp B/P (MAP) Pulse Ox O2 Delivery O2 Flow Rate FiO2 06/08/17 08:42 36.4 89 17 99/64 (76) 92 Room Air 06/08/17 08:00 Room Air 06/08/17 00:16 37.2 97 20 118/72 (87) 92 Room Air 06/08/17 00:00 Room Air 06/07/17 20:30 101 124/72 (89) 06/07/17 16:00 Room Air 06/07/17 15:30 37.2 99 18 118/71 (87) 90 Room Air Lab Results: Results Past 24 Hours Test 06/07/17 16:13 06/07/17 20:22 06/08/17 07:00 06/08/17 07:23 Range/Units Bedside Glucose 205 207 144 70-90 mg/dl White Blood Count 13.06 4.8-10.8 K/uL Red Blood Count 2.82 4.2-5.4 M/uL Hemoglobin 8.5 12.0-16.0 g/dL Hematocrit 25.8 37-47 % Mean Corpuscular Volume 91.5 80-100 fL Mean Corpuscular Hemoglobin 30.1 25-34 pg Mean Corpuscular Hemoglobin Concent 32.9 32-36 g/dl Platelet Count 420 130-400 K/uL Mean Platelet Volume 8.4 7.4-10.4 fL Neutrophils (%) (Auto) 67.1 % Lymphocytes (%) (Auto) 21.0 % Monocytes (%) (Auto) 7.9 % Eosinophils (%) (Auto) 2.1 % Basophils (%) (Auto) 0.5 % Neutrophils # (Auto) 8.77 1.4-6.5 K/uL Lymphocytes # (Auto) 2.74 1.2-3.4 K/uL Monocytes # (Auto) 1.03 0.11-0.59 K/uL Eosinophils # (Auto) 0.28 0-0.5 K/uL Basophils # (Auto) 0.06 0-0.2 K/uL RDW Standard Deviation 44.8 36.4-46.3 fL RDW Coefficient of Variation 13.4 11.5-14.5 % Immature Granulocyte % (Auto) 1.4 % Immature Granulocyte # (Auto) 0.18 0.00-0.02 K/uL Red Blood Cell Morphology Unremarkable Prothrombin Time 38.8 9.0-12.0 SECONDS Prothromb Time International Ratio 3.4 0.9-1.1 Sodium Level 133 136-145 mmol/L Potassium Level 4.3 3.5-5.1 mmol/L Chloride Level 98 98-107 mmol/L Carbon Dioxide Level 30 21-32 mmol/L Anion Gap 5.0 3-11 mmol/L Blood Urea Nitrogen 21 7-18 mg/dl Creatinine 1.40 0.60-1.20 mg/dl Est Creatinine Clear Calc Drug Dose 37.7 ml/min Estimated GFR () 42.5 Estimated GFR (Non- 36.7 BUN/Creatinine Ratio 14.8 10-20 Random Glucose 142 70-99 mg/dl Calcium Level 8.3 8.5-10.1 mg/dl Test 06/08/17 11:36 Range/Units Bedside Glucose 176 70-90 mg/dl
--- NOTE | 2017-06-08 13:33 | Wound Progress Note: Inpatient ---
Wound Progress Note Date of Service Jun 07, 2017. Subjective Pt evaluation today including: conversation w/ patient, conversation w/ family , physical exam, chart review Patient is seen today following hospitalization for infected ulcerations. Patient has been seen in the outpatient setting of the wound clinic approximately 12 days ago. Patient this time has no specific complaints. Patient's POA daughter was called and stated that she removed her mother from the correction over increased concern and appropriate care to the ulcerative sites. She states that the reason the patient missed her most recent visit 5 days ago was 2 to the correction facility instructing her that they could "care for her wounds". Objective Vital Signs Date Time Temp Pulse Resp B/P (MAP) Pulse Ox O2 Delivery O2 Flow Rate FiO2 06/08/17 08:42 36.4 89 17 99/64 (76) 92 Room Air 06/08/17 08:00 Room Air 06/08/17 00:16 37.2 97 20 118/72 (87) 92 Room Air 06/08/17 00:00 Room Air 06/07/17 20:30 101 124/72 (89) 06/07/17 16:00 Room Air 06/07/17 15:30 37.2 99 18 118/71 (87) 90 Room Air Physical Exam Notes: Patient is currently lying in a hospital bed in no acute distress. Patients vital signs were reviewed and found to be unremarkable patient is afebrile. There are multiple unstageable pressure ulcer is present on the right and left knees left foot and breast area on the right side. All of these sites show evidence of central eschar formation black i with some white margins. No significant central slough is noted no periwound erythema active drainage or odor is noted. The left foot ulceration measures 2.2 x 0.1, the right knee measures 4 x 4 0.1 x 0.5, left knee measures 3.4 x 2.9, and the right breast region measures 4.7 x 10.2 cm. Laboratory Results Last 24 Hours Test 06/07/17 16:13 06/07/17 20:22 06/08/17 07:00 06/08/17 07:23 Bedside Glucose 205 mg/dl 207 mg/dl 144 mg/dl White Blood Count 13.06 K/uL Red Blood Count 2.82 M/uL Hemoglobin 8.5 g/dL Hematocrit 25.8 % Mean Corpuscular Volume 91.5 fL Mean Corpuscular Hemoglobin 30.1 pg Mean Corpuscular Hemoglobin Concent 32.9 g/dl Platelet Count 420 K/uL Mean Platelet Volume 8.4 fL Neutrophils (%) (Auto) 67.1 % Lymphocytes (%) (Auto) 21.0 % Monocytes (%) (Auto) 7.9 % Eosinophils (%) (Auto) 2.1 % Basophils (%) (Auto) 0.5 % Neutrophils # (Auto) 8.77 K/uL Lymphocytes # (Auto) 2.74 K/uL Monocytes # (Auto) 1.03 K/uL Eosinophils # (Auto) 0.28 K/uL Basophils # (Auto) 0.06 K/uL RDW Standard Deviation 44.8 fL RDW Coefficient of Variation 13.4 % Immature Granulocyte % (Auto) 1.4 % Immature Granulocyte # (Auto) 0.18 K/uL Red Blood Cell Morphology Unremarkable Prothrombin Time 38.8 SECONDS Prothromb Time International Ratio 3.4 Sodium Level 133 mmol/L Potassium Level 4.3 mmol/L Chloride Level 98 mmol/L Carbon Dioxide Level 30 mmol/L Anion Gap 5.0 mmol/L Blood Urea Nitrogen 21 mg/dl Creatinine 1.40 mg/dl Est Creatinine Clear Calc Drug Dose 37.7 ml/min Estimated GFR () 42.5 Estimated GFR (Non- 36.7 BUN/Creatinine Ratio 14.8 Random Glucose 142 mg/dl Calcium Level 8.3 mg/dl Test 06/08/17 11:36 Bedside Glucose 176 mg/dl Assessment and Plan Assessment: Multiple unstageable pressure ulcers present on the left foot, right knee, left knee, right breast region. Plan: At this time all sites did require scoring with a #11 blade which was performed after the patient was anesthetized with topical Xylocaine 4%. All sites will be dressed with Santyl and gauze changed on a daily basis. Patient will be reevaluated in 48 hours for possible debridement. Patient's POA was notified of the plan of care and was in agreement. She stated very clearly that she does not want her mother to return to [facility].
[2017-06-08 15:10] VITALS: BP 112/70; PULSE 95; TEMP 37.1; O2SAT 90
--- NOTE | 2017-06-08 15:12 | Infectious Disease Progress Nt ---
Progress Note Date of Service Jun 08, 2017. Subjective Pt evaluation today including: conversation w/ patient, physical exam, chart review, lab review, review of studies, conversation w/ instructional systems design consultant, review of inpatient medication list Having difficulty with IV access. Remains afebrile. Dr. Melendrez's follow-up noted. No other new complaints. All Other Systems: Reviewed and Negative Medications Current Inpatient Medications Medications (Trade) Dose Ordered Sig/Solitario Route Start Time Stop Time Status Last Admin Dose Admin Imipenem/ Cilastatin Sodium (Consult) 1 ea UD PRN N/A 06/05/17 09:00 07/05/17 08:59 Acetaminophen (Tylenol Tab) 650 mg Q4H PRN PO 06/04/17 23:45 07/04/17 23:44 Insulin Aspart (novoLOG ASPART) SLIDING SCALE If C... ACHS SC 06/05/17 06:30 07/05/17 06:59 06/08/17 12:22 2 UNITS Glucose (Glucose 40% Gel) 15-30 GRAMS 15 GRAMS... UD PRN PO 06/04/17 23:45 07/04/17 23:44 Glucose (Glucose Chew Tab) 4-8 Tablets 4 Tabl... UD PRN PO 06/04/17 23:45 07/04/17 23:44 Dextrose (Dextrose 50% 50ML Syringe) 25-50ML OF 50% DW IV FOR... UD PRN IV 06/04/17 23:45 07/04/17 23:44 Glucagon (Glucagon Inj) 1 mg UD PRN SQ 06/04/17 23:45 07/04/17 23:44 Allopurinol (Zyloprim Tab) 300 mg DAILY PO 06/05/17 09:00 07/05/17 08:59 06/08/17 08:08 300 MG Insulin Glargine (Lantus Solostar Pen) 15 units QAM SQ 06/05/17 09:00 07/05/17 08:59 06/08/17 08:09 15 UNITS Metoprolol Tartrate (Lopressor Tab) 12.5 mg BID PO 06/05/17 09:00 07/05/17 08:59 06/08/17 08:08 12.5 MG Multivitamins (Multivitamin Tab) 1 tab DAILY PO 06/05/17 09:00 07/05/17 08:59 06/08/17 08:07 1 TAB Oxycodone HCl (Roxicodone Immediate Rel Tab) 5 mg Q4H PRN PO 06/04/17 23:45 06/18/17 23:44 06/06/17 16:17 5 MG Pantoprazole Sodium (Protonix Tab) 40 mg DAILY PO 06/05/17 09:00 07/05/17 08:59 06/08/17 08:08 40 MG Tramadol HCl (Ultram Tab) Not relieved ... Q6H PRN PO 06/04/17 23:45 07/04/17 23:44 Hydromorphone HCl (Dilaudid Inj) 0.5 mg Q3H PRN IV 06/04/17 23:45 06/18/17 23:44 Ondansetron HCl (Zofran Inj) 4 mg Q6H PRN IV 06/04/17 23:45 07/04/17 23:44 06/06/17 04:48 4 MG Polyethylene (Miralax Powder Packet) 17 gm DAILY PO 06/06/17 09:00 07/06/17 08:59 06/08/17 08:08 17 GM Tramadol HCl (Ultram Tab) 50 mg BID PO 06/05/17 21:00 07/05/17 20:59 06/08/17 08:11 50 MG Warfarin Sodium (Coumadin Tab) 5 mg DAILY@1600 PO 06/05/17 16:00 07/05/17 15:59 Future Hold 06/07/17 15:52 5 MG Zinc Sulfate (Zinc Sulfate Cap) 220 mg DAILY PO 06/06/17 09:00 07/06/17 08:59 06/08/17 08:07 220 MG Imipenem/ Cilastatin Sodium 300 mg/Dextrose 106 ml @ 106 mls/hr Q6H IV 06/05/17 14:00 06/15/17 07:59 06/08/17 14:35 106 MLS/HR Enteral Nutritional Formula (Boost Glucose Control) 1 can BIDM PO 06/05/17 17:00 07/05/17 16:59 06/08/17 08:07 1 CAN Al Hydroxide/Mg Hydroxide (Maalox Susp) 30 ml Q6H PRN PO 06/06/17 08:00 07/06/17 07:59 06/06/17 08:29 30 ML Collagenase (Santyl Oint) 1 appln DAILY EXT 06/07/17 16:00 07/07/17 15:59 06/08/17 08:08 1 APPLN Objective Vital Signs Date Time Temp Pulse Resp B/P (MAP) Pulse Ox O2 Delivery O2 Flow Rate FiO2 06/08/17 08:42 36.4 89 17 99/64 (76) 92 Room Air 06/08/17 08:00 Room Air 06/08/17 00:16 37.2 97 20 118/72 (87) 92 Room Air 06/08/17 00:00 Room Air 06/07/17 20:30 101 124/72 (89) 06/07/17 16:00 Room Air 06/07/17 15:30 37.2 99 18 118/71 (87) 90 Room Air Physical Exam General Appearance: WD/WN, no apparent distress Eyes: normal inspection, sclerae normal ENT: normal ENT inspection, pharynx normal Neck: supple, no adenopathy, trachea midline Respiratory/Chest: chest non-tender, lungs clear, normal breath sounds, no respiratory distress Cardiovascular: regular rate, rhythm, no gallop, no murmur Abdomen: normal bowel sounds, non tender, soft, no organomegaly Extremities: non-tender, no calf tenderness Neurologic/Psychiatric: alert, oriented x 3 Skin: normal color, no rash, + pertinent finding (Cellulitis slightly better) Lymphatic: no adenopathy Laboratory Results Last 24 Hours Test 06/07/17 16:13 06/07/17 20:22 06/08/17 07:00 06/08/17 07:23 Bedside Glucose 205 mg/dl 207 mg/dl 144 mg/dl White Blood Count 13.06 K/uL Red Blood Count 2.82 M/uL Hemoglobin 8.5 g/dL Hematocrit 25.8 % Mean Corpuscular Volume 91.5 fL Mean Corpuscular Hemoglobin 30.1 pg Mean Corpuscular Hemoglobin Concent 32.9 g/dl Platelet Count 420 K/uL Mean Platelet Volume 8.4 fL Neutrophils (%) (Auto) 67.1 % Lymphocytes (%) (Auto) 21.0 % Monocytes (%) (Auto) 7.9 % Eosinophils (%) (Auto) 2.1 % Basophils (%) (Auto) 0.5 % Neutrophils # (Auto) 8.77 K/uL Lymphocytes # (Auto) 2.74 K/uL Monocytes # (Auto) 1.03 K/uL Eosinophils # (Auto) 0.28 K/uL Basophils # (Auto) 0.06 K/uL RDW Standard Deviation 44.8 fL RDW Coefficient of Variation 13.4 % Immature Granulocyte % (Auto) 1.4 % Immature Granulocyte # (Auto) 0.18 K/uL Red Blood Cell Morphology Unremarkable Prothrombin Time 38.8 SECONDS Prothromb Time International Ratio 3.4 Sodium Level 133 mmol/L Potassium Level 4.3 mmol/L Chloride Level 98 mmol/L Carbon Dioxide Level 30 mmol/L Anion Gap 5.0 mmol/L Blood Urea Nitrogen 21 mg/dl Creatinine 1.40 mg/dl Est Creatinine Clear Calc Drug Dose 37.7 ml/min Estimated GFR () 42.5 Estimated GFR (Non- 36.7 BUN/Creatinine Ratio 14.8 Random Glucose 142 mg/dl Calcium Level 8.3 mg/dl Test 06/08/17 11:36 Bedside Glucose 176 mg/dl Assessment and Plan 77 yo female with skin/skin structure infection. with cultures positive for Pseudomonas aeruginosa. Patient has penicillin allergy, will continue her on imipenem for now. No oral option available. Will follow.
--- NOTE | 2017-06-08 15:31 | Orthopedic Progress Note ---
Orthopedic Progress Note Date of Service Jun 08, 2017. Subjective Additional Notes: Patient seen at bedside, comfortable, no acute issues overnight Objective calves soft nontender, dressing C/D/I, A&O x3, toes mobile Multiple rt LE, rt knee, and torso sores with dressings per wound team ROM, strength knee deferred, no erythema, no active drainage through dressings. Decreased motor strength TA/GS bilateral, RLE 3/5, LLE 0/5, decreased sensation B/L LE L>R Compartments soft NT +2 DP pulse Date Time Temp Pulse Resp B/P (MAP) Pulse Ox O2 Delivery O2 Flow Rate FiO2 06/08/17 15:10 37.1 95 16 112/70 (84) 90 Room Air 06/08/17 08:42 36.4 89 17 99/64 (76) 92 Room Air 06/08/17 08:00 Room Air 06/08/17 00:16 37.2 97 20 118/72 (87) 92 Room Air 06/08/17 00:00 Room Air 06/07/17 20:30 101 124/72 (89) 06/07/17 16:00 Room Air 06/07/17 15:30 37.2 99 18 118/71 (87) 90 Room Air Laboratory Results 24 Hours: Test 06/08/17 07:00 White Blood Count 13.06 K/uL Red Blood Count 2.82 M/uL Hemoglobin 8.5 g/dL Hematocrit 25.8 % Mean Corpuscular Volume 91.5 fL Mean Corpuscular Hemoglobin 30.1 pg Mean Corpuscular Hemoglobin Concent 32.9 g/dl Platelet Count 420 K/uL Mean Platelet Volume 8.4 fL Neutrophils (%) (Auto) 67.1 % Lymphocytes (%) (Auto) 21.0 % Monocytes (%) (Auto) 7.9 % Eosinophils (%) (Auto) 2.1 % Basophils (%) (Auto) 0.5 % Neutrophils # (Auto) 8.77 K/uL Lymphocytes # (Auto) 2.74 K/uL Monocytes # (Auto) 1.03 K/uL Eosinophils # (Auto) 0.28 K/uL Basophils # (Auto) 0.06 K/uL Prothromb Time International Ratio 3.4 Prothrombin Time 38.8 SECONDS Assessment & Plan Assessment: 77 yo Female with Multiple ulcers of the lower extremities and torso and superficial fluid collection lateral aspect of the left knee, does not communicate deep or involve the joint. -Rec ID and abx for poly microbial infection, ulcers positive for Pseudomonas Aeruginosa, Strep, Corynebacterium. -Blood cultures negative to date -Fluid collection left knee likely residual subcutaneous edema/fat necrosis secondary to history of 4 days of being found down. If concerned about infection, I would recommend IR aspiration, culture and drain placement. - AFO braces for bilateral foot drop ordered - consult placed to Nick Lal, orthotics income tax consultant - Neuro consult recs appreciated -Wound care recs appreciated -ID recs appreciated -WBAT bilateral LE however I would hold off and ambulating/physical therapy till AFO braces obtained. -We will sign off, please call with any questions, the patient may follow up as needed in the office
--- NOTE | 2017-06-08 15:34 | Consultant Recommendations ---
Ends Down Checker Recommendations Date of Service Jun 08, 2017. Ends Down Checker Recommendations WBAT B/L LE Patient will need b/l LE AFO prior to participating with any PT/OT Follow up in office PRN
--- NOTE | 2017-06-08 15:46 | Neurology Progress Notes ---
Neurology Progress Note Date of Service Jun 08, 2017. 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 Chronic anemia (baseline hemoglobin of 9) She was admitted on 05/09-2016 for ARF, rhabdomyolysis secondary to mechanical fall. She also came to the hospital with DKA, was septic from cellulitis 2 to ulcerated wounds on the right breast and legs. She was discharged on antibiotic therapy and her Kidney function steadily improving following discharge to [facility]. She states she is about the same today. Denies CP, SOB, abdominal pain, one sided weakness, numbness, tingling, N, V. Objective Date Time Temp Pulse Resp B/P (MAP) Pulse Ox O2 Delivery O2 Flow Rate FiO2 06/08/17 15:10 37.1 95 16 112/70 (84) 90 Room Air 06/08/17 08:42 36.4 89 17 99/64 (76) 92 Room Air 06/08/17 08:00 Room Air 06/08/17 00:16 37.2 97 20 118/72 (87) 92 Room Air 06/08/17 00:00 Room Air 06/07/17 20:30 101 124/72 (89) 06/07/17 16:00 Room Air Last 24 Hours Test 06/07/17 16:13 06/07/17 20:22 06/08/17 07:00 06/08/17 07:23 Bedside Glucose 205 mg/dl 207 mg/dl 144 mg/dl White Blood Count 13.06 K/uL Red Blood Count 2.82 M/uL Hemoglobin 8.5 g/dL Hematocrit 25.8 % Mean Corpuscular Volume 91.5 fL Mean Corpuscular Hemoglobin 30.1 pg Mean Corpuscular Hemoglobin Concent 32.9 g/dl Platelet Count 420 K/uL Mean Platelet Volume 8.4 fL Neutrophils (%) (Auto) 67.1 % Lymphocytes (%) (Auto) 21.0 % Monocytes (%) (Auto) 7.9 % Eosinophils (%) (Auto) 2.1 % Basophils (%) (Auto) 0.5 % Neutrophils # (Auto) 8.77 K/uL Lymphocytes # (Auto) 2.74 K/uL Monocytes # (Auto) 1.03 K/uL Eosinophils # (Auto) 0.28 K/uL Basophils # (Auto) 0.06 K/uL RDW Standard Deviation 44.8 fL RDW Coefficient of Variation 13.4 % Immature Granulocyte % (Auto) 1.4 % Immature Granulocyte # (Auto) 0.18 K/uL Red Blood Cell Morphology Unremarkable Prothrombin Time 38.8 SECONDS Prothromb Time International Ratio 3.4 Sodium Level 133 mmol/L Potassium Level 4.3 mmol/L Chloride Level 98 mmol/L Carbon Dioxide Level 30 mmol/L Anion Gap 5.0 mmol/L Blood Urea Nitrogen 21 mg/dl Creatinine 1.40 mg/dl Est Creatinine Clear Calc Drug Dose 37.7 ml/min Estimated GFR () 42.5 Estimated GFR (Non- 36.7 BUN/Creatinine Ratio 14.8 Random Glucose 142 mg/dl Calcium Level 8.3 mg/dl Test 06/08/17 11:36 Bedside Glucose 176 mg/dl Imaging: no new imaging Exam: Gen: alert NAD PERRL/EOMI facial symmetry lying in bed hip flex unable to lift or maintain to gravity bilateral foot drop Current Inpatient Medications Medications (Trade) Dose Ordered Sig/Solitario Route Start Time Stop Time Status Last Admin Dose Admin Imipenem/ Cilastatin Sodium (Consult) 1 ea UD PRN N/A 06/05/17 09:00 07/05/17 08:59 Acetaminophen (Tylenol Tab) 650 mg Q4H PRN PO 06/04/17 23:45 07/04/17 23:44 Insulin Aspart (novoLOG ASPART) SLIDING SCALE If C... ACHS SC 06/05/17 06:30 07/05/17 06:59 06/08/17 12:22 2 UNITS Glucose (Glucose 40% Gel) 15-30 GRAMS 15 GRAMS... UD PRN PO 06/04/17 23:45 07/04/17 23:44 Glucose (Glucose Chew Tab) 4-8 Tablets 4 Tabl... UD PRN PO 06/04/17 23:45 07/04/17 23:44 Dextrose (Dextrose 50% 50ML Syringe) 25-50ML OF 50% DW IV FOR... UD PRN IV 06/04/17 23:45 07/04/17 23:44 Glucagon (Glucagon Inj) 1 mg UD PRN SQ 06/04/17 23:45 07/04/17 23:44 Allopurinol (Zyloprim Tab) 300 mg DAILY PO 06/05/17 09:00 07/05/17 08:59 06/08/17 08:08 300 MG Insulin Glargine (Lantus Solostar Pen) 15 units QAM SQ 06/05/17 09:00 07/05/17 08:59 06/08/17 08:09 15 UNITS Metoprolol Tartrate (Lopressor Tab) 12.5 mg BID PO 06/05/17 09:00 07/05/17 08:59 06/08/17 08:08 12.5 MG Multivitamins (Multivitamin Tab) 1 tab DAILY PO 06/05/17 09:00 07/05/17 08:59 06/08/17 08:07 1 TAB Oxycodone HCl (Roxicodone Immediate Rel Tab) 5 mg Q4H PRN PO 06/04/17 23:45 06/18/17 23:44 06/06/17 16:17 5 MG Pantoprazole Sodium (Protonix Tab) 40 mg DAILY PO 06/05/17 09:00 07/05/17 08:59 06/08/17 08:08 40 MG Tramadol HCl (Ultram Tab) Not relieved ... Q6H PRN PO 06/04/17 23:45 07/04/17 23:44 Hydromorphone HCl (Dilaudid Inj) 0.5 mg Q3H PRN IV 06/04/17 23:45 06/18/17 23:44 Ondansetron HCl (Zofran Inj) 4 mg Q6H PRN IV 06/04/17 23:45 07/04/17 23:44 06/06/17 04:48 4 MG Polyethylene (Miralax Powder Packet) 17 gm DAILY PO 06/06/17 09:00 07/06/17 08:59 06/08/17 08:08 17 GM Tramadol HCl (Ultram Tab) 50 mg BID PO 06/05/17 21:00 07/05/17 20:59 06/08/17 08:11 50 MG Warfarin Sodium (Coumadin Tab) 5 mg DAILY@1600 PO 06/05/17 16:00 07/05/17 15:59 Future Hold 06/07/17 15:52 5 MG Zinc Sulfate (Zinc Sulfate Cap) 220 mg DAILY PO 06/06/17 09:00 07/06/17 08:59 06/08/17 08:07 220 MG Imipenem/ Cilastatin Sodium 300 mg/Dextrose 106 ml @ 106 mls/hr Q6H IV 06/05/17 14:00 06/15/17 07:59 06/08/17 14:35 106 MLS/HR Enteral Nutritional Formula (Boost Glucose Control) 1 can BIDM PO 06/05/17 17:00 07/05/17 16:59 06/08/17 08:07 1 CAN Al Hydroxide/Mg Hydroxide (Maalox Susp) 30 ml Q6H PRN PO 06/06/17 08:00 07/06/17 07:59 06/06/17 08:29 30 ML Collagenase (Santyl Oint) 1 appln DAILY EXT 06/07/17 16:00 07/07/17 15:59 06/08/17 08:08 1 APPLN Impression 77 year old female with wound infection and CKD- hx CMT Plan 1. recommend orthotics evaluate and treat for left foot drop and progressing right foot drop 2. PT/OT for discharge needs 3. fall precautions 4. home nursing evaluation- should have emergency call alert at home or may need other living arrangements 5. primary team for medical issues 6. Charcot Sepideh Tooth is a progressive disease and part of the progression is foot drop 7. would be glad to see her in the office after infection has resolved for further evaluation 8. will sign off for now- call with questions concerns. I have seen and discussed above patient with Dr Jose Shea, neurology seen adn evlauted less confused today discharge plans still uncertain my [facility] in terms of the cmt may need afos and will need neurology follow up in several months For now we are signing off but could see prn if things change Jose Shea MD
[2017-06-08 16:00] VITALS: O2SAT 90
[2017-06-08 23:53] VITALS: BP 110/69; PULSE 87; TEMP 37.2; O2SAT 92
[2017-06-09] MEDS: IMIPENEM/CILASTATIN IV 300 MG in DEXTROSE 5% 100ML 100 ML IV SCH ×4 (01:55→20:32)
[2017-06-09] MEDS: COLLAGENASE OINT 30 GM TUBE EXT SCH (06:44)
[2017-06-09 08:00] VITALS: O2SAT 90
[2017-06-09] MEDS: BOOST GLUCOSE CONTROL PO SCH ×3 (08:00→17:00)
[2017-06-09 08:27] LABS: BASO % 0.4 %; BASO ABS # 0.06 K/uL (0-0.2); EOS % 2.3 %; HEMATOCRIT 27.8 % (37-47); LYMPH % 18.7 %; LYMPH ABS # 2.61 K/uL (1.2-3.4); MEAN CELL VOLUME 92.1 fL (80-100); MEAN CORPUSCULAR HEMOGLOBIN 29.5 pg (25-34); MEAN PLATELET VOLUME 8.6 fL (7.4-10.4); MONO % 8.2 %; NEUT % 68.4 %; PLATELET COUNT 428 K/uL (130-400); RED BLOOD COUNT 3.02 M/uL (4.2-5.4); WHITE BLOOD COUNT 13.98 K/uL (4.8-10.8)
[2017-06-09 08:32] LABS: PROTHROMBIN TIME (PATIENT) 47.3 SECONDS (9.0-12.0)
[2017-06-09 08:33] LABS: INR 4.2 (0.9-1.1)
[2017-06-09 08:39] VITALS: BP 116/74; PULSE 104; TEMP 36.4; O2SAT 94
[2017-06-09 08:42] LABS: BUN/CREATININE RATIO 16.2 (10-20); CALCIUM 8.3 mg/dl (8.5-10.1); CREATININE 1.2 mg/dl (0.60-1.20); POTASSIUM 4.5 mmol/L (3.5-5.1)
[2017-06-09 08:51] LABS: COMPLETE YES
[2017-06-09] MEDS: PANTOprazole SOD 40 MG TAB PO SCH (08:58)
[2017-06-09] MEDS: MULTIVITAMIN TAB PO SCH (08:58)
[2017-06-09] MEDS: ALLOPURINOL 300 MG TAB PO SCH (08:59)
[2017-06-09] MEDS: ZINC SULFATE 220 MG CAP PO SCH (08:59)
[2017-06-09] MEDS: METOPROLOL TARTRATE 25 MG TAB PO SCH ×2 (08:59→20:33)
[2017-06-09] MEDS: INSULIN ASPART 100 UNITS/ML 3 ML PEN SC SCH ×4 (09:26→20:20)
[2017-06-09] MEDS: INSULIN GLARGINE SOLOSTAR 100 UNITS/ML 3 ML PEN SQ SCH (09:26)
[2017-06-09] MEDS: TRAMADOL HCL 50 MG TAB PO SCH ×2 (09:27→20:35)
[2017-06-09] MEDS: POLYETHYLENE (MIRALAX) 17 GM PACK PO SCH (09:27)
[2017-06-09 11:18] VITALS: BP 136/74; PULSE 95; TEMP 36.9; O2SAT 90
--- NOTE | 2017-06-09 13:23 | Progress Note ---
Internal Med Progress Note Date of Service: Jun 09, 2017. Provider Documentation: SUBJECTIVE: awake and alert , offers no complains had PICC placed on rt arm ; getting IV Abx Primaxin no fever or chills remains stable hemodynamically wound care following pt closely daughters and son present at bedside concern about placement issues OBJECTIVE: Vital Signs-as noted below Exam: General-chronically ill appearing ,no sign of distress Eyes-sclera non icteric ENT-NAd Neck-no JVD Lungs-CTA ,no rales or wheeze Heart-regular S1/S2 Abdomen-soft, non tender Extremities-infected wound underneath the rt breast -base in dark brown / greenish , dressing present , multiple skin wounds in left and rt knee and behind left knee , lower leg Neuro-slow to process conversation , no focal deficit noted , has progressive weakness of bilateral lower ext due to her known diagnosis of CMT Lab data as noted below. ASSESSMENT & PLAN: This is a 77 year old obese female with a PMH insulin dependent DM2, diabetic nephropathy and CKD stage 3, 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 of lacunar infarct, Sphjqvj-xiplm-xdmce disease, HTN, HLD presented last month with a fall, rhabdo, DKA, sepsis, and infectious of the R breast, L LE INFECTED MULTIPLE WOUND WITH PSEUDOMONAS INFECTION significant wounds noted on bilateral lower extremities and R breast ID on board, currently on Imipenem Wound culture growing multiple organisms on culture, including Pseudomonas-no oral antibiotics available pt will need continued IV Abx with Imipenem > 14 days PICC lined placed wound care consulted - appreciate input had debridement done today by Dr Melendrez , and plan for repeat debridement in next 48 hrs on Wednesday appreciate ortho input - no I&D indicated Insulin Dependent DM2 patient presented last month with DKA BSG better control now cont Lantus and sliding scale and monitor BSGs CKD stage 3 creatinine is around 1.6 probably her new baseline much improved from previous admission Hx. of PE s/p IVC filter placement Coumadin kept on hold for elevated INR ; Cowwhbp-[id number]-[id number] appreciate neurology eval progressive disease , supportive care only Orthotics consulted will need to be fitted with Orthotics pt will need Ankle foot orthotics ; pt will not be able to to be OOB or participate in PT /OT without the orthotics due to bilateral foot drop , orthotics consulted for foot drop associated with CMT due to pt's significant ankle and foot edema and multiple foot and leg wound pt will be benefitted with specialized Orthopedics shoes and attachment of metal ankle foot orthoses to the shoes to allow deflexion and assist as ankle support pt refused to have feet measured yesterday for orthopedics shoes -spoke with pt and family , daughter explained to patient the importance of ankle /foot orthoses , to help her to be OOB pt is agreeable D/w Nick [place] -pt needs special orthopedics shoes customized for pt's needs which may take 1-2 weeks to make Nick will come today afternoon to get measurement for her feet to order telephonic nurse case manager updated DVT ppx INR elevated DNR DISPOSITION will need SNF vs placement family does not want pt to return to [facility] referral made to [facility] second referral made for [facility] at present pt is complete care needs very close monitoring and wound care for multiple infected wound needs senior care IV Abx social service consulted for discharge planning update given to Daughters and son present at bedside Vital Signs: Date Time Temp Pulse Resp B/P (MAP) Pulse Ox O2 Delivery O2 Flow Rate FiO2 06/09/17 11:18 36.9 95 22 136/74 (94) 90 Room Air 06/09/17 08:39 36.4 104 20 116/74 (88) 94 Room Air 06/09/17 08:00 90 Room Air 06/09/17 00:00 Room Air 06/08/17 23:53 37.2 87 18 110/69 (83) 92 Room Air 06/08/17 16:00 90 Room Air 06/08/17 15:10 37.1 95 16 112/70 (84) 90 Room Air Lab Results: Results Past 24 Hours Test 06/08/17 16:31 06/08/17 19:39 06/09/17 07:12 06/09/17 07:40 Range/Units Bedside Glucose 186 168 153 70-90 mg/dl White Blood Count 13.98 4.8-10.8 K/uL Red Blood Count 3.02 4.2-5.4 M/uL Hemoglobin 8.9 12.0-16.0 g/dL Hematocrit 27.8 37-47 % Mean Corpuscular Volume 92.1 80-100 fL Mean Corpuscular Hemoglobin 29.5 25-34 pg Mean Corpuscular Hemoglobin Concent 32.0 32-36 g/dl Platelet Count 428 130-400 K/uL Mean Platelet Volume 8.6 7.4-10.4 fL Neutrophils (%) (Auto) 68.4 % Lymphocytes (%) (Auto) 18.7 % Monocytes (%) (Auto) 8.2 % Eosinophils (%) (Auto) 2.3 % Basophils (%) (Auto) 0.4 % Neutrophils # (Auto) 9.56 1.4-6.5 K/uL Lymphocytes # (Auto) 2.61 1.2-3.4 K/uL Monocytes # (Auto) 1.15 0.11-0.59 K/uL Eosinophils # (Auto) 0.32 0-0.5 K/uL Basophils # (Auto) 0.06 0-0.2 K/uL RDW Standard Deviation 45.5 36.4-46.3 fL RDW Coefficient of Variation 13.5 11.5-14.5 % Immature Granulocyte % (Auto) 2.0 % Immature Granulocyte # (Auto) 0.28 0.00-0.02 K/uL Sodium Level 135 136-145 mmol/L Potassium Level 4.5 3.5-5.1 mmol/L Chloride Level 99 98-107 mmol/L Carbon Dioxide Level 28 21-32 mmol/L Anion Gap 8.0 3-11 mmol/L Blood Urea Nitrogen 19 7-18 mg/dl Creatinine 1.20 0.60-1.20 mg/dl Est Creatinine Clear Calc Drug Dose 43.9 ml/min Estimated GFR () 51.2 Estimated GFR (Non- 44.2 BUN/Creatinine Ratio 16.2 10-20 Random Glucose 125 70-99 mg/dl Calcium Level 8.3 8.5-10.1 mg/dl Test 06/09/17 08:05 06/09/17 11:11 Range/Units Prothrombin Time 47.3 9.0-12.0 SECONDS Prothromb Time International Ratio 4.2 0.9-1.1 Bedside Glucose 232 70-90 mg/dl
[2017-06-09 15:07] VITALS: BP 104/64; PULSE 94; TEMP 37.2; O2SAT 91
[2017-06-09 16:00] VITALS: O2SAT 91
--- NOTE | 2017-06-09 19:23 | Infectious Disease Progress Nt ---
Progress Note Date of Service Jun 09, 2017. Subjective Pt evaluation today including: conversation w/ patient, physical exam, chart review, lab review, review of studies, conversation w/ sourcing consultant, review of inpatient medication list Patient without new complaints today. Remains afebrile. Pain slightly better. Continues to tolerate imipenem. All Other Systems: Reviewed and Negative Medications Current Inpatient Medications Medications (Trade) Dose Ordered Sig/Solitario Route Start Time Stop Time Status Last Admin Dose Admin Imipenem/ Cilastatin Sodium (Consult) 1 ea UD PRN N/A 06/05/17 09:00 07/05/17 08:59 Acetaminophen (Tylenol Tab) 650 mg Q4H PRN PO 06/04/17 23:45 07/04/17 23:44 Insulin Aspart (novoLOG ASPART) SLIDING SCALE If C... ACHS SC 06/05/17 06:30 07/05/17 06:59 06/09/17 12:28 7 UNITS Glucose (Glucose 40% Gel) 15-30 GRAMS 15 GRAMS... UD PRN PO 06/04/17 23:45 07/04/17 23:44 Glucose (Glucose Chew Tab) 4-8 Tablets 4 Tabl... UD PRN PO 06/04/17 23:45 07/04/17 23:44 Dextrose (Dextrose 50% 50ML Syringe) 25-50ML OF 50% DW IV FOR... UD PRN IV 06/04/17 23:45 07/04/17 23:44 Glucagon (Glucagon Inj) 1 mg UD PRN SQ 06/04/17 23:45 07/04/17 23:44 Allopurinol (Zyloprim Tab) 300 mg DAILY PO 06/05/17 09:00 07/05/17 08:59 06/09/17 08:59 300 MG Insulin Glargine (Lantus Solostar Pen) 15 units QAM SQ 06/05/17 09:00 07/05/17 08:59 06/09/17 09:26 15 UNITS Metoprolol Tartrate (Lopressor Tab) 12.5 mg BID PO 06/05/17 09:00 07/05/17 08:59 06/09/17 08:59 12.5 MG Multivitamins (Multivitamin Tab) 1 tab DAILY PO 06/05/17 09:00 07/05/17 08:59 06/09/17 08:58 1 TAB Oxycodone HCl (Roxicodone Immediate Rel Tab) 5 mg Q4H PRN PO 06/04/17 23:45 06/18/17 23:44 06/06/17 16:17 5 MG Pantoprazole Sodium (Protonix Tab) 40 mg DAILY PO 06/05/17 09:00 07/05/17 08:59 06/09/17 08:58 40 MG Tramadol HCl (Ultram Tab) Not relieved ... Q6H PRN PO 06/04/17 23:45 07/04/17 23:44 Ondansetron HCl (Zofran Inj) 4 mg Q6H PRN IV 06/04/17 23:45 07/04/17 23:44 06/06/17 04:48 4 MG Polyethylene (Miralax Powder Packet) 17 gm DAILY PO 06/06/17 09:00 07/06/17 08:59 06/09/17 09:27 17 GM Tramadol HCl (Ultram Tab) 50 mg BID PO 06/05/17 21:00 07/05/17 20:59 06/09/17 09:27 50 MG Warfarin Sodium (Coumadin Tab) 5 mg DAILY@1600 PO 06/05/17 16:00 07/05/17 15:59 Future Hold 06/07/17 15:52 5 MG Zinc Sulfate (Zinc Sulfate Cap) 220 mg DAILY PO 06/06/17 09:00 07/06/17 08:59 06/09/17 08:59 220 MG Imipenem/ Cilastatin Sodium 300 mg/Dextrose 106 ml @ 106 mls/hr Q6H IV 06/05/17 14:00 06/15/17 07:59 06/09/17 14:34 106 MLS/HR Enteral Nutritional Formula (Boost Glucose Control) 1 can BIDM PO 06/05/17 17:00 07/05/17 16:59 06/09/17 16:57 1 CAN Al Hydroxide/Mg Hydroxide (Maalox Susp) 30 ml Q6H PRN PO 06/06/17 08:00 07/06/17 07:59 06/06/17 08:29 30 ML Collagenase (Santyl Oint) 1 appln DAILY EXT 06/07/17 16:00 07/07/17 15:59 06/09/17 06:44 1 APPLN Heparin Sodium (Porcine) (Heparin 10 Unit/ ml 5 ml Flush) 5 ml PRN PRN FLUSH 06/09/17 07:45 07/09/17 07:44 06/09/17 16:05 5 ML Objective Vital Signs Date Time Temp Pulse Resp B/P (MAP) Pulse Ox O2 Delivery O2 Flow Rate FiO2 06/09/17 16:00 91 Room Air 06/09/17 15:07 37.2 94 18 104/64 (77) 91 Room Air 06/09/17 11:18 36.9 95 22 136/74 (94) 90 Room Air 06/09/17 08:39 36.4 104 20 116/74 (88) 94 Room Air 06/09/17 08:00 90 Room Air 06/09/17 00:00 Room Air 06/08/17 23:53 37.2 87 18 110/69 (83) 92 Room Air Physical Exam General Appearance: WD/WN, no apparent distress Eyes: normal inspection, EOMI, sclerae normal ENT: normal ENT inspection, pharynx normal Neck: supple, no adenopathy, trachea midline Respiratory/Chest: chest non-tender, lungs clear, normal breath sounds, no respiratory distress Cardiovascular: regular rate, rhythm, no gallop, no murmur Abdomen: normal bowel sounds, non tender, soft, no organomegaly Extremities: non-tender, no calf tenderness Neurologic/Psychiatric: alert, oriented x 3 Skin: normal color, no rash, + pertinent finding ( Wound slowly improving) Lymphatic: no adenopathy Laboratory Results Last 24 Hours Test 06/08/17 19:39 06/09/17 07:12 06/09/17 07:40 06/09/17 08:05 Bedside Glucose 168 mg/dl 153 mg/dl White Blood Count 13.98 K/uL Red Blood Count 3.02 M/uL Hemoglobin 8.9 g/dL Hematocrit 27.8 % Mean Corpuscular Volume 92.1 fL Mean Corpuscular Hemoglobin 29.5 pg Mean Corpuscular Hemoglobin Concent 32.0 g/dl Platelet Count 428 K/uL Mean Platelet Volume 8.6 fL Neutrophils (%) (Auto) 68.4 % Lymphocytes (%) (Auto) 18.7 % Monocytes (%) (Auto) 8.2 % Eosinophils (%) (Auto) 2.3 % Basophils (%) (Auto) 0.4 % Neutrophils # (Auto) 9.56 K/uL Lymphocytes # (Auto) 2.61 K/uL Monocytes # (Auto) 1.15 K/uL Eosinophils # (Auto) 0.32 K/uL Basophils # (Auto) 0.06 K/uL RDW Standard Deviation 45.5 fL RDW Coefficient of Variation 13.5 % Immature Granulocyte % (Auto) 2.0 % Immature Granulocyte # (Auto) 0.28 K/uL Sodium Level 135 mmol/L Potassium Level 4.5 mmol/L Chloride Level 99 mmol/L Carbon Dioxide Level 28 mmol/L Anion Gap 8.0 mmol/L Blood Urea Nitrogen 19 mg/dl Creatinine 1.20 mg/dl Est Creatinine Clear Calc Drug Dose 43.9 ml/min Estimated GFR () 51.2 Estimated GFR (Non- 44.2 BUN/Creatinine Ratio 16.2 Random Glucose 125 mg/dl Calcium Level 8.3 mg/dl Prothrombin Time 47.3 SECONDS Prothromb Time International Ratio 4.2 Test 06/09/17 11:11 Bedside Glucose 232 mg/dl Assessment and Plan 77 yo female with skin/skin structure infection. with cultures positive for Pseudomonas aeruginosa. Patient has penicillin allergy, will continue her on imipenem for now. No oral option available. Length of IV Abx will be determined by clinical response. Will follow.
[2017-06-09 23:06] VITALS: BP 109/66; PULSE 92; TEMP 37.1; O2SAT 92
[2017-06-10] MEDS: IMIPENEM/CILASTATIN IV 300 MG in DEXTROSE 5% 100ML 100 ML IV SCH ×4 (01:35→20:49)
[2017-06-10 07:19] VITALS: BP 113/68; PULSE 85; TEMP 36.5; O2SAT 92
[2017-06-10 07:52] LABS: BASO % 0.4 %; BASO ABS # 0.05 K/uL (0-0.2); EOS % 2.4 %; HEMATOCRIT 26.2 % (37-47); LYMPH % 19.3 %; LYMPH ABS # 2.39 K/uL (1.2-3.4); MEAN CELL VOLUME 91.6 fL (80-100); MEAN CORPUSCULAR HEMOGLOBIN 29.7 pg (25-34); MEAN CORPUSCULAR HGB CONC 32.4 g/dl (32-36); MEAN PLATELET VOLUME 8.1 fL (7.4-10.4); MONO % 7.7 %; NEUT % 68.2 %; PLATELET COUNT 458 K/uL (130-400); RED BLOOD COUNT 2.86 M/uL (4.2-5.4); WHITE BLOOD COUNT 12.41 K/uL (4.8-10.8)
[2017-06-10 07:57] LABS: PROTHROMBIN TIME (PATIENT) 58.2 SECONDS (9.0-12.0)
[2017-06-10 07:58] LABS: INR 5.1 (0.9-1.1)
[2017-06-10] MEDS: BOOST GLUCOSE CONTROL PO SCH ×2 (08:00→16:56)
[2017-06-10 08:13] LABS: BUN/CREATININE RATIO 18.5 (10-20); CALCIUM 8.4 mg/dl (8.5-10.1)
[2017-06-10] MEDS: COLLAGENASE OINT 30 GM TUBE EXT SCH (09:00)
[2017-06-10 09:02] LABS: COMPLETE YES; ROULEAUX 1+
[2017-06-10] MEDS: MULTIVITAMIN TAB PO SCH (09:13)
[2017-06-10] MEDS: ZINC SULFATE 220 MG CAP PO SCH (09:14)
[2017-06-10] MEDS: POLYETHYLENE (MIRALAX) 17 GM PACK PO SCH (09:14)
[2017-06-10] MEDS: INSULIN GLARGINE SOLOSTAR 100 UNITS/ML 3 ML PEN SQ SCH (09:16)
[2017-06-10] MEDS: INSULIN ASPART 100 UNITS/ML 3 ML PEN SC SCH ×4 (09:17→20:55)
[2017-06-10] MEDS: METOPROLOL TARTRATE 25 MG TAB PO SCH ×2 (09:18→21:48)
[2017-06-10] MEDS: PANTOprazole SOD 40 MG TAB PO SCH (09:19)
[2017-06-10] MEDS: ALLOPURINOL 300 MG TAB PO SCH (09:19)
--- NOTE | 2017-06-10 09:27 | Wound Progress Note: Inpatient ---
Wound Progress Note Date of Service Jun 09, 2017. Subjective Pt evaluation today including: conversation w/ patient, physical exam, chart review Patient was seen today for further evaluation of her unstageable pressure ulcers impossible debridement. Patient has no new complaints at this time. Patient denies any significant pain, fever, chills or night sweats. Objective Vital Signs Date Time Temp Pulse Resp B/P (MAP) Pulse Ox O2 Delivery O2 Flow Rate FiO2 06/10/17 07:19 36.5 85 18 113/68 (83) 92 Room Air 06/10/17 00:00 Room Air 06/09/17 23:06 37.1 92 18 109/66 (80) 92 Room Air 06/09/17 16:00 91 Room Air 06/09/17 15:07 37.2 94 18 104/64 (77) 91 Room Air 06/09/17 11:18 36.9 95 22 136/74 (94) 90 Room Air Physical Exam Notes: Patients vital signs were reviewed and found to be unremarkable patient is afebrile. The ulcerative sites today on the right chest wall, right knee and left foot did require debridement. The eschar formations appeared similar in size. The left knee ulceration was not ready for debridement at this time. No significant slough was noted. No periwound erythema or active drainage was present at any site. No tenderness to palpation or fluctuance noted at any site. Laboratory Results Last 24 Hours Test 06/09/17 11:11 06/10/17 07:09 06/10/17 07:27 Bedside Glucose 232 mg/dl 116 mg/dl White Blood Count 12.41 K/uL Red Blood Count 2.86 M/uL Hemoglobin 8.5 g/dL Hematocrit 26.2 % Mean Corpuscular Volume 91.6 fL Mean Corpuscular Hemoglobin 29.7 pg Mean Corpuscular Hemoglobin Concent 32.4 g/dl Platelet Count 458 K/uL Mean Platelet Volume 8.1 fL Neutrophils (%) (Auto) 68.2 % Lymphocytes (%) (Auto) 19.3 % Monocytes (%) (Auto) 7.7 % Eosinophils (%) (Auto) 2.4 % Basophils (%) (Auto) 0.4 % Neutrophils # (Auto) 8.47 K/uL Lymphocytes # (Auto) 2.39 K/uL Monocytes # (Auto) 0.95 K/uL Eosinophils # (Auto) 0.30 K/uL Basophils # (Auto) 0.05 K/uL RDW Standard Deviation 45.1 fL RDW Coefficient of Variation 13.6 % Immature Granulocyte % (Auto) 2.0 % Immature Granulocyte # (Auto) 0.25 K/uL Rouleau 1+ Prothrombin Time 58.2 SECONDS Prothromb Time International Ratio 5.1 Sodium Level 133 mmol/L Potassium Level 4.0 mmol/L Chloride Level 97 mmol/L Carbon Dioxide Level 31 mmol/L Anion Gap 5.0 mmol/L Blood Urea Nitrogen 19 mg/dl Creatinine 1.00 mg/dl Est Creatinine Clear Calc Drug Dose 52.7 ml/min Estimated GFR () 63.8 Estimated GFR (Non- 55.1 BUN/Creatinine Ratio 18.5 Random Glucose 128 mg/dl Calcium Level 8.4 mg/dl Assessment and Plan Assessment: Multiple unstageable pressure ulcers present on the left foot, right knee, left knee, right breast region. Plan: As stated above the sites of the right chest wall right knee left knee and left foot didn't require debridement. With the patient's permission and after the application of topical Xylocaine 4% the sites were debridement with scissors forceps and a #5 curette. Eschar and underlying some subcutaneous tissue was removed. Minimal bleeding occurred. The sites will be dressed with Aquacel Ag and gauze changed on a daily basis. The site of the left knee posterior popliteal region required additional scoring with a #11 blade and will be dressed with Santyl and gauze change daily. Patient will continue to be monitored and reevaluated in 48 hours for additional debridement of the left knee. Represented an excisional debridement of 72 cm.
[2017-06-10] MEDS: TRAMADOL HCL 50 MG TAB PO SCH ×2 (09:28→20:51)
[2017-06-10 14:53] VITALS: BP 119/74; PULSE 90; TEMP 37.3; O2SAT 92
[2017-06-10 15:53] VITALS: O2SAT 92
--- NOTE | 2017-06-10 18:01 | Progress Note ---
Internal Med Progress Note Date of Service: Jun 10, 2017. Provider Documentation: SUBJECTIVE: very pleasant, baseline dementia , oriented to person able to tell me today that she is in a hospital does not recall the name no complain of pain or discomfort OBJECTIVE: Vital Signs-as noted below Exam: General-chronically ill appearing ,no sign of distress Eyes-sclera non icteric ENT-NAd Neck-no JVD Lungs-CTA ,no rales or wheeze Heart-regular S1/S2 Abdomen-soft, non tender Extremities-infected wound underneath the rt breast -base in dark brown / greenish , dressing present , multiple skin wounds in left and rt knee and behind left knee , lower leg Neuro-slow to process conversation , no focal deficit noted , has progressive weakness of bilateral lower ext due to her known diagnosis of CMT Lab data as noted below. ASSESSMENT & PLAN: This is a 77 year old obese female with a PMH insulin dependent DM2, diabetic nephropathy and CKD stage 3, 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 of lacunar infarct, Rzrlkxj-eqwms-irgnr disease, HTN, HLD presented last month with a fall, rhabdo, DKA, sepsis, and infectious of the R breast, L LE INFECTED MULTIPLE WOUND WITH PSEUDOMONAS INFECTION significant wounds noted on bilateral lower extremities and R breast ID on board, currently on Imipenem Wound culture growing multiple organisms on culture, including Pseudomonas-no oral antibiotics available pt will need continued IV Abx with Imipenem > 2-4 weeks PICC lined placed wound care consulted - appreciate input pt getting bed side debridement by Dr Melendrez appreciate ortho input - no I&D indicated Insulin Dependent DM2 patient presented last month with DKA BSG better control now cont Lantus and sliding scale and monitor BSGs CKD stage 3 creatinine is around 1.6 probably her new baseline much improved from previous admission Hx. of PE s/p IVC filter placement Coumadin kept on hold for elevated INR ; [id number]-[id number] appreciate neurology eval progressive disease , supportive care only Orthotics consulted will need to be fitted with Orthotics pt will need Ankle foot orthotics ; pt will not be able to to be OOB or participate in PT /OT without the orthotics due to bilateral foot drop , orthotics consulted for foot drop associated with CMT due to pt's significant ankle and foot edema and multiple foot and leg wound pt will be benefitted with specialized Orthopedics shoes and attachment of metal ankle foot orthoses to the shoes to allow deflexion and assist as ankle support D/w Nick [place] -pt needs special orthopedics shoes customized for pt's needs which may take 1-2 weeks to make DVT ppx INR elevated DNR DISPOSITION will need SNF vs placement family does not want pt to return to [facility] referral made to [facility] second referral made for [facility] - unable to accept the pt social service following for discharge planning Vital Signs: Date Time Temp Pulse Resp B/P (MAP) Pulse Ox O2 Delivery O2 Flow Rate FiO2 06/11/17 08:00 Room Air 06/11/17 07:57 36.9 104 18 110/69 (83) 91 Room Air 06/11/17 00:13 37.0 90 18 122/76 (91) 90 Room Air 06/11/17 00:00 Room Air 06/10/17 15:53 92 Room Air 06/10/17 14:53 37.3 90 18 119/74 (89) 92 Room Air Lab Results: Results Past 24 Hours Test 06/10/17 16:05 06/10/17 20:13 06/11/17 05:20 06/11/17 07:32 Range/Units Bedside Glucose 200 194 134 70-90 mg/dl White Blood Count 13.63 4.8-10.8 K/uL Red Blood Count 2.76 4.2-5.4 M/uL Hemoglobin 8.2 12.0-16.0 g/dL Hematocrit 24.9 37-47 % Mean Corpuscular Volume 90.2 80-100 fL Mean Corpuscular Hemoglobin 29.7 25-34 pg Mean Corpuscular Hemoglobin Concent 32.9 32-36 g/dl Platelet Count 430 130-400 K/uL Mean Platelet Volume 8.0 7.4-10.4 fL Neutrophils (%) (Auto) 65.8 % Lymphocytes (%) (Auto) 22.5 % Monocytes (%) (Auto) 6.6 % Eosinophils (%) (Auto) 2.9 % Basophils (%) (Auto) 0.4 % Neutrophils # (Auto) 8.98 1.4-6.5 K/uL Lymphocytes # (Auto) 3.06 1.2-3.4 K/uL Monocytes # (Auto) 0.90 0.11-0.59 K/uL Eosinophils # (Auto) 0.39 0-0.5 K/uL Basophils # (Auto) 0.05 0-0.2 K/uL RDW Standard Deviation 43.9 36.4-46.3 fL RDW Coefficient of Variation 13.4 11.5-14.5 % Immature Granulocyte % (Auto) 1.8 % Immature Granulocyte # (Auto) 0.25 0.00-0.02 K/uL Red Blood Cell Morphology Unremarkable Prothrombin Time 41.1 9.0-12.0 SECONDS Prothromb Time International Ratio 3.6 0.9-1.1 Sodium Level 135 136-145 mmol/L Potassium Level 4.0 3.5-5.1 mmol/L Chloride Level 98 98-107 mmol/L Carbon Dioxide Level 32 21-32 mmol/L Anion Gap 5.0 3-11 mmol/L Blood Urea Nitrogen 18 7-18 mg/dl Creatinine 1.00 0.60-1.20 mg/dl Est Creatinine Clear Calc Drug Dose 52.7 ml/min Estimated GFR () 63.8 Estimated GFR (Non- 55.1 BUN/Creatinine Ratio 17.7 10-20 Random Glucose 129 70-99 mg/dl Calcium Level 7.9 8.5-10.1 mg/dl Test 06/11/17 11:41 Range/Units Bedside Glucose 228 70-90 mg/dl
--- NOTE | 2017-06-10 19:59 | Infectious Disease Progress Nt ---
Progress Note Date of Service Jun 10, 2017. Subjective Pt evaluation today including: conversation w/ patient, physical exam, chart review, lab review, review of studies, conversation w/ economics consultant, review of inpatient medication list Wound care follow-up noted. Patient remains afebrile. Pain about the same. Continues to tolerate antibiotic. All Other Systems: Reviewed and Negative Medications Current Inpatient Medications Medications (Trade) Dose Ordered Sig/Solitario Route Start Time Stop Time Status Last Admin Dose Admin Imipenem/ Cilastatin Sodium (Consult) 1 ea UD PRN N/A 06/05/17 09:00 07/05/17 08:59 Acetaminophen (Tylenol Tab) 650 mg Q4H PRN PO 06/04/17 23:45 07/04/17 23:44 Insulin Aspart (novoLOG ASPART) SLIDING SCALE If C... ACHS SC 06/05/17 06:30 07/05/17 06:59 06/10/17 17:54 3 UNITS Glucose (Glucose 40% Gel) 15-30 GRAMS 15 GRAMS... UD PRN PO 06/04/17 23:45 07/04/17 23:44 Glucose (Glucose Chew Tab) 4-8 Tablets 4 Tabl... UD PRN PO 06/04/17 23:45 07/04/17 23:44 Dextrose (Dextrose 50% 50ML Syringe) 25-50ML OF 50% DW IV FOR... UD PRN IV 06/04/17 23:45 07/04/17 23:44 Glucagon (Glucagon Inj) 1 mg UD PRN SQ 06/04/17 23:45 07/04/17 23:44 Allopurinol (Zyloprim Tab) 300 mg DAILY PO 06/05/17 09:00 07/05/17 08:59 06/10/17 09:19 300 MG Insulin Glargine (Lantus Solostar Pen) 15 units QAM SQ 06/05/17 09:00 07/05/17 08:59 06/10/17 09:16 15 UNITS Metoprolol Tartrate (Lopressor Tab) 12.5 mg BID PO 06/05/17 09:00 07/05/17 08:59 06/10/17 09:18 12.5 MG Multivitamins (Multivitamin Tab) 1 tab DAILY PO 06/05/17 09:00 07/05/17 08:59 06/10/17 09:13 1 TAB Oxycodone HCl (Roxicodone Immediate Rel Tab) 5 mg Q4H PRN PO 06/04/17 23:45 06/18/17 23:44 06/06/17 16:17 5 MG Pantoprazole Sodium (Protonix Tab) 40 mg DAILY PO 06/05/17 09:00 07/05/17 08:59 06/10/17 09:19 40 MG Tramadol HCl (Ultram Tab) Not relieved ... Q6H PRN PO 06/04/17 23:45 07/04/17 23:44 Ondansetron HCl (Zofran Inj) 4 mg Q6H PRN IV 06/04/17 23:45 07/04/17 23:44 06/06/17 04:48 4 MG Polyethylene (Miralax Powder Packet) 17 gm DAILY PO 06/06/17 09:00 07/06/17 08:59 06/10/17 09:14 17 GM Tramadol HCl (Ultram Tab) 50 mg BID PO 06/05/17 21:00 07/05/17 20:59 06/10/17 09:28 50 MG Warfarin Sodium (Coumadin Tab) 5 mg DAILY@1600 PO 06/05/17 16:00 07/05/17 15:59 Future Hold 06/07/17 15:52 5 MG Zinc Sulfate (Zinc Sulfate Cap) 220 mg DAILY PO 06/06/17 09:00 07/06/17 08:59 06/10/17 09:14 220 MG Imipenem/ Cilastatin Sodium 300 mg/Dextrose 106 ml @ 106 mls/hr Q6H IV 06/05/17 14:00 06/15/17 07:59 06/10/17 14:03 106 MLS/HR Enteral Nutritional Formula (Boost Glucose Control) 1 can BIDM PO 06/05/17 17:00 07/05/17 16:59 06/10/17 16:56 1 CAN Al Hydroxide/Mg Hydroxide (Maalox Susp) 30 ml Q6H PRN PO 06/06/17 08:00 07/06/17 07:59 06/06/17 08:29 30 ML Collagenase (Santyl Oint) 1 appln DAILY EXT 06/07/17 16:00 07/07/17 15:59 06/09/17 06:44 1 APPLN Heparin Sodium (Porcine) (Heparin 10 Unit/ ml 5 ml Flush) 5 ml PRN PRN FLUSH 06/09/17 07:45 07/09/17 07:44 06/10/17 15:59 5 ML Objective Vital Signs Date Time Temp Pulse Resp B/P (MAP) Pulse Ox O2 Delivery O2 Flow Rate FiO2 06/10/17 15:53 92 Room Air 06/10/17 14:53 37.3 90 18 119/74 (89) 92 Room Air 06/10/17 11:16 Room Air 06/10/17 07:19 36.5 85 18 113/68 (83) 92 Room Air 06/10/17 00:00 Room Air 06/09/17 23:06 37.1 92 18 109/66 (80) 92 Room Air Physical Exam General Appearance: WD/WN, no apparent distress Eyes: normal inspection, EOMI, sclerae normal ENT: normal ENT inspection, pharynx normal Neck: supple, no adenopathy, trachea midline Respiratory/Chest: chest non-tender, lungs clear, normal breath sounds, no respiratory distress Cardiovascular: regular rate, rhythm, no gallop, no murmur Abdomen: normal bowel sounds, non tender, soft, no organomegaly Extremities: non-tender, no calf tenderness Neurologic/Psychiatric: alert, oriented x 3 Skin: normal color, no rash, + pertinent finding ( Multiple wounds/eschars unchanged) Lymphatic: no adenopathy Laboratory Results Last 24 Hours Test 06/09/17 20:07 06/10/17 07:09 06/10/17 07:27 06/10/17 11:08 Bedside Glucose 123 mg/dl 116 mg/dl 214 mg/dl White Blood Count 12.41 K/uL Red Blood Count 2.86 M/uL Hemoglobin 8.5 g/dL Hematocrit 26.2 % Mean Corpuscular Volume 91.6 fL Mean Corpuscular Hemoglobin 29.7 pg Mean Corpuscular Hemoglobin Concent 32.4 g/dl Platelet Count 458 K/uL Mean Platelet Volume 8.1 fL Neutrophils (%) (Auto) 68.2 % Lymphocytes (%) (Auto) 19.3 % Monocytes (%) (Auto) 7.7 % Eosinophils (%) (Auto) 2.4 % Basophils (%) (Auto) 0.4 % Neutrophils # (Auto) 8.47 K/uL Lymphocytes # (Auto) 2.39 K/uL Monocytes # (Auto) 0.95 K/uL Eosinophils # (Auto) 0.30 K/uL Basophils # (Auto) 0.05 K/uL RDW Standard Deviation 45.1 fL RDW Coefficient of Variation 13.6 % Immature Granulocyte % (Auto) 2.0 % Immature Granulocyte # (Auto) 0.25 K/uL Rouleau 1+ Prothrombin Time 58.2 SECONDS Prothromb Time International Ratio 5.1 Sodium Level 133 mmol/L Potassium Level 4.0 mmol/L Chloride Level 97 mmol/L Carbon Dioxide Level 31 mmol/L Anion Gap 5.0 mmol/L Blood Urea Nitrogen 19 mg/dl Creatinine 1.00 mg/dl Est Creatinine Clear Calc Drug Dose 52.7 ml/min Estimated GFR () 63.8 Estimated GFR (Non- 55.1 BUN/Creatinine Ratio 18.5 Random Glucose 128 mg/dl Calcium Level 8.4 mg/dl Test 06/10/17 16:05 Bedside Glucose 200 mg/dl Assessment and Plan 77 yo female with skin/skin structure infection. with cultures positive for Pseudomonas aeruginosa. Patient has penicillin allergy, will continue her on imipenem for now. No oral option available. Length of IV Abx will be determined by clinical response. Will follow.
[2017-06-10] MEDS: ONDANSETRON INJ 2 MG/ML 2 ML VIAL IV PRN (23:38)
[2017-06-11 00:13] VITALS: BP 122/76; PULSE 90; TEMP 37; O2SAT 90
[2017-06-11] MEDS: IMIPENEM/CILASTATIN IV 300 MG in DEXTROSE 5% 100ML 100 ML IV SCH ×4 (02:30→21:41)
[2017-06-11 05:36] LABS: BASO % 0.4 %; BASO ABS # 0.05 K/uL (0-0.2); EOS % 2.9 %; HEMATOCRIT 24.9 % (37-47); IG% 1.8 %; LYMPH % 22.5 %; LYMPH ABS # 3.06 K/uL (1.2-3.4); MEAN CELL VOLUME 90.2 fL (80-100); MEAN CORPUSCULAR HEMOGLOBIN 29.7 pg (25-34); MEAN CORPUSCULAR HGB CONC 32.9 g/dl (32-36); MONO % 6.6 %; NEUT % 65.8 %; PLATELET COUNT 430 K/uL (130-400); RED BLOOD COUNT 2.76 M/uL (4.2-5.4); WHITE BLOOD COUNT 13.63 K/uL (4.8-10.8)
[2017-06-11 05:53] LABS: PROTHROMBIN TIME (PATIENT) 41.1 SECONDS (9.0-12.0)
[2017-06-11 05:57] LABS: INR 3.6 (0.9-1.1)
[2017-06-11 06:11] LABS: COMPLETE YES
[2017-06-11 06:12] LABS: BUN/CREATININE RATIO 17.7 (10-20); CALCIUM 7.9 mg/dl (8.5-10.1)
[2017-06-11] MEDS: INSULIN ASPART 100 UNITS/ML 3 ML PEN SC SCH ×4 (07:54→20:31)
[2017-06-11 07:57] VITALS: BP 110/69; PULSE 104; TEMP 36.9; O2SAT 91
[2017-06-11] MEDS: TRAMADOL HCL 50 MG TAB PO SCH ×2 (07:58→20:34)
[2017-06-11] MEDS: BOOST GLUCOSE CONTROL PO SCH ×2 (07:58→17:02)
[2017-06-11] MEDS: POLYETHYLENE (MIRALAX) 17 GM PACK PO SCH (07:59)
[2017-06-11] MEDS: ZINC SULFATE 220 MG CAP PO SCH (07:59)
[2017-06-11] MEDS: MULTIVITAMIN TAB PO SCH (07:59)
[2017-06-11] MEDS: INSULIN GLARGINE SOLOSTAR 100 UNITS/ML 3 ML PEN SQ SCH (08:10)
[2017-06-11] MEDS: METOPROLOL TARTRATE 25 MG TAB PO SCH ×2 (09:34→20:35)
[2017-06-11] MEDS: ALLOPURINOL 300 MG TAB PO SCH (09:34)
[2017-06-11] MEDS: PANTOprazole SOD 40 MG TAB PO SCH (09:34)
[2017-06-11] MEDS: COLLAGENASE OINT 30 GM TUBE EXT SCH (09:36)
[2017-06-11 15:12] VITALS: BP 108/67; PULSE 84; TEMP 36.7; O2SAT 92
[2017-06-11 16:00] VITALS: O2SAT 92
--- NOTE | 2017-06-11 19:21 | Progress Note ---
Internal Med Progress Note Date of Service: Jun 11, 2017. Provider Documentation: SUBJECTIVE: offers no complain , pleasant no fever or chills OBJECTIVE: Vital Signs-as noted below Exam: General-chronically ill appearing ,no sign of distress Eyes-sclera non icteric ENT-NAd Neck-no JVD Lungs-CTA ,no rales or wheeze Heart-regular S1/S2 Abdomen-soft, non tender Extremities-infected wound underneath the rt breast -base in dark brown / greenish , dressing present , multiple skin wounds in left and rt knee and behind left knee , lower leg Neuro-slow to process conversation , no focal deficit noted , has progressive weakness of bilateral lower ext due to her known diagnosis of CMT Lab data as noted below. ASSESSMENT & PLAN: This is a 77 year old obese female with a PMH insulin dependent DM2, diabetic nephropathy and CKD stage 3, 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 of lacunar infarct, Cegencb-lpucj-hakeg disease, HTN, HLD presented last month with a fall, rhabdo, DKA, sepsis, and infectious of the R breast, L LE INFECTED MULTIPLE WOUND WITH PSEUDOMONAS INFECTION significant wounds noted on bilateral lower extremities and R breast ID on board, currently on Imipenem Wound culture growing multiple organisms on culture, including Pseudomonas-no oral antibiotics available pt will need continued IV Abx with Imipenem > 2-4 weeks PICC lined placed wound care consulted - appreciate input pt getting bed side debridement by Dr Melendrez appreciate ortho input - no I&D indicated Insulin Dependent DM2 patient presented last month with DKA BSG better control now cont Lantus and sliding scale and monitor BSGs CKD stage 3 creatinine is around 1.6 probably her new baseline much improved from previous admission Hx. of PE s/p IVC filter placement Coumadin kept on hold for elevated INR ; Cfnkwkn-Wobhw-nyvcl appreciate neurology eval progressive disease , supportive care only Orthotics consulted will need to be fitted with Orthotics pt will need Ankle foot orthotics ; pt will not be able to to be OOB or participate in PT /OT without the orthotics due to bilateral foot drop , orthotics consulted for foot drop associated with CMT due to pt's significant ankle and foot edema and multiple foot and leg wound pt will be benefitted with specialized Orthopedics shoes and attachment of metal ankle foot orthoses to the shoes to allow deflexion and assist as ankle support D/w Nick Lewisr -pt needs special orthopedics shoes customized for pt's needs which may take 1-2 weeks to make DVT ppx INR elevated DNR DISPOSITION will need SNF vs placement family does not want pt to return to [facility] referral made to Corina duggan second referral made for [facility] - unable to accept the pt social service following for discharge planning Vital Signs: Date Time Temp Pulse Resp B/P (MAP) Pulse Ox O2 Delivery O2 Flow Rate FiO2 06/11/17 16:00 92 Room Air 06/11/17 15:12 36.7 84 18 108/67 (81) 92 Room Air 06/11/17 08:00 Room Air 06/11/17 07:57 36.9 104 18 110/69 (83) 91 Room Air 06/11/17 00:13 37.0 90 18 122/76 (91) 90 Room Air 06/11/17 00:00 Room Air Lab Results: Results Past 24 Hours Test 06/10/17 20:13 06/11/17 05:20 06/11/17 07:32 06/11/17 11:41 Range/Units Bedside Glucose 194 134 228 70-90 mg/dl White Blood Count 13.63 4.8-10.8 K/uL Red Blood Count 2.76 4.2-5.4 M/uL Hemoglobin 8.2 12.0-16.0 g/dL Hematocrit 24.9 37-47 % Mean Corpuscular Volume 90.2 80-100 fL Mean Corpuscular Hemoglobin 29.7 25-34 pg Mean Corpuscular Hemoglobin Concent 32.9 32-36 g/dl Platelet Count 430 130-400 K/uL Mean Platelet Volume 8.0 7.4-10.4 fL Neutrophils (%) (Auto) 65.8 % Lymphocytes (%) (Auto) 22.5 % Monocytes (%) (Auto) 6.6 % Eosinophils (%) (Auto) 2.9 % Basophils (%) (Auto) 0.4 % Neutrophils # (Auto) 8.98 1.4-6.5 K/uL Lymphocytes # (Auto) 3.06 1.2-3.4 K/uL Monocytes # (Auto) 0.90 0.11-0.59 K/uL Eosinophils # (Auto) 0.39 0-0.5 K/uL Basophils # (Auto) 0.05 0-0.2 K/uL RDW Standard Deviation 43.9 36.4-46.3 fL RDW Coefficient of Variation 13.4 11.5-14.5 % Immature Granulocyte % (Auto) 1.8 % Immature Granulocyte # (Auto) 0.25 0.00-0.02 K/uL Red Blood Cell Morphology Unremarkable Prothrombin Time 41.1 9.0-12.0 SECONDS Prothromb Time International Ratio 3.6 0.9-1.1 Sodium Level 135 136-145 mmol/L Potassium Level 4.0 3.5-5.1 mmol/L Chloride Level 98 98-107 mmol/L Carbon Dioxide Level 32 21-32 mmol/L Anion Gap 5.0 3-11 mmol/L Blood Urea Nitrogen 18 7-18 mg/dl Creatinine 1.00 0.60-1.20 mg/dl Est Creatinine Clear Calc Drug Dose 52.7 ml/min Estimated GFR () 63.8 Estimated GFR (Non- 55.1 BUN/Creatinine Ratio 17.7 10-20 Random Glucose 129 70-99 mg/dl Calcium Level 7.9 8.5-10.1 mg/dl Test 06/11/17 16:11 Range/Units Bedside Glucose 179 70-90 mg/dl
[2017-06-11 23:55] VITALS: BP 107/66; PULSE 93; TEMP 36.9; O2SAT 91
[2017-06-12] MEDS: IMIPENEM/CILASTATIN IV 300 MG in DEXTROSE 5% 100ML 100 ML IV SCH ×4 (02:04→19:49)
[2017-06-12 07:31] VITALS: BP 112/66; PULSE 89; TEMP 36.7; O2SAT 91
[2017-06-12] MEDS: BOOST GLUCOSE CONTROL PO SCH ×2 (07:51→17:48)
[2017-06-12] MEDS: ALLOPURINOL 300 MG TAB PO SCH (07:56)
[2017-06-12] MEDS: ZINC SULFATE 220 MG CAP PO SCH (07:56)
[2017-06-12] MEDS: PANTOprazole SOD 40 MG TAB PO SCH (07:57)
[2017-06-12] MEDS: METOPROLOL TARTRATE 25 MG TAB PO SCH ×2 (07:57→21:15)
[2017-06-12] MEDS: MULTIVITAMIN TAB PO SCH (07:57)
[2017-06-12] MEDS: POLYETHYLENE (MIRALAX) 17 GM PACK PO SCH (08:02)
[2017-06-12] MEDS: TRAMADOL HCL 50 MG TAB PO SCH ×2 (08:02→21:00)
[2017-06-12] MEDS: INSULIN ASPART 100 UNITS/ML 3 ML PEN SC SCH ×4 (08:09→21:00)
[2017-06-12] MEDS: INSULIN GLARGINE SOLOSTAR 100 UNITS/ML 3 ML PEN SQ SCH (08:10)
[2017-06-12] MEDS: COLLAGENASE OINT 30 GM TUBE EXT SCH (08:57)
[2017-06-12 14:53] VITALS: BP 119/75; PULSE 83; TEMP 37; O2SAT 91
[2017-06-12 16:00] VITALS: O2SAT 91
--- NOTE | 2017-06-12 18:28 | Progress Note ---
Internal Med Progress Note Date of Service: Jun 12, 2017. Provider Documentation: SUBJECTIVE: feels the same , offers no new complain OBJECTIVE: Vital Signs-as noted below Exam: General-chronically ill appearing ,no sign of distress Eyes-sclera non icteric ENT-NAd Neck-no JVD Lungs-CTA ,no rales or wheeze Heart-regular S1/S2 Abdomen-soft, non tender Extremities-infected wound underneath the rt breast -base in dark brown / greenish , dressing present , multiple skin wounds in left and rt knee and behind left knee , lower leg Neuro-slow to process conversation , no focal deficit noted , has progressive weakness of bilateral lower ext due to her known diagnosis of CMT Lab data as noted below. ASSESSMENT & PLAN: This is a 77 year old obese female with a PMH insulin dependent DM2, diabetic nephropathy and CKD stage 3, 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 of lacunar infarct, Pzbhttv-kdgfh-dclto disease, HTN, HLD presented last month with a fall, rhabdo, DKA, sepsis, and infectious of the R breast, L LE INFECTED MULTIPLE WOUND WITH PSEUDOMONAS INFECTION significant wounds noted on bilateral lower extremities and R breast ID on board, currently on Imipenem Wound culture growing multiple organisms on culture, including Pseudomonas-no oral antibiotics available pt will need continued IV Abx with Imipenem > 2-4 weeks PICC lined placed wound care consulted - appreciate input pt getting bed side debridement by Dr Melendrez appreciate ortho input - no I&D indicated Insulin Dependent DM2 patient presented last month with DKA BSG better control now cont Lantus and sliding scale and monitor BSGs CKD stage 3 creatinine is around 1.6 probably her new baseline much improved from previous admission Hx. of PE s/p IVC filter placement Coumadin kept on hold for elevated INR ; Ttlbyos-Bgrvl-nsczm appreciate neurology eval progressive disease , supportive care only Orthotics consulted will need to be fitted with Orthotics pt will need Ankle foot orthotics ; pt will not be able to to be OOB or participate in PT /OT without the orthotics due to bilateral foot drop , orthotics consulted for foot drop associated with CMT due to pt's significant ankle and foot edema and multiple foot and leg wound pt will be benefitted with specialized Orthopedics shoes and attachment of metal ankle foot orthoses to the shoes to allow deflexion and assist as ankle support D/w Nick Lukasz -pt needs special orthopedics shoes customized for pt's needs which may take 1-2 weeks to make DVT ppx INR elevated DNR DISPOSITION will need SNF vs placement family does not want pt to return to [facility] referral made to Corina [facility]gan second referral made for [facility] - unable to accept the pt social service following for discharge planning Vital Signs: Date Time Temp Pulse Resp B/P (MAP) Pulse Ox O2 Delivery O2 Flow Rate FiO2 06/13/17 07:20 37.1 89 16 121/75 (90) 94 Nasal Cannula 1.0 06/13/17 00:30 Nasal Cannula 2.0 06/12/17 22:45 37.4 91 18 115/71 (86) 91 Nasal Cannula 2.0 06/12/17 21:13 93 121/70 (87) 06/12/17 16:00 91 Room Air 06/12/17 14:53 37.0 83 18 119/75 (90) 91 Room Air Lab Results: Results Past 24 Hours Test 06/12/17 11:21 06/12/17 16:24 06/12/17 19:59 06/13/17 05:07 Range/Units Bedside Glucose 204 182 159 70-90 mg/dl Prothrombin Time 32.4 9.0-12.0 SECONDS Prothromb Time International Ratio 2.9 0.9-1.1 Creatinine 1.00 0.60-1.20 mg/dl Est Creatinine Clear Calc Drug Dose 52.7 ml/min Estimated GFR () 63.8 Estimated GFR (Non- 55.1 Test 06/13/17 07:29 Range/Units Bedside Glucose 154 70-90 mg/dl
[2017-06-12] MEDS ORDERED: POLYETHYLENE (MIRALAX) 17 GM PACK PO PRN (20:30)
[2017-06-12] MEDS ORDERED: POLYETHYLENE (MIRALAX) 17 GM PACK PO ONE (20:30)
[2017-06-12] MEDS ORDERED: BISACODYL 10 MG SUPP PR PRN (20:45)
[2017-06-12 21:13] VITALS: BP 121/70; PULSE 93
[2017-06-12 22:45] VITALS: BP 115/71; PULSE 91; TEMP 37.4; O2SAT 91
[2017-06-13] MEDS: IMIPENEM/CILASTATIN IV 300 MG in DEXTROSE 5% 100ML 100 ML IV SCH ×4 (01:42→20:00)
[2017-06-13 05:38] LABS: INR 2.9 (0.9-1.1); PROTHROMBIN TIME (PATIENT) 32.4 SECONDS (9.0-12.0)
[2017-06-13 07:20] VITALS: BP 121/75; PULSE 89; TEMP 37.1; O2SAT 94
[2017-06-13] MEDS: BOOST GLUCOSE CONTROL PO SCH ×2 (09:13→17:00)
[2017-06-13] MEDS: COLLAGENASE OINT 30 GM TUBE EXT SCH (09:14)
[2017-06-13] MEDS: ALLOPURINOL 300 MG TAB PO SCH (09:15)
[2017-06-13] MEDS: DOCUSATE SODIUM 100 MG CAP PO SCH ×2 (09:17→21:01)
[2017-06-13] MEDS: POLYETHYLENE (MIRALAX) 17 GM PACK PO SCH (09:17)
[2017-06-13] MEDS: SENNA 8.6 MG TAB PO SCH (09:18)
[2017-06-13] MEDS: PANTOprazole SOD 40 MG TAB PO SCH (09:18)
[2017-06-13] MEDS: MULTIVITAMIN TAB PO SCH (09:18)
[2017-06-13] MEDS: TRAMADOL HCL 50 MG TAB PO SCH ×2 (09:20→21:00)
[2017-06-13] MEDS: ZINC SULFATE 220 MG CAP PO SCH (09:20)
[2017-06-13] MEDS: METOPROLOL TARTRATE 25 MG TAB PO SCH ×2 (09:22→21:01)
[2017-06-13] MEDS: INSULIN ASPART 100 UNITS/ML 3 ML PEN SC SCH ×4 (09:27→21:03)
[2017-06-13] MEDS: INSULIN GLARGINE SOLOSTAR 100 UNITS/ML 3 ML PEN SQ SCH (09:28)
[2017-06-13] MEDS: ONDANSETRON INJ 2 MG/ML 2 ML VIAL IV PRN (09:44)
[2017-06-13 14:56] VITALS: BP 105/66; PULSE 86; TEMP 37.1; O2SAT 92
[2017-06-13 16:00] VITALS: O2SAT 92
--- NOTE | 2017-06-13 17:33 | Progress Note ---
Internal Med Progress Note Date of Service: Jun 13, 2017. Provider Documentation: SUBJECTIVE: pleasant with baseline dementia offers no complain no fever or chills OBJECTIVE: Vital Signs-as noted below Exam: General-chronically ill appearing ,no sign of distress Eyes-sclera non icteric ENT-NAd Neck-no JVD Lungs-CTA ,no rales or wheeze Heart-regular S1/S2 Abdomen-soft, non tender Extremities-infected wound underneath the rt breast -base in dark brown / greenish , dressing present , multiple skin wounds in left and rt knee and behind left knee , lower leg Neuro-slow to process conversation , no focal deficit noted , has progressive weakness of bilateral lower ext due to her known diagnosis of CMT Lab data as noted below. ASSESSMENT & PLAN: This is a 77 year old obese female with a PMH insulin dependent DM2, diabetic nephropathy and CKD stage 3, 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 of lacunar infarct, Uqovuvc-oxqst-mamju disease, HTN, HLD presented last month with a fall, rhabdo, DKA, sepsis, and infectious of the R breast, L LE INFECTED MULTIPLE WOUND WITH PSEUDOMONAS INFECTION significant wounds noted on bilateral lower extremities and R breast ID on board, currently on Imipenem Wound culture growing multiple organisms on culture, including Pseudomonas-no oral antibiotics available pt will need continued IV Abx with Imipenem > 2-4 weeks PICC lined placed wound care consulted - appreciate input pt getting bed side debridement by Dr Melendrez appreciate ortho input - no I&D indicated Insulin Dependent DM2 patient presented last month with DKA BSG better control now cont Lantus and sliding scale and monitor BSGs CKD stage 3 creatinine is around 1.6 probably her new baseline much improved from previous admission Hx. of PE s/p IVC filter placement Coumadin kept on hold for elevated INR ; Nmhzvee-Jntde-qgslu appreciate neurology eval progressive disease , supportive care only Orthotics consulted will need to be fitted with Orthotics pt will need Ankle foot orthotics ; pt will not be able to to be OOB or participate in PT /OT without the orthotics due to bilateral foot drop , orthotics consulted for foot drop associated with CMT due to pt's significant ankle and foot edema and multiple foot and leg wound pt will be benefitted with specialized Orthopedics shoes and attachment of metal ankle foot orthoses to the shoes to allow deflexion and assist as ankle support D/w Nick Lal -pt needs special orthopedics shoes customized for pt's needs which may take 1-2 weeks to make DVT ppx INR elevated DNR DISPOSITION will need SNF vs placement family does not want pt to return to [facility] referral made to [facility] duggan second referral made for [facility] - unable to accept the pt social service following for discharge planning Vital Signs: Date Time Temp Pulse Resp B/P (MAP) Pulse Ox O2 Delivery O2 Flow Rate FiO2 06/13/17 20:56 100 126/65 (85) 90 Nasal Cannula 1.0 06/13/17 16:00 92 Room Air 06/13/17 14:56 37.1 86 18 105/66 (79) 92 Nasal Cannula 1.0 06/13/17 08:00 Nasal Cannula 1.0 06/13/17 07:20 37.1 89 16 121/75 (90) 94 Nasal Cannula 1.0 06/13/17 00:30 Nasal Cannula 2.0 06/12/17 22:45 37.4 91 18 115/71 (86) 91 Nasal Cannula 2.0 06/12/17 21:13 93 121/70 (87) Lab Results: Results Past 24 Hours Test 06/13/17 05:07 06/13/17 07:29 06/13/17 11:15 06/13/17 16:32 Range/Units Prothrombin Time 32.4 9.0-12.0 SECONDS Prothromb Time International Ratio 2.9 0.9-1.1 Creatinine 1.00 0.60-1.20 mg/dl Est Creatinine Clear Calc Drug Dose 52.7 ml/min Estimated GFR () 63.8 Estimated GFR (Non- 55.1 Bedside Glucose 154 196 203 70-90 mg/dl Test 06/13/17 19:43 Range/Units Bedside Glucose 241 70-90 mg/dl
[2017-06-13 20:56] VITALS: BP 126/65; PULSE 100; O2SAT 90
[2017-06-13 22:36] VITALS: BP 124/73; PULSE 101; TEMP 37.6; O2SAT 91
[2017-06-14] MEDS: IMIPENEM/CILASTATIN IV 300 MG in DEXTROSE 5% 100ML 100 ML IV SCH ×4 (02:15→21:04)
[2017-06-14 05:23] LABS: INR 2.4 (0.9-1.1); PROTHROMBIN TIME (PATIENT) 26.9 SECONDS (9.0-12.0)
[2017-06-14 05:28] LABS: CREATININE 0.98 mg/dl (0.60-1.20)
[2017-06-14] MEDS: BOOST GLUCOSE CONTROL PO SCH ×2 (07:47→17:00)
[2017-06-14 07:55] VITALS: BP_SYST 117; BP_SYST 118; BP_DIAS 75; BP_DIAS 76; PULSE 87; TEMP 34.7; O2SAT 94
[2017-06-14] MEDS: ZINC SULFATE 220 MG CAP PO SCH (08:46)
[2017-06-14] MEDS: MULTIVITAMIN TAB PO SCH (08:46)
[2017-06-14] MEDS: SENNA 8.6 MG TAB PO SCH (08:46)
[2017-06-14] MEDS: DOCUSATE SODIUM 100 MG CAP PO SCH ×2 (08:47→21:05)
[2017-06-14] MEDS: ALLOPURINOL 300 MG TAB PO SCH (08:47)
[2017-06-14] MEDS: METOPROLOL TARTRATE 25 MG TAB PO SCH ×2 (08:47→21:05)
[2017-06-14] MEDS: PANTOprazole SOD 40 MG TAB PO SCH (08:47)
[2017-06-14] MEDS: POLYETHYLENE (MIRALAX) 17 GM PACK PO SCH (08:47)
[2017-06-14 09:03] VITALS: O2SAT 94
[2017-06-14] MEDS: INSULIN GLARGINE SOLOSTAR 100 UNITS/ML 3 ML PEN SQ SCH (09:22)
[2017-06-14] MEDS: INSULIN ASPART 100 UNITS/ML 3 ML PEN SC SCH ×4 (09:22→21:00)
[2017-06-14] MEDS: TRAMADOL HCL 50 MG TAB PO SCH ×2 (09:24→21:05)
[2017-06-14] MEDS: COLLAGENASE OINT 30 GM TUBE EXT SCH (13:05)
[2017-06-14 15:31] VITALS: BP 127/79; PULSE 91; TEMP 37.1; O2SAT 91
--- NOTE | 2017-06-14 22:48 | Progress Note ---
Internal Med Progress Note Date of Service: Jun 14, 2017. Provider Documentation: SUBJECTIVE: remains the same , no new complain pleasant , very forgetful no pain or discomfort afebrile daughter Rosio present at bedside -worried about placement for the pt as all possible facilities ( [facility] , [facility] ) unable to accept pt daughter asks for referral at [facility] and [facility] OBJECTIVE: Vital Signs-as noted below Exam: General-chronically ill appearing ,no sign of distress Eyes-sclera non icteric ENT-NAd Neck-no JVD Lungs-CTA ,no rales or wheeze Heart-regular S1/S2 Abdomen-soft, non tender Extremities-infected wound underneath the rt breast -base in dark brown / greenish , dressing present , multiple skin wounds in left and rt knee and behind left knee , lower leg Neuro-slow to process conversation , no focal deficit noted , has progressive weakness of bilateral lower ext due to her known diagnosis of CMT Lab data as noted below. ASSESSMENT & PLAN: This is a 77 year old obese female with a PMH insulin dependent DM2, diabetic nephropathy and CKD stage 3, 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 of lacunar infarct, Dccdbxb-lcqjc-amzdo disease, HTN, HLD presented last month with a fall, rhabdo, DKA, sepsis, and infectious of the R breast, L LE INFECTED MULTIPLE WOUND WITH PSEUDOMONAS INFECTION significant wounds noted on bilateral lower extremities and R breast ID on board, currently on Imipenem Wound culture growing multiple organisms on culture, including Pseudomonas-no oral antibiotics available pt will need continued IV Abx with Imipenem > 2-4 weeks PICC lined placed wound care consulted - appreciate input pt getting bed side debridement by Dr Melendrez appreciate ortho input - no I&D indicated Insulin Dependent DM2 patient presented last month with DKA BSG better control now cont Lantus and sliding scale and monitor BSGs CKD stage 3 creatinine is around 1.6 probably her new baseline much improved from previous admission Hx. of PE s/p IVC filter placement Coumadin kept on hold for elevated INR ; Birqjgd-Kxvdd-nwgji appreciate neurology eval progressive disease , supportive care only Orthotics consulted will need to be fitted with Orthotics pt will need Ankle foot orthotics ; pt will not be able to to be OOB or participate in PT /OT without the orthotics due to bilateral foot drop , orthotics consulted for foot drop associated with CMT due to pt's significant ankle and foot edema and multiple foot and leg wound pt will be benefitted with specialized Orthopedics shoes and attachment of metal ankle foot orthoses to the shoes to allow deflexion and assist as ankle support D/w Nick Lewisr -pt needs special orthopedics shoes customized for pt's needs which may take 1-2 weeks to make DVT ppx INR elevated DNR DISPOSITION will need SNF vs placement has multiple infected wounds-needs wound care prolong IV Abx continued PT/OT to improve functional status -at present bed bound no facility available to accept pt family willing to have pt return to [facility] - referral made social service following for discharge planning Vital Signs: Date Time Temp Pulse Resp B/P (MAP) Pulse Ox O2 Delivery O2 Flow Rate FiO2 06/15/17 16:00 Room Air 06/15/17 15:12 37.0 88 16 124/78 (93) 98 06/15/17 11:20 37.1 89 15 126/79 (95) 90 Room Air 06/15/17 08:32 36.9 86 18 113/70 (84) 91 1.0 06/15/17 08:12 90 Room Air 06/15/17 08:00 Room Air 06/15/17 07:43 37.0 90 15 122/76 (91) 90 Room Air 06/14/17 23:45 96 Nasal Cannula 1.0 06/14/17 23:40 37.0 94 16 125/70 (88) 90 Room Air Lab Results: Results Past 24 Hours Test 06/14/17 20:31 06/15/17 05:05 06/15/17 07:23 06/15/17 11:32 Range/Units Bedside Glucose 178 124 187 70-90 mg/dl Prothrombin Time 20.3 9.0-12.0 SECONDS Prothromb Time International Ratio 1.8 0.9-1.1 Creatinine 0.89 0.60-1.20 mg/dl Est Creatinine Clear Calc Drug Dose 59.3 ml/min Estimated GFR () 73.5 Estimated GFR (Non- 63.4 Test 06/15/17 16:42 Range/Units Bedside Glucose 210 70-90 mg/dl
[2017-06-14 23:40] VITALS: BP 125/70; PULSE 94; TEMP 37; O2SAT 90
[2017-06-14 23:45] VITALS: O2SAT 96
[2017-06-15] MEDS: IMIPENEM/CILASTATIN IV 300 MG in DEXTROSE 5% 100ML 100 ML IV SCH ×4 (02:37→20:24)
[2017-06-15 05:37] LABS: INR 1.8 (0.9-1.1); PROTHROMBIN TIME (PATIENT) 20.3 SECONDS (9.0-12.0)
[2017-06-15 05:54] LABS: CREATININE 0.89 mg/dl (0.60-1.20)
[2017-06-15 07:43] VITALS: BP 122/76; PULSE 90; TEMP 37; O2SAT 90
[2017-06-15 08:12] VITALS: O2SAT 90
[2017-06-15] MEDS: BOOST GLUCOSE CONTROL PO SCH ×2 (08:22→17:06)
[2017-06-15] MEDS: INSULIN ASPART 100 UNITS/ML 3 ML PEN SC SCH ×4 (08:30→21:08)
[2017-06-15 08:32] VITALS: BP 113/70; PULSE 86; TEMP 36.9; O2SAT 91
[2017-06-15] MEDS: INSULIN GLARGINE SOLOSTAR 100 UNITS/ML 3 ML PEN SQ SCH (08:38)
[2017-06-15] MEDS: POLYETHYLENE (MIRALAX) 17 GM PACK PO SCH (09:40)
[2017-06-15] MEDS: ZINC SULFATE 220 MG CAP PO SCH (09:40)
[2017-06-15] MEDS: DOCUSATE SODIUM 100 MG CAP PO SCH ×2 (09:41→20:26)
[2017-06-15] MEDS: METOPROLOL TARTRATE 25 MG TAB PO SCH ×2 (09:41→20:26)
[2017-06-15] MEDS: PANTOprazole SOD 40 MG TAB PO SCH (09:41)
[2017-06-15] MEDS: MULTIVITAMIN TAB PO SCH (09:41)
[2017-06-15] MEDS: SENNA 8.6 MG TAB PO SCH (09:41)
[2017-06-15] MEDS: ALLOPURINOL 300 MG TAB PO SCH (09:42)
[2017-06-15] MEDS: TRAMADOL HCL 50 MG TAB PO SCH ×2 (09:50→20:28)
[2017-06-15] MEDS: ONDANSETRON INJ 2 MG/ML 2 ML VIAL IV PRN (10:44)
[2017-06-15 11:20] VITALS: BP 126/79; PULSE 89; TEMP 37.1; O2SAT 90
[2017-06-15] MEDS: COLLAGENASE OINT 30 GM TUBE EXT SCH (12:43)
--- NOTE | 2017-06-15 14:51 | Infectious Disease Progress Nt ---
Progress Note Date of Service Jun 15, 2017. Subjective Pt evaluation today including: conversation w/ patient, physical exam, chart review, lab review, review of studies, conversation w/ platform consultant, review of inpatient medication list Patient offers no new complaints today. Remains afebrile. Continues to tolerate antibiotic without apparent difficulty. All Other Systems: Reviewed and Negative Medications Current Inpatient Medications Medications (Trade) Dose Ordered Sig/Solitario Route Start Time Stop Time Status Last Admin Dose Admin Imipenem/ Cilastatin Sodium (Consult) 1 ea UD PRN N/A 06/05/17 09:00 07/05/17 08:59 Acetaminophen (Tylenol Tab) 650 mg Q4H PRN PO 06/04/17 23:45 07/04/17 23:44 06/13/17 22:03 650 MG Insulin Aspart (novoLOG ASPART) SLIDING SCALE If C... ACHS SC 06/05/17 06:30 07/05/17 06:59 06/15/17 12:45 2 UNITS Glucose (Glucose 40% Gel) 15-30 GRAMS 15 GRAMS... UD PRN PO 06/04/17 23:45 07/04/17 23:44 Glucose (Glucose Chew Tab) 4-8 Tablets 4 Tabl... UD PRN PO 06/04/17 23:45 07/04/17 23:44 Dextrose (Dextrose 50% 50ML Syringe) 25-50ML OF 50% DW IV FOR... UD PRN IV 06/04/17 23:45 07/04/17 23:44 Glucagon (Glucagon Inj) 1 mg UD PRN SQ 06/04/17 23:45 07/04/17 23:44 Allopurinol (Zyloprim Tab) 300 mg DAILY PO 06/05/17 09:00 07/05/17 08:59 06/15/17 09:42 300 MG Insulin Glargine (Lantus Solostar Pen) 15 units QAM SQ 06/05/17 09:00 07/05/17 08:59 06/15/17 08:38 15 UNITS Metoprolol Tartrate (Lopressor Tab) 12.5 mg BID PO 06/05/17 09:00 07/05/17 08:59 06/15/17 09:41 12.5 MG Multivitamins (Multivitamin Tab) 1 tab DAILY PO 06/05/17 09:00 07/05/17 08:59 06/15/17 09:41 1 TAB Oxycodone HCl (Roxicodone Immediate Rel Tab) 5 mg Q4H PRN PO 06/04/17 23:45 06/18/17 23:44 06/06/17 16:17 5 MG Pantoprazole Sodium (Protonix Tab) 40 mg DAILY PO 06/05/17 09:00 07/05/17 08:59 06/15/17 09:41 40 MG Tramadol HCl (Ultram Tab) Not relieved ... Q6H PRN PO 06/04/17 23:45 07/04/17 23:44 Ondansetron HCl (Zofran Inj) 4 mg Q6H PRN IV 06/04/17 23:45 07/04/17 23:44 06/15/17 10:44 4 MG Polyethylene (Miralax Powder Packet) 17 gm DAILY PO 06/06/17 09:00 07/06/17 08:59 06/15/17 09:40 17 GM Tramadol HCl (Ultram Tab) 50 mg BID PO 06/05/17 21:00 07/05/17 20:59 06/15/17 09:50 50 MG Warfarin Sodium (Coumadin Tab) 5 mg DAILY@1600 PO 06/05/17 16:00 07/05/17 15:59 Future hold 06/07/17 15:52 5 MG Zinc Sulfate (Zinc Sulfate Cap) 220 mg DAILY PO 06/06/17 09:00 07/06/17 08:59 06/15/17 09:40 220 MG Imipenem/ Cilastatin Sodium 300 mg/Dextrose 106 ml @ 106 mls/hr Q6H IV 06/05/17 14:00 06/28/17 13:59 06/15/17 07:58 106 MLS/HR Enteral Nutritional Formula (Boost Glucose Control) 1 can BIDM PO 06/05/17 17:00 07/05/17 16:59 06/15/17 08:22 1 CAN Al Hydroxide/Mg Hydroxide (Maalox Susp) 30 ml Q6H PRN PO 06/06/17 08:00 07/06/17 07:59 06/06/17 08:29 30 ML Collagenase (Santyl Oint) 1 appln DAILY EXT 06/07/17 16:00 07/07/17 15:59 06/15/17 12:43 1 APPLN Heparin Sodium (Porcine) (Heparin 10 Unit/ ml 5 ml Flush) 5 ml PRN PRN FLUSH 06/09/17 07:45 07/09/17 07:44 06/15/17 09:40 5 ML Polyethylene (Miralax Powder Packet) 17 gm Q6H PRN PO 06/12/17 20:30 07/12/17 20:29 Bisacodyl (Dulcolax Supp) 10 mg DAILY PRN IN 06/12/17 20:45 07/12/17 20:44 06/13/17 18:08 10 MG Docusate Sodium (coLACE CAP) 100 mg BID PO 06/13/17 09:00 07/13/17 08:59 06/15/17 09:41 100 MG Senna (Senokot Tab) 17.2 mg QAM PO 06/13/17 09:00 07/13/17 08:59 06/15/17 09:41 17.2 MG Objective Vital Signs Date Time Temp Pulse Resp B/P (MAP) Pulse Ox O2 Delivery O2 Flow Rate FiO2 06/15/17 11:20 37.1 89 15 126/79 (95) 90 Room Air 06/15/17 08:32 36.9 86 18 113/70 (84) 91 1.0 06/15/17 08:12 90 Room Air 06/15/17 08:00 Room Air 06/15/17 07:43 37.0 90 15 122/76 (91) 90 Room Air 06/14/17 23:45 96 Nasal Cannula 1.0 06/14/17 23:40 37.0 94 16 125/70 (88) 90 Room Air 06/14/17 16:00 Room Air 06/14/17 15:31 37.1 91 17 127/79 (95) 91 Room Air Physical Exam General Appearance: WD/WN, no apparent distress Eyes: normal inspection (With), sclerae normal ENT: normal ENT inspection, pharynx normal Neck: supple, no adenopathy, trachea midline Respiratory/Chest: lungs clear, normal breath sounds, no respiratory distress Cardiovascular: regular rate, rhythm, no gallop, no murmur Abdomen: normal bowel sounds, non tender, soft, no organomegaly Extremities: non-tender, + pertinent finding (Leg ulcerations about the same) Neurologic/Psychiatric: alert, oriented x 3 Skin: normal color, no rash, + pertinent finding (Lesions under breast and on legs appear about the same) Lymphatic: no adenopathy Laboratory Results Last 24 Hours Test 06/14/17 16:32 06/14/17 20:31 06/15/17 05:05 06/15/17 07:23 Bedside Glucose 201 mg/dl 178 mg/dl 124 mg/dl Prothrombin Time 20.3 SECONDS Prothromb Time International Ratio 1.8 Creatinine 0.89 mg/dl Est Creatinine Clear Calc Drug Dose 59.3 ml/min Estimated GFR () 73.5 Estimated GFR (Non- 63.4 Test 06/15/17 11:32 Bedside Glucose 187 mg/dl Assessment and Plan 77 yo female with skin/skin structure infection. with cultures positive for Pseudomonas aeruginosa. Patient has penicillin allergy, will continue her on imipenem for now. No oral option available. Patient be continued on IV antibiotics pending resolution of placement issues. We will continue to follow.
--- NOTE | 2017-06-15 15:10 | Progress Note ---
Internal Med Progress Note Date of Service: Jun 15, 2017. Provider Documentation: SUBJECTIVE: Seen and examined at bedside Reports some pain at site of wounds in legs Offers no other complaints Comfortable lying in bed Family at bedside OBJECTIVE: Vital Signs-as noted below Physical Exam: General Appearance:chronically ill appearing Head: normocephalic, Atraumatic Eyes: normal inspection, EOMI, PERRL Neck: supple, Trachea midline Respiratory/Chest: Normal breath sounds, CTA Cardiovascular: S1, S2, No murmur Abdomen/GI:Soft, Non tender, Bowel sounds present Extremities/Musculoskelatal: infected wound underneath R breast, multiple wounds in left and rt knee and behind left knee , lower leg Neurologic/Psych:slow to process conversation , no focal deficit noted, 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 ASSESSMENT & PLAN: Patient is a 77 yr female with a PMH insulin dependent DM2, diabetic nephropathy and CKD stage 3, 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 of lacunar infarct, Evenuuy-jkhwy-nnqwf disease, HTN, HLD presented last month with a fall, rhabdo, DKA, sepsis, and infectious of the R breast, L LE INFECTED MULTIPLE WOUND WITH PSEUDOMONAS INFECTION Multiple wounds on bilateral lower extremities and R breast ID on board, currently on Imipenem Wound culture growing multiple organisms on culture, including Pseudomonas-no oral antibiotics available pt will need continued IV Abx with Imipenem > 2-4 weeks PICC lined placed continue wound care. Appreciate Dr Melendrez input Appreciate ortho input: no I&D indicated DM II patient presented last month with DKA monitor BSG continue Lantus and sliding scale CKD III creatinine: 0.89 monitor Hx. of PE s/p IVC filter placement Initially Coumadin kept on hold for elevated INR Continue coumadin Monitor INR Krbcifg-Pbofb-jqhin appreciate neurology eval progressive disease , supportive care only Orthotics consulted will need to be fitted with Orthotics pt will need Ankle foot orthotics ; pt will not be able to to be OOB or participate in PT /OT without the orthotics due to bilateral foot drop , orthotics consulted for foot drop associated with CMT due to pt's significant ankle and foot edema and multiple foot and leg wound pt will be benefitted with specialized Orthopedics shoes and attachment of metal ankle foot orthoses to the shoes to allow deflexion and assist as ankle support D/w Nick Holland -pt needs special orthopedics shoes customized for pt's needs which may take 1-2 weeks to make DVT px On coumadin Code Status: DNR DISPOSITION will need SNF vs placement family does not want pt to return to [facility] following for discharge planning Vital Signs: Date Time Temp Pulse Resp B/P (MAP) Pulse Ox O2 Delivery O2 Flow Rate FiO2 06/15/17 11:20 37.1 89 15 126/79 (95) 90 Room Air 06/15/17 08:32 36.9 86 18 113/70 (84) 91 1.0 06/15/17 08:12 90 Room Air 06/15/17 08:00 Room Air 06/15/17 07:43 37.0 90 15 122/76 (91) 90 Room Air 06/14/17 23:45 96 Nasal Cannula 1.0 06/14/17 23:40 37.0 94 16 125/70 (88) 90 Room Air 06/14/17 16:00 Room Air 06/14/17 15:31 37.1 91 17 127/79 (95) 91 Room Air Lab Results: Results Past 24 Hours Test 06/14/17 16:32 06/14/17 20:31 06/15/17 05:05 06/15/17 07:23 Range/Units Bedside Glucose 201 178 124 70-90 mg/dl Prothrombin Time 20.3 9.0-12.0 SECONDS Prothromb Time International Ratio 1.8 0.9-1.1 Creatinine 0.89 0.60-1.20 mg/dl Est Creatinine Clear Calc Drug Dose 59.3 ml/min Estimated GFR () 73.5 Estimated GFR (Non- 63.4 Test 06/15/17 11:32 Range/Units Bedside Glucose 187 70-90 mg/dl
[2017-06-15 15:12] VITALS: BP 124/78; PULSE 88; TEMP 37; O2SAT 98
[2017-06-15] MEDS: WARFARIN SOD 5 MG TAB PO SCH (15:44)
[2017-06-15 23:10] VITALS: BP 121/71; PULSE 94; TEMP 36.8; O2SAT 90
[2017-06-16] MEDS: OXYCODONE HCL IR 5 MG TAB (IMMEDIATE RELEASE) PO PRN (01:00)
[2017-06-16] MEDS: IMIPENEM/CILASTATIN IV 300 MG in DEXTROSE 5% 100ML 100 ML IV SCH ×3 (01:58→13:33)
[2017-06-16] MEDS: ONDANSETRON INJ 2 MG/ML 2 ML VIAL IV PRN (04:11)
[2017-06-16 06:00] LABS: INR 1.5 (0.9-1.1); PROTHROMBIN TIME (PATIENT) 16.2 SECONDS (9.0-12.0)
[2017-06-16] MEDS: INSULIN ASPART 100 UNITS/ML 3 ML PEN SC SCH ×2 (06:30→13:04)
[2017-06-16 07:35] VITALS: BP 127/70; PULSE 88; TEMP 36.6; O2SAT 90
[2017-06-16] MEDS: BOOST GLUCOSE CONTROL PO SCH (08:02)
[2017-06-16] MEDS: TRAMADOL HCL 50 MG TAB PO SCH (08:03)
[2017-06-16] MEDS: COLLAGENASE OINT 30 GM TUBE EXT SCH (08:03)
[2017-06-16] MEDS: SENNA 8.6 MG TAB PO SCH (08:13)
[2017-06-16] MEDS: METOPROLOL TARTRATE 25 MG TAB PO SCH (08:13)
[2017-06-16] MEDS: MULTIVITAMIN TAB PO SCH (08:13)
[2017-06-16] MEDS: DOCUSATE SODIUM 100 MG CAP PO SCH (08:14)
[2017-06-16] MEDS: PANTOprazole SOD 40 MG TAB PO SCH (08:14)
[2017-06-16] MEDS: POLYETHYLENE (MIRALAX) 17 GM PACK PO SCH (08:14)
[2017-06-16] MEDS: ZINC SULFATE 220 MG CAP PO SCH (08:14)
[2017-06-16] MEDS: ALLOPURINOL 300 MG TAB PO SCH (08:14)
[2017-06-16] MEDS: INSULIN GLARGINE SOLOSTAR 100 UNITS/ML 3 ML PEN SQ SCH (09:21)
--- NOTE | 2017-06-16 14:52 | Progress Note ---
Internal Med Progress Note Date of Service: Jun 16, 2017. Provider Documentation: SUBJECTIVE: Seen and examined at bedside Feels well today Offers no complaints Comfortable lying in bed Planned to be discharged to rehab today OBJECTIVE: Vital Signs-as noted below Physical Exam: General Appearance:chronically ill appearing Head: normocephalic, Atraumatic Eyes: normal inspection, EOMI, PERRL Neck: supple, Trachea midline Respiratory/Chest: Normal breath sounds, CTA Cardiovascular: S1, S2, No murmur Abdomen/GI:Soft, Non tender, Bowel sounds present Extremities/Musculoskelatal: infected wound underneath R breast, multiple wounds in left and rt knee and behind left knee , lower leg Neurologic/Psych:slow to process conversation , no focal deficit noted, 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 ASSESSMENT & PLAN: Patient is a 77 yr female with a PMH insulin dependent DM2, diabetic nephropathy and CKD stage 3, 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 of lacunar infarct, Ulwegca-mwdqa-nufjt disease, HTN, HLD presented last month with a fall, rhabdo, DKA, sepsis, and infectious of the R breast, L LE INFECTED MULTIPLE WOUND WITH PSEUDOMONAS INFECTION Multiple wounds on bilateral lower extremities and R breast ID on board, currently on Imipenem Wound culture growing multiple organisms on culture, including Pseudomonas-no oral antibiotics available Received IV Abx: Imipenem Will DC PICC line continue wound care. Appreciate Dr Melendrez input Appreciate ortho input: no I&D indicated Discussed with today (06/16/17): No more need for antibiotics. Follow up with wound clinic as outpatient DM II patient presented last month with DKA monitor BSG continue Lantus and sliding scale CKD III creatinine: 0.89 monitor Hx. of PE s/p IVC filter placement Initially Coumadin kept on hold for elevated INR Continue coumadin Monitor INR Kbapfce-Qtfhw-omhvu appreciate neurology eval progressive disease , supportive care only Orthotics consulted will need to be fitted with Orthotics pt will need Ankle foot orthotics ; pt will not be able to to be OOB or participate in PT /OT without the orthotics due to bilateral foot drop , orthotics consulted for foot drop associated with CMT due to pt's significant ankle and foot edema and multiple foot and leg wound pt will be benefitted with specialized Orthopedics shoes and attachment of metal ankle foot orthoses to the shoes to allow deflexion and assist as ankle support D/w Nick Lukasz -pt needs special orthopedics shoes customized for pt's needs which may take 1-2 weeks to make DVT px On coumadin Code Status: DNR DISPOSITION Plan to discharge to [facility] today Follow up with your Physician at Rehab facility Follow up with infectious disease in 2 weeks as advised Get PT/INR checked tomorrow (06/17/17). Follow up with your physician at rehab facility for further Coumadin dosage Seek immediate medical attention if your symptoms reoccur or worsen Vital Signs: Date Time Temp Pulse Resp B/P (MAP) Pulse Ox O2 Delivery O2 Flow Rate FiO2 06/16/17 08:00 Nasal Cannula 1.0 06/16/17 07:35 36.6 88 19 127/70 (89) 90 Nasal Cannula 2.0 06/15/17 23:30 Nasal Cannula 1.0 06/15/17 23:10 36.8 94 18 121/71 (88) 90 Nasal Cannula 1.0 06/15/17 16:00 Room Air 06/15/17 15:12 37.0 88 16 124/78 (93) 98 Lab Results: Results Past 24 Hours Test 06/15/17 16:42 06/15/17 20:50 06/16/17 05:02 06/16/17 07:28 Range/Units Bedside Glucose 210 191 177 70-90 mg/dl Prothrombin Time 16.2 9.0-12.0 SECONDS Prothromb Time International Ratio 1.5 0.9-1.1 Test 06/16/17 11:48 Range/Units Bedside Glucose 175 70-90 mg/dl
[2017-06-16] MEDS ORDERED: CLC100 PO (14:55)
[2017-06-16] MEDS ORDERED: TRAM-10 PO (14:55)
[2017-06-16] MEDS ORDERED: OXYC1TAB3 PO (14:55)
[2017-06-16] MEDS ORDERED: ACET-1256 PO (14:55)
--- NOTE | 2017-06-16 14:57 | Discharge Summary ---
Discharge Summary Date of Service Jun 16, 2017. Discharge Summary Admission Date: Jun 04, 2017 at 23:25 Discharge Date: Jun 16, 2017 Discharge Disposition: Rehab Principal Diagnosis: Infected Wound: pseudomonas Procedures: CT left le. Degenerative changes involving the knee. 2. Cutaneous and subcutaneous edema, consistent with a cellulitis 3. There are no bony destructive changes to indicate osteomyelitis 4. Fluid collection abutting the lateral aspect of the deep fascia in the measuring 90 x 11 x 105 mm. It is not possible to determine whether this is infected.. Consultations: Infectious disease, Neurology, Wound care, Orthopedics Pending Studies/Follow-Up: Follow up with your Physician at Rehab facility Follow up with infectious disease in 2 weeks as advised Get PT/INR checked tomorrow (06/17/17). Follow up with your physician at rehab facility for further Coumadin dosage Seek immediate medical attention if your symptoms reoccur or worsen Medication Reconciliation New Medications: Docusate Sodium (Docusate Sodium) 100 Mg Cap 100 MG PO BID for 7 Days, #14 CAP Changed Medications: Acetaminophen (Tylenol) 500 Mg Tab 1000 MG PO BID PRN for Pain or Fever for 1 Day, #4 TAB (Medication details modified) Continued Medications: Allopurinol (Zyloprim) 300 Mg Tab 300 MG PO DAILY, TAB Ascorbic Acid (Vitamin C) 500 Mg Tab 500 MG PO DAILY Calcium W/ Vitamin D (Calcium/Vitamin D) 1 Tab Tab 1 TAB PO DAILY Insulin Glargine (Lantus Solostar) 100 Unit/Ml Inj 5 UNITS SQ HS for 30 Days Insulin Glargine (Lantus Solostar) 100 Unit/Ml Inj 16 UNITS SQ QAM for 30 Days Melatonin (Melatonin Maximum Strengt) 5 Mg Tab 5 MG PO HS, TAB 1 Refill Metoprolol Tartrate (Lopressor) (Lopressor) 25 Mg Tab 12.5 MG PO BID, TAB Multivitamin (Multivitamin) Tab 1 TAB PO DAILY, TAB Oxycodone Ir (Roxicodone Ir) 5 Mg Tab 5 MG PO Q4H PRN for Severe Pain for 3 Days, #12 TAB (This prescription has been renewed) Pantoprazole (Protonix) 40 Mg Tab 40 MG PO DAILY, #30 TAB Tramadol (Ultram) 50 Mg Tab 50 MG PO BID for 3 Days, #6 TAB (This prescription has been renewed) Warfarin Sodium (Coumadin) 5 Mg Tab 5 MG PO DAILY, TAB Zinc Sulfate (Zinc Sulfate) 220 Mg Cap 220 MG PO DIRECTED, CAP Admission Information HPI (per Admitting provider): The patient is currently undergoing rehab at [facility] after a recent protracted hospital confinement. History was obtained from patient, daughter and records. Patient is a fair historian, poor insight into her medical issues. CHIEF COMPLAINT: "I don't know," as per px, Worsening infected wounds as per daughter. HISTORY OF PRESENT ILLNESS: Medical history is significant for pulmonary embolism sp IVC on anticoagulation , hypertension, hyperlipidemia, Fxdimyb-Hvmrq-Owpam disease, history of CVA, DM2 insulin requiring, chronic renal insufficiency (possible new baseline of 1.7). Chronic anemia ( baseline hemoglobin of 9) Recent confinement from May 09 to 2016 for ARF, rhabdomyolysis secondary to mechanical fall. Patient also came in with DKA. She was septic from cellulitis 2 to ulcerated wounds on the right breast and legs. Wound CS grew MSSA from R breast, Enterococcus faecalis from L leg. Urine CS grew Klebsiella. She was on Ceftaroline rx 2 discharge date as per ID recommendation. Kidney function steadily improving following discharge to [facility]. Last visit to [facility] was on 05/26/2017. As per note; re-evaluation of right chest wall, right knee, left lower extremity, left foot wounds done. Unstageable ulcers. Some eschars noted. All sites required debridement during visit. Daughter was frustrated with the appearance of the wound especially of the right breast and the back of the left leg in the last week. Increase black crusting on right chest wound. Foul smelling yellowish drainage was noted on the posterior L leg wound. As per daughter, she was told by [facility] staff that follow-up visit at [facility] was not possible. Wound care services to be done by facility wound care nurse. As per daughter, the patient occasionally complaining of left leg pain, unable to stand up. No fever, no chills. As per daughter, the patient would not know if her wounds were infected because of her poor eyesight. Patient was brought to the Emergency Room for evaluation as per daughter's request. Physical Exam (per Admitting): PHYSICAL EXAMINATION: VITAL SIGNS: Blood pressure was noted to be 119/68, pulse rate 92, RR 18, temperature 36.6 and sats 98 on room air. GENERAL: Pleasant, in no respiratory distress. Obese. SKIN: pallor, right inframammary ulcerated wound with black eschar. No drainage. Ulcerated wound on the right knee with exposure of subcutaneous tissue and granulation. Ulcerated wound on the left posterior leg popliteal area extending to the upper leg with foul smelling yellow drainage. Ulcerated wound of the left foot with some eschar. HEENT: Pale palpebral conjunctivae. Dry mucosa. NECK: Short neck. LUNGS: Decreased breath sounds. HEART: Regular rate and rhythm. ABDOMEN: Some distention. EXTREMITIES: Bilateral leg edema, no tenderness of exam NE coherent. Gait and stance not assessed Hospital Course Patient is a 77 yr female with a PMH insulin dependent DM2, diabetic nephropathy and CKD stage 3, 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 of lacunar infarct, Nganwhk-cwuwp-edgex disease, HTN, HLD presented last month with a fall, rhabdo, DKA, sepsis, and infectious of the R breast, L LE INFECTED MULTIPLE WOUND WITH PSEUDOMONAS INFECTION Multiple wounds on bilateral lower extremities and R breast ID on board, currently on Imipenem Wound culture growing multiple organisms on culture, including Pseudomonas-no oral antibiotics available Received IV Abx: Imipenem Will DC PICC line continue wound care. Appreciate Dr Melendrez input Appreciate ortho input: no I&D indicated Discussed with today (06/16/17): No more need for antibiotics. Follow up with wound clinic as outpatient DM II patient presented last month with DKA monitor BSG continue Lantus and sliding scale CKD III creatinine: 0.89 monitor Hx. of PE s/p IVC filter placement Initially Coumadin kept on hold for elevated INR Continue coumadin Monitor INR Inejtzg-Qhfrl-hdlbm appreciate neurology eval progressive disease , supportive care only Orthotics consulted will need to be fitted with Orthotics pt will need Ankle foot orthotics ; pt will not be able to to be OOB or participate in PT /OT without the orthotics due to bilateral foot drop , orthotics consulted for foot drop associated with CMT due to pt's significant ankle and foot edema and multiple foot and leg wound pt will be benefitted with specialized Orthopedics shoes and attachment of metal ankle foot orthoses to the shoes to allow deflexion and assist as ankle support D/w Nick Bryan -pt needs special orthopedics shoes customized for pt's needs which may take 1-2 weeks to make DVT px On coumadin Code Status: DNR DISPOSITION Plan to discharge to [facility] today Follow up with your Physician at Rehab facility Follow up with infectious disease in 2 weeks as advised Get PT/INR checked tomorrow (06/17/17). Follow up with your physician at rehab facility for further Coumadin dosage Seek immediate medical attention if your symptoms reoccur or worsen Total time spent on discharge =36 minutes This includes examination of the patient, discharge planning, medication reconciliation, and communication with other providers. Discharge Instructions Discharge Instructions Date of Service Jun 16, 2017. Admission Reason for Admission: Infected Wound Discharge Discharge Diagnosis / Problem: Infected Wound: pseudomonas Discharge Goals Goal(s): Decrease discomfort, Improve function Activity Recommendations Activity Limitations: resume your previous activity Exercise/Sports Limitations: as tolerated . Instructions / Follow-Up Instructions / Follow-Up Follow up with your Physician at Rehab facility Follow up with infectious disease in 2 weeks as advised Get PT/INR checked tomorrow (06/17/17). Follow up with your physician at rehab facility for further Coumadin dosage Seek immediate medical attention if your symptoms reoccur or worsen Current Hospital Diet Patient's current hospital diet: Diabetes Type 2 Diet Discharge Diet Recommended Diet: Diabetes Type 2 Diet Pending Studies Studies pending at discharge: no Laboratory Results Hemoglobin A1c Test 05/09/17 18:25 Range/Units Estimated Average Glucose 275 mg/dl Hemoglobin A1c 11.2 H 4.5-5.6 % Medical Emergencies . Who to Call and When: Medical Emergencies: If at any time you feel your situation is an emergency, please call 911 immediately. . Non-Emergent Contact Non-Emergency issues call your: Primary Care Provider, Specialist (Infectious disease) Call Non-Emergent contact if: you have a fever, your pain is not controlled, your pain is worsening, your pain is unusual for you, your pain is concerning you, you have any medication questions . . "Provider Documentation" section prepared by Malcolm Winston. . Manager Workers Compensation Recommendations Manager Workers Compensation Recommendations: WBAT B/L LE Patient will need b/l LE AFO prior to participating with any PT/OT Follow up in office PRN VTE Core Measure Inpt VTE Proph given/why not?: Warfarin (Coumadin)
--- NOTE | 2017-06-16 15:08 | Infectious Disease Progress Nt ---
Progress Note Date of Service Jun 16, 2017. Subjective Pt evaluation today including: conversation w/ patient, physical exam, chart review, lab review, review of studies, conversation w/ mgmt consultant, review of inpatient medication list Patient without new complaints today. Anticipating transfer to skilled facility in the near future. Remains afebrile. Has now had 12 days of antibiotic therapy. All Other Systems: Reviewed and Negative Medications Current Inpatient Medications Medications (Trade) Dose Ordered Sig/Solitario Route Start Time Stop Time Status Last Admin Dose Admin Imipenem/ Cilastatin Sodium (Consult) 1 ea UD PRN N/A 06/05/17 09:00 07/05/17 08:59 Acetaminophen (Tylenol Tab) 650 mg Q4H PRN PO 06/04/17 23:45 07/04/17 23:44 06/13/17 22:03 650 MG Insulin Aspart (novoLOG ASPART) SLIDING SCALE If C... ACHS SC 06/05/17 06:30 07/05/17 06:59 06/16/17 13:04 3 UNITS Glucose (Glucose 40% Gel) 15-30 GRAMS 15 GRAMS... UD PRN PO 06/04/17 23:45 07/04/17 23:44 Glucose (Glucose Chew Tab) 4-8 Tablets 4 Tabl... UD PRN PO 06/04/17 23:45 07/04/17 23:44 Dextrose (Dextrose 50% 50ML Syringe) 25-50ML OF 50% DW IV FOR... UD PRN IV 06/04/17 23:45 07/04/17 23:44 Glucagon (Glucagon Inj) 1 mg UD PRN SQ 06/04/17 23:45 07/04/17 23:44 Allopurinol (Zyloprim Tab) 300 mg DAILY PO 06/05/17 09:00 07/05/17 08:59 06/16/17 08:14 300 MG Insulin Glargine (Lantus Solostar Pen) 15 units QAM SQ 06/05/17 09:00 07/05/17 08:59 06/16/17 09:21 15 UNITS Metoprolol Tartrate (Lopressor Tab) 12.5 mg BID PO 06/05/17 09:00 07/05/17 08:59 06/16/17 08:13 12.5 MG Multivitamins (Multivitamin Tab) 1 tab DAILY PO 06/05/17 09:00 07/05/17 08:59 06/16/17 08:13 1 TAB Oxycodone HCl (Roxicodone Immediate Rel Tab) 5 mg Q4H PRN PO 06/04/17 23:45 06/18/17 23:44 06/16/17 01:00 5 MG Pantoprazole Sodium (Protonix Tab) 40 mg DAILY PO 06/05/17 09:00 07/05/17 08:59 06/16/17 08:14 40 MG Tramadol HCl (Ultram Tab) Not relieved ... Q6H PRN PO 06/04/17 23:45 07/04/17 23:44 Ondansetron HCl (Zofran Inj) 4 mg Q6H PRN IV 06/04/17 23:45 07/04/17 23:44 06/16/17 04:11 4 MG Polyethylene (Miralax Powder Packet) 17 gm DAILY PO 06/06/17 09:00 07/06/17 08:59 06/16/17 08:14 17 GM Tramadol HCl (Ultram Tab) 50 mg BID PO 06/05/17 21:00 07/05/17 20:59 06/16/17 08:03 50 MG Warfarin Sodium (Coumadin Tab) 5 mg DAILY@1600 PO 06/05/17 16:00 07/05/17 15:59 Future hold 06/15/17 15:44 5 MG Zinc Sulfate (Zinc Sulfate Cap) 220 mg DAILY PO 06/06/17 09:00 07/06/17 08:59 06/16/17 08:14 220 MG Imipenem/ Cilastatin Sodium 300 mg/Dextrose 106 ml @ 106 mls/hr Q6H IV 06/05/17 14:00 06/28/17 13:59 06/16/17 13:33 106 MLS/HR Enteral Nutritional Formula (Boost Glucose Control) 1 can BIDM PO 06/05/17 17:00 07/05/17 16:59 06/16/17 08:02 1 CAN Al Hydroxide/Mg Hydroxide (Maalox Susp) 30 ml Q6H PRN PO 06/06/17 08:00 07/06/17 07:59 06/06/17 08:29 30 ML Collagenase (Santyl Oint) 1 appln DAILY EXT 06/07/17 16:00 10/18/17 15:59 06/16/17 08:03 1 APPLN Heparin Sodium (Porcine) (Heparin 10 Unit/ ml 5 ml Flush) 5 ml PRN PRN FLUSH 06/09/17 07:45 07/09/17 07:44 06/16/17 05:03 5 ML Polyethylene (Miralax Powder Packet) 17 gm Q6H PRN PO 06/12/17 20:30 07/12/17 20:29 Bisacodyl (Dulcolax Supp) 10 mg DAILY PRN MO 06/12/17 20:45 07/12/17 20:44 06/13/17 18:08 10 MG Docusate Sodium (coLACE CAP) 100 mg BID PO 06/13/17 09:00 07/13/17 08:59 06/16/17 08:14 100 MG Senna (Senokot Tab) 17.2 mg QAM PO 06/13/17 09:00 07/13/17 08:59 06/16/17 08:13 17.2 MG Objective Vital Signs Date Time Temp Pulse Resp B/P (MAP) Pulse Ox O2 Delivery O2 Flow Rate FiO2 06/16/17 08:00 Nasal Cannula 1.0 06/16/17 07:35 36.6 88 19 127/70 (89) 90 Nasal Cannula 2.0 06/15/17 23:30 Nasal Cannula 1.0 06/15/17 23:10 36.8 94 18 121/71 (88) 90 Nasal Cannula 1.0 06/15/17 16:00 Room Air 06/15/17 15:12 37.0 88 16 124/78 (93) 98 Physical Exam General Appearance: WD/WN, no apparent distress Eyes: normal inspection, sclerae normal ENT: normal ENT inspection, pharynx normal Neck: supple, no adenopathy, trachea midline Respiratory/Chest: lungs clear, normal breath sounds, no respiratory distress Cardiovascular: regular rate, rhythm, no gallop, no murmur Abdomen: normal bowel sounds, non tender, soft, no organomegaly Extremities: non-tender, no calf tenderness Neurologic/Psychiatric: alert, oriented x 3 Skin: normal color, no rash, + pertinent finding (Wounds appear about the same) Lymphatic: no adenopathy Laboratory Results Last 24 Hours Test 9/26/17 16:42 06/15/17 20:50 06/16/17 05:02 06/16/17 07:28 Bedside Glucose 210 mg/dl 191 mg/dl 177 mg/dl Prothrombin Time 16.2 SECONDS Prothromb Time International Ratio 1.5 Test 06/16/17 11:48 Bedside Glucose 175 mg/dl Assessment and Plan 77 yo female with skin/skin structure infection. with cultures positive for Pseudomonas aeruginosa. Patient now has received 12 days of IV antibiotic therapy, think that she can be safely discontinued at this time. Given that isolate of Pseudomonas was quinolone resistant, no oral agent available. To follow at wound Care off antibiotics.
[2017-06-16 17:36] VITALS: BP 127/70; PULSE 88; TEMP 36.6; O2SAT 90
[2017-06-24] MEDS ORDERED: CFP2IV IV (14:05)
[2017-06-30] MEDS ORDERED: METR-163 PO (11:56)
--- NOTE | 2017-08-03 12:09 | EDITING REQUIRED CODING QUERY ---
CODING QUERY To promote full compliance with coding requirements relating to patient care, provider participation is requested in all cases of safety coordinator uncertainty. Please assist us with the question(s) below: Coding Question(s): Conflicting documentation in the chart reguarding ulcers/wounds: History and Physical states infected post traumatic wounds from a fall, progress notes document ulcers which code to non pressure ulcers, Dr. Melendrez documented Pressure ulcers and Dr. Garcia is documenting infected wounds. Please clarify below the diagnosis: Pressure ulcers Physician's Response(s): Thank you Teetee Bob Principal Diagnosis: "_that condition established after study, to be chiefly responsible for occasioning the admission of the patient to the hospital for care." Co-Existing Principal Diagnosis: "_when two or more diagnoses equally meet the criteria for principal diagnosis as determined by the circumstances of admission, diagnostic work up, and/or therapy provided, and the Alphabetic Index, Tabular List, or another coding guideline does not provide sequencing direction, any one of the diagnoses may be sequenced first." "When the physician has documented what appears to be a current diagnosis in the body of the record, but has not included the diagnosis in the final diagnostic statement, the physician should be asked whether the diagnosis should be added." (Source [facility] 2 QTR90. p3-4)
== END 2017-06-16 16:13 | DRG 581 ==
LOC: EDBD 19:31 → C.EDB 19:32 → C.MS2W 23:25 → ENRESERV 23:37 → C.MS2W 06-13 23:50
PROVIDERS: ADMIT Family Medicine; ATTEND Internal Medicine
PROC: 05H933Z Insertion of Infusion Device into Right Brachial Vein, Percutaneous Approach (ICD-10-PCS; principal; 2017-06-08)
PROC: 0JBR3ZZ Excision of Left Foot Subcutaneous Tissue and Fascia, Percutaneous Approach (ICD-10-PCS; 2017-06-10)
PROC: 0JB63ZZ Excision of Chest Subcutaneous Tissue and Fascia, Percutaneous Approach (ICD-10-PCS; 2017-06-10)
PROC: 0JBP3ZZ Excision of Left Lower Leg Subcutaneous Tissue and Fascia, Percutaneous Approach (ICD-10-PCS; 2017-06-10)
PROC: 0JBR3ZZ Excision of Left Foot Subcutaneous Tissue and Fascia, Percutaneous Approach (ICD-10-PCS; 2017-06-16)
PROC: 0JBP3ZZ Excision of Left Lower Leg Subcutaneous Tissue and Fascia, Percutaneous Approach (ICD-10-PCS; 2017-06-16)
PROC: 0JB63ZZ Excision of Chest Subcutaneous Tissue and Fascia, Percutaneous Approach (ICD-10-PCS; 2017-06-16)
DX: L89.890 Pressure ulcer of other site, unstageable (principal); I12.9 Hypertensive chronic kidney disease with stage 1 through stage 4 chronic kidney disease, or unspecified chronic kidney disease; E78.5 Hyperlipidemia, unspecified; G60.0 Hereditary motor and sensory neuropathy; B96.5 Pseudomonas (aeruginosa) (mallei) (pseudomallei) as the cause of diseases classified elsewhere; E66.9 Obesity, unspecified; N61.1 Abscess of the breast and nipple; D63.1 Anemia in chronic kidney disease; N18.3 Chronic kidney disease, stage 3 (moderate); E11.622 Type 2 diabetes mellitus with other skin ulcer; B95.5 Unspecified streptococcus as the cause of diseases classified elsewhere; Z86.711 Personal history of pulmonary embolism; M21.371 Foot drop, right foot; M21.372 Foot drop, left foot; Z86.718 Personal history of other venous thrombosis and embolism; E11.22 Type 2 diabetes mellitus with diabetic chronic kidney disease; Z83.3 Family history of diabetes mellitus; Z86.73 Personal history of transient ischemic attack (TIA), and cerebral infarction without residual deficits; Z79.01 Long term (current) use of anticoagulants; Z79.4 Long term (current) use of insulin; Z66 Do not resuscitate

== ENCOUNTER → 2017-06-04 | Outpatient (CLI) | payer OTHER ==
[2017-06-04 09:14] LABS: BLOOD UREA NITROGEN 27 mg/dl (7-18); BUN/CREATININE RATIO 15.8 (10-20); CALCIUM 8.8 mg/dl (8.5-10.1); CARBON DIOXIDE 29 mmol/L (21-32); CHLORIDE 101 mmol/L (98-107); GLUCOSE 92 mg/dl (70-99); POTASSIUM 4.2 mmol/L (3.5-5.1); SODIUM 136 mmol/L (136-145)
== END | disposition home or self-care (01) ==
LOC: C.LABCC 07:48
PROVIDERS: ATTEND Internal Medicine
DX: N17.9 Acute kidney failure, unspecified (principal)

== ENCOUNTER → 2017-06-17 | Outpatient (CLI) | payer OTHER ==
[~2017-06-17] MED LIST changes: +ACET-1256 PO; -ACET-1311 PO; +ASCA500 PO; +CFP2IV IV; +CLC100 PO; +MELATAB2 PO; +METR-163 PO; +MULT-506 PO; +OXYC1TAB3 PO; +TRAM-10 PO; +ZINC1CAP PO
[2017-06-17 08:44] LABS: HEMATOCRIT 27.3 % (37-47); MEAN CELL VOLUME 91.6 fL (80-100); MEAN CORPUSCULAR HEMOGLOBIN 28.9 pg (25-34); MEAN CORPUSCULAR HGB CONC 31.5 g/dl (32-36); MEAN PLATELET VOLUME 8.5 fL (7.4-10.4); PLATELET COUNT 426 K/uL (130-400); RED BLOOD COUNT 2.98 M/uL (4.2-5.4)
[2017-06-17 08:53] LABS: ALT/SGPT 18 U/L (12-78); BLOOD UREA NITROGEN 15 mg/dl (7-18); BUN/CREATININE RATIO 17.8 (10-20); CALCIUM 8.7 mg/dl (8.5-10.1); CARBON DIOXIDE 27 mmol/L (21-32); CHLORIDE 100 mmol/L (98-107); CREATININE 0.86 mg/dl (0.60-1.20); GLUCOSE 136 mg/dl (70-99); POTASSIUM 3.9 mmol/L (3.5-5.1); SODIUM 135 mmol/L (136-145)
[2017-06-17 08:55] LABS: ALB/GLOB RATIO 0.5 (0.9-2); ALKALINE PHOSPHATASE 80 U/L (45-117); AST/SGOT 17 U/L (15-37); INR 1.4 (0.9-1.1); PROTHROMBIN TIME (PATIENT) 15.4 SECONDS (9.0-12.0)
== END ==
LOC: C.LABCC 08:09
PROVIDERS: ATTEND Nurse Practitioner Family
DX: E13.622 Other specified diabetes mellitus with other skin ulcer (principal); I10 Essential (primary) hypertension; Z86.711 Personal history of pulmonary embolism

== ENCOUNTER → 2017-06-22 | Outpatient (CLI) | payer OTHER ==
[~2017-06-22] MED LIST changes: -METR-163 PO
[2017-06-22 10:09] LABS: HEMATOCRIT 25.2 % (37-47); MEAN CORPUSCULAR HEMOGLOBIN 29.2 pg (25-34); MEAN CORPUSCULAR HGB CONC 32.1 g/dl (32-36); PLATELET COUNT 506 K/uL (130-400); RED BLOOD COUNT 2.77 M/uL (4.2-5.4)
[2017-06-22 10:19] LABS: ALT/SGPT 15 U/L (12-78); AST/SGOT 14 U/L (15-37); BLOOD UREA NITROGEN 22 mg/dl (7-18); BUN/CREATININE RATIO 20.2 (10-20); CALCIUM 8.6 mg/dl (8.5-10.1); CARBON DIOXIDE 28 mmol/L (21-32); CHLORIDE 95 mmol/L (98-107); GLUCOSE 147 mg/dl (70-99); SODIUM 132 mmol/L (136-145)
[2017-06-22 10:22] LABS: ALB/GLOB RATIO 0.4 (0.9-2); ALKALINE PHOSPHATASE 95 U/L (45-117)
== END | disposition home or self-care (01) ==
LOC: C.LABUPUNI 09:49
PROVIDERS: ATTEND Nurse Practitioner Family
DX: I12.9 Hypertensive chronic kidney disease with stage 1 through stage 4 chronic kidney disease, or unspecified chronic kidney disease (principal); N18.3 Chronic kidney disease, stage 3 (moderate)

== ENCOUNTER → 2017-06-24 | Outpatient (CLI) | payer OTHER ==
[~2017-06-24] MED LIST changes: +METR-163 PO
[2017-06-24 09:48] LABS: BASO % 0.5 %; BASO ABS # 0.06 K/uL (0-0.2); EOS % 1.1 %; HEMATOCRIT 25.1 % (37-47); IG% 0.4 %; LYMPH % 15.1 %; MEAN CELL VOLUME 89.6 fL (80-100); MEAN CORPUSCULAR HEMOGLOBIN 28.6 pg (25-34); MEAN CORPUSCULAR HGB CONC 31.9 g/dl (32-36); MEAN PLATELET VOLUME 9.1 fL (7.4-10.4); MONO % 9.5 %; NEUT % 73.4 %; PLATELET COUNT 590 K/uL (130-400); WHITE BLOOD COUNT 11.94 K/uL (4.8-10.8)
[2017-06-24 10:13] LABS: BLOOD UREA NITROGEN 24 mg/dl (7-18); BUN/CREATININE RATIO 24.4 (10-20); CALCIUM 8.2 mg/dl (8.5-10.1); CARBON DIOXIDE 27 mmol/L (21-32); CHLORIDE 98 mmol/L (98-107); GLUCOSE 99 mg/dl (70-99); POTASSIUM 4.1 mmol/L (3.5-5.1); SODIUM 133 mmol/L (136-145)
[2017-06-24 10:41] LABS: COMPLETE YES
== END | disposition home or self-care (01) ==
LOC: C.LABUPNIT 09:05
PROVIDERS: ATTEND Nurse Practitioner Family
DX: L89.95 Pressure ulcer of unspecified site, unstageable (principal); N18.3 Chronic kidney disease, stage 3 (moderate)

== ENCOUNTER → 2017-06-28 | Outpatient (CLI) | payer OTHER ==
[2017-06-28 08:39] LABS: BASO % 1.3 %; BASO ABS # 0.14 K/uL (0-0.2); EOS % 3.7 %; HEMATOCRIT 24.2 % (37-47); IG% 0.8 %; LYMPH % 24.2 %; LYMPH ABS # 2.56 K/uL (1.2-3.4); MEAN CELL VOLUME 89.6 fL (80-100); MEAN CORPUSCULAR HEMOGLOBIN 29.3 pg (25-34); MEAN CORPUSCULAR HGB CONC 32.6 g/dl (32-36); MEAN PLATELET VOLUME 8.4 fL (7.4-10.4); MONO % 9.2 %; NEUT % 60.8 %; PLATELET COUNT 660 K/uL (130-400); WHITE BLOOD COUNT 10.59 K/uL (4.8-10.8)
[2017-06-28 09:32] LABS: COMPLETE YES; HYPOCHROMIA PRESENT
== END ==
LOC: C.LABUPNIT 08:02
PROVIDERS: ATTEND Nurse Practitioner Family
DX: N18.3 Chronic kidney disease, stage 3 (moderate) (principal)

== ENCOUNTER → 2017-06-29 | Outpatient (CLI) | payer OTHER ==
[2017-06-29 09:30] LABS: URINE APPEARANCE CLOUDY (CLEAR); URINE BILIRUBIN NEG (NEG); URINE COLOR YELLOW; URINE NITRITE NEG (NEG); URINE PH 5.5 (4.5-7.5); URINE SPECIFIC GRAVITY 1.014 (1.000-1.030); UROBILINOGEN NEG (NEG)
[2017-06-29 09:36] LABS: MANUAL MICROSCOPIC REQUIRED? NO; REVIEW REQ? YES
[2017-06-29 09:43] LABS: URINE PATH CASTS 0-3 GRANULAR CASTS /lpf (0)
== END ==
LOC: C.LABUPNIT 08:23
PROVIDERS: ATTEND Nurse Practitioner Family
DX: N39.0 Urinary tract infection, site not specified (principal)